=== PATIENT | female | born 1965 | race American Indian/Alaskan Native ===

== ENCOUNTER 2016-08-22 17:42 | Emergency (ER) | payer SELFPAY ==
[2016-08-22 19:06] LABS: Basophils % (Auto) 0.1 % (0.0-1.8); Eosinophils % (Auto) 0.2 % (0.0-4.3); Hematocrit 47.3 % (30.3-42.9); Hemoglobin 15.3 gm/dl (10.1-14.3); Mean Corpuscular HGB Conc 32 % (30-34); Mean Corpuscular Hemoglobin 27 pg (28-32); Mean Corpuscular Volume 85 fl (79-97); Platelet Count 187 K/mm3 (140-440); Red Blood Count 5.56 M/mm3 (3.65-5.03); Red Cell Distribution Width 13.6 % (13.2-15.2); White Blood Count 12.2 K/mm3 (4.5-11.0)
[2016-08-22 19:25] LABS: Anion Gap 17 mmol/L; BUN/Creatinine Ratio 11.11; Blood Urea Nitrogen 10 mg/dL (7-17); Calcium 9.1 mg/dL (8.4-10.2); Carbon Dioxide 27 mmol/L (22-30); Chloride 96.7 mmol/L (98-107); Glucose 110 mg/dL (65-100); Potassium 3.9 mmol/L (3.6-5.0); Sodium 137 mmol/L (137-145)
[2016-08-22] MEDS ORDERED: MOTRIN PO ONE (19:57)
[2016-08-22] MEDS ORDERED: NACL 0.9% 1000 ML 1,000 ML IV ONE (19:57)
[2016-08-22] MEDS ORDERED: DECADRON IV ONE (19:57)
[2016-08-22] MEDS ORDERED: PROVENTIL IH ONE ×2 (19:57→21:38)
[2016-08-22] MEDS ORDERED: DUONEB 0.5 MG-3 MG/3 ML SOLN IH ONE (19:57)
--- NOTE | 2016-08-22 20:13 | Emergency Department Report ---
- General Chief Complaint: Upper Respiratory Infection Stated Complaint: HARINDER/COUGH Time Seen by Provider: 08/22/16 19:43 Source: patient Mode of arrival: Ambulatory Limitations: No Limitations - History of Present Illness Initial Comments: Patient is a 50-year-old female with a history of asthma presenting to the ER with complaints of upper respiratory infection. She reports she's had a productive cough, fever, cough, and decreased apetite in the last week. Patient has tried [id number] ibuprofen and Tylenol and cold medicine with minor relief. Last dose was last night. Patient reports she is an asthmatic presenting any medications due to insurance and lack of primary care. Otherwise no NVD, chest pain, abdominal pain, travel, or sick contacts. Pt is a 1/3ppd smoker. MD Complaint: fever, cough, rhinorrhea -: Gradual, week(s) (1) Improves With: nothing Worsens With: nothing Associated Symptoms: fever, chills, cough, shortness of breath Treatments Prior to Arrival: Acetaminophen, Ibuprofen, "cold medicine" - Related Data Previous Rx's Medication Instructions Recorded Last Taken Type ALBUTEROL Inhaler [ProAir HFA 1 puff IH Q4HR PRN #1 inha 08/22/16 Unknown Rx Inhaler] ALBUTEROL NEB's [Proventil 0.083% 2.5 mg IH TID PRN #30 ml 08/22/16 Unknown Rx NEBS] Azithromycin [Zithromax Z-HERIBERTO] 250 mg PO QDAY #6 tablet 08/22/16 Unknown Rx Allergies Allergy/AdvReac Type Severity Reaction Status Date / Time bupropion HCl Allergy Hives Verified 07/22/15 11:26 [From Wellbutrin] diphenhydramine HCl Allergy Hives Verified 07/22/15 11:26 [From Benadryl] ED Review of Systems ROS: Stated complaint: HARINDER/COUGH Other details as noted in HPI Comment: All other systems reviewed and negative ED Past Medical Hx - Past Medical History Previous Medical History?: Yes Hx Asthma: Yes Hx COPD: Yes Additional medical history: SARCOIDOSIS - Surgical History Past Surgical History?: Yes Additional Surgical History: LUNG BIOPSY. HYSTERECTOMY. TUBAL LIGATION - Social History Smoking Status: Current Some Day Smoker Substance Use Type: Alcohol - Medications Home Medications: Home Medications Medication Instructions Recorded Confirmed Last Taken Type ALBUTEROL Inhaler [ProAir HFA 1 puff IH Q4HR PRN #1 inha 08/22/16 Unknown Rx Inhaler] ALBUTEROL NEB's [Proventil 0.083% 2.5 mg IH TID PRN #30 ml 08/22/16 Unknown Rx NEBS] Azithromycin [Zithromax Z-HERIBERTO] 250 mg PO QDAY #6 tablet 08/22/16 Unknown Rx ED Physical Exam - General Limitations: No Limitations - Head Head exam: Present: atraumatic, normocephalic - Eye Eye exam: Present: normal appearance - ENT ENT exam: Present: mucous membranes moist - Neck Neck exam: Present: normal inspection. Absent: tenderness, meningismus, lymphadenopathy - Respiratory Respiratory exam: Absent: respiratory distress, wheezes, rhonchi (Decreased air entry) - Cardiovascular Cardiovascular Exam: Present: normal rhythm, tachycardia, normal heart sounds. Absent: systolic murmur, diastolic murmur, rubs, gallop - GI/Abdominal GI/Abdominal exam: Present: soft, normal bowel sounds. Absent: distended, tenderness, guarding - Psychiatric Psychiatric exam: Present: normal affect, normal mood - Skin Skin exam: Present: warm, dry, intact ED Course Vital Signs 08/22/16 08/22/16 08/22/16 18:19 20:28 20:46 Temperature 100.7 F H Pulse Rate 127 H Pulse Rate [ 117 H Posterior Bilateral Throughout] Respiratory 20 20 Rate Respiratory 28 H Rate [Posterior Bilateral Throughout] Blood Pressure 135/90 Blood Pressure [Left] O2 Sat by Pulse 86 Oximetry 08/22/16 08/22/16 08/22/16 20:47 20:59 21:04 Temperature 99.7 F H Pulse Rate 120 H Pulse Rate [ 112 H Posterior Bilateral Throughout] Respiratory 20 22 Rate Respiratory 19 Rate [Posterior Bilateral Throughout] Blood Pressure Blood Pressure 117/83 [Left] O2 Sat by Pulse 95 Oximetry 08/22/16 22:26 Temperature Pulse Rate Pulse Rate [ 110 H Posterior Bilateral Throughout] Respiratory Rate Respiratory 28 H Rate [Posterior Bilateral Throughout] Blood Pressure Blood Pressure [Left] O2 Sat by Pulse Oximetry - Reevaluation(s) Reevaluation #1: 08/22/16 21:38 Patient reevaluated at 2138 patient reports some improvement however patient still wheezing a heart rate of 125. Oxygenation on 2 L at 90%. Patient reports she has no issues with breathing at baseline and does not use supplemental oxygen. Ordered albuterol 5 mg nebulizer. Reevaluation #2: 08/22/16 22:54 Patient reevaluated at 2254 patient finished her second albuterol nebulizer with significant improvement. Patient's repeat pulse ox is 92% on room air. Patient reports this is better than her baseline which is usually 86% with the history of sarcoidosis. She feels couple being discharged home and will follow- up with the clinic. ED Medical Decision Making - Lab Data Result diagrams: 08/22/16 18:54 08/22/16 18:54 - EKG Data -: EKG Interpreted by Me EKG shows normal: sinus rhythm, axis (normal), intervals (normal), ST-T waves ( No ST/T changes , no STEMI) Rate: tachycardia - Radiology Data Radiology results: image reviewed Chronic changes due to sarcoidosis Critical care attestation.: If time is entered above; I have spent that time in minutes in the direct care of this critically ill patient, excluding procedure time. ED Disposition Clinical Impression: Upper respiratory infection, Shortness of breath Disposition: DISCHARGED TO HOME OR SELFCARE Is pt being admited?: No Does the pt Need Aspirin: No Condition: Stable Instructions: Upper Respiratory Infection (ED), Dyspnea (ED) Additional Instructions: PLEASE FOLLOW UP WITH [facility] ADDRESS: [address] [place] [address] ROAD PHONE: [phone] Prescriptions: ALBUTEROL Inhaler [ProAir HFA Inhaler] 1 puff IH Q4HR PRN #1 inha PRN Reason: Wheezing ALBUTEROL NEB's [Proventil 0.083% NEBS] 2.5 mg IH TID PRN #30 ml PRN Reason: Wheezing Azithromycin [Zithromax Z-HERIBERTO] 250 mg PO QDAY #6 tablet Referrals: PRIMARY CARE,MD [Primary Care Provider] - 3-5 Days
[2016-08-22 23:18] VITALS: BP 120/70
--- NOTE | 2016-08-23 08:29 | XRay Report ---
CHEST XRAY, 2 VIEWS: History: Shortness of breath. Findings: There is mild diffuse interstitial coarsening. The lungs are hyperexpanded but clear. No infiltrate, pleural fluid or pneumothorax is detected. The cardiac silhouette and pulmonary vasculature are within normal limits for technique. The bony thorax is unremarkable. IMPRESSION: Changes consistent with COPD. No acute cardiopulmonary process.
== END 2016-08-22 23:12 | disposition home or self-care (01) ==
LOC: ED 17:42
DX: J06.9 Acute upper respiratory infection, unspecified (principal); J45.909 Unspecified asthma, uncomplicated; J44.9 Chronic obstructive pulmonary disease, unspecified; F17.200 Nicotine dependence, unspecified, uncomplicated
CPT/HCPCS: 36415; 71020; 80048; 84484; 85025; 93005; 93010; 94640; 96361; 96374; 99284; J1100; J7030

== ENCOUNTER 2017-07-26 11:36 | Emergency (ER) | payer SELFPAY ==
[2017-07-26 11:42] VITALS: BP 166/111
[2017-07-26] MEDS ORDERED: TORADOL IM ONE (12:11)
[2017-07-26] MEDS ORDERED: TORADOL ONE (12:12)
--- NOTE | 2017-07-26 12:33 | Emergency Department Report ---
ED Back Pain/Injury HPI - General Chief Complaint: Back Pain/Injury Stated Complaint: BACK PAIN Time Seen by Provider: 07/26/17 12:08 Source: patient Limitations: No Limitations - History of Present Illness Initial Comments: This is a 51-year-old female nontoxic, well nourished in appearance, no acute signs of distress presents to the ED with c/o of acute on chronic low back pain. Patient stated she has been diagnosed with herniated disc in 1999. Patient denies any new trauma. Patient stated pain radiates to bilateral lower extremity. Patient denies any numbness, tingling, fever, chills, nausea, vomiting, chest pain, shortness of breath, flank pain, abdominal pain. Patient denies any dysuria, polyuria, or hematuria. Patient denies any bladder or bowel instability. Patient denies any past medical history besides asthma and COPD. Patient states allergies to Wellbutrin and Benadryl. MD Complaint: back pain -: week(s) (1) Similar Symptoms Previously: Yes Place: home Radiation: left leg, right leg Severity: mild Severity scale (0 -10): 8 Quality: aching Consistency: intermittent Improves With: immobilization, supine, sitting upright Worsens With: movement, walking Associated Symptoms: denies other symptoms. denies: confusion, weakness, chest pain, numbness, difficulty walking, cough, difficulty urinating, diaphoresis, incontinence, fever/chills, constipation, headaches, abdominal pain, loss of appetite, malaise, nausea/vomiting, rash, seizure, shortness of breath, syncope - Related Data Previous Rx's Medication Instructions Recorded Last Taken Type ALBUTEROL Inhaler [ProAir HFA 1 puff IH Q4HR PRN #1 inha 08/22/16 Unknown Rx Inhaler] ALBUTEROL NEB's [Proventil 0.083% 2.5 mg IH TID PRN #30 ml 08/22/16 Unknown Rx NEBS] Azithromycin [Zithromax Z-HERIBERTO] 250 mg PO QDAY #6 tablet 08/22/16 Unknown Rx Cyclobenzaprine [Flexeril] 10 mg PO QHS PRN #7 tablet 07/26/17 Unknown Rx Ibuprofen [Motrin] 600 mg PO Q8H PRN #30 tablet 07/26/17 Unknown Rx Prednisone [predniSONE 10 mg 10 mg PO .TAPER #1 tab.ds.pk 07/26/17 Unknown Rx (6-Day Pack, 21 Tabs)] Allergies Allergy/AdvReac Type Severity Reaction Status Date / Time bupropion HCl Allergy Hives Verified 07/22/15 11:26 [From Wellbutrin] diphenhydramine HCl Allergy Hives Verified 07/22/15 11:26 [From Benadryl] ED Review of Systems ROS: Stated complaint: BACK PAIN Other details as noted in HPI Constitutional: denies: chills, fever Eyes: denies: eye pain, eye discharge, vision change ENT: denies: ear pain, throat pain Respiratory: denies: cough, shortness of breath, wheezing Cardiovascular: denies: chest pain, palpitations Endocrine: no symptoms reported Gastrointestinal: denies: abdominal pain, nausea, diarrhea Genitourinary: denies: urgency, dysuria, discharge Musculoskeletal: back pain. denies: joint swelling, arthralgia Skin: denies: rash, lesions Neurological: denies: headache, weakness, paresthesias Psychiatric: denies: anxiety, depression Hematological/Lymphatic: denies: easy bleeding, easy bruising ED Past Medical Hx - Past Medical History Hx Asthma: Yes Hx COPD: Yes Additional medical history: SARCOIDOSIS - Surgical History Additional Surgical History: LUNG BIOPSY,chronic back pain r/t herniated disc. HYSTERECTOMY. TUBAL LIGATION - Social History Smoking Status: Current Every Day Smoker Substance Use Type: Alcohol - Medications Home Medications: Home Medications Medication Instructions Recorded Confirmed Last Taken Type ALBUTEROL Inhaler [ProAir HFA 1 puff IH Q4HR PRN #1 inha 08/22/16 Unknown Rx Inhaler] ALBUTEROL NEB's [Proventil 0.083% 2.5 mg IH TID PRN #30 ml 08/22/16 Unknown Rx NEBS] Azithromycin [Zithromax Z-HERIBERTO] 250 mg PO QDAY #6 tablet 08/22/16 Unknown Rx Cyclobenzaprine [Flexeril] 10 mg PO QHS PRN #7 tablet 07/26/17 Unknown Rx Ibuprofen [Motrin] 600 mg PO Q8H PRN #30 tablet 07/26/17 Unknown Rx Prednisone [predniSONE 10 mg 10 mg PO .TAPER #1 tab.ds.pk 07/26/17 Unknown Rx (6-Day Pack, 21 Tabs)] ED Physical Exam - General Limitations: No Limitations General appearance: alert, in no apparent distress - Head Head exam: Present: atraumatic, normocephalic - Eye Eye exam: Present: normal appearance, PERRL, EOMI Pupils: Present: normal accommodation - ENT ENT exam: Present: normal exam, normal orophraynx, mucous membranes moist, TM's normal bilaterally, normal external ear exam - Neck Neck exam: Present: normal inspection, full ROM. Absent: tenderness, meningismus, lymphadenopathy, thyromegaly - Respiratory Respiratory exam: Present: normal lung sounds bilaterally. Absent: respiratory distress, wheezes, rales, rhonchi, stridor, chest wall tenderness, accessory muscle use, decreased breath sounds, prolonged expiratory - Cardiovascular Cardiovascular Exam: Present: regular rate, normal rhythm, normal heart sounds. Absent: irregular rhythm, systolic murmur, diastolic murmur, rubs, gallop - GI/Abdominal GI/Abdominal exam: Present: soft, normal bowel sounds. Absent: distended, tenderness, guarding, rebound, rigid, diminished bowel sounds - Rectal Rectal exam: Present: deferred - Extremities Exam Extremities exam: Present: normal inspection, full ROM, normal capillary refill. Absent: tenderness, pedal edema, joint swelling, calf tenderness - Back Exam Back exam: Present: normal inspection, full ROM, paraspinal tenderness (lumbar region). Absent: tenderness, CVA tenderness (R), CVA tenderness (L), muscle spasm, vertebral tenderness, rash noted - Expanded Back Exam Expanded Back exam: Absent: saddle anesthesia Back exam: Negative Straight Leg Raising: Left, Right - Neurological Exam Neurological exam: Present: alert, oriented X3, CN II-XII intact, normal gait, reflexes normal - Psychiatric Psychiatric exam: Present: normal affect, normal mood - Skin Skin exam: Present: warm, dry, intact, normal color. Absent: rash ED Course Vital Signs 07/26/17 11:40 Temperature 97.7 F Pulse Rate 100 H Respiratory 18 Rate Blood Pressure 166/111 O2 Sat by Pulse 95 Oximetry - Reevaluation(s) Reevaluation #1: 07/26/17 12:35 Patient is speaking in full sentences with no signs of distress noted. ED Medical Decision Making - Medical Decision Making This is a 54-year-old female that presents with acute on chronic low back pain. Patient is stable and was examined me. There is no saddle anesthesia. No spinal tenderness. Patient received Toradol 60 mg IM in the ED which patient states symptoms are improving and subsided. I'll treat patient with Flexeril, prednisone dosepak and Motrin. Patient was instructed to Follow-up with a primary care doctor in 3-5 days or if symptoms worsen and continue return to emergency room as soon as possible. At time of discharge, the patient does not seem toxic or ill in appearance. No acute signs of distress noted. Patient agrees to discharge treatment plan of care. No further questions noted by the patient. Critical care attestation.: If time is entered above; I have spent that time in minutes in the direct care of this critically ill patient, excluding procedure time. ED Disposition Clinical Impression: Chronic low back pain Qualifiers: Back pain laterality: bilateral Sciatica presence: with sciatica Sciatica laterality: bilateral sciatica Qualified Code(s): M54.42 - Lumbago with sciatica , left side; M54.41 - Lumbago with sciatica, right side; G89.29 - Other chronic pain Disposition: TO HOME OR SELFCARE Is pt being admited?: No Does the pt Need Aspirin: No Condition: Stable Instructions: Chronic Back Pain (ED), Cyclobenzaprine (By mouth), Ibuprofen ( By mouth), Prednisone (By mouth) Additional Instructions: Follow-up with your primary care doctor in 3-5 days or if symptoms worsen such as bladder or bowel stability, chest pain, short of breath, numbness or tingling sensation in extremities, headache, dizziness, visual changes, nausea vomiting, or abdominal pain, return back to emergency room as was possible. Take ibuprofen and Flexeril as prescribed. Do not operate heavy machinery while taking Flexeril due to sedation Prescriptions: Cyclobenzaprine [Flexeril] 10 mg PO QHS PRN #7 tablet PRN Reason: Muscle Spasm Ibuprofen [Motrin] 600 mg PO Q8H PRN #30 tablet PRN Reason: Pain Prednisone [predniSONE 10 mg (6-Day Pack, 21 Tabs)] 10 mg PO .TAPER #1 tab.ds.pk Referrals: PRIMARY CARE, [Primary Care Provider] - 3-5 Days MARKELL ORTIZ MD [Staff Physician] - 3-5 Days [facility] [Outside] - 3-5 Days [facility] [Outside] - 3-5 Days Forms: Work/School Release Form(ED)
== END 2017-07-26 12:45 | disposition home or self-care (01) ==
LOC: ED 11:36
DX: M54.5 Low back pain (principal); G89.29 Other chronic pain; F17.200 Nicotine dependence, unspecified, uncomplicated; J44.9 Chronic obstructive pulmonary disease, unspecified; Z90.710 Acquired absence of both cervix and uterus; Z98.51 Tubal ligation status; Z88.8 Allergy status to other drugs, medicaments and biological substances
CPT/HCPCS: 96372; 99282; J1885

== ENCOUNTER 2017-09-19 10:46 | Emergency (ER) | payer SELFPAY ==
[2017-09-19] MEDS ORDERED: DELTASONE PO ONE (11:19)
[2017-09-19] MEDS ORDERED: ATROVENT IH ONE (11:19)
[2017-09-19] MEDS ORDERED: PROVENTIL IH ONE ×2 (11:19→12:47)
[2017-09-19 12:05] LABS: BUN/Creatinine Ratio 12; Blood Urea Nitrogen 7 mg/dL (7-17); Calcium 8.9 mg/dL (8.4-10.2); Hemolysis Index 8
[2017-09-19 12:07] LABS: Basophils % (Auto) 0.4 % (0.0-1.8); Eosinophils # (Auto) 0.1 K/mm3 (0.0-0.4); Eosinophils % (Auto) 2.6 % (0.0-4.3); Hematocrit 48.9 % (30.3-42.9); Hemoglobin 16.3 gm/dl (10.1-14.3); Lymphocytes # (Auto) 1.5 K/mm3 (1.2-5.4); Lymphocytes % (Auto) 32.2 % (13.4-35.0); Mean Corpuscular HGB Conc 33 % (30-34); Mean Corpuscular Hemoglobin 29 pg (28-32); Mean Corpuscular Volume 88 fl (79-97); Monocytes # (Auto) 0.5 K/mm3 (0.0-0.8); Monocytes % (Auto) 11.9 % (0.0-7.3); Platelet Count 173 K/mm3 (140-440); Red Blood Count 5.56 M/mm3 (3.65-5.03); Red Cell Distribution Width 14.7 % (13.2-15.2)
[2017-09-19] MEDS ORDERED: ATROVENT IH STA (12:47)
[2017-09-19] MEDS ORDERED: MAGNESIUM SULFATE 2GM/50ML 2 GM/50 ML BAG IV ONE (12:47)
[2017-09-19] MEDS ORDERED: NACL 0.9% 500 ML 500 ML IV ONE (12:48)
--- NOTE | 2017-09-19 12:49 | Emergency Department Report ---
ED Shortness of Breath HPI - General Chief Complaint: Dyspnea/Respdistress Stated Complaint: HARINDER Time Seen by Provider: 09/19/17 12:38 Source: patient, RN notes reviewed Mode of arrival: Ambulatory Limitations: No Limitations - History of Present Illness Initial Comments: This is a 51-year-old female who is previously unknown to this provider. She does not have a primary care doctor. She reports a past medical history of asthma and of sarcoid. She is not on home oxygen, she is not on chronic steroids, and she does not have a pulmonology specialist. She presents to the ER with cough, wheezing, shortness of breath. It has been going on for months, but it got worse over the past few days. It is no posterior leg pain or leg swelling. There is no chest pain. There are no DVT or pulmonary embolus risk factors. The patient reports that she does consume tobacco. There is no headache, neck pain, abdominal pain, leg pain, or urinary symptoms. MD Complaint: shortness of breath, cough -: Gradual Consistency: constant Improves With: oxygen, rest, bronchodilators, upright position, medication Worsens With: lying flat, exertion Known History Of: COPD, other (sarcoid) Treatments Prior to Arrival: bronchodilator - Related Data Home Oxygen Therapy: No Home Medications Medication Instructions Recorded Confirmed Last Taken Ibuprofen [Motrin] 800 mg PO QPM PRN 09/19/17 09/19/17 Unknown Previous Rx's Medication Instructions Recorded Last Taken Type ALBUTEROL Inhaler [ProAir HFA 1 puff IH Q4HR PRN #1 inha 08/22/16 Unknown Rx Inhaler] Albuterol Sulfate [Proair 90 mcg IH Q4HR PRN #2 aer.pow.ba 09/19/17 Unknown Rx Respiclick] Benzonatate [Tessalon Perles] 100 mg PO Q8HR PRN #30 capsule 09/19/17 Unknown Rx Fluticasone [Flonase] 1 spray NS QDAY #1 bottle 09/19/17 Unknown Rx Ipratropium [place] [Atrovent Hfa] 12.9 gm IH Q4HR #2 hfa.aer.ad 09/19/17 Unknown Rx predniSONE [Deltasone] 40 mg PO QDAY #8 tab 09/19/17 Unknown Rx Allergies Allergy/AdvReac Type Severity Reaction Status Date / Time bupropion HCl Allergy Hives Verified 07/22/15 11:26 [From Wellbutrin] diphenhydramine HCl Allergy Hives Verified 07/22/15 11:26 [From Benadryl] ED Review of Systems ROS: Stated complaint: HARINDER Other details as noted in HPI Constitutional: denies: fever Eyes: denies: vision change ENT: denies: epistaxis Respiratory: cough, shortness of breath, wheezing Cardiovascular: dyspnea on exertion Gastrointestinal: denies: vomiting Genitourinary: denies: dysuria Musculoskeletal: denies: back pain Skin: denies: lesions Neurological: denies: weakness ED Past Medical Hx - Past Medical History Previous Medical History?: Yes Hx Asthma: Yes Hx COPD: Yes Additional medical history: SARCOIDOSIS - Surgical History Past Surgical History?: Yes Additional Surgical History: LUNG BIOPSY,chronic back pain r/t herniated disc. HYSTERECTOMY. TUBAL LIGATION - Social History Smoking Status: Current Every Day Smoker Substance Use Type: Alcohol - Medications Home Medications: Home Medications Medication Instructions Recorded Confirmed Last Taken Type ALBUTEROL Inhaler [ProAir HFA 1 puff IH Q4HR PRN #1 inha 08/22/16 09/19/17 Unknown Rx Inhaler] Albuterol Sulfate [Proair 90 mcg IH Q4HR PRN #2 aer.pow.ba 09/19/17 Unknown Rx Respiclick] Benzonatate [Tessalon Perles] 100 mg PO Q8HR PRN #30 capsule 09/19/17 Unknown Rx Fluticasone [Flonase] 1 spray NS QDAY #1 bottle 09/19/17 Unknown Rx Ibuprofen [Motrin] 800 mg PO QPM PRN 09/19/17 09/19/17 Unknown History Ipratropium [place] [Atrovent Hfa] 12.9 gm IH Q4HR #2 hfa.aer.ad 09/19/17 Unknown Rx predniSONE [Deltasone] 40 mg PO QDAY #8 tab 09/19/17 Unknown Rx ED Physical Exam - General Limitations: No Limitations General appearance: alert, in no apparent distress - Head Head exam: Present: atraumatic, normocephalic - Eye Eye exam: Present: normal appearance, EOMI. Absent: nystagmus - ENT ENT exam: Present: normal exam, normal orophraynx, mucous membranes moist, normal external ear exam - Neck Neck exam: Present: normal inspection, full ROM - Respiratory Respiratory exam: Present: respiratory distress, wheezes, rhonchi - Cardiovascular Cardiovascular Exam: Present: regular rate, normal rhythm, normal heart sounds. Absent: bradycardia, tachycardia, irregular rhythm, systolic murmur, diastolic murmur, rubs, gallop - GI/Abdominal GI/Abdominal exam: Present: soft, normal bowel sounds. Absent: distended, tenderness, guarding, rebound, rigid, pulsatile mass - Extremities Exam Extremities exam: Present: normal inspection, full ROM, normal capillary refill. Absent: tenderness, pedal edema, joint swelling, calf tenderness - Back Exam Back exam: Present: normal inspection, full ROM. Absent: tenderness, CVA tenderness (R), paraspinal tenderness, vertebral tenderness - Neurological Exam Neurological exam: Present: alert, oriented X3, CN II-XII intact, normal gait, other (Extraocular movements intact. Tongue midline. No facial droop. Facial sensation intact to light touch in the V1, V2, V3 distribution bilaterally. 5 and 5 strength in 4 extremities.. Sensation is intact to light touch in 4 extremities.). Absent: motor sensory deficit - Psychiatric Psychiatric exam: Present: normal affect, normal mood - Skin Skin exam: Present: warm, dry, intact, normal color. Absent: rash ED Course Vital Signs 09/19/17 10:59 Temperature 98.4 F Pulse Rate 94 H Respiratory 24 Rate Blood Pressure 175/120 O2 Sat by Pulse 94 Oximetry ED Medical Decision Making - Lab Data Result diagrams: 09/19/17 11:30 09/19/17 11:30 Vital Signs 09/19/17 10:59 Temperature 98.4 F Pulse Rate 94 H Respiratory 24 Rate Blood Pressure 175/120 O2 Sat by Pulse 94 Oximetry Lab Results 09/19/17 09/19/17 Range/Units 11:30 11:30 WBC 4.6 (4.5-11.0) K/mm3 RBC 5.56 H (3.65-5.03) M/mm3 Hgb 16.3 H (10.1-14.3) gm/dl Hct 48.9 H (30.3-42.9) % MCV 88 (79-97) fl MCH 29 (28-32) pg MCHC 33 (30-34) % RDW 14.7 (13.2-15.2) % Plt Count 173 (140-440) K/mm3 Lymph % (Auto) 32.2 (13.4-35.0) % [place] % (Auto) 11.9 H (0.0-7.3) % Eos % (Auto) 2.6 (0.0-4.3) % Baso % (Auto) 0.4 (0.0-1.8) % Lymph # 1.5 (1.2-5.4) K/mm3 [place] # 0.5 (0.0-0.8) K/mm3 Eos # 0.1 (0.0-0.4) K/mm3 Baso # 0.0 (0.0-0.1) K/mm3 Seg Neutrophils % 52.9 (40.0-70.0) % Seg Neutrophils # 2.4 (1.8-7.7) K/mm3 Sodium 139 (137-145) mmol/L Potassium 4.4 (3.6-5.0) mmol/L Chloride 101.2 (98-107) mmol/L Carbon Dioxide 26 (22-30) mmol/L Anion Gap 16 mmol/L BUN 7 (7-17) mg/dL Creatinine 0.6 L (0.7-1.2) mg/dL Estimated GFR > 60 ml/min BUN/Creatinine Ratio 12 % Glucose 106 H (65-100) mg/dL Calcium 8.9 (8.4-10.2) mg/dL - EKG Data -: EKG Interpreted by Ri EKG shows normal: sinus rhythm - EKG Data When compared to previous EKG there are: no significant change 09/19/17 14:52 Sinus, 88 bpm, normal axis, QTC prolonged, poor R-wave progression motion artifact, not consistent with a STEMI - Radiology Data Radiology results: report reviewed, image reviewed X-ray of the chest, interpreted by radiology and myself: No acute disease, emphysema, right lung infiltrate has resolved since 2017 - Medical Decision Making Differential diagnosis, including but not limited to: COPD, pneumonia, sarcoid, multifactorial reactive airway disease Assessment and plan: 51-year-old female with multiple pulmonary diseases, not currently on home oxygen, with no pulmonary embolus or DVT risk factors who is low risk by well's criteria. Patient treated aggressively with albuterol, Atrovent multiple times, steroids, magnesium. She is not on supplemental oxygen at home, and is still hypoxic on room air. Declines arterial blood gas. I recommended hospital admission for acute on chronic respiratory failure and further treatment. The patient declines. The patient is going to sign out AGAINST MEDICAL ADVICE. The patient is alert and oriented 3, she is free from distracting injury and exhibits decision-making capacity. The risks of leaving prior to medical optimization were discussed with patient, including , disability, paralysis , loss of quality of life. Patient able to articulate these risks in her own words, and his conversation is witnessed by nurse NANCY KLINE The patient was instructed that she can return to the ER right away if and when she changes her mind. Critical care attestation.: If time is entered above; I have spent that time in minutes in the direct care of this critically ill patient, excluding procedure time. ED Disposition Clinical Impression: COPD exacerbation Disposition: DC-07 LEFT AGAINST MED ADVICE Is pt being admited?: No Does the pt Need Aspirin: No Condition: Undetermined Instructions: Chronic Obstructive Pulmonary Disease (ED) Additional Instructions: As we discussed, you have left the hospital/emergency room AGAINST MEDICAL ADVICE. By leaving, you risked , disability, paralysis, permanent loss of quality of life. The ER is open 24 hours a day, 7 days a week. It never closes. Please return to the emergency room right away if and when you change your mind. If you decide not to return to the emergency room, please follow-up with the listed physician referrals as soon as possible. Referrals: GERMÁN BRUNER MD [Staff Physician] - 3-5 Days СВЕТЛАНА SILVERIO MD [Staff Physician] - 3-5 Days MAMIE HARRELL MD [Staff Physician] - 3-5 Days
--- NOTE | 2017-09-19 13:07 | XRay Report ---
ROUTINE CHEST, TWO VIEWS: HISTORY: Shortness of breath. Underlying emphysematous changes are identified. Infiltrate at the right lung base has resolved since 08/22/16. The lungs are generally clear. No pleural effusion or pneumothorax. Heart and mediastinal structures are within normal limits. IMPRESSION: Emphysema. Right lung infiltrate has resolved since 08/22/16.
[2017-09-19 15:22] VITALS: BP 148/107
== END 2017-09-19 15:23 | disposition left against medical advice (07) ==
LOC: ED 10:46
DX: J44.1 Chronic obstructive pulmonary disease with (acute) exacerbation (principal); M54.9 Dorsalgia, unspecified; G89.29 Other chronic pain; F17.200 Nicotine dependence, unspecified, uncomplicated; Z90.710 Acquired absence of both cervix and uterus; Z98.51 Tubal ligation status; Z88.8 Allergy status to other drugs, medicaments and biological substances
CPT/HCPCS: 36415; 71046; 80048; 85025; 93005; 93010; 96374; 99284; J3475; J7040; J7512

== ENCOUNTER 2019-01-19 12:06 | Emergency (ER) | payer SELFPAY ==
[2019-01-19] MEDS ORDERED: DELTASONE PO ONE (12:21)
[2019-01-19] MEDS ORDERED: PROVENTIL IH ONE (12:21)
--- NOTE | 2019-01-19 12:22 | Event Note ---
ED Screening Note Date of service: 01/19/19 Time: 12:20 ED Screening Note: 53 y/o female comes in for SOB times 1 week has ran out of her inhaler and nebulizer. No fevers or chills. This initial assessment/diagnostic orders/clinical plan/treatment(s) is/are subject to change based on patients health status, clinical progression and re- assessment by fellow clinical providers in the ED. Further treatment and workup at subsequent clinical providers discretion. Patient/guardian urged not to elope from the ED as their condition may be serious if not clinically assessed and managed. Initial orders include: Albuterol neb prednisone 40mg
[2019-01-19] MEDS ORDERED: ATROVENT IH ONE (12:30)
--- NOTE | 2019-01-19 12:52 | Emergency Department Report ---
HPI - General Chief Complaint: Dyspnea/Respdistress Time Seen by Provider: 01/19/19 12:19 - HPI HPI: 53-year-old -Iranian female presents to the emergency department with a complaint of a one-week history of some shortness of breath, wheezing and dry cough. She has a history of COPD and says that she ran out of her inhaler a few days ago and her nebulizer treatments a week or so ago. 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 She has a tobacco smoker but denies any illicit drug use. She is not oxygen dependent at home. No recent travel or sick contacts at home. She denies any chest pain, back pain, lower extremity swelling, fever. She has not taken anything for her symptoms prior to presentation today. ED Past Medical Hx - Past Medical History Previous Medical History?: Yes Hx Asthma: Yes Hx COPD: Yes Additional medical history: SARCOIDOSIS - Surgical History Past Surgical History?: Yes Additional Surgical History: LUNG BIOPSY,chronic back pain r/t herniated disc. HYSTERECTOMY. TUBAL LIGATION - Social History Smoking Status: Current Every Day Smoker Substance Use Type: Alcohol - Medications Home Medications: Home Medications Medication Instructions Recorded Confirmed Last Taken Type Albuterol Sulfate [Proair 90 mcg IH Q4HR PRN #2 aer.pow.ba 09/19/17 Unknown Rx Respiclick] Benzonatate [Tessalon Perles] 100 mg PO Q8HR PRN #30 capsule 09/19/17 Unknown Rx Fluticasone [Flonase] 1 spray NS QDAY #1 bottle 09/19/17 Unknown Rx Ibuprofen [Motrin] 800 mg PO QPM PRN 09/19/17 09/19/17 Unknown History Ipratropium [place] [Atrovent Hfa] 12.9 gm IH Q4HR #2 hfa.aer.ad 09/19/17 Unknown Rx ALBUTEROL Inhaler (OR & NICU) 1 puff IH Q4HR PRN #1 inha 01/19/19 Unknown Rx [ProAir HFA Inhaler] ALBUTEROL NEB's [Proventil 0.083% 2.5 mg IH QID PRN #1 box 01/19/19 Unknown Rx NEBS] predniSONE [Deltasone] 40 mg PO QDAY #8 tab 01/19/19 Unknown Rx ED Review of Systems ROS: Stated complaint: HARINDER Other details as noted in HPI Comment: All other systems reviewed and negative Constitutional: denies: chills, fever Eyes: denies: eye pain, vision change ENT: denies: ear pain, throat pain Respiratory: cough, shortness of breath, wheezing Cardiovascular: denies: chest pain, edema Gastrointestinal: denies: abdominal pain, vomiting Genitourinary: denies: dysuria, discharge Musculoskeletal: denies: back pain, arthralgia Skin: denies: rash, lesions Neurological: denies: headache, weakness Physical Exam - Physical Exam Vital Signs: Vital Signs 01/19/19 01/19/19 12:16 12:36 Temperature 98.8 F Pulse Rate 93 H Pulse Rate [ 94 H Bilateral Upper Lobe] Respiratory 20 Rate Respiratory 20 Rate [Bilateral Upper Lobe] Blood Pressure 168/113 [Right] O2 Sat by Pulse 93 Oximetry Physical Exam: GENERAL: The patient is well-developed well-nourished. HENT: Normocephalic. Atraumatic. Patient has moist mucous membranes. EYES: Extraocular motions are intact. NECK: Supple. Trachea is midline. CHEST/LUNGS: Mild to moderate wheezing throughout the chest. No tachypnea or accessory muscle use. Dry cough heard during examination. There is no respiratory distress noted. HEART/CARDIOVASCULAR: Regular. There is no tachycardia. There is no murmur. ABDOMEN: Abdomen is soft, nontender. Patient has normal bowel sounds. There is no abdominal distention. SKIN: Skin is warm and dry. NEURO: The patient is awake, alert, and oriented. The patient is cooperative. The patient has no focal neurologic deficits. Normal speech. MUSCULOSKELETAL: There is no tenderness or deformity. There is no evidence of acute injury. ED Course Vital Signs 01/19/19 01/19/19 12:16 12:36 Temperature 98.8 F Pulse Rate 93 H Pulse Rate [ 94 H Bilateral Upper Lobe] Respiratory 20 Rate Respiratory 20 Rate [Bilateral Upper Lobe] Blood Pressure 168/113 [Right] O2 Sat by Pulse 93 Oximetry ED Medical Decision Making - Lab Data Result diagrams: 01/19/19 12:34 01/19/19 12:34 - Radiology Data Radiology results: image reviewed interpreted by me: Chest x-ray does not show any acute process. There are no pleural effusions, obvious pneumonia and there is no pneumothorax. - Medical Decision Making Patient presents with a one-week history of some shortness of breath, wheezing and dry cough. She has a history of COPD and is still a tobacco smoker. She also has run out of her inhaler and nebulizer medications. Vital signs were stable throughout her ED course including being afebrile. Chest x-ray did not show any pleural effusions, pneumonia, pneumothorax, focal consolidation, or any other acute process. Patient was given a dose of steroids, as well as a nebulizer treatment with albuterol and Atrovent. Upon reevaluation she is feeling greatly improved. Her wheezing/bronchospasm has also improved. Labs have been unremarkable including CBC and metabolic panel. She has no complaints of any chest pain, back pain or lower extremity swelling. All this appears consistent with a COPD exacerbation that is most likely secondary to her medication noncompliance and continued tobacco abuse. However the patient does appear improved and safe for discharge home at this time. She's been given a refill of the albuterol nebulizer and inhaler medications, as well as a further 4 day course of steroids. She has been given multiple referrals for primary care clinics in the area. We discussed smoking cessation. She will return to ER with any worsening of her symptoms or any acute distress. - Differential Diagnosis COPD, asthma, pneumonia, bronchitis Critical Care Time: No Critical care attestation.: If time is entered above; I have spent that time in minutes in the direct care of this critically ill patient, excluding procedure time. ED Disposition Clinical Impression: COPD exacerbation, Tobacco use Hypertension Qualifiers: Hypertension type: essential hypertension Qualified Code(s): I10 - Essential (primary) hypertension Disposition: DC-01 TO HOME OR SELFCARE Is pt being admited?: No Condition: Stable Instructions: How to Stop Smoking (ED), Chronic Obstructive Pulmonary Disease (ED), Hypertension (ED) Additional Instructions: Please follow up with a primary care physician in the next few days. Return to the emergency Department with any worsening of your symptoms or any acute distress. Please try and quit smoking. Try and stay away from foods that are high in salt and caffeinated products. Keep a blood pressure log. Prescriptions: predniSONE [Deltasone] 40 mg PO QDAY #8 tab ALBUTEROL Inhaler (OR & NICU) [ProAir HFA Inhaler] 1 puff IH Q4HR PRN #1 inha PRN Reason: Wheezing ALBUTEROL NEB's [Proventil 0.083% NEBS] 2.5 mg IH QID PRN #1 box PRN Reason: Wheezing Referrals: [facility] [Outside] - 2-3 Days [facility] [Outside] - 2-3 Days [facility] [Outside] - 2-3 Days [facility] [Outside] - 2-3 Days Forms: Work/School Release Form(ED)
[2019-01-19 13:05] LABS: Basophils % (Auto) 0.3 % (0.0-1.8); Eosinophils # (Auto) 0.1 K/mm3 (0.0-0.4); Eosinophils % (Auto) 1.5 % (0.0-4.3); Hematocrit 48.5 % (30.3-42.9); Hemoglobin 16.1 gm/dl (10.1-14.3); Lymphocytes # (Auto) 0.9 K/mm3 (1.2-5.4); Lymphocytes % (Auto) 14.7 % (13.4-35.0); Mean Corpuscular HGB Conc 33 % (30-34); Mean Corpuscular Volume 89 fl (79-97); Monocytes # (Auto) 0.7 K/mm3 (0.0-0.8); Monocytes % (Auto) 10.6 % (0.0-7.3); Platelet Count 187 K/mm3 (140-440); Red Blood Count 5.43 M/mm3 (3.65-5.03); Red Cell Distribution Width 14.3 % (13.2-15.2)
[2019-01-19 13:16] LABS: INR 0.96 (0.87-1.13); Partial Thromboplastin Time 27.4 Sec. (24.2-36.6)
[2019-01-19 13:24] LABS: BUN/Creatinine Ratio 13; Blood Urea Nitrogen 9 mg/dL (7-17); Calcium 9.1 mg/dL (8.4-10.2); Hemolysis Index 9
--- NOTE | 2019-01-19 14:21 | XRay Report ---
CHEST 2 VIEWS INDICATION: SOB. COMPARISON: [facility] 2017 FINDINGS: Support devices: None. Heart: Within normal limits. Pulmonary vasculature: Lungs/pleura: No acute air space or interstitial disease. Bilateral emphysematous changes. No pneumot horax. Additional findings: None. IMPRESSION: 1. No acute findings. Signer Name: Davon Herrera MD Signed: 01/19/2019 2:17 PM Workstation Name: [id number]
[2019-01-19 14:36] VITALS: BP 157/99
== END 2019-01-19 14:36 | disposition home or self-care (01) ==
LOC: ED 12:06
DX: J44.1 Chronic obstructive pulmonary disease with (acute) exacerbation (principal); I10 Essential (primary) hypertension; Z72.0 Tobacco use; Z88.1 Allergy status to other antibiotic agents
CPT/HCPCS: 36415; 71046; 80048; 85025; 85610; 85730; 94644; 99284; J7512

== ENCOUNTER 2019-01-25 11:47 | Emergency (ER) | payer SELFPAY ==
--- NOTE | 2019-01-25 12:14 | Emergency Department Report ---
Blank Doc - Documentation Documentation: 53-year-old female that presents with SOB. HX of COPD. Denies any chest pain. This initial assessment/diagnostic orders/clinical plan/treatment(s) is/are subject to change based on patient's health status, clinical progression and re- assessment by fellow clinical providers in the ED. Further treatment and workup at subsequent clinical providers discretion. Patient/guardians urged not to elope from the ED as their condition may be serious if not clinically assessed and managed. Initial orders include: 1- Patient sent to MAIN for further evaluation and treatment 2- labs 3- EKG 4- CXR
[2019-01-25 13:16] LABS: Hematocrit 46.6 % (30.3-42.9); Hemoglobin 15.9 gm/dl (10.1-14.3); Mean Corpuscular HGB Conc 34 % (30-34); Mean Corpuscular Volume 89 fl (79-97); Platelet Count 199 K/mm3 (140-440); Red Blood Count 5.22 M/mm3 (3.65-5.03)
--- NOTE | 2019-01-25 13:24 | XRay Report ---
CHEST 2 VIEWS INDICATION: Chest Pain. COMPARISON: 01/19/2019 and 09/19/2017 FINDINGS: Support devices: None. Heart: Within normal limits. Pulmonary vasculature: Normal. Lungs/pleura: Upper lobe emphysematous changes and predominantly basal chronic interstitial opacities are unchanged compared to previous exams. No airspace disease or pleural effusion. No pneumothorax. Additional findings: None. IMPRESSION: 1. No acute findings. 2. COPD and chronic interstitial disease predominantly in the lung bases. Signer Name: Davon Herrera MD Signed: 01/25/2019 1:20 PM Workstation Name: [id number]
[2019-01-25 13:30] LABS: INR 0.98 (0.87-1.13)
[2019-01-25 13:31] LABS: Partial Thromboplastin Time 24.3 Sec. (24.2-36.6)
[2019-01-25 13:42] LABS: BUN/Creatinine Ratio 11; Blood Urea Nitrogen 9 mg/dL (7-17); Hemolysis Index 7
[2019-01-25 14:35] LABS: Basophils % (Manual) 0 % (0.0-1.8); Eosinophils % (Manual) 0 % (0.0-4.3); Platelet Estimate Consistent w Auto; RBC Morphology Normal; Total Cells Counted 100
[2019-01-25] MEDS ORDERED: ATROVENT IH ONE (17:09)
[2019-01-25] MEDS ORDERED: PROVENTIL IH ONE (17:09)
[2019-01-25] MEDS ORDERED: SOLU-Medrol IV ONE (17:10)
--- NOTE | 2019-01-25 17:13 | Emergency Department Report ---
ED Shortness of Breath HPI - General Chief Complaint: Dyspnea/Respdistress Stated Complaint: HARINDER Time Seen by Provider: 01/25/19 12:12 Source: patient Mode of arrival: Ambulatory Limitations: No Limitations - History of Present Illness Initial Comments: Patient is 53 years old female with history of sarcoidosis. Patient presented to the ER complaining of shortness of breath cough and wheezing for the last 4 days. Patient stated that she was seen here 3 days ago and she was given steroids and breathing treatment but her symptoms is not improving. Patient denied any chest pain, fever or chills. Patient initial oxygen saturation was 92%, increased with oxygen to 96%. MD Complaint: shortness of breath, cough -: days(s) (4) Severity: moderate Consistency: constant Treatments Prior to Arrival: bronchodilator - Related Data Home Medications Medication Instructions Recorded Confirmed Last Taken Ibuprofen [Motrin] 800 mg PO QPM PRN 09/19/17 09/19/17 Unknown Previous Rx's Medication Instructions Recorded Last Taken Type Albuterol Sulfate [Proair 90 mcg IH Q4HR PRN #2 aer.pow.ba 09/19/17 Unknown Rx Respiclick] Benzonatate [Tessalon Perles] 100 mg PO Q8HR PRN #30 capsule 09/19/17 Unknown Rx Fluticasone [Flonase] 1 spray NS QDAY #1 bottle 09/19/17 Unknown Rx Ipratropium [place] [Atrovent Hfa] 12.9 gm IH Q4HR #2 hfa.aer.ad 09/19/17 Unknown Rx ALBUTEROL Inhaler (OR & NICU) 1 puff IH Q4HR PRN #1 inha 01/19/19 Unknown Rx [ProAir HFA Inhaler] ALBUTEROL NEB's [Proventil 0.083% 2.5 mg IH QID PRN #1 box 01/19/19 Unknown Rx NEBS] predniSONE [Deltasone] 40 mg PO QDAY #8 tab 01/19/19 Unknown Rx Allergies Allergy/AdvReac Type Severity Reaction Status Date / Time bupropion HCl Allergy Hives Verified 01/19/19 12:10 [From Wellbutrin] diphenhydramine HCl Allergy Hives Verified 01/19/19 12:10 [From Benadryl] ED Review of Systems ROS: Stated complaint: HARINDER Other details as noted in HPI Comment: All other systems reviewed and negative Constitutional: denies: chills, fever Respiratory: cough, shortness of breath, SOB with exertion, SOB at rest, wheezing. denies: orthopnea Cardiovascular: dyspnea on exertion. denies: chest pain, palpitations Gastrointestinal: denies: abdominal pain, nausea, vomiting Neurological: denies: headache, weakness, numbness, paresthesias, confusion, abnormal gait ED Past Medical Hx - Past Medical History Hx Asthma: Yes Hx COPD: Yes Additional medical history: SARCOIDOSIS - Surgical History Additional Surgical History: LUNG BIOPSY,chronic back pain r/t herniated disc. HYSTERECTOMY. TUBAL LIGATION - Social History Smoking Status: Current Every Day Smoker Substance Use Type: None - Medications Home Medications: Home Medications Medication Instructions Recorded Confirmed Last Taken Type Albuterol Sulfate [Proair 90 mcg IH Q4HR PRN #2 aer.pow.ba 09/19/17 Unknown Rx Respiclick] Benzonatate [Tessalon Perles] 100 mg PO Q8HR PRN #30 capsule 09/19/17 Unknown Rx Fluticasone [Flonase] 1 spray NS QDAY #1 bottle 09/19/17 Unknown Rx Ibuprofen [Motrin] 800 mg PO QPM PRN 09/19/17 09/19/17 Unknown History Ipratropium [place] [Atrovent Hfa] 12.9 gm IH Q4HR #2 hfa.aer.ad 09/19/17 Unknown Rx ALBUTEROL Inhaler (OR & NICU) 1 puff IH Q4HR PRN #1 inha 01/19/19 Unknown Rx [ProAir HFA Inhaler] ALBUTEROL NEB's [Proventil 0.083% 2.5 mg IH QID PRN #1 box 01/19/19 Unknown Rx NEBS] predniSONE [Deltasone] 40 mg PO QDAY #8 tab 01/19/19 Unknown Rx ED Physical Exam - General Limitations: No Limitations General appearance: alert, in no apparent distress - Head Head exam: Present: atraumatic, normocephalic, normal inspection - Eye Eye exam: Present: normal appearance, PERRL - ENT ENT exam: Present: normal exam, normal orophraynx, mucous membranes moist - Neck Neck exam: Present: normal inspection, full ROM. Absent: tenderness, meningismus, lymphadenopathy, thyromegaly - Respiratory Respiratory exam: Present: respiratory distress, wheezes, rhonchi, prolonged expiratory. Absent: rales, stridor, accessory muscle use, decreased breath sounds - Cardiovascular Cardiovascular Exam: Present: tachycardia - GI/Abdominal GI/Abdominal exam: Present: soft, normal bowel sounds. Absent: distended, tenderness, guarding, rebound, rigid, organomegaly, mass, bruit, pulsatile mass, hernia - Extremities Exam Extremities exam: Present: normal inspection, full ROM, normal capillary refill - Back Exam Back exam: Absent: CVA tenderness (R), CVA tenderness (L) - Neurological Exam Neurological exam: Present: alert, oriented X3, CN II-XII intact, normal gait, reflexes normal - Skin Skin exam: Present: warm, intact, normal color ED Course Vital Signs 01/25/19 01/25/19 01/25/19 12:12 17:08 17:09 Temperature 98.9 F 98.3 F Pulse Rate 103 H 90 Pulse Rate [ Anterior Throughout] Respiratory 16 16 16 Rate Respiratory Rate [Anterior Throughout] Blood Pressure 169/120 149/100 [Left] O2 Sat by Pulse 92 97 97 Oximetry 01/25/19 01/25/19 17:46 17:47 Temperature Pulse Rate Pulse Rate [ 106 H Anterior Throughout] Respiratory Rate Respiratory 20 Rate [Anterior Throughout] Blood Pressure [Left] O2 Sat by Pulse 100 Oximetry ED Medical Decision Making - Lab Data Result diagrams: 01/25/19 12:46 01/25/19 12:46 - EKG Data -: EKG Interpreted by Or EKG shows normal: sinus rhythm Rate: normal - EKG Data Interpretation: no acute changes - Radiology Data Radiology results: report reviewed - Medical Decision Making Patient is 53 years old female with history of sarcoidosis. Patient presented to the ER complaining of shortness of breath cough and wheezing for the last 4 days. Patient stated that she was seen here 3 days ago and she was given steroids and breathing treatment but her symptoms is not improving. Patient denied any chest pain, fever or chills. Patient initial oxygen saturation was 92%, increased with oxygen to 96%. Patient received albuterol, Atrovent and Solu-Medrol. Patient stated that she was feeling much better and requesting to be discharged. Labs reviewed and is unremarkable. Chest x-ray was no acute change. Patient given a prescription for prednisone and Levaquin and advised to follow-up with her primary care physician in the next 2-3 days and to return to the ER if symptoms are not improved. Critical care attestation.: If time is entered above; I have spent that time in minutes in the direct care of this critically ill patient, excluding procedure time. ED Disposition Clinical Impression: COPD exacerbation, Shortness of breath, Acute bronchitis Disposition: TO HOME OR SELFCARE Is pt being admited?: No Condition: Stable Instructions: Chronic Obstructive Pulmonary Disease (ED), Acute Bronchitis (ED) Referrals: PRIMARY CARE, [Primary Care Provider] - 3-5 Days
[2019-01-25 19:04] VITALS: BP 150/108
== END 2019-01-25 19:04 | disposition home or self-care (01) ==
LOC: ED 11:47
DX: J44.1 Chronic obstructive pulmonary disease with (acute) exacerbation (principal); J20.9 Acute bronchitis, unspecified; D86.9 Sarcoidosis, unspecified; M54.9 Dorsalgia, unspecified; G89.29 Other chronic pain; F17.200 Nicotine dependence, unspecified, uncomplicated; Z90.710 Acquired absence of both cervix and uterus; Z98.51 Tubal ligation status; Z79.899 Other long term (current) drug therapy; Z88.8 Allergy status to other drugs, medicaments and biological substances
CPT/HCPCS: 36415; 71046; 80048; 83880; 84484; 85007; 85025; 85610; 85730; 93005; 93010; 94644; 94760; 96374; 99285; J2930

== ENCOUNTER 2019-10-08 03:52 | Emergency (ER) | payer SELFPAY ==
[2019-10-08] MEDS ORDERED: ALBUTEROL 2.5 MG/3 ML NEBU IH ONE ×2 (04:16→06:37)
[2019-10-08] MEDS ORDERED: IPRATROPIUM 0.02% NEBU 2.5 ML IH ONE (04:17)
[2019-10-08] MEDS ORDERED: methylPREDNISolone Sod Succinate 125 MG/2 ML INJ IV ONE (04:18)
[2019-10-08] MEDS ORDERED: MAGNESIUM SULFATE 2 GM/50 ML BAG IV ONE (04:20)
[2019-10-08 04:33] LABS: Basophils % (Auto) 0.6 % (0.0-1.8); Eosinophils # (Auto) 0.2 K/mm3 (0.0-0.4); Eosinophils % (Auto) 2.8 % (0.0-4.3); Hematocrit 48.1 % (30.3-42.9); Hemoglobin 16.1 gm/dl (10.1-14.3); Lymphocytes # (Auto) 1.4 K/mm3 (1.2-5.4); Lymphocytes % (Auto) 24.3 % (13.4-35.0); Mean Corpuscular HGB Conc 34 % (30-34); Mean Corpuscular Volume 90 fl (79-97); Monocytes # (Auto) 0.6 K/mm3 (0.0-0.8); Monocytes % (Auto) 9.8 % (0.0-7.3); Platelet Count 206 K/mm3 (140-440); Red Blood Count 5.33 M/mm3 (3.65-5.03); Red Cell Distribution Width 15.7 % (13.2-15.2)
[2019-10-08 04:52] LABS: BUN/Creatinine Ratio 19; Blood Urea Nitrogen 15 mg/dL (7-17); Hemolysis Index 50
--- NOTE | 2019-10-08 04:52 | XRay Report ---
CHEST 1 VIEW, 10/08/2019 424 AM CLINICAL INFORMATION/INDICATION: Shortness of breath COMPARISON: Chest radiograph, 01/25/2019 FINDINGS: SUPPORT DEVICES: None. HEART: The cardiac silhouette is normal in size. LUNGS/PLEURA: Chronic interstitial changes are again noted and appear similar to the previous study. No superimposed airspace disease or pleural effusion is visualized. ADDITIONAL FINDINGS: No additional acute findings. IMPRESSION: 1. Stable appearance of chronic interstitial changes. Signer Name: Chanel Rutledge MD Signed: 10/08/2019 4:48 AM Workstation Name: [id number]
--- NOTE | 2019-10-08 06:51 | Emergency Department Report ---
HPI - General Chief Complaint: Dyspnea/Respdistress Time Seen by Provider: 10/08/19 06:27 - HPI HPI: 53-year-old -[place] female presents to the emergency department with a complaint of shortness of breath and coughing. Overall this is been going on for "months" but it has worsened over the past few days after the patient ran out of her medications. She has a history of asthma, COPD, sarcoidosis but she is not oxygen dependent at home. Patient was found to have an oxygen saturation of 89% on room air through triage that improved with some supplemental oxygen. The patient says that she does check her oxygen at home and her baseline is 88 to 90%. She does not have a primary care physician or hadoop developer secondary to insurance issues. She denies any fever, chest pain, nausea, vomiting or diaphoresis. She does have a mixed dry and productive cough. No recent travel or sick contacts at home. No known exposure to anyone with Covid 19. ED Past Medical Hx - Past Medical History Previous Medical History?: Yes Hx Asthma: Yes Hx COPD: Yes Additional medical history: SARCOIDOSIS - Surgical History Past Surgical History?: Yes Additional Surgical History: LUNG BIOPSY,chronic back pain r/t herniated disc. HYSTERECTOMY. TUBAL LIGATION - Social History Smoking Status: Current Every Day Smoker Substance Use Type: Alcohol - Medications Home Medications: Home Medications Medication Instructions Recorded Confirmed Last Taken Type Albuterol Sulfate [Proair 90 mcg IH Q4HR PRN #2 aer.pow.ba 09/19/17 Unknown Rx Respiclick] Benzonatate [Tessalon Perles] 100 mg PO Q8HR PRN #30 capsule 09/19/17 Unknown R x Fluticasone [Flonase] 1 spray NS QDAY #1 bottle 09/19/17 Unknown Rx Ibuprofen [Motrin] 800 mg PO QPM PRN 09/19/17 09/19/17 Unknown History Ipratropium [place] [Atrovent Hfa] 12.9 gm IH Q4HR #2 hfa.aer.ad 09/19/17 Unknown Rx Albuterol INH(or & Nicu Only) 1 puff IH Q4HR PRN #1 inha 01/19/19 Unknown Rx [ProAir HFA Inhaler] predniSONE [Deltasone] 40 mg PO QDAY #8 tab 01/19/19 Unknown Rx levoFLOXacin [Levaquin TAB] 500 mg PO QDAY #7 tablet 01/25/19 Unknown Rx ALBUTEROL NEB's [Proventil 0.083% 2.5 mg IH QID PRN #1 box 10/08/19 Unknown Rx NEBS] Albuterol INH(or & Nicu Only) 2 puff IH QID PRN #1 inhalation 10/08/19 Unknown Rx [ProAir HFA Inhaler] Prednisone [predniSONE 10 mg 10 mg PO .TAPER #1 tab.ds.pk 10/08/19 Unknown Rx (6-Day Pack, 21 Tabs)] ED Review of Systems ROS: Stated complaint: DIFFICULTY IN BREATHING Other details as noted in HPI Comment: All other systems reviewed and negative Constitutional: denies: chills, fever Eyes: denies: eye pain, vision change ENT: denies: ear pain, throat pain Respiratory: cough, shortness of breath Cardiovascular: denies: chest pain, edema Gastrointestinal: denies: abdominal pain, vomiting Genitourinary: denies: dysuria, discharge Musculoskeletal: denies: back pain, arthralgia Skin: denies: rash, lesions Neurological: denies: headache, weakness Physical Exam - Physical Exam Vital Signs: Vital Signs 10/08/19 10/08/19 10/08/19 03:57 04:00 04:15 Temperature 97.6 F Pulse Rate 98 H Pulse Rate [ 88 Posterior Bilateral Throughout] Respiratory 18 22 Rate Respiratory 22 Rate [Posterior Bilateral Throughout] Blood Pressure 167/111 O2 Sat by Pulse 89 99 Oximetry 10/08/19 10/08/19 10/08/19 04:30 04:45 05:00 Temperature Pulse Rate 92 H 88 88 Pulse Rate [ Posterior Bilateral Throughout] Respiratory 25 H 21 24 Rate Respiratory Rate [Posterior Bilateral Throughout] Blood Pressure 153/103 135/93 136/98 O2 Sat by Pulse 93 92 91 Oximetry 10/08/19 10/08/19 05:15 05:30 Temperature Pulse Rate 92 H 92 H Pulse Rate [ Posterior Bilateral Throughout] Respiratory 24 22 Rate Respiratory Rate [Posterior Bilateral Throughout] Blood Pressure 144/96 141/97 O2 Sat by Pulse 91 89 Oximetry Physical Exam: GENERAL: The patient is well-developed well-nourished. HENT: Normocephalic. Atraumatic. Patient has moist mucous membranes. EYES: Extraocular motions are intact. NECK: Supple. Trachea is midline. CHEST/LUNGS: Clear to auscultation. There is some tachypnea but no accessory muscle use. No cough heard during examination. HEART/CARDIOVASCULAR: Regular. There is no tachycardia. ABDOMEN: Abdomen is soft, nontender. Patient has normal bowel sounds. SKIN: Skin is warm and dry. NEURO: The patient is awake, alert, and oriented. The patient is cooperative. The patient has no focal neurologic deficits. Normal speech. MUSCULOSKELETAL: There is no tenderness or deformity. There is no limitation range of motion. There is no evidence of acute injury. ED Course Vital Signs 10/08/19 10/08/19 10/08/19 03:57 04:00 04:15 Temperature 97.6 F Pulse Rate 98 H Pulse Rate [ 88 Posterior Bilateral Throughout] Respiratory 18 22 Rate Respiratory 22 Rate [Posterior Bilateral Throughout] Blood Pressure 167/111 O2 Sat by Pulse 89 99 Oximetry 10/08/19 10/08/19 10/08/19 04:30 04:45 05:00 Temperature Pulse Rate 92 H 88 88 Pulse Rate [ Posterior Bilateral Throughout] Respiratory 25 H 21 24 Rate Respiratory Rate [Posterior Bilateral Throughout] Blood Pressure 153/103 135/93 136/98 O2 Sat by Pulse 93 92 91 Oximetry 10/08/19 10/08/19 05:15 05:30 Temperature Pulse Rate 92 H 92 H Pulse Rate [ Posterior Bilateral Throughout] Respiratory 24 22 Rate Respiratory Rate [Posterior Bilateral Throughout] Blood Pressure 144/96 141/97 O2 Sat by Pulse 91 89 Oximetry ED Medical Decision Making - Lab Data Result diagrams: 10/08/19 04:25 10/08/19 04:25 - EKG Data -: EKG Interpreted by Me EKG shows normal: sinus rhythm, axis, intervals, QRS complexes, ST-T waves Rate: normal - EKG Data When compared to previous EKG there are: no significant change Interpretation: unchanged when compared t (01/25/19) - Radiology Data Radiology results: image reviewed interpreted by me: Chest x-ray shows some hyperinflation of the lungs but otherwise no obvious pneumonia, pleural effusions, pneumothorax, or any other acute process. - Medical Decision Making This patient presents to the emergency department with some acute on chronic shortness of breath and coughing that worsened since the patient's medications have run out. Due to her lack of insurance the patient does not have a primary care physician or hadoop developer that she follows with. A chest x-ray was done that does not show any pneumonia, pleural effusions, pneumothorax, or any other acute process. Patient's labs have been unremarkable thus far including CBC, metabolic panel and a d-dimer level. EKG did not show any signs of ST elevation [place], ischemia or dysrhythmia. The patient is not oxygen dependent at home and her oxygen here, on 2 L nasal cannula, varies between 86 to 90%. When the oxygen is removed the patient goes between 86 to 88%. However the patient was seen just getting up and going to the bathroom that was directly next to her room. Upon return to room 1 the patient's oxygen was between 79 to 86%. For this reason I explained to the patient that she needs admission to the hospital for further evaluation and treatment. However the patient refuses admission citing her lack of insurance and current financial situation. I explained to the patient that hypoxia can lead to worsening of her shortness of breath, stroke, heart attack, coma or even . The patient is awake, alert, and has a normal decision-making capacity. Despite understanding the risks, the patient has still decided to leave AGAINST MEDICAL ADVICE. The patient will still be given a refill of her albuterol inhaler and nebulizer treatments, as well as a course of steroids. She has been given referrals for primary care and pulmonology. She also understands that she can return to the emergency department at any time if she changes her mind about admission, further evaluation or treatment, or with any acute distress. Critical Care Time: No Critical care attestation.: If time is entered above; I have spent that time in minutes in the direct care of this critically ill patient, excluding procedure time. ED Disposition Clinical Impression: COPD exacerbation, Sarcoidosis Hypertension Qualifiers: Hypertension type: essential hypertension Qualified Code(s): I10 - Essential (primary) hypertension Disposition: LEFT AGAINST MED ADVICE Is pt being admited?: No Condition: Stable Instructions: Chronic Obstructive Pulmonary Disease (ED), Hypertension (ED) Additional Instructions: Please return to the emergency department immediately if you change your mind about admission and further evaluation and treatment, or with any acute distress. Despite leaving against medical advice, I am still giving you a refill of an albuterol inhaler and nebulizer treatments, as well as a course of steroids. I am also giving you referrals for outpatient follow-up for primary care and pulmonology. Prescriptions: Prednisone [predniSONE 10 mg (6-Day Pack, 21 Tabs)] 10 mg PO .TAPER #1 tab.ds.pk Albuterol INH(or & Nicu Only) [ProAir HFA Inhaler] 2 puff IH QID PRN #1 inhalation PRN Reason: Shortness Of Breath ALBUTEROL NEB's [Proventil 0.083% NEBS] 2.5 mg IH QID PRN #1 box PRN Reason: Wheezing Referrals: [facility] [Provider Group] - SUSIE KIMO JACQUES MD [Staff Physician] - SUSIE PRIMARY MD MOJGAN [Primary Care Provider] - CARMEN BERG MD [Staff Physician] - [facility] Forms: AMA Form Time of Disposition: 08:45
[2019-10-08 08:47] VITALS: BP 155/100
== END 2019-10-08 09:15 | disposition left against medical advice (07) ==
LOC: ED 03:52
DX: J44.1 Chronic obstructive pulmonary disease with (acute) exacerbation (principal); I10 Essential (primary) hypertension; D86.9 Sarcoidosis, unspecified; F17.200 Nicotine dependence, unspecified, uncomplicated; Z88.8 Allergy status to other drugs, medicaments and biological substances; Z79.899 Other long term (current) drug therapy; Z98.890 Other specified postprocedural states; Z90.710 Acquired absence of both cervix and uterus; Z98.51 Tubal ligation status
CPT/HCPCS: 36415; 71045; 80048; 85025; 85379; 93005; 94640; 96365; 96375; 99284; J2930; J3475; 94644

== ENCOUNTER 2019-12-31 03:15 | Emergency (ER) | payer SELFPAY ==
[2019-12-31] MEDS ORDERED: ALBUTEROL 2.5 MG/3 ML NEBU IH ONE ×2 (03:37→03:40)
[2019-12-31] MEDS ORDERED: IPRATROPIUM 0.02% NEBU 2.5 ML IH ONE ×2 (03:37→03:40)
[2019-12-31] MEDS ORDERED: predniSONE 20 MG TAB PO ONE (03:39)
--- NOTE | 2019-12-31 03:43 | Emergency Department Report ---
ED Shortness of Breath HPI - General Chief Complaint: Dyspnea/Respdistress Stated Complaint: HARINDER X 3 DAYS Time Seen by Provider: 12/31/19 03:33 Source: patient Mode of arrival: Ambulatory Limitations: No Limitations - History of Present Illness Initial Comments: Mrs. Valenzuela is a 54-year-old female with history of COPD, sarcoidosis who presents with shortness of breath cough wheezing for 3 days. She ran out of her home medication. She has severe shortness of breath. She denies fever. Cough is productive. Denies abdominal pain. Denies chest pain. MD Complaint: shortness of breath, cough -: Gradual, days(s) (3) Severity: moderate Consistency: constant Improves With: nothing Known History Of: COPD, other (Sarcoidosis) Associated Symptoms: cough, sputum production - Related Data Home Medications Medication Instructions Recorded Confirmed Last Taken Ibuprofen [Motrin] 800 mg PO QPM PRN 09/19/17 09/19/17 Unknown Previous Rx's Medication Instructions Recorded Last Taken Type Albuterol Sulfate [Proair 90 mcg IH Q4HR PRN #2 aer.pow.ba 09/19/17 Unknown Rx Respiclick] Benzonatate [Tessalon Perles] 100 mg PO Q8HR PRN #30 capsule 09/19/17 Unknown Rx Fluticasone [Flonase] 1 spray NS QDAY #1 bottle 09/19/17 Unknown Rx Ipratropium [place] [Atrovent Hfa] 12.9 gm IH Q4HR #2 hfa.aer.ad 09/19/17 Unknown Rx Albuterol Mdi (or & Nicu Only) 1 puff IH Q4HR PRN #1 inha 01/19/19 Unknown Rx [ProAir HFA Inhaler] predniSONE [Deltasone] 40 mg PO QDAY #8 tab 01/19/19 Unknown Rx levoFLOXacin [Levaquin TAB] 500 mg PO QDAY #7 tablet 01/25/19 Unknown Rx ALBUTEROL NEB's [Proventil 0.083% 2.5 mg IH QID PRN #1 box 10/08/19 Unknown Rx NEBS] Albuterol Mdi (or & Nicu Only) 2 puff IH QID PRN #1 inhalation 10/08/19 Unknown Rx [ProAir HFA Inhaler] Prednisone [predniSONE 10 mg 10 mg PO .TAPER #1 tab.ds.pk 10/08/19 Unknown Rx (6-Day Pack, 21 Tabs)] ALBUTEROL NEB's [Proventil 0.083% 2.5 mg IH TID PRN #1 box 12/31/19 Unknown Rx NEBS] Albuterol Mdi (or & Nicu Only) 2 puff IH QID PRN #8.5 gram 12/31/19 Unknown Rx [ProAir HFA Inhaler] Doxycycline Hyclate [Doxycycline 100 mg PO Q12HR 7 Days #14 tab 12/31/19 Unknown Rx Hyclate TAB] Prednisone [predniSONE 10 mg 10 mg PO .TAPER #1 tab.ds.pk 12/31/19 Unknown Rx (6-Day Pack, 21 Tabs)] Allergies Allergy/AdvReac Type Severity Reaction Status Date / Time bupropion HCl Allergy Hives Verified 01/19/19 12:10 [From Wellbutrin] diphenhydramine HCl Allergy Hives Verified 01/19/19 12:10 [From Benadryl] ED Review of Systems ROS: Stated complaint: HARINDER X 3 DAYS Other details as noted in HPI Comment: All other systems reviewed and negative Constitutional: denies: chills, fever, malaise Respiratory: cough, shortness of breath, wheezing Cardiovascular: denies: chest pain Gastrointestinal: denies: abdominal pain, nausea, vomiting ED Past Medical Hx - Past Medical History Previous Medical History?: Yes Hx Asthma: Yes Hx COPD: Yes Additional medical history: SARCOIDOSIS - Surgical History Past Surgical History?: Yes Additional Surgical History: LUNG BIOPSY,chronic back pain r/t herniated disc. HYSTERECTOMY. TUBAL LIGATION - Social History Smoking Status: Current Every Day Smoker Substance Use Type: Alcohol - Medications Home Medications: Home Medications Medication Instructions Recorded Confirmed Last Taken Type Albuterol Sulfate [Proair 90 mcg IH Q4HR PRN #2 aer.pow.ba 09/19/17 Unknown Rx Respiclick] Benzonatate [Tessalon Perles] 100 mg PO Q8HR PRN #30 capsule 09/19/17 Unknown Rx Fluticasone [Flonase] 1 spray NS QDAY #1 bottle 09/19/17 Unknown Rx Ibuprofen [Motrin] 800 mg PO QPM PRN 09/19/17 09/19/17 Unknown History Ipratropium [place] [Atrovent Hfa] 12.9 gm IH Q4HR #2 hfa.aer.ad 09/19/17 Unknown Rx Albuterol Mdi (or & Nicu Only) 1 puff IH Q4HR PRN #1 inha 01/19/19 Unknown Rx [ProAir HFA Inhaler] predniSONE [Deltasone] 40 mg PO QDAY #8 tab 01/19/19 Unknown Rx levoFLOXacin [Levaquin TAB] 500 mg PO QDAY #7 tablet 01/25/19 Unknown Rx ALBUTEROL NEB's [Proventil 0.083% 2.5 mg IH QID PRN #1 box 10/08/19 Unknown Rx NEBS] Albuterol Mdi (or & Nicu Only) 2 puff IH QID PRN #1 inhalation 10/08/19 Unknown Rx [ProAir HFA Inhaler] Prednisone [predniSONE 10 mg 10 mg PO .TAPER #1 tab.ds.pk 10/08/19 Unknown Rx (6-Day Pack, 21 Tabs)] ALBUTEROL NEB's [Proventil 0.083% 2.5 mg IH TID PRN #1 box 12/31/19 Unknown Rx NEBS] Albuterol Mdi (or & Nicu Only) 2 puff IH QID PRN #8.5 gram 12/31/19 Unknown Rx [ProAir HFA Inhaler] Doxycycline Hyclate [Doxycycline 100 mg PO Q12HR 7 Days #14 tab 12/31/19 Unknown Rx Hyclate TAB] Prednisone [predniSONE 10 mg 10 mg PO .TAPER #1 tab.ds.pk 12/31/19 Unknown Rx (6-Day Pack, 21 Tabs)] ED Physical Exam - General Limitations: No Limitations General appearance: alert, in distress, other (Tripod positioning, abdominal retractions) - Head Head exam: Present: atraumatic, normocephalic - Eye Eye exam: Present: normal appearance - ENT ENT exam: Present: mucous membranes moist - Neck Neck exam: Present: normal inspection, full ROM - Respiratory Respiratory exam: Present: respiratory distress, wheezes, accessory muscle use, decreased breath sounds, prolonged expiratory - Cardiovascular Cardiovascular Exam: Present: regular rate, normal rhythm, normal heart sounds. Absent: systolic murmur, diastolic murmur, rubs, gallop - GI/Abdominal GI/Abdominal exam: Present: soft, normal bowel sounds. Absent: distended, tenderness, guarding, rebound - Extremities Exam Extremities exam: Present: normal inspection - Neurological Exam Neurological exam: Present: alert, oriented X3 - Psychiatric Psychiatric exam: Present: normal affect, anxious - Skin Skin exam: Present: warm, dry, intact, normal color. Absent: rash ED Course Vital Signs 12/31/19 12/31/19 12/31/19 03:23 03:44 04:51 Temperature 98 F 98.1 F Pulse Rate 89 84 Pulse Rate [ 88 Bilateral Throughout] Respiratory 20 20 Rate Respiratory 20 Rate [Bilateral Throughout] Blood Pressure 146/100 Blood Pressure 134/89 [Left] O2 Sat by Pulse 95 98 Oximetry - Reevaluation(s) Reevaluation #1: 12/31/19 04:54 After reassessment during the end of her continuous nebulizer therapy, patient appears much better. She is comfortable. She is playing a card game on her smart phone. Clear breath sounds without wheezing. Good air movement. She is speaking full word sentences without effort. ED Medical Decision Making - Medical Decision Making Acute COPD exacerbation complicated by sarcoidosis and tobacco dependence. Patient treated with continuous nebulizer therapy containing albuterol and Atrovent. Patient also treated with prednisone. She explained that she needed refills of all her medications. I provided prescriptions for albuterol MDI albuterol nebulizer therapy prednisone taper and doxycycline. Critical Care Time: Yes Critical care time in (mins) excluding proc time.: 40 Critical care attestation.: If time is entered above; I have spent that time in minutes in the direct care of this critically ill patient, excluding procedure time. 40 minutes of critical care time excluding procedures were used in the care of the patient. I reviewed electronic record. I discussed treatment plan with the nursing team members at the bedside. I came immediately to the bedside upon patient's arrival to treatment room. I discussed presentation with triage nurse . I discussed treatment plan with respiratory therapist. Due to patient's severe work of breathing, was concern for imminent respiratory decline. Patient required multiple interventions and reassessments. ED Disposition Clinical Impression: COPD with acute exacerbation Disposition: DC-01 TO HOME OR SELFCARE Is pt being admited?: No Does the pt Need Aspirin: No Condition: Stable Instructions: Chronic Obstructive Pulmonary Disease (ED) Prescriptions: Doxycycline Hyclate [Doxycycline Hyclate TAB] 100 mg PO Q12HR 7 Days #14 tab Prednisone [predniSONE 10 mg (6-Day Pack, 21 Tabs)] 10 mg PO .TAPER #1 tab.ds.pk Albuterol Mdi (or & Nicu Only) [ProAir HFA Inhaler] 2 puff IH QID PRN #8.5 gram PRN Reason: Shortness Of Breath ALBUTEROL NEB's [Proventil 0.083% NEBS] 2.5 mg IH TID PRN #1 box PRN Reason: Wheezing Referrals: KIMO JACQUES MD [Staff Physician] - 3-5 Days
[2019-12-31 04:52] VITALS: BP 134/89
== END 2019-12-31 05:37 | disposition home or self-care (01) ==
LOC: ED 03:15
DX: J44.1 Chronic obstructive pulmonary disease with (acute) exacerbation (principal); F17.200 Nicotine dependence, unspecified, uncomplicated; Z79.899 Other long term (current) drug therapy; Z88.8 Allergy status to other drugs, medicaments and biological substances; Z90.710 Acquired absence of both cervix and uterus; Z98.51 Tubal ligation status; Z98.890 Other specified postprocedural states
CPT/HCPCS: 94644; 99283; J7512

== ENCOUNTER 2020-03-01 16:16 | Emergency (ER) | payer SELFPAY ==
[2020-03-01 16:49] VITALS: BP 149/103
--- NOTE | 2020-03-01 17:17 | XRay Report ---
CHEST 2 VIEWS INDICATION: SOB, hx COPD. COMPARISON: 10/08/2019 FINDINGS: Support devices: None. Heart: Within normal limits. Lungs: Diffuse interstitial pulmonary process is present with subpleural thickening Pleura: No significant pleural effusion. No pneumothorax. Additional findings: None. IMPRESSION: 1. Diffuse interstitial pulmonary edema Signer Name: Rene Vieyra MD Signed: 03/01/2020 5:13 PM Workstation Name: [id number]
== END 2020-03-01 18:04 | disposition left against medical advice (07) ==
LOC: ED 16:16
DX: R06.02 Shortness of breath (principal); Z53.21 Procedure and treatment not carried out due to patient leaving prior to being seen by health care provider
CPT/HCPCS: 71046

== ENCOUNTER 2020-04-01 12:37 | Emergency (ER) | payer SELFPAY ==
[2020-04-01] MEDS ORDERED: IPRATROPIUM/ALBUTEROL SULFATE 3 ML AMPUL.NEB IH ONE (12:40)
[2020-04-01] MEDS ORDERED: methylPREDNISolone Sod Succinate 125 MG/2 ML INJ IM ONE (12:41)
[2020-04-01] MEDS ORDERED: ALBUTEROL 2.5 MG/3 ML NEBU IH ONE (12:41)
[2020-04-01] MEDS ORDERED: IPRATROPIUM 0.02% NEBU 2.5 ML IH ONE (12:41)
--- NOTE | 2020-04-01 12:42 | Event Note ---
ED Screening Note Date of service: 04/01/20 Time: 12:41 ED Screening Note: Patient complains of shortness of breath x3 weeks History of asthma and sarcoidosis This initial assessment/diagnostic orders/clinical plan/treatment(s) is/are subject to change based on patients health status, clinical progression and re- assessment by fellow clinical providers in the ED. Further treatment and workup at subsequent clinical providers discretion. Patient/guardian urged not to elope from the ED as their condition may be serious if not clinically assessed and managed. Initial orders include: Labs Chest x-ray
--- NOTE | 2020-04-01 13:41 | XRay Report ---
CHEST 2 VIEWS INDICATION: shortness of breath. COMPARISON: 03/01/2020 FINDINGS: Support devices: None. Heart: Within normal limits. Lungs/pleura: The interstitium remains prominent throughout both lungs. This could represent chronic interstitial changes or interstitial edema. No consolidation, pleural effusion or pneumothorax is ap preciated. Additional findings: None. IMPRESSION: Prominent interstitium which is unchanged since 03/01/2020. Signer Name: Hakeem Frausto Jr, MD Signed: 04/01/2020 1:36 PM Workstation Name: [id number]
--- NOTE | 2020-04-01 20:38 | Emergency Department Report ---
ED General Adult HPI - General Chief complaint: Dyspnea/Respdistress Stated complaint: DIFFCULT BREATHING Time Seen by Provider: 04/01/20 12:40 Source: patient Mode of arrival: Ambulatory Limitations: No Limitations - History of Present Illness Initial comments: 54-year-old -[place] female patient presents with complaints of shortness of breath x3 weeks. Patient states this feels like her normal asthma flare. She has history of asthma, COPD, and sarcoidosis. She states she has been out of her albuterol inhaler for some time now. She denies any hemoptysis, cough, fever/chills/sweats, chest pain, leg pain/swelling, recent long travel/surgeries, history of cancer, or hormone use. -: Gradual - Related Data Home Medications Medication Instructions Recorded Confirmed Last Taken Ibuprofen [Motrin] 800 mg PO QPM PRN 09/19/17 09/19/17 Unknown Previous Rx's Medication Instructions Recorded Last Taken Type Albuterol Sulfate [Proair 90 mcg IH Q4HR PRN #2 aer.pow.ba 09/19/17 Unknown Rx Respiclick] Benzonatate [Tessalon Perles] 100 mg PO Q8HR PRN #30 capsule 09/19/17 Unknown Rx Fluticasone [Flonase] 1 spray NS QDAY #1 bottle 09/19/17 Unknown Rx Ipratropium [place] [Atrovent Hfa] 12.9 gm IH Q4HR #2 hfa.aer.ad 09/19/17 Unknown Rx Albuterol Mdi (or & Nicu Only) 1 puff IH Q4HR PRN #1 inha 01/19/19 Unknown Rx [ProAir HFA Inhaler] predniSONE [Deltasone] 40 mg PO QDAY #8 tab 01/19/19 Unknown Rx levoFLOXacin [Levaquin TAB] 500 mg PO QDAY #7 tablet 01/25/19 Unknown Rx ALBUTEROL NEB's [Proventil 0.083% 2.5 mg IH QID PRN #1 box 10/08/19 Unknown Rx NEBS] Albuterol Mdi (or & Nicu Only) 2 puff IH QID PRN #8.5 gram 12/31/19 Unknown Rx [ProAir HFA Inhaler] Doxycycline Hyclate [Doxycycline 100 mg PO Q12HR 7 Days #14 tab 12/31/19 Unknown Rx Hyclate TAB] Prednisone [predniSONE 10 mg 10 mg PO .TAPER #1 tab.ds.pk 12/31/19 Unknown Rx (6-Day Pack, 21 Tabs)] ALBUTEROL NEB's [Proventil 0.083% 2.5 mg IH TID PRN #1 box 04/01/20 Unknown Rx NEBS] Albuterol Mdi (or & Nicu Only) 2 puff IH QID PRN #1 inhalation 04/01/20 Unknown Rx [ProAir HFA Inhaler] Prednisone [predniSONE 10 mg 10 mg PO .TAPER #1 tab.ds.pk 04/01/20 Unknown Rx (6-Day Pack, 21 Tabs)] hydroCHLOROthiazide 12.5 mg PO QDAY 30 Days #30 capsule 04/01/20 Unknown Rx [Hydrochlorothiazide] Allergies Allergy/AdvReac Type Severity Reaction Status Date / Time bupropion HCl Allergy Hives Verified 01/19/19 12:10 [From Wellbutrin] diphenhydramine HCl Allergy Hives Verified 01/19/19 12:10 [From Benadryl] ED Review of Systems ROS: Stated complaint: DIFFCULT BREATHING Other details as noted in HPI Constitutional: denies: chills, fever, malaise ENT: denies: throat pain Respiratory: shortness of breath. denies: cough, orthopnea Cardiovascular: denies: chest pain Endocrine: denies: excessive sweating Gastrointestinal: denies: abdominal pain, nausea Skin: denies: change in color Hematological/Lymphatic: denies: swollen glands ED Past Medical Hx - Past Medical History Previous Medical History?: Yes Hx Asthma: Yes Hx COPD: Yes Additional medical history: SARCOIDOSIS - Surgical History Past Surgical History?: Yes Additional Surgical History: LUNG BIOPSY,chronic back pain r/t herniated disc. HYSTERECTOMY. TUBAL LIGATION - Social History Smoking Status: Unknown if ever smoked Substance Use Type: None - Medications Home Medications: Home Medications Medication Instructions Recorded Confirmed Last Taken Type Albuterol Sulfate [Proair 90 mcg IH Q4HR PRN #2 aer.pow.ba 09/19/17 Unknown Rx Respiclick] Benzonatate [Tessalon Perles] 100 mg PO Q8HR PRN #30 capsule 09/19/17 Unknown Rx Fluticasone [Flonase] 1 spray NS QDAY #1 bottle 09/19/17 Unknown Rx Ibuprofen [Motrin] 800 mg PO QPM PRN 09/19/17 09/19/17 Unknown History Ipratropium [place] [Atrovent Hfa] 12.9 gm IH Q4HR #2 hfa.aer.ad 09/19/17 Unknown Rx Albuterol Mdi (or & Nicu Only) 1 puff IH Q4HR PRN #1 inha 01/19/19 Unknown Rx [ProAir HFA Inhaler] predniSONE [Deltasone] 40 mg PO QDAY #8 tab 01/19/19 Unknown Rx levoFLOXacin [Levaquin TAB] 500 mg PO QDAY #7 tablet 01/25/19 Unknown Rx ALBUTEROL NEB's [Proventil 0.083% 2.5 mg IH QID PRN #1 box 10/08/19 Unknown Rx NEBS] Albuterol Mdi (or & Nicu Only) 2 puff IH QID PRN #8.5 gram 12/31/19 Unknown Rx [ProAir HFA Inhaler] Doxycycline Hyclate [Doxycycline 100 mg PO Q12HR 7 Days #14 tab 12/31/19 Unknown Rx Hyclate TAB] Prednisone [predniSONE 10 mg 10 mg PO .TAPER #1 tab.ds.pk 12/31/19 Unknown Rx (6-Day Pack, 21 Tabs)] ALBUTEROL NEB's [Proventil 0.083% 2.5 mg IH TID PRN #1 box 04/01/20 Unknown Rx NEBS] Albuterol Mdi (or & Nicu Only) 2 puff IH QID PRN #1 inhalation 04/01/20 Unknown Rx [ProAir HFA Inhaler] Prednisone [predniSONE 10 mg 10 mg PO .TAPER #1 tab.ds.pk 04/01/20 Unknown Rx (6-Day Pack, 21 Tabs)] hydroCHLOROthiazide 12.5 mg PO QDAY 30 Days #30 capsule 04/01/20 Unknown Rx [Hydrochlorothiazide] ED Physical Exam - General Limitations: No Limitations General appearance: alert, in no apparent distress - Head Head exam: Present: atraumatic, normocephalic - Eye Eye exam: Present: normal appearance. Absent: scleral icterus - ENT ENT exam: Present: mucous membranes moist - Respiratory Respiratory exam: Present: wheezes (Diffuse), decreased breath sounds. Absent: respiratory distress, rales, rhonchi, chest wall tenderness - Cardiovascular Cardiovascular Exam: Present: regular rate, normal rhythm - GI/Abdominal GI/Abdominal exam: Present: soft. Absent: distended, tenderness - Extremities Exam Extremities exam: Present: full ROM. Absent: calf tenderness (No swelling or tenderness noted to legs bilateral) - Back Exam Back exam: Present: full ROM - Neurological Exam Neurological exam: Present: alert, oriented X3 - Psychiatric Psychiatric exam: Present: normal affect, normal mood - Skin Skin exam: Present: warm, dry, intact, normal color. Absent: rash, cyanosis, diaphoretic, pallor, ecchymosis ED Course Vital Signs 04/01/20 04/01/20 04/01/20 12:37 20:33 20:54 Temperature 97.8 F 97.8 F Pulse Rate 94 H 108 H 108 H Respiratory 26 H 20 20 Rate Blood Pressure 170/120 Blood Pressure 158/113 158/113 [Right] O2 Sat by Pulse 94 96 96 Oximetry ED Medical Decision Making - Radiology Data Radiology results: report reviewed CHEST 2 VIEWS INDICATION: shortness of breath. COMPARISON: 03/01/2020 FINDINGS: Support devices: None. Heart: Within normal limits. Lungs/pleura: The interstitium remains prominent throughout both lungs. This could represent chronic interstitial changes or interstitial edema. No consolidation, pleural effusion or pneumothorax is appreciated. Additional findings: None. IMPRESSION: Prominent interstitium which is unchanged since 03/01/2020. - Medical Decision Making 54-year-old -[place] female patient presents with complaints of shortness of breath x3 weeks. Patient states this feels like her normal asthma flare. She has history of asthma, COPD, and sarcoidosis. She states she has been out of her albuterol inhaler for some time now. She denies any hemoptysis, cough, fever/chills/sweats, chest pain, leg pain/swelling, recent long travel/surgeries, history of cancer, or hormone use. Diffuse wheezing noted on exam with mildly decreased breath sounds. Patient given DuoNeb treatment and Solu-Medrol injection. She states that she is feeling much better and denies any further shortness of breath. No acute abnormalities noted on chest x-ray. PERC score = 0. Her vitals are stable. Elevated blood pressure noted-patient denies previous diagnosis of hypertension, however her blood pressure was noted to be elevated at prior visits here in the ED. Will start patient on hydrochlorothiazide and informed her to follow-up with primary care within 2 days. Medication refills given for asthma exacerbation. Educated patient on smoking cessation. Discussed signs and symptoms that should prompt return to the ED in detail with patient who verbalized understanding. Critical care attestation.: If time is entered above; I have spent that time in minutes in the direct care of this critically ill patient, excluding procedure time. ED Disposition Clinical Impression: Asthma exacerbation, Hypertension, uncontrolled Disposition: DC-01 TO HOME OR SELFCARE Is pt being admited?: No Condition: Stable Instructions: Asthma, Adult, Managing Your Hypertension, Hypertension, Adult, Hypertension (ED) Prescriptions: hydroCHLOROthiazide [Hydrochlorothiazide] 12.5 mg PO QDAY 30 Days #30 capsule Prednisone [predniSONE 10 mg (6-Day Pack, 21 Tabs)] 10 mg PO .TAPER #1 tab.ds.pk Albuterol Mdi (or & Nicu Only) [ProAir HFA Inhaler] 2 puff IH QID PRN #1 inhalation PRN Reason: Shortness Of Breath ALBUTEROL NEB's [Proventil 0.083% NEBS] 2.5 mg IH TID PRN #1 box PRN Reason: Wheezing Referrals: KIMO JACQUES MD [Staff Physician] - 3-5 Days (Blood Pressure, Asthma, Saroidosis )
[2020-04-01 20:55] VITALS: BP 158/113
== END 2020-04-01 20:54 | disposition home or self-care (01) ==
LOC: ED 12:37
DX: J45.901 Unspecified asthma with (acute) exacerbation (principal); I10 Essential (primary) hypertension; Z79.899 Other long term (current) drug therapy; Z88.8 Allergy status to other drugs, medicaments and biological substances; Z98.890 Other specified postprocedural states; Z90.710 Acquired absence of both cervix and uterus; Z98.51 Tubal ligation status
CPT/HCPCS: 71046; 96372; 99283; J2930

== ENCOUNTER 2020-05-02 07:03 | Emergency (ER) | payer SELFPAY ==
[2020-05-02 08:38] VITALS: BP 148/110
== END 2020-05-02 14:28 | disposition left against medical advice (07) ==
LOC: ED 07:03
DX: M54.5 Low back pain (principal); Z53.21 Procedure and treatment not carried out due to patient leaving prior to being seen by health care provider

== ENCOUNTER 2020-06-03 01:17 | Emergency (ER) | payer SELFPAY ==
[2020-06-03] MEDS ORDERED: predniSONE 20 MG TAB PO ONE (01:31)
[2020-06-03] MEDS ORDERED: KETOROLAC 60 MG/2 ML INJ IM ONE (01:31)
--- NOTE | 2020-06-03 01:34 | Emergency Department Report ---
ED Back Pain/Injury HPI - General Stated Complaint: LOWER BACK PAIN Time Seen by Provider: 06/03/20 01:30 Source: patient, RN notes reviewed Limitations: No Limitations - History of Present Illness Initial Comments: This is a 54-year-old female nontoxic, well nourished in appearance, no acute signs of distress presents to the ED with c/o of acute on chronic lower back pain. Patient stated that the past 2 days she was moving and developed this pain. Patient denies any radiation of pain. Patient stated has past medical history of herniated disc. Patient denies any trauma. Denies any bladder or b owel instability. Patient denies any urinary symptoms. Denies any fever, chills, nausea, vomiting, headache, stiff neck, chest pain or shortness of breath. Patient denies any numbness or tingling. Patient stated allergies to Benadryl and bupropion. Patient stated was told that she has hypertension but denies taking any medication for blood pressure and stated is being monitored with lifestyle modification. MD Complaint: back pain -: days(s) Similar Symptoms Previously: Yes Radiation: none Severity: mild Severity scale (0 -10): 3 Quality: aching Consistency: intermittent Improves With: movement, walking Worsens With: immobilization, sitting upright Context: while lifting, turning/twisting Associated Symptoms: denies other symptoms. denies: confusion, weakness, chest pain, numbness, difficulty walking, cough, difficulty urinating, diaphoresis, incontinence, fever/chills, constipation, headaches, abdominal pain, loss of appetite, malaise, nausea/vomiting, rash, seizure, shortness of breath, syncope - Related Data Home Medications Medication Instructions Recorded Confirmed Last Taken Ibuprofen [Motrin] 800 mg PO QPM PRN 09/19/17 09/19/17 Unknown Previous Rx's Medication Instructions Recorded Last Taken Type Albuterol Sulfate [Proair 90 mcg IH Q4HR PRN #2 aer.pow.ba 09/19/17 Unknown Rx Respiclick] Benzonatate [Tessalon Perles] 100 mg PO Q8HR PRN #30 capsule 09/19/17 Unknown Rx Fluticasone [Flonase] 1 spray NS QDAY #1 bottle 09/19/17 Unknown Rx Ipratropium [place] [Atrovent Hfa] 12.9 gm IH Q4HR #2 hfa.aer.ad 09/19/17 Unknown Rx Albuterol Mdi (or & Nicu Only) 1 puff IH Q4HR PRN #1 inha 01/19/19 Unknown Rx [ProAir HFA Inhaler] predniSONE [Deltasone] 40 mg PO QDAY #8 tab 01/19/19 Unknown Rx levoFLOXacin [Levaquin TAB] 500 mg PO QDAY #7 tablet 01/25/19 Unknown Rx ALBUTEROL NEB's [Proventil 0.083% 2.5 mg IH QID PRN #1 box 10/08/19 Unknown Rx NEBS] Albuterol Mdi (or & Nicu Only) 2 puff IH QID PRN #8.5 gram 12/31/19 Unknown Rx [ProAir HFA Inhaler] Doxycycline Hyclate [Doxycycline 100 mg PO Q12HR 7 Days #14 tab 12/31/19 Unknown Rx Hyclate TAB] Prednisone [predniSONE 10 mg 10 mg PO .TAPER #1 tab.ds.pk 12/31/19 Unknown Rx (6-Day Pack, 21 Tabs)] ALBUTEROL NEB's [Proventil 0.083% 2.5 mg IH TID PRN #1 box 04/01/20 Unknown Rx NEBS] Albuterol Mdi (or & Nicu Only) 2 puff IH QID PRN #1 inhalation 04/01/20 Unknown Rx [ProAir HFA Inhaler] Prednisone [predniSONE 10 mg 10 mg PO .TAPER #1 tab.ds.pk 04/01/20 Unknown Rx (6-Day Pack, 21 Tabs)] hydroCHLOROthiazide 12.5 mg PO QDAY 30 Days #30 capsule 04/01/20 Unknown Rx [Hydrochlorothiazide] Cyclobenzaprine [Flexeril] 10 mg PO QHS PRN #10 tablet 06/03/20 Unknown Rx Naproxen 500 mg PO Q12H PRN #12 tablet 06/03/20 Unknown Rx Allergies Allergy/AdvReac Type Severity Reaction Status Date / Time bupropion HCl Allergy Hives Verified 01/19/19 12:10 [From Wellbutrin] diphenhydramine HCl Allergy Hives Verified 01/19/19 12:10 [From Benadryl] ED Review of Systems ROS: Stated complaint: LOWER BACK PAIN Other details as noted in HPI Comment: All other systems reviewed and negative Constitutional: denies: chills, fever Eyes: denies: eye pain, eye discharge, vision change ENT: denies: ear pain, throat pain Respiratory: denies: cough, shortness of breath, wheezing Cardiovascular: denies: chest pain, palpitations Endocrine: no symptoms reported Gastrointestinal: denies: abdominal pain, nausea, diarrhea Genitourinary: denies: urgency, dysuria, discharge Musculoskeletal: back pain. denies: joint swelling, arthralgia Skin: denies: rash, lesions Neurological: denies: headache, weakness, paresthesias Psychiatric: denies: anxiety, depression Hematological/Lymphatic: denies: easy bleeding, easy bruising ED Past Medical Hx - Past Medical History Hx Asthma: Yes Hx COPD: Yes Additional medical history: SARCOIDOSIS - Surgical History Additional Surgical History: LUNG BIOPSY,chronic back pain r/t herniated disc. HYSTERECTOMY. TUBAL LIGATION - Social History Smoking Status: Unknown if ever smoked Substance Use Type: None - Medications Home Medications: Home Medications Medication Instructions Recorded Confirmed Last Taken Type Albuterol Sulfate [Proair 90 mcg IH Q4HR PRN #2 aer.pow.ba 09/19/17 Unknown Rx Respiclick] Benzonatate [Tessalon Perles] 100 mg PO Q8HR PRN #30 capsule 09/19/17 Unknown Rx Fluticasone [Flonase] 1 spray NS QDAY #1 bottle 09/19/17 Unknown Rx Ibuprofen [Motrin] 800 mg PO QPM PRN 09/19/17 09/19/17 Unknown History Ipratropium [place] [Atrovent Hfa] 12.9 gm IH Q4HR #2 hfa.aer.ad 09/19/17 Unknown Rx Albuterol Mdi (or & Nicu Only) 1 puff IH Q4HR PRN #1 inha 01/19/19 Unknown Rx [ProAir HFA Inhaler] predniSONE [Deltasone] 40 mg PO QDAY #8 tab 01/19/19 Unknown Rx levoFLOXacin [Levaquin TAB] 500 mg PO QDAY #7 tablet 01/25/19 Unknown Rx ALBUTEROL NEB's [Proventil 0.083% 2.5 mg IH QID PRN #1 box 10/08/19 Unknown Rx NEBS] Albuterol Mdi (or & Nicu Only) 2 puff IH QID PRN #8.5 gram 08/17/20 Unknown Rx [ProAir HFA Inhaler] Doxycycline Hyclate [Doxycycline 100 mg PO Q12HR 7 Days #14 tab 12/31/19 Unknown Rx Hyclate TAB] Prednisone [predniSONE 10 mg 10 mg PO .TAPER #1 tab.ds.pk 12/31/19 Unknown Rx (6-Day Pack, 21 Tabs)] ALBUTEROL NEB's [Proventil 0.083% 2.5 mg IH TID PRN #1 box 04/01/20 Unknown Rx NEBS] Albuterol Mdi (or & Nicu Only) 2 puff IH QID PRN #1 inhalation 04/01/20 Unknown Rx [ProAir HFA Inhaler] Prednisone [predniSONE 10 mg 10 mg PO .TAPER #1 tab.ds.pk 04/01/20 Unknown Rx (6-Day Pack, 21 Tabs)] hydroCHLOROthiazide 12.5 mg PO QDAY 30 Days #30 capsule 04/01/20 Unknown Rx [Hydrochlorothiazide] Cyclobenzaprine [Flexeril] 10 mg PO QHS PRN #10 tablet 06/03/20 Unknown Rx Naproxen 500 mg PO Q12H PRN #12 tablet 06/03/20 Unknown Rx ED Physical Exam - General General appearance: alert, in no apparent distress - Head Head exam: Present: atraumatic, normocephalic - Eye Eye exam: Present: normal appearance - Neck Neck exam: Present: normal inspection, full ROM. Absent: tenderness, meningismus, lymphadenopathy - Respiratory Respiratory exam: Absent: respiratory distress - Cardiovascular Cardiovascular Exam: Present: regular rate - GI/Abdominal GI/Abdominal exam: Present: soft, normal bowel sounds. Absent: distended, tenderness, guarding, rebound, rigid, diminished bowel sounds, bruit, pulsatile mass - Extremities Exam Extremities exam: Present: normal inspection, full ROM, normal capillary refill. Absent: tenderness - Back Exam Back exam: Present: normal inspection, full ROM, paraspinal tenderness (Lumbar paraspinal). Absent: tenderness, CVA tenderness (R), CVA tenderness (L), muscle spasm, vertebral tenderness, rash noted - Expanded Back Exam Expanded Back exam: Absent: saddle anesthesia Back exam: Negative Straight Leg Raising: Left, Right - Neurological Exam Neurological exam: Present: alert, oriented X3, normal gait - Psychiatric Psychiatric exam: Present: normal affect, normal mood - Skin Skin exam: Present: warm, dry, intact, normal color. Absent: rash ED Course Vital Signs 06/03/20 06/03/20 01:30 01:33 Temperature 97.7 F Pulse Rate 86 Respiratory 16 Rate Blood Pressure 152/116 Blood Pressure 146/94 [Right] O2 Sat by Pulse 99 Oximetry - Reevaluation(s) Reevaluation #1: 06/03/20 01:33 Patient is speaking in full sentences with no signs of distress noted. ED Medical Decision Making - Medical Decision Making This is a 54-year-old female that presents with low back strain. Patient is stable was examined by me. There is no spinal tenderness. There is no cauda equina syndrome during examination. No bladder or bowel instability. Patient received Toradol 60 mg IM and prednisone in the ED which stated that her symptoms has resolved and subsided. Patient is discharged with muscle relaxant and Motrin. Patient was instructed not to operate any machinery while taking muscle relaxant as they cause her drowsiness. Patient was referred to Follow-up with a primary care doctor in 3-5 days or if symptoms worsen and continue return to emergency room as soon as possible. At time of discharge, the patient does not seem toxic or ill in appearance. No acute signs of distress noted. Patient agrees to discharge treatment plan of care. No further questions noted by the patient. This chart is dictated with using [employer] Critical care attestation.: If time is entered above; I have spent that time in minutes in the direct care of this critically ill patient, excluding procedure time. ED Disposition Clinical Impression: Low back strain Qualifiers: Encounter type: initial encounter Qualified Code(s): S39.012A - Strain of muscle, fascia and tendon of lower back, initial encounter Disposition: - TO HOME OR SELFCARE Is pt being admited?: No Does the pt Need Aspirin: No Condition: Stable Instructions: Lumbosacral Strain, Cyclobenzaprine tablets Additional Instructions: Follow-up with your primary care doctor in 3-5 days or if symptoms worsen such as bladder or bowel stability, chest pain, short of breath, numbness or tingling sensation in extremities, headache, dizziness, visual changes, nausea vomiting, or abdominal pain, return back to emergency room as was possible. Take naproxen and Flexeril as prescribed. Do not operate heavy machinery while taking Flexeril due to sedation Prescriptions: Cyclobenzaprine [Flexeril] 10 mg PO QHS PRN #10 tablet PRN Reason: Muscle Spasm Naproxen 500 mg PO Q12H PRN #12 tablet PRN Reason: Pain , Severe (7-10) Referrals: PRIMARY CAREMD [Primary Care Provider] - 3-5 Days KIMO JACQUES MD [Staff Physician] - 3-5 Days Time of Disposition: 03:17
[2020-06-03 01:35] VITALS: BP 146/94
== END 2020-06-03 03:32 | disposition home or self-care (01) ==
LOC: ED 01:17
DX: S39.012A Strain of muscle, fascia and tendon of lower back, initial encounter (principal); J44.9 Chronic obstructive pulmonary disease, unspecified; Z88.8 Allergy status to other drugs, medicaments and biological substances; Z79.899 Other long term (current) drug therapy; Z90.710 Acquired absence of both cervix and uterus; Z98.890 Other specified postprocedural states; Z98.51 Tubal ligation status; X58.XXXA Exposure to other specified factors, initial encounter; Y93.89 Activity, other specified; Y92.89 Other specified places as the place of occurrence of the external cause; Y99.8 Other external cause status
CPT/HCPCS: 96372; 99282; J1885; J7512

== ENCOUNTER 2020-07-15 01:39 | Emergency (ER) | payer SELFPAY ==
[2020-07-15] MEDS ORDERED: ACETAMINOPHEN 500 MG TAB PO ONE (01:55)
[2020-07-15] MEDS ORDERED: dexAMETHasone 20 MG/5 ML VIAL IM ONE (01:55)
[2020-07-15] MEDS ORDERED: LIDOCAINE 5% 1 EACH PATCH TD STA (01:56)
--- NOTE | 2020-07-15 01:59 | Emergency Department Report ---
ED Back Pain/Injury HPI - General Chief Complaint: Back Pain/Injury Stated Complaint: LOWER BACK PAIN Time Seen by Provider: 07/15/20 01:49 Source: patient Limitations: No Limitations - History of Present Illness Initial Comments: 54-year-old female with a past medical history of COPD, asthma, tobacco use, and chronic low back pain secondary to degenerative disc disease presents to the ER today complaining of her same chronic low back pain. Patient states that she feels like her back pain has been getting worse over the past 2 months. 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 Patient states that she typically take [id number] ibuprofen for pain which she did take prior to coming in [facility] which has not helped her pain. She states that the pain is typically in her left lower back but sometimes radiates into her right lower back and down her left leg. She denies any associated numbness and tingling down her legs. She denies any saddle anesthesia. She denies any lower extremity weakness, bowel or bladder incontinence, urinary retention or constipation. She denies any associated abdominal pain, chest pain or worsening of her chronic shortness of breath. MD Complaint: back pain -: Gradual, month(s) (Chronic ) - Related Data Home Medications Medication Instructions Recorded Confirmed Last Taken Ibuprofen [Motrin] 800 mg PO QPM PRN 09/19/17 09/19/17 Unknown Previous Rx's Medication Instructions Recorded Last Taken Type Albuterol Sulfate [Proair 90 mcg IH Q4HR PRN #2 aer.pow.ba 09/19/17 Unknown Rx Respiclick] Benzonatate [Tessalon Perles] 100 mg PO Q8HR PRN #30 capsule 09/19/17 Unknown Rx Fluticasone [Flonase] 1 spray NS QDAY #1 bottle 09/19/17 Unknown Rx Ipratropium [place] [Atrovent Hfa] 12.9 gm IH Q4HR #2 hfa.aer.ad 09/19/17 Unknown Rx Albuterol Mdi (or & Nicu Only) 1 puff IH Q4HR PRN #1 inha 01/19/19 Unknown Rx [ProAir HFA Inhaler] ALBUTEROL NEB's [Proventil 0.083% 2.5 mg IH QID PRN #1 box 10/08/19 Unknown Rx NEBS] Albuterol Mdi (or & Nicu Only) 2 puff IH QID PRN #8.5 gram 12/31/19 Unknown Rx [ProAir HFA Inhaler] Doxycycline Hyclate [Doxycycline 100 mg PO Q12HR 7 Days #14 tab 12/31/19 Unknown Rx Hyclate TAB] ALBUTEROL NEB's [Proventil 0.083% 2.5 mg IH TID PRN #1 box 04/01/20 Unknown Rx NEBS] Albuterol Mdi (or & Nicu Only) 2 puff IH QID PRN #1 inhalation 04/01/20 Unknown Rx [ProAir HFA Inhaler] hydroCHLOROthiazide 12.5 mg PO QDAY 30 Days #30 capsule 04/01/20 Unknown Rx [Hydrochlorothiazide] Cyclobenzaprine [Flexeril] 10 mg PO QHS PRN #10 tablet 06/03/20 Unknown Rx Amlodipine Besylate [Norvasc] 5 mg PO DAILY #30 tablet 07/15/20 Unknown Rx Ketorolac [Toradol] 10 mg PO Q6H PRN #15 tablet 07/15/20 Unknown Rx Lidocaine [Lidoderm] 1 each TP Q12HR PRN #10 adh..patch 07/15/20 Unknown Rx methOCARBAMOL [Robaxin TAB] 750 mg PO Q8H PRN #30 tablet 07/15/20 Unknown Rx methylPREDNISolone [Medrol 4MG 4 mg PO DAILY #1 tab.ds.pk 07/15/20 Unknown Rx DOSEPAK (21 tabs)] Allergies Allergy/AdvReac Type Severity Reaction Status Date / Time bupropion HCl Allergy Hives Verified 01/19/19 12:10 [From Wellbutrin] diphenhydramine HCl Allergy Hives Verified 01/19/19 12:10 [From Benadryl] ED Review of Systems ROS: Stated complaint: LOWER BACK PAIN Other details as noted in HPI Comment: All other systems reviewed and negative Musculoskeletal: back pain ED Past Medical Hx - Past Medical History Previous Medical History?: Yes Hx Asthma: Yes Hx COPD: Yes Additional medical history: SARCOIDOSIS - Surgical History Past Surgical History?: Yes Additional Surgical History: LUNG BIOPSY,chronic back pain r/t herniated disc. HYSTERECTOMY. TUBAL LIGATION - Social History Smoking Status: Current Every Day Smoker Substance Use Type: Alcohol - Medications Home Medications: Home Medications Medication Instructions Recorded Confirmed Last Taken Type Albuterol Sulfate [Proair 90 mcg IH Q4HR PRN #2 aer.pow.ba 09/19/17 Unknown Rx Respiclick] Benzonatate [Tessalon Perles] 100 mg PO Q8HR PRN #30 capsule 09/19/17 Unknown Rx Fluticasone [Flonase] 1 spray NS QDAY #1 bottle 09/19/17 Unknown Rx Ibuprofen [Motrin] 800 mg PO QPM PRN 09/19/17 09/19/17 Unknown History Ipratropium [place] [Atrovent Hfa] 12.9 gm IH Q4HR #2 hfa.aer.ad 09/19/17 Unknown Rx Albuterol Mdi (or & Nicu Only) 1 puff IH Q4HR PRN #1 inha 01/19/19 Unknown Rx [ProAir HFA Inhaler] ALBUTEROL NEB's [Proventil 0.083% 2.5 mg IH QID PRN #1 box 10/08/19 Unknown Rx NEBS] Albuterol Mdi (or & Nicu Only) 2 puff IH QID PRN #8.5 gram 12/31/19 Unknown Rx [ProAir HFA Inhaler] Doxycycline Hyclate [Doxycycline 100 mg PO Q12HR 7 Days #14 tab 12/31/19 Unknown Rx Hyclate TAB] ALBUTEROL NEB's [Proventil 0.083% 2.5 mg IH TID PRN #1 box 04/01/20 Unknown Rx NEBS] Albuterol Mdi (or & Nicu Only) 2 puff IH QID PRN #1 inhalation 04/01/20 Unknown Rx [ProAir HFA Inhaler] hydroCHLOROthiazide 12.5 mg PO QDAY 30 Days #30 capsule 04/01/20 Unknown Rx [Hydrochlorothiazide] Cyclobenzaprine [Flexeril] 10 mg PO QHS PRN #10 tablet 06/03/20 Unknown Rx Amlodipine Besylate [Norvasc] 5 mg PO DAILY #30 tablet 07/15/20 Unknown Rx Ketorolac [Toradol] 10 mg PO Q6H PRN #15 tablet 07/15/20 Unknown Rx Lidocaine [Lidoderm] 1 each TP Q12HR PRN #10 adh..patch 07/15/20 Unknown Rx methOCARBAMOL [Robaxin TAB] 750 mg PO Q8H PRN #30 tablet 07/15/20 Unknown Rx methylPREDNISolone [Medrol 4MG 4 mg PO DAILY #1 tab.ds.pk 07/15/20 Unknown Rx DOSEPAK (21 tabs)] ED Physical Exam - General Limitations: No Limitations General appearance: alert, in no apparent distress, other (Patient appears uncomfortable from pain. ETOH also on breath ) - Head Head exam: Present: atraumatic, normocephalic, normal inspection - Eye Eye exam: Present: normal appearance, PERRL, EOMI Pupils: Present: normal accommodation - ENT ENT exam: Present: normal exam, mucous membranes moist - Respiratory Respiratory exam: Present: normal lung sounds bilaterally. Absent: respiratory distress - Cardiovascular Cardiovascular Exam: Present: regular rate, normal rhythm, normal heart sounds - GI/Abdominal GI/Abdominal exam: Present: soft. Absent: distended, tenderness - Back Exam Back exam: Present: normal inspection, full ROM (but painful ), paraspinal tenderness (diffuse on left lumbar ), vertebral tenderness (mid to lower lumbar) - Neurological Exam Neurological exam: Present: alert, oriented X3, CN II-XII intact, normal gait. Absent: motor sensory deficit ED Course Vital Signs 07/15/20 07/15/20 07/15/20 01:51 03:28 03:37 Temperature 97.9 F Pulse Rate 84 84 84 Respiratory 16 18 Rate Blood Pressure 142/106 144/104 Blood Pressure 144/104 [Left] O2 Sat by Pulse 94 94 Oximetry 07/15/20 04:37 Temperature Pulse Rate 86 Respiratory Rate Blood Pressure Blood Pressure 154/94 [Left] O2 Sat by Pulse Oximetry ED Medical Decision Making - Medical Decision Making 54-year-old female with a past medical history of COPD, asthma, tobacco use, and chronic low back pain secondary to degenerative disc disease presents to the ER today complaining of her same chronic low back pain. Patient states that she feels like her back pain has been getting worse over the past 2 months. 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 Patient states that she typically take [id number] ibuprofen for pain which she did take prior to coming in [facility] which has not helped her pain. She states that the pain is typically in her left lower back but sometimes radiates into her right lower back and down her left leg. She denies any associated numbness and tingling down her legs. She denies any saddle anesthesia. She denies any lower extremity weakness, bowel or bladder incontinence, urinary retention or constipation. She denies any associated abdominal pain, chest pain or worsening of her chronic shortness of breath. 0331: Patient given Tylenol, Decadron and a lidocaine patch with some improvement of her pain after meds. Repeat blood pressure shows that patient blood pressure still elevated at 144/104. Patient states that she has been told in whenever she would go to the ER her blood pressure is elevated but she states she will typically check it at home. Denies any diagnosis of hypertension never been on any blood pressure medication. Patient denies any headache, vision changes, focal weakness, speech changes, chest pain or abdominal pain or any worsening of her chronic shortness of breath. The back pain that she presents with [facility] is typical of her chronic back pain. Will give patient dose of clonidine and reevaluate after medication. 0439: Repeat manual blood pressure is 154/94. Patient instructed that she will be started on low-dose Norvasc. There is concerned that she likely has hypertension given repeated elevated blood pressures during stay. She will be given referral to local primary care doctor for continued follow-up on her blood pressure and also for chronic pain management. Patient history, physical examination and diagnostic testing does not suggest the presence of acute spinal epidural abscess, acute epidural bleed, cauda equina syndrome, abdominal/thoracic aortic aneurysm, aortic dissection, or other acute process requiring further testing, treatment or consultation in the emergency department. No work-up needed at this time. Patient is awake alert oriented x3. She is neurologically intact with the normal gait in the ER. Patient expressed understanding of instructions and agree with plan. Patient stable at time of discharge. Critical care attestation.: If time is entered above; I have spent that time in minutes in the direct care of this critically ill patient, excluding procedure time. ED Disposition Clinical Impression: Chronic low back pain, Uncontrolled hypertension Disposition: DC-01 TO HOME OR SELFCARE Is pt being admited?: No Does the pt Need Aspirin: No Condition: Stable Instructions: Chronic Back Pain, Hypertension, Adult, Hypertension (ED) Additional Instructions: Take the medications as prescribed. It is important that you establish with a primary care doctor for continued care of your back pain and for continued monitoring of your blood pressure. Primary care doctor can also give her referral to a pain specialist or a spinal specialist. Return to the ER if your symptoms changes or worsens in any way. Prescriptions: Lidocaine [Lidoderm] 1 each TP Q12HR PRN #10 adh..patch PRN Reason: Back Pain methylPREDNISolone [Medrol 4MG DOSEPAK (21 tabs)] 4 mg PO DAILY #1 tab.ds.pk Amlodipine Besylate [Norvasc] 5 mg PO DAILY #30 tablet methOCARBAMOL [Robaxin TAB] 750 mg PO Q8H PRN #30 tablet PRN Reason: Muscle Spasm Ketorolac [Toradol] 10 mg PO Q6H PRN #15 tablet PRN Reason: Pain Referrals: KIMO JACQUES MD [Staff Physician] - 3-5 Days Time of Disposition: 03:23
[2020-07-15] MEDS ORDERED: cloNIDine 0.1 MG TAB PO ONE (03:28)
[2020-07-15] MEDS ORDERED: amLODIPine 5 MG TAB PO ONE (03:28)
[2020-07-15 04:37] VITALS: BP 154/94
== END 2020-07-15 04:39 | disposition home or self-care (01) ==
LOC: ED 01:39
DX: M54.5 Low back pain (principal); G89.29 Other chronic pain; I10 Essential (primary) hypertension; J44.9 Chronic obstructive pulmonary disease, unspecified; F17.200 Nicotine dependence, unspecified, uncomplicated; Z98.890 Other specified postprocedural states; Z79.899 Other long term (current) drug therapy; Z88.8 Allergy status to other drugs, medicaments and biological substances
CPT/HCPCS: 96372; 99282; J1100

== ENCOUNTER 2020-08-22 13:34 | Emergency (ER) | payer SELFPAY ==
[2020-08-22 13:58] VITALS: BP 151/120
--- NOTE | 2020-08-22 16:17 | Emergency Department Report ---
Chief Complaint: Back Pain/Injury Stated Complaint: LOW BACK PAIN Time Seen by Provider: 08/22/20 16:07 - HPI History of Present Illness: 54-year-old female patient with history of chronic back pain presents to the emergency department with complaints of an acute exacerbation of her chronic back pain for the last week. She has a prior diagnosis of herniated disks but has been unable to follow-up with a specialist due to financial constraints. No new injury. Denies fever, saddle anesthesia, bladder/bowel incontinence, urinary retention, paresthesias/numbness. Denies other complaints at this time. - ROS Review of Systems: GENERAL: Negative for fever. CARDIOVASCULAR: Negative for chest pain. PULMONARY: Negative for shortness of breath. GASTROINTESTINAL: Negative for abdominal pain. MUSCULOSKELETAL: Positive for back pain. NEUROLOGICAL: Negative for headache. INTEGUMENTARY: Negative for rash. - Exam Vital Signs: Vital Signs 08/22/20 13:57 Temperature 98.5 F Pulse Rate 99 H Respiratory 18 Rate Blood Pressure 151/120 O2 Sat by Pulse 100 Oximetry Physical Exam: General: Awake, appropriately interactive, no acute distress. Neck: Supple. Full range of motion intact. Cardiovascular: Normal peripheral perfusion. Pulmonary: No respiratory distress. Patient is speaking normally without use of accessory muscles. Skin: No apparent rashes or lesions. Neurological: No facial asymmetry. Speech is clear. Follows commands. Patient is alert and oriented. Musculoskeletal: Moves all four extremities spontaneously with normal range of motion. Back: Diffuse midline and bilateral paraspinal tenderness without step-offs. No saddle anesthesia. Ambulatory without assistance. Patient reports mildly diminished sensation to the left lower extremity along the distribution of multiple dermatomes; she states this finding has been present for years and is unchanged today. No palpable muscle spasm. Psych: Cooperative. Appropriate mood and affect. MSE screening note: Focused history and physical exam performed. Due to findings the following was ordered: ED Medical Decision Making - Medical Decision Making The patients presentation is consistent with an acute exacerbation of chronic back pain. The patients back pain is not associated with numbness, tingling, or loss of strength. There is no acute urinary incontinence or retention and no bowel incontinence or retention. There is no saddle anesthesia. The patient is afebrile and neurovascularly intact. No clinical evidence for acute nerve compression (such as cauda equine syndrome) or infection (such as epidural abscess). It has been explained to the patient that advanced imaging such as CT or MRI is not indicated at this time but should be considered if symptoms recur or worsen. The patient has been informed of the risks associated with chronic opiate use and advised to seek consultation from orthopedics/physical therapy/interventional pain physician for definitive care. Patient is aware of specific signs/symptoms that should prompt immediate return to the ED. Instructions were explained in detail to the patient in addition to giving written discharge information and appropriate referrals. Patient expressed understanding and was given the opportunity to ask questions, all of which were satisfactorily answered prior to discharge home. ED Disposition for MSE Clinical Impression: Acute exacerbation of chronic low back pain Disposition: MED SCREENING EXAM-LEFT Is pt being admited?: No Does the pt Need Aspirin: No Condition: Stable Instructions: Chronic Back Pain, [id number] Additional Instructions: Take Tylenol every 4 hours as needed for pain. Take Naprosyn twice daily with food as needed for pain. Apply Lidoderm patches to affected area as needed for pain. Apply heat to affected area as needed for pain. Follow-up with Dr. Arellano, primary care provider, within 1 week, to arrange physical therapy. Call tomorrow to schedule an appointment. Follow-up with orthopedics, pain management, and physical therapy as soon as possible. Return to the emergency department immediately for new or worsening symptoms. Specifically, return to the emergency department immediately for fever, worsening pain, loss of bladder/bowel control, sensory changes, inability to walk, or any other concerns. Prescriptions: Lidocaine [Lidoderm] 1 each TP BID #20 adh..patch RX: Naproxen 500 mg PO BID #20 tablet Referrals: KIMO ARELLANO MD [Staff Physician] - 3-5 Days JESSICA MILLER MD [Staff Physician] - 3-5 Days [facility] [Provider Group] - 3-5 Days [facility] [Provider Group] - 3-5 Days Forms: Work/School Release Form(ED) Time of Disposition: 16:19
== END 2020-08-22 17:15 | disposition left against medical advice (07) ==
LOC: ED 13:34
DX: M54.5 Low back pain (principal); G89.29 Other chronic pain; Z53.21 Procedure and treatment not carried out due to patient leaving prior to being seen by health care provider

== ENCOUNTER 2020-11-28 04:54 | Inpatient (IN) | payer SELFPAY ==
--- NOTE | 2020-11-28 05:44 | XRay Report ---
XR chest routine 2V INDICATION / CLINICAL INFORMATION: HARINDER. COMPARISON: Radiograph from 04/01/2020 FINDINGS: SUPPORT DEVICES: None. HEART /PULMONARY VASCULATURE: No significant abnormality. LUNGS / PLEURA: Mixed interstitial airspace opacities in the lung bases superimposed upon chronic int erstitial lung changes/emphysema. No pneumothorax. ADDITIONAL FINDINGS: No significant additional findings. IMPRESSION: Mixed interstitial and airspace opacities within the lower lungs, compatible with pneumonia. Signer Name: aMnoj Singh MD Signed: 11/28/2020 5:39 AM Workstation Name: [id number]
[2020-11-28 06:05] LABS: Basophils % (Auto) 0.5 % (0.0-1.8); Eosinophils # (Auto) 0.2 K/mm3 (0.0-0.4); Eosinophils % (Auto) 2.7 % (0.0-4.3); Hemoglobin 16.2 gm/dl (10.1-14.3); Lymphocytes # (Auto) 1.3 K/mm3 (1.2-5.4); Lymphocytes % (Auto) 22.7 % (13.4-35.0); Mean Corpuscular HGB Conc 32 % (30-34); Mean Corpuscular Volume 93 fl (79-97); Monocytes # (Auto) 0.5 K/mm3 (0.0-0.8); Monocytes % (Auto) 9.4 % (0.0-7.3); Platelet Count 218 K/mm3 (140-440); Red Blood Count 5.39 M/mm3 (3.65-5.03); Red Cell Distribution Width 14.6 % (13.2-15.2)
[2020-11-28 06:26] LABS: Alanine Aminotransferase 18 units/L (7-56); Albumin 3.8 g/dL (3.9-5); BUN/Creatinine Ratio 14; Blood Urea Nitrogen 13 mg/dL (7-17); Calcium 8.4 mg/dL (8.4-10.2); Hemolysis Index 4
--- NOTE | 2020-11-28 10:22 | Electrocardiograph Report ---
[facility] Test Date: 2020-11-28 Test Time: 05:22:18 Pat Name: MARILY RODRIGUEZ Department: Room: Gender: F [employer]: SAM : 1965 Requested By: ED DOC Order Number: [id number] Reading MD: Peter Bal Measurements Intervals [place] Rate: 95 P: 69 SD: 151 QRS: 88 QRSD: 78 T: 55 QT: 366 QTc: 462 Interpretive Statements Sinus rhythm Right atrial enlargement Consider left ventricular hypertrophy Anterior Q waves, possibly due to LVH No previous ECG available for comparison Electronically Signed On 11-28-2020 10:22:00 EDT by Peter Bal
[2020-11-28] MEDS ORDERED: LIDOCAINE-MPF (1%) 10 MG/1 ML VIAL 5 ML INFILTRATI ONE (12:51)
[2020-11-28] MEDS ORDERED: AZITHROMYCIN/NS 500 MG/250 ML 500 MG/250 ML BAG IV ONE (12:53)
[2020-11-28] MEDS ORDERED: IPRATROPIUM/ALBUTEROL SULFATE 3 ML AMPUL.NEB IH ONE (13:04)
[2020-11-28] MEDS ORDERED: methylPREDNISolone Sod Succinate 125 MG/2 ML INJ IV ONE (13:04)
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
[2020-11-28] MEDS ORDERED: cefTRIAXone/NS 2 GM/100 ML 2 GM/100 ML BAG IV ONE (14:00)
[2020-11-28 14:05] LABS: Alanine Aminotransferase 18 units/L (7-56); Albumin 3.8 g/dL (3.9-5); BUN/Creatinine Ratio 14; Blood Urea Nitrogen 11 mg/dL (7-17); Calcium 8.8 mg/dL (8.4-10.2); Hemolysis Index 8
[2020-11-28 14:13] LABS: Basophils % (Auto) 0.4 % (0.0-1.8); Eosinophils # (Auto) 0.1 K/mm3 (0.0-0.4); Eosinophils % (Auto) 3.2 % (0.0-4.3); Hematocrit 50.6 % (30.3-42.9); Hemoglobin 16.7 gm/dl (10.1-14.3); Lymphocytes % (Auto) 23.8 % (13.4-35.0); Mean Corpuscular HGB Conc 33 % (30-34); Mean Corpuscular Volume 93 fl (79-97); Monocytes # (Auto) 0.5 K/mm3 (0.0-0.8); Monocytes % (Auto) 10.6 % (0.0-7.3); Platelet Count 212 K/mm3 (140-440); Red Blood Count 5.42 M/mm3 (3.65-5.03); Red Cell Distribution Width 14.5 % (13.2-15.2)
--- NOTE | 2020-11-28 14:20 | Vascular Lab Report ---
DUPLEX DOPPLER LOWER EXTREMITY VEINS, bilateral INDICATION / CLINICAL INFORMATION: swelling. TECHNIQUE: Duplex doppler imaging was performed through the veins of bilateral lower extremity using venous comp ression and other maneuvers. COMPARISON: None available. FINDINGS: Bilateral COMMON FEMORAL VEIN: Negative. Bilateral FEMORAL VEIN: Negative. Bilateral POPLITEAL VEIN: Negative. Bilateral CALF VEINS: Negative. ADDITIONAL FINDINGS: None. IMPRESSION: 1. No sonographic evidence for DVT. Signer Name: Efren Crow MD Signed: 11/28/2020 2:15 PM Workstation Name: [email or web address]
[2020-11-28 14:45] LABS: Bilirubin,Urine NEG (Negative); Blood,Urine NEG (Negative); Color,Urine Yellow (Yellow); Mucus,Urine FEW /HPF; Urobilinogen,Urine < 2.0 mg/dL (<2.0)
[2020-11-28] MEDS ORDERED: SODIUM CHLORIDE 0.9% 1000 ML 1,000 ML IV ONE (14:52)
[2020-11-28] MEDS ORDERED: SODIUM CHLORIDE 0.9% 500 ML 500 ML IV ONE (15:01)
--- NOTE | 2020-11-28 15:26 | Cat Scan Report ---
NONENHANCED CT SCAN OF THE HEAD: INDICATION / CLINICAL INFORMATION: 54 years Female; right numbness. TECHNIQUE: Routine CT head without contrast. All CT scans at this location are performed using CT dos e reduction for ALARA by means of automated exposure control. COMPARISON: None. FINDINGS: BRAIN / INTRACRANIAL CONTENTS: No acute hemorrhage, mass effect, midline shift, hydrocephalus, or acu te, large territorial infarct. No chronic infarct or focal atrophy. Normal brain volume and ventricul ar/sulcal size for age. No significant white matter abnormality. CRANIOCERVICAL JUNCTION: No significant abnormality. ORBITS: No significant abnormality of visualized orbits. SINUSES / MASTOIDS: No significant abnormality of the visualized paranasal sinuses or mastoid air bladimir ls. ADDITIONAL FINDINGS: None. IMPRESSION: No focal parenchymal lesion Signer Name: Sukumar Card MD Signed: 11/28/2020 3:21 PM Workstation Name: [id number]
--- NOTE | 2020-11-28 15:30 | Cat Scan Report ---
Exam: CT cervical spine History: right sided numbness, hx of herniated disc; Technique: Contiguous thin cut axial images obtained through the cervical spine. Sagittal and payne l reconstructions performed by the technologist. All CT scans at this location are performed using CT dose reduction for ALARA by means of automated exposure control. Findings: No priors. There is no evidence of fracture or traumatic subluxation. Vertebral bodies are normal in height and alignment. Intervertebral disc spaces: C2-C3: normal C3-C4: Disc osteophyte complex extending bilaterally; neuroforamina are normal C4-C5: Disc height loss; bony spur more towards the right side; moderate foraminal stenoses; uncovert ebral joint hypertrophy on the right C5-C6: Uncovertebral joint hypertrophy on the left; neuroforamina are normal C6-C7: Normal C7-T1: Normal Surrounding soft tissues are grossly normal. Impression: No signs of acute bony trauma to the cervical spine. On the aortic changes at C3-C4, C4-C5 and C5-C6 disc levels Signer Name: Sukumar Card MD Signed: 11/28/2020 3:25 PM Workstation Name: [id number]
[2020-11-28 17:48] VITALS: BP 141/88
== END 2020-11-28 18:40 | disposition left against medical advice (07) | DRG 193 ==
LOC: ED 04:54 → 4A 16:12
PROVIDERS: ADMIT Internal Medicine; ATTEND Internal Medicine
DX: J18.9 Pneumonia, unspecified organism (principal); J96.01 Acute respiratory failure with hypoxia; J44.1 Chronic obstructive pulmonary disease with (acute) exacerbation; G89.29 Other chronic pain; M54.9 Dorsalgia, unspecified; Z90.710 Acquired absence of both cervix and uterus; Z98.51 Tubal ligation status; Z79.899 Other long term (current) drug therapy
CPT/HCPCS: 36415; 70450; 71046; 72125; 80053; 81001; 82140; 83735; 83880; 84484; 85025; 87040; 87086; 93005; 93970; 94644; 96374; G0378; J0456; J0696; J2930; J7040

== ENCOUNTER 2020-12-22 05:39 | Inpatient (IN) | payer SELFPAY ==
[2020-12-22 07:16] LABS: Basophils % (Auto) 0.3 % (0.0-1.8); Eosinophils # (Auto) 0.1 K/mm3 (0.0-0.4); Eosinophils % (Auto) 1.5 % (0.0-4.3); Hematocrit 52.9 % (30.3-42.9); Hemoglobin 17.3 gm/dl (10.1-14.3); Lymphocytes % (Auto) 17.4 % (13.4-35.0); Mean Corpuscular HGB Conc 33 % (30-34); Mean Corpuscular Volume 94 fl (79-97); Monocytes # (Auto) 0.5 K/mm3 (0.0-0.8); Monocytes % (Auto) 8.8 % (0.0-7.3); Platelet Count 212 K/mm3 (140-440); Red Blood Count 5.61 M/mm3 (3.65-5.03); Red Cell Distribution Width 15.8 % (13.2-15.2)
--- NOTE | 2020-12-22 07:25 | XRay Report ---
CHEST 2 VIEWS INDICATION: dyspnea. COMPARISON: 11/28/2020 FINDINGS: SUPPORT DEVICES: None. HEART: Within normal limits. LUNGS/PLEURA: Stable mild diffuse interstitial prominence and underlying patchy airspace disease with a bibasilar predominance. No pneumothorax. ADDITIONAL FINDINGS: None. IMPRESSION: 1. Unchanged exam, at least in part chronic Signer Name: Derik Marie MD Signed: 12/22/2020 7:21 AM Workstation Name: [id number]
[2020-12-22 07:35] LABS: Alanine Aminotransferase 22 units/L (7-56); Albumin 3.7 g/dL (3.9-5); BUN/Creatinine Ratio 11; Blood Urea Nitrogen 10 mg/dL (7-17); Calcium 8.5 mg/dL (8.4-10.2); Hemolysis Index 15
[2020-12-22] MEDS ORDERED: cefTRIAXone/NS 1 GM/50 ML 1 GM/50 ML BAG IV ONE (09:23)
[2020-12-22] MEDS ORDERED: dexAMETHasone 4 MG/ML VIAL IV ONE (09:23)
[2020-12-22] MEDS ORDERED: AZITHROMYCIN/NS 500 MG/250 ML 500 MG/250 ML BAG IV ONE (09:23)
--- NOTE | 2020-12-22 09:34 | Emergency Department Report ---
ED Shortness of Breath HPI - General Chief Complaint: Dyspnea/Respdistress Stated Complaint: HARINDER Time Seen by Provider: 12/22/20 09:03 Source: patient Mode of arrival: Ambulatory Limitations: No Limitations - History of Present Illness Initial Comments: Patient is 54 years old female with history of COPD and sarcoidosis. Patient presented to the ER complaining of shortness of breath, cough productive for the last 3 days. Patient also describes decreased appetite but no vomiting. Patient denied any chest pain. No fever or chills. Patient stated that she did not receive her COVID-19 vaccine yet and she was planning to get it next week. MD Complaint: shortness of breath, cough -: days(s) Severity: moderate Known History Of: COPD Context: recent URI Associated Symptoms: cough, sputum production - Related Data Previous Rx's Medication Instructions Recorded Last Taken Type Albuterol Mdi (or & Nicu Only) 1 puff IH Q4HR PRN #1 inha 01/19/19 Unknown Rx [ProAir HFA Inhaler] Amlodipine Besylate [Norvasc] 5 mg PO DAILY #30 tablet 07/15/20 Unknown Rx Azithromycin [Zithromax Z-HERIBERTO] 250 mg PO DAILY #6 tab 12/23/20 Unknown Rx Benzonatate [Tessalon Perles] 100 mg PO Q8HR PRN #10 capsule 12/23/20 Unknown Rx Fluticasone [Flonase] 1 spray NS QDAY #1 bottle 12/23/20 Unknown Rx Ipratropium (Nf) [Atrovent HFA 2 puff IH Q4H PRN #1 inha 12/23/20 Unknown Rx 17MCG/PUFF] Montelukast [Singulair] 10 mg PO QHS #30 tablet 12/23/20 Unknown Rx hydroCHLOROthiazide 12.5 mg PO QDAY 30 Days #30 capsule 12/23/20 Unknown Rx [Hydrochlorothiazide] methylPREDNISolone [Medrol 4MG 4 mg PO DAILY #1 tab.ds.pk 12/23/20 Unknown Rx DOSEPAK (21 tabs)] Allergies Allergy/AdvReac Type Severity Reaction Status Date / Time bupropion HCl Allergy Hives Verified 01/19/19 12:10 [From Wellbutrin] diphenhydramine HCl Allergy Hives Verified 01/19/19 12:10 [From Benadryl] ED Review of Systems ROS: Stated complaint: HARINDER Other details as noted in HPI Comment: All other systems reviewed and negative Constitutional: denies: chills Respiratory: cough, orthopnea, shortness of breath, SOB with exertion, SOB at rest Cardiovascular: denies: chest pain, palpitations Gastrointestinal: denies: abdominal pain, nausea, vomiting, diarrhea, constipation Musculoskeletal: denies: back pain ED Past Medical Hx - Past Medical History Previous Medical History?: Yes Hx Asthma: Yes Hx COPD: Yes Additional medical history: SARCOIDOSIS - Surgical History Past Surgical History?: Yes Additional Surgical History: LUNG BIOPSY,chronic back pain r/t herniated disc. HYSTERECTOMY. TUBAL LIGATION - Social History Smoking Status: Never Smoker Substance Use Type: None - Medications Home Medications: Home Medications Medication Instructions Recorded Confirmed Last Taken Type Albuterol Mdi (or & Nicu Only) 1 puff IH Q4HR PRN #1 inha 01/19/19 Unknown Rx [ProAir HFA Inhaler] Amlodipine Besylate [Norvasc] 5 mg PO DAILY #30 tablet 07/15/20 Unknown Rx Azithromycin [Zithromax Z-HERIBERTO] 250 mg PO DAILY #6 tab 12/23/20 Unknown Rx Benzonatate [Tessalon Perles] 100 mg PO Q8HR PRN #10 capsule 12/23/20 Unknown Rx Fluticasone [Flonase] 1 spray NS QDAY #1 bottle 12/23/20 Unknown Rx Ipratropium (Nf) [Atrovent HFA 2 puff IH Q4H PRN #1 inha 12/23/20 Unknown Rx 17MCG/PUFF] Montelukast [Singulair] 10 mg PO QHS #30 tablet 12/23/20 Unknown Rx hydroCHLOROthiazide 12.5 mg PO QDAY 30 Days #30 capsule 12/23/20 Unknown Rx [Hydrochlorothiazide] methylPREDNISolone [Medrol 4MG 4 mg PO DAILY #1 tab.ds.pk 12/23/20 Unknown Rx DOSEPAK (21 tabs)] ED Physical Exam - General Limitations: No Limitations General appearance: alert, in distress - Head Head exam: Present: atraumatic, normocephalic, normal inspection - Eye Eye exam: Present: normal appearance - ENT ENT exam: Present: normal exam, normal orophraynx, mucous membranes moist - Neck Neck exam: Present: normal inspection, full ROM. Absent: tenderness, meningismu s, lymphadenopathy, thyromegaly - Respiratory Respiratory exam: Present: respiratory distress, rales, rhonchi, decreased breath sounds. Absent: wheezes, accessory muscle use, prolonged expiratory - Cardiovascular Cardiovascular Exam: Present: tachycardia - GI/Abdominal GI/Abdominal exam: Present: soft, normal bowel sounds. Absent: distended, tenderness, guarding, rebound, rigid, organomegaly, mass, bruit, pulsatile mass, hernia - Extremities Exam Extremities exam: Present: normal inspection, full ROM, normal capillary refill. Absent: tenderness - Back Exam Back exam: Present: normal inspection, full ROM. Absent: CVA tenderness (R), CVA tenderness (L) - Neurological Exam Neurological exam: Present: alert, oriented X3, CN II-XII intact, normal gait, reflexes normal. Absent: motor sensory deficit - Psychiatric Psychiatric exam: Present: normal mood - Skin Skin exam: Present: warm, intact, normal color ED Course Vital Signs 12/22/20 12/22/20 12/22/20 05:50 08:55 09:17 Temperature 98.7 F Pulse Rate 99 H 101 H 99 H Pulse Rate [ Bilateral] Respiratory 26 H 22 20 Rate Respiratory Rate [Bilateral ] Blood Pressure 147/100 148/99 138/97 [Left] O2 Sat by Pulse 87 92 92 Oximetry 12/22/20 12/22/20 12/22/20 11:14 16:55 20:00 Temperature 98.1 F Pulse Rate 99 H 84 90 Pulse Rate [ Bilateral] Respiratory 20 20 18 Rate Respiratory Rate [Bilateral ] Blood Pressure 158/87 158/99 133/104 [Left] O2 Sat by Pulse 94 85 100 Oximetry 12/22/20 12/22/20 12/22/20 20:45 20:49 21:25 Temperature Pulse Rate Pulse Rate [ 88 88 Bilateral] Respiratory Rate Respiratory 18 18 Rate [Bilateral ] Blood Pressure [Left] O2 Sat by Pulse 100 Oximetry 12/23/20 12/23/20 12/23/20 00:30 02:00 06:45 Temperature 98.0 F 98.0 F Pulse Rate 92 H 90 Pulse Rate [ 87 Bilateral] Respiratory 18 18 Rate Respiratory 20 Rate [Bilateral ] Blood Pressure 159/97 158/109 [Left] O2 Sat by Pulse 98 100 Oximetry 12/23/20 10:25 Temperature 98.9 F Pulse Rate 99 H Pulse Rate [ Bilateral] Respiratory 20 Rate Respiratory Rate [Bilateral ] Blood Pressure 147/100 [Left] O2 Sat by Pulse 94 Oximetry ED Medical Decision Making - Lab Data Result diagrams: 12/22/20 07:04 12/23/20 15:06 - Radiology Data Radiology results: report reviewed - Medical Decision Making Patient is 54 years old female with history of COPD and sarcoidosis. Patient presented to the ER complaining of shortness of breath, cough productive for the last 3 days. Patient also describes decreased appetite but no vomiting. Patient denied any chest pain. No fever or chills. Patient stated that she did not receive her COVID-19 vaccine yet and she was planning to get it next week. Patient found to have an oxygen saturation of 87% on room air improved to 95% on 2L. Chest x-ray showed bilateral pneumonia. Patient received Rocephin, Zithromax and Decadron. COVID-19 test has been ordered. I discussed the patient with Dr. Rivera, He agreed to admit the patient to the hospital for further management. He advised to admit the patient to Dr. Kennedy. Critical Care Time: Yes Critical care time in (mins) excluding proc time.: 30 Critical care attestation.: If time is entered above; I have spent that time in minutes in the direct care of this critically ill patient, excluding procedure time. ED Disposition Clinical Impression: Acute respiratory failure with hypoxia, Pneumonia, Suspected COVID-19 virus infection Disposition: OP ADMIT IP TO THIS HOSP Is pt being admited?: Yes Condition: Stable
[2020-12-22 10:26] LABS: INR 1.08 (0.87-1.13)
[2020-12-22 10:27] LABS: Partial Thromboplastin Time 28.9 Sec. (24.2-36.6)
[2020-12-22] MEDS ORDERED: LORazepam 2 MG/ML VIAL ONE (11:01)
[2020-12-22] MEDS ORDERED: LORazepam 2 MG/ML VIAL IV ONE (11:15)
--- NOTE | 2020-12-22 15:25 | History and Physical Report ---
History of Present Illness Date of examination: 12/22/20 Date of admission: 12/22/20 09:37 Chief complaint: Shortness of breath History of present illness: Patient is 54 years old female with history of COPD and sarcoidosis. Patient presented to the ER complaining of shortness of breath, cough productive for the last 3 days. Patient also describes decreased appetite but no vomiting. Patient denied any chest pain. No fever or chills. Patient stated that she did not receive her COVID-19 vaccine yet and she was planning to get it next week. Past History Past Medical History: COPD, hypertension Past Surgical History: hysterectomy Social history: lives with family, smoking Family history: cancer Medications and Allergies Allergies Allergy/AdvReac Type Severity Reaction Status Date / Time bupropion HCl Allergy Hives Verified 01/19/19 12:10 [From Wellbutrin] diphenhydramine HCl Allergy Hives Verified 01/19/19 12:10 [From Benadryl] Home Medications Medication Instructions Recorded Confirmed Last Taken Type Benzonatate [Tessalon Perles] 100 mg PO Q8HR PRN #30 capsule 09/19/17 Unknown Rx Ibuprofen [Motrin] 800 mg PO QPM PRN 09/19/17 09/19/17 Unknown History Ipratropium [place] [Atrovent Hfa] 12.9 gm IH Q4HR #2 hfa.aer.ad 09/19/17 Unknown Rx Albuterol Mdi (or & Nicu Only) 1 puff IH Q4HR PRN #1 inha 01/19/19 Unknown Rx [ProAir HFA Inhaler] Doxycycline Hyclate [Doxycycline 100 mg PO Q12HR 7 Days #14 tab 12/31/19 U nknown Rx Hyclate TAB] ALBUTEROL NEB's [Proventil 0.083% 2.5 mg IH TID PRN #1 box 04/01/20 Unknown Rx NEBS] Albuterol Mdi (or & Nicu Only) 2 puff IH QID PRN #1 inhalation 04/01/20 Unknown Rx [ProAir HFA Inhaler] hydroCHLOROthiazide 12.5 mg PO QDAY 30 Days #30 capsule 04/01/20 Unknown Rx [Hydrochlorothiazide] Cyclobenzaprine [Flexeril] 10 mg PO QHS PRN #10 tablet 06/03/20 Unknown Rx Amlodipine Besylate [Norvasc] 5 mg PO DAILY #30 tablet 07/15/20 Unknown Rx Ketorolac [Toradol] 10 mg PO Q6H PRN #15 tablet 07/15/20 Unknown Rx Lidocaine [Lidoderm] 1 each TP Q12HR PRN #10 adh..patch 07/15/20 Unknown Rx methOCARBAMOL [Robaxin TAB] 750 mg PO Q8H PRN #30 tablet 07/15/20 Unknown Rx methylPREDNISolone [Medrol 4MG 4 mg PO DAILY #1 tab.ds.pk 07/15/20 Unknown Rx DOSEPAK (21 tabs)] Lidocaine [Lidoderm] 1 each TP BID #20 adh..patch 08/22/20 Unknown Rx Naproxen 500 mg PO BID #20 tablet 08/22/20 Unknown Rx ALBUTEROL NEB's [Proventil 0.083% 2.5 mg IH QID PRN #1 box 11/28/20 Unknown Rx NEBS] Albuterol Mdi (or & Nicu Only) 2 puff IH QID PRN #8.5 gram 11/28/20 Unknown Rx [ProAir HFA Inhaler] Albuterol Sulfate [Proair 90 mcg IH Q4HR PRN #2 aer.pow.ba 11/28/20 Unknown Rx Respiclick] Amoxicillin/Potassium Clav 1 each PO BID #14 tablet 11/28/20 Unknown Rx [Augmentin 875-125 Tablet] Azithromycin [Zithromax Z-HERIBERTO] 250 mg PO DAILY #6 tab 11/28/20 Unknown Rx Fluticasone [Flonase] 1 spray NS QDAY #1 bottle 11/28/20 Unknown Rx Ipratropium (Nf) [Atrovent] 2 puff IH Q4H PRN #1 inha 11/28/20 Unknown Rx Ipratropium [Atrovent] 0.5 mg IH Q4HR #1 box 11/28/20 Unknown Rx predniSONE [Deltasone] 40 mg PO QDAY #8 tab 11/28/20 Unknown Rx Exam - Physical Exam Narrative exam: GENERAL: well-developed and well-nourished -[place] female lying on bed appeared to be in no discomfort. HEENT: Normocephalic. Atraumatic. No conjunctival congestion or icterus. Patient has moist mucous membranes. NECK: Supple. Trachea midline. CHEST/LUNGS: Few wheezes auscultated bilaterally, breathing nonlabored. No crackles or rhonchi. HEART/CARDIOVASCULAR: Regular in rate and rhythm. S1 and S2 positive. ABDOMEN: Abdomen is soft, nontender. Patient has normal bowel sounds. SKIN: There is no rash. Warm and dry. NEURO: No focal motor deficit. Follows command. MUSCULOSKELETAL: No joint effusion or tenderness. EXTRIMITY: No edema, no cyanosis or clubbing. PSYCH: Cooperative. - Constitutional Vitals: Temp Pulse Resp BP Pulse Ox 98.7 F 99 H 20 158/87 94 12/22/20 05:50 12/22/20 11:14 12/22/20 11:14 12/22/20 11:14 12/22/20 11:14 Results - Labs CBC & Chem 7: 12/22/20 07:04 12/23/20 04:12 Labs: Abnormal lab results 12/22/20 12/22/20 12/22/20 Range/Units 07:04 07:04 09:48 RBC 5.61 H (3.65-5.03) M/mm3 Hgb 17.3 H (10.1-14.3) gm/dl Hct 52.9 H (30.3-42.9) % RDW 15.8 H (13.2-15.2) % [place] % (Auto) 8.8 H (0.0-7.3) % Lymph # (Auto) 1.0 L (1.2-5.4) K/mm3 Seg Neutrophils % 72.0 H (40.0-70.0) % NT-Pro-B Natriuret Pep 2943 H (0-900) pg/mL Albumin 3.7 L (3.9-5) g/dL - Imaging and Cardiology Chest x-ray: report reviewed (Diffuse interstitial prominence with patchy bilateral disease) Assessment and Plan --COPD exacerbation --acute respiratory failure --Bilateral pneumonia, likely community-acquired -- ongoing tobacco abuse -- Covid PUI - test is negative - We'll admit the patient to telemetry - Will provide scheduled nebulizer breathing treatment and as needed - Place on empiric steroid and antibiotic - will get sputum culture, chest x-ray was unremarkable - Provide supplemental oxygen to keep oxygen saturation above 92% - Consider to consult pulmonary if no improvement in next 24 hours - We'll place on sliding scale of insulin as patient will be on empiric steroid - We will resume home medications, monitor BP - Provide DVT prophylaxis with Lovenox.
[2020-12-22] MEDS ORDERED: cefTRIAXone/NS 1 GM/50 ML 1 GM/50 ML BAG IV SCH (16:00)
[2020-12-22] MEDS ORDERED: ONDANSETRON 4 MG/2 ML INJ IV PRN (16:00)
[2020-12-22] MEDS ORDERED: ACETAMINOPHEN 325 MG TAB PO PRN (16:00)
[2020-12-22] MEDS ORDERED: oxyCODONE /ACETAMINOPHEN 5-325MG TAB PO PRN (16:00)
[2020-12-22] MEDS: IPRATROPIUM/ALBUTEROL SULFATE 3 ML AMPUL.NEB IH SCH (20:43)
[2020-12-22] MEDS: DOCUSATE SODIUM 100 MG CAP PO SCH (21:58)
[2020-12-22] MEDS: methylPREDNISolone Sod Succinate 40 MG/1 ML INJ IV SCH (21:59)
[2020-12-22] MEDS ORDERED: FAMOTIDINE 20 MG TAB PO SCH (22:00)
[2020-12-22] MEDS ORDERED: MONTELUKAST 10 MG TAB PO SCH (22:00)
[2020-12-23] MEDS: IPRATROPIUM/ALBUTEROL SULFATE 3 ML AMPUL.NEB IH SCH ×3 (02:10→14:34)
[2020-12-23 05:31] LABS: Calcium 8.4 mg/dL (8.4-10.2)
[2020-12-23] MEDS: methylPREDNISolone Sod Succinate 40 MG/1 ML INJ IV SCH ×2 (06:07→14:34)
[2020-12-23] MEDS ORDERED: FAMOTIDINE 10 MG TAB PO SCH (10:00)
[2020-12-23] MEDS ORDERED: AZITHROMYCIN/NS 500 MG/250 ML 500 MG/250 ML BAG IV SCH (10:00)
[2020-12-23] MEDS: DOCUSATE SODIUM 100 MG CAP PO SCH (10:24)
[2020-12-23] MEDS ORDERED: cefTRIAXone/NS 1 GM/50 ML 1 GM/50 ML BAG IV SCH (12:00)
[2020-12-23 15:43] LABS: BUN/Creatinine Ratio 19; Blood Urea Nitrogen 21 mg/dL (7-17); Hemolysis Index 19
--- NOTE | 2020-12-23 15:47 | Progress Note ---
Assessment and Plan --COPD exacerbation --acute respiratory failure --Bilateral pneumonia, likely community-acquired -- ongoing tobacco abuse -- Covid PUI - test is negative - We'll admit the patient to telemetry - Will provide scheduled nebulizer breathing treatment and as needed - Place on empiric steroid and antibiotic - will get sputum culture, chest x-ray was unremarkable - Provide supplemental oxygen to keep oxygen saturation above 92% - Consider to consult pulmonary if no improvement in next 24 hours - We'll place on sliding scale of insulin as patient will be on empiric steroid - We will resume home medications, monitor BP - Provide DVT prophylaxis with Lovenox. Subjective Date of service: 12/23/20 Objective - Constitutional Vitals: Vital Signs - 12hr 12/23/20 12/23/20 06:45 10:25 Temperature 98.0 F 98.9 F Pulse Rate 90 99 H Respiratory 18 20 Rate Blood Pressure 158/109 147/100 [Left] O2 Sat by Pulse 100 94 Oximetry - Labs CBC & Chem 7: 12/22/20 07:04 12/23/20 04:12 Labs: Abnormal lab results 12/23/20 Range/Units 04:12 Potassium 5.8 H D (3.6-5.0) mmol/L Chloride 93.2 L (98-107) mmol/L Carbon Dioxide 21 L (22-30) mmol/L BUN 74 H (7-17) mg/dL Creatinine 15.4 H D (0.6-1.2) mg/dL
--- NOTE | 2020-12-23 16:07 | Discharge Summary ---
Providers - Providers Date of Admission: 12/22/20 09:37 Date of discharge: 12/23/20 Attending physician: TRI RM Primary care physician: [facility] Hospitalization Condition: Stable Hospital course: This is a 54-year-old female with history of ongoing tobacco abuse COPD/asthma and sarcoidosis presented to the ER with complaint of shortness of breath produc tive cough for last 3 days. Patient is not vaccinated against COVID-19. CXR obtained and showed Stable mild diffuse interstitial prominence and underlying patchy airspace disease with a bibasilar predominance. Patient was admitted to medical floor with scheduled nebs, iv abx, iv steroids and supplemental O2 to keep O2 sat at 94%. Her COVID-19 test was negative. Patients symptom improved with medical management. Patient was then discharged home in stable condition with outpt f/u. --Of note, on discharge day patient had BMP which showed elevated creatinine and potassium but repeat BMP showed completely normal electrolytes. BMP with abnormal result here by thought to be due to technical error. Final Discharge Diagnosis (Prints w/discharge instructions): --COPD exac erbation. --acute respiratory failure. --Bilateral pneumonia, likely community-acquired. -- ongoing tobacco abuse. -- Covid PUI - test is negative Time spent for discharge: 34 minutes Core Measure Documentation - Palliative Care Palliative Care/ Comfort Measures: Not Applicable - Core Measures Any of the following diagnoses?: none Exam - Physical Exam Narrative exam: GENERAL: well-developed and well-nourished -[place] female lying on bed appeared to be in no discomfort. HEENT: Normocephalic. Atraumatic. No conjunctival congestion or icterus. Patient has moist mucous membranes. NECK: Supple. Trachea midline. CHEST/LUNGS: Few wheezes auscultated bilaterally, breathing nonlabored. No crackles or rhonchi. HEART/CARDIOVASCULAR: Regular in rate and rhythm. S1 and S2 positive. ABDOMEN: Abdomen is soft, nontender. Patient has normal bowel sounds. SKIN: There is no rash. Warm and dry. NEURO: No focal motor deficit. Follows command. MUSCULOSKELETAL: No joint effusion or tenderness. EXTRIMITY: No edema, no cyanosis or clubbing. PSYCH: Cooperative. - Constitutional Vitals: Temp Pulse Resp BP Pulse Ox 98.9 F 99 H 20 147/100 94 12/23/20 10:25 12/23/20 10:25 12/23/20 10:25 12/23/20 10:25 12/23/20 10:25 Plan Activity: advance as tolerated Weight Bearing Status: Weight Bear as Tolerated Diet: low fat, low salt Follow up with: PRIMARY CARE, [Primary Care Provider] - 3-5 Days VERENICE SOSA MD [Staff Physician] - 7 Days Prescriptions: Montelukast [Singulair] 10 mg PO QHS #30 tablet Ipratropium (Nf) [Atrovent HFA 17MCG/PUFF] 2 puff IH Q4H PRN #1 inha PRN Reason: Wheezing Fluticasone [Flonase] 1 spray NS QDAY #1 bottle hydroCHLOROthiazide [Hydrochlorothiazide] 12.5 mg PO QDAY 30 Days #30 capsule methylPREDNISolone [Medrol 4MG DOSEPAK (21 tabs)] 4 mg PO DAILY #1 tab.ds.pk Benzonatate [Tessalon Perles] 100 mg PO Q8HR PRN #10 capsule PRN Reason: Cough Azithromycin [Zithromax Z-HERIBERTO] 250 mg PO DAILY #6 tab
[2020-12-23 17:53] VITALS: BP 155/99
== END 2020-12-23 17:53 | disposition home or self-care (01) | DRG 193 ==
LOC: ED 05:39 → 3A 09:37
PROVIDERS: ADMIT Internal Medicine; ATTEND Internal Medicine
DX: J18.9 Pneumonia, unspecified organism (principal); J96.01 Acute respiratory failure with hypoxia; J44.0 Chronic obstructive pulmonary disease with (acute) lower respiratory infection; J44.1 Chronic obstructive pulmonary disease with (acute) exacerbation; Z20.822 Contact with and (suspected) exposure to COVID-19; D86.9 Sarcoidosis, unspecified; G89.29 Other chronic pain; M54.9 Dorsalgia, unspecified; I10 Essential (primary) hypertension; J45.909 Unspecified asthma, uncomplicated; Z79.899 Other long term (current) drug therapy; Z79.01 Long term (current) use of anticoagulants; Z88.8 Allergy status to other drugs, medicaments and biological substances; Z90.710 Acquired absence of both cervix and uterus; Z80.9 Family history of malignant neoplasm, unspecified; Z79.891 Long term (current) use of opiate analgesic; Z98.51 Tubal ligation status
CPT/HCPCS: 36415; 71046; 80048; 80053; 83880; 85025; 85610; 85730; 94640; 94644; G0378; J0456; J0696; J1100; J2060; J2920; U0003

== ENCOUNTER 2021-02-09 00:44 | Emergency (ER) | payer SELFPAY | END 2021-02-09 04:43 | LOC: ED 00:44 | DX: E11.9 Type 2 diabetes mellitus without complications (principal); Z53.21 Procedure and treatment not carried out due to patient leaving prior to being seen by health care provider ==

== ENCOUNTER 2021-02-10 05:03 | Emergency (ER) | payer SELFPAY ==
[2021-02-10] MEDS ORDERED: predniSONE 20 MG TAB PO ONE (05:18)
[2021-02-10] MEDS ORDERED: ALBUTEROL 2.5 MG/3 ML NEBU IH ONE (05:18)
[2021-02-10] MEDS ORDERED: IPRATROPIUM 0.02% NEBU 2.5 ML IH ONE (05:19)
--- NOTE | 2021-02-10 05:23 | Emergency Department Report ---
ED Shortness of Breath HPI - General Chief Complaint: Dyspnea/Respdistress Stated Complaint: SOB Time Seen by Provider: 02/10/21 05:14 Source: patient Mode of arrival: Ambulatory Limitations: No Limitations - History of Present Illness Initial Comments: Patient presents secondary to difficulty breathing. She is a long history of lung disease. She has been having trouble breathing over the last week or so. Her dyspnea has progressively worsened. She describes orthopnea and exertional dyspnea. She has had no swelling in the feet or ankles. She has been using her nebulizer and her inhaler without symptomatic improvement. She is not been on prednisone lately. She does have a cough chronically. There has been no change in sputum production. She has no fevers or chills. She states that she did have a known coronavirus exposure. Her son tested positive about 3 weeks ago. Patient states that she was tested 1 week ago and was negative. Patient has been admitted before due to her breathing. She has never been intubated before. - Related Data Previous Rx's Medication Instructions Recorded Last Taken Type Albuterol Mdi (or & Nicu Only) 1 puff IH Q4HR PRN #1 inha 01/19/19 Unknown Rx [ProAir HFA Inhaler] Amlodipine Besylate [Norvasc] 5 mg PO DAILY #30 tablet 07/15/20 Unknown Rx Azithromycin [Zithromax Z-HERIBERTO] 250 mg PO DAILY #6 tab 12/23/20 Unknown Rx Benzonatate [Tessalon Perles] 100 mg PO Q8HR PRN #10 capsule 12/23/20 Unknown Rx Fluticasone [Flonase] 1 spray NS QDAY #1 bottle 12/23/20 Unknown Rx Ipratropium (Nf) [Atrovent HFA 2 puff IH Q4H PRN #1 inha 12/23/20 Unknown Rx 17MCG/PUFF] Montelukast [Singulair] 10 mg PO QHS #30 tablet 12/23/20 Unknown Rx hydroCHLOROthiazide 12.5 mg PO QDAY 30 Days #30 capsule 12/23/20 Unknown Rx [Hydrochlorothiazide] methylPREDNISolone [Medrol 4MG 4 mg PO DAILY #1 tab.ds.pk 12/23/20 Unknown Rx DOSEPAK (21 tabs)] Allergies Allergy/AdvReac Type Severity Reaction Status Date / Time bupropion HCl Allergy Hives Verified 02/10/21 05:14 [From Wellbutrin] diphenhydramine HCl Allergy Hives Verified 02/10/21 05:14 [From Benadryl] ED Review of Systems ROS: Stated complaint: SOB Other details as noted in HPI Comment: All other systems reviewed and negative Constitutional: denies: fever Eyes: denies: eye pain ENT: denies: throat pain Respiratory: see HPI, cough (no change is sputum), shortness of breath Cardiovascular: denies: chest pain Endocrine: unexplained weight loss Gastrointestinal: denies: abdominal pain Genitourinary: denies: dysuria Musculoskeletal: denies: back pain Skin: denies: rash Neurological: denies: headache Hematological/Lymphatic: denies: easy bruising ED Past Medical Hx - Past Medical History Hx Asthma: Yes Hx COPD: Yes Additional medical history: SARCOIDOSIS - Surgical History Additional Surgical History: LUNG BIOPSY,chronic back pain r/t herniated disc. HYSTERECTOMY. TUBAL LIGATION - Family History Family history: no significant - Social History Smoking Status: Never Smoker Substance Use Type: None - Medications Home Medications: Home Medications Medication Instructions Recorded Confirmed Last Taken Type Albuterol Mdi (or & Nicu Only) 1 puff IH Q4HR PRN #1 inha 01/19/19 Unknown Rx [ProAir HFA Inhaler] Amlodipine Besylate [Norvasc] 5 mg PO DAILY #30 tablet 07/15/20 Unknown Rx Azithromycin [Zithromax Z-HERIBERTO] 250 mg PO DAILY #6 tab 12/23/20 Unknown Rx Benzonatate [Tessalon Perles] 100 mg PO Q8HR PRN #10 capsule 12/23/20 Unknown Rx Fluticasone [Flonase] 1 spray NS QDAY #1 bottle 12/23/20 Unknown Rx Ipratropium (Nf) [Atrovent HFA 2 puff IH Q4H PRN #1 inha 12/23/20 Unknown Rx 17MCG/PUFF] Montelukast [Singulair] 10 mg PO QHS #30 tablet 12/23/20 Unknown Rx hydroCHLOROthiazide 12.5 mg PO QDAY 30 Days #30 capsule 12/23/20 Unknown Rx [Hydrochlorothiazide] methylPREDNISolone [Medrol 4MG 4 mg PO DAILY #1 tab.ds.pk 08/10/21 Unknown Rx DOSEPAK (21 tabs)] ED Physical Exam - General Limitations: No Limitations General appearance: alert, in distress (moderate) - Head Head exam: Present: atraumatic, normocephalic, normal inspection - Eye Eye exam: Present: normal appearance, EOMI. Absent: scleral icterus - ENT ENT exam: Present: normal exam, normal orophraynx - Neck Neck exam: Present: normal inspection. Absent: meningismus - Respiratory Respiratory exam: Present: respiratory distress (moderate), wheezes (bilateral), accessory muscle use, decreased breath sounds, prolonged expiratory, other (3 word dyspnea) - Cardiovascular Cardiovascular Exam: Present: normal rhythm, tachycardia - GI/Abdominal GI/Abdominal exam: Present: soft. Absent: tenderness - Extremities Exam Extremities exam: Present: normal capillary refill. Absent: pedal edema - Back Exam Back exam: Present: full ROM - Neurological Exam Neurological exam: Present: alert, oriented X3, normal gait. Absent: motor sensory deficit - Psychiatric Psychiatric exam: Present: normal affect, normal mood - Skin Skin exam: Present: warm, dry ED Course Vital Signs 02/10/21 02/10/21 02/10/21 05:15 05:35 05:45 Temperature 98.2 F Pulse Rate 105 H 97 H Pulse Rate [ 105 H Bilateral Throughout] Respiratory 20 28 H Rate Respiratory 24 Rate [Bilateral Throughout] Blood Pressure 130/94 143/94 [Left] O2 Sat by Pulse 80 L 93 Oximetry - Reevaluation(s) Reevaluation #1: 02/10/21 05:20 nebs and cxr ordered. Reevaluation #2: 02/10/21 05:46 After nebs, x-ray have been reviewed. There was no radiographic evidence of pneumonia or pneumothorax. She did not have obvious evidence of congestive heart failure. There is no clinical symptoms that were concerning for congestive heart failure. Patient did not have any pleuritic pain. I do not believe this represents PE. She was hypoxic upon arrival. Reevaluation #3: 02/10/21 05:52 Based on the degree of hypoxia. Labs have been ordered. Neb is in progress. X-ray is still pending. ED Medical Decision Making - EKG Data 02/10/21 05:47 Rhythm strip: Sinus tachycardia without ectopy. Monitor observe 10 seconds. Critical Care Time: No Critical care attestation.: If time is entered above; I have spent that time in minutes in the direct care of this critically ill patient, excluding procedure time. ED Disposition Clinical Impression: Hypoxia Asthma exacerbation Qualifiers: Asthma severity: moderate Asthma persistence: persistent Qualified Code(s): J45.41 - Moderate persistent asthma with (acute) exacerbation Disposition: 30 STILL A PATIENT Is pt being admited?: No Does the pt Need Aspirin: No Condition: Stable
--- NOTE | 2021-02-10 06:04 | XRay Report ---
CHEST 1 VIEW INDICATION / CLINICAL INFORMATION: cough STUDY TIME: 527 COMPARISON: 12/22/2020 FINDINGS: SUPPORT DEVICES: None HEART / MEDIASTINUM: No significant abnormality. LUNGS / PLEURA: Prominent chronic changes are again noted. Previous density in the left base has impr jayda. However, there is worsening density, possibly pneumonitis, in the right base. No pneumothorax. ADDITIONAL FINDINGS: No significant additional findings. Signer Name: Ulysses Rivera MD Signed: 02/10/2021 6:00 AM Workstation Name: [id number]
[2021-02-10 06:27] LABS: Basophils % (Auto) 0.3 % (0.0-1.8); Eosinophils # (Auto) 0.1 K/mm3 (0.0-0.4); Eosinophils % (Auto) 1.5 % (0.0-4.3); Hematocrit 49.6 % (30.3-42.9); Hemoglobin 16.4 gm/dl (10.1-14.3); Lymphocytes # (Auto) 0.8 K/mm3 (1.2-5.4); Lymphocytes % (Auto) 10.8 % (13.4-35.0); Mean Corpuscular HGB Conc 33 % (30-34); Mean Corpuscular Volume 94 fl (79-97); Monocytes # (Auto) 0.6 K/mm3 (0.0-0.8); Platelet Count 196 K/mm3 (140-440); Red Blood Count 5.29 M/mm3 (3.65-5.03); Red Cell Distribution Width 16.1 % (13.2-15.2)
[2021-02-10 06:40] LABS: Blood Urea Nitrogen 11 mg/dL (7-17); Calcium 8.7 mg/dL (8.4-10.2); Hemolysis Index 12
[2021-02-10 06:43] LABS: BUN/Creatinine Ratio 16
[2021-02-10 08:01] VITALS: BP 137/93
--- NOTE | 2021-02-10 08:02 | Emergency Department Report ---
HPI - General Chief Complaint: Dyspnea/Respdistress Time Seen by Provider: 02/10/21 05:14 - HPI HPI: This is a 55-year-old -[place] female presents to the emergency department with a complaint of a 2-week history of progressively worsening shortness of breath, wheezing, mixed dry and productive cough, that has worsened over the past few days. Patient has a history of asthma and COPD. The patient says that she is oxygen dependent for her COPD, however the patient does not have supplemental oxygen due to a lack of insurance and financial issues. The patient's son recently tested positive for COVID-19 about 3 weeks ago. However, the patient says that she tested negative for Covid within the last week. She denies any fever, chest pain, lower extremity swelling. The patient uses albuterol inhaler and nebulizers at home, as well as some other medications, and treatment of her asthma and COPD. No recent travel. This patient was initially seen by my colleague just prior to my shift starting. The patient came in with oxygen desaturation of 80% on room air. She was given a dose of steroids, and a continuous breathing treatment. ED Past Medical Hx - Past Medical History Hx Asthma: Yes Hx COPD: Yes Additional medical history: SARCOIDOSIS - Surgical History Additional Surgical History: LUNG BIOPSY,chronic back pain r/t herniated disc. HYSTERECTOMY. TUBAL LIGATION - Social History Smoking Status: Never Smoker Substance Use Type: None - Medications Home Medications: Home Medications Medication Instructions Recorded Confirmed Last Taken Type Amlodipine Besylate [Norvasc] 5 mg PO DAILY #30 tablet 07/15/20 Unknown Rx Azithromycin [Zithromax Z-HERIBERTO] 250 mg PO DAILY #6 tab 12/23/20 Unknown Rx Benzonatate [Tessalon Perles] 100 mg PO Q8HR PRN #10 capsule 12/23/20 Unknown Rx Fluticasone [Flonase] 1 spray NS QDAY #1 bottle 12/23/20 Unknown Rx Ipratropium (Nf) [Atrovent HFA 2 puff IH Q4H PRN #1 inha 12/23/20 Unknown Rx 17MCG/PUFF] hydroCHLOROthiazide 12.5 mg PO QDAY 30 Days #30 capsule 12/23/20 Unknown Rx [Hydrochlorothiazide] methylPREDNISolone [Medrol 4MG 4 mg PO DAILY #1 tab.ds.pk 12/23/20 Unknown Rx DOSEPAK (21 tabs)] ALBUTEROL NEB's [Proventil 0.083% 2.5 mg IH TID PRN #1 box 02/10/21 Unknown Rx NEBS] Albuterol Mdi (or & Nicu Only) 1 puff IH Q4HR PRN #1 inha 02/10/21 Unknown Rx [ProAir HFA Inhaler] Montelukast [Singulair] 10 mg PO QHS #30 tablet 02/10/21 Unknown Rx predniSONE [Deltasone] 20 mg PO BID #6 tab 02/10/21 Unknown Rx ED Review of Systems ROS: Stated complaint: SOB Other details as noted in HPI Comment: All other systems reviewed and negative Constitutional: denies: fever Eyes: denies: eye pain ENT: denies: throat pain Respiratory: see HPI, cough (no change is sputum), shortness of breath, SOB with exertion, wheezing Cardiovascular: denies: chest pain, edema Endocrine: unexplained weight loss Gastrointestinal: denies: abdominal pain, vomiting Genitourinary: denies: dysuria, discharge Musculoskeletal: denies: back pain, arthralgia Skin: denies: rash, pruritus Neurological: denies: headache, weakness Hematological/Lymphatic: denies: easy bruising Physical Exam - Physical Exam Vital Signs: Vital Signs 02/10/21 02/10/21 02/10/21 05:15 05:35 05:37 Temperature 98.2 F Pulse Rate 105 H 97 H Pulse Rate [ Bilateral Throughout] Respiratory 20 28 H Rate Respiratory Rate [Bilateral Throughout] Blood Pressure 143/94 Blood Pressure 130/94 143/94 [Left] O2 Sat by Pulse 80 L 93 Oximetry 02/10/21 02/10/21 02/10/21 05:40 05:45 05:46 Temperature Pulse Rate 96 H Pulse Rate [ 105 H Bilateral Throughout] Respiratory 29 H Rate Respiratory 24 Rate [Bilateral Throughout] Blood Pressure 143/94 Blood Pressure [Left] O2 Sat by Pulse 93 93 Oximetry 02/10/21 02/10/21 02/10/21 06:00 06:16 06:30 Temperature Pulse Rate 89 87 92 H Pulse Rate [ Bilateral Throughout] Respiratory 24 23 22 Rate Respiratory Rate [Bilateral Throughout] Blood Pressure 143/94 137/93 Blood Pressure [Left] O2 Sat by Pulse 94 96 97 Oximetry 02/10/21 02/10/21 02/10/21 06:50 07:00 07:16 Temperature Pulse Rate 109 H 94 H 91 H Pulse Rate [ Bilateral Throughout] Respiratory 23 24 25 H Rate Respiratory Rate [Bilateral Throughout] Blood Pressure 137/93 142/88 142/88 Blood Pressure [Left] O2 Sat by Pulse 94 94 Oximetry Physical Exam: GENERAL: The patient is well-developed well-nourished. HENT: Normocephalic. Atraumatic. Patient has moist mucous membranes. EYES: Extraocular motions are intact. NECK: Supple. Trachea is midline. CHEST/LUNGS: Mild to moderate wheezing throughout the chest. Mild tachypnea. No accessory muscle use. HEART/CARDIOVASCULAR: Regular. There is no tachycardia. There is no murmur. ABDOMEN: Abdomen is soft, nontender. Patient has normal bowel sounds. There is no abdominal distention. SKIN: Skin is warm and dry. NEURO: The patient is awake, alert, and oriented. The patient is cooperative. The patient has no focal neurologic deficits. Normal speech. MUSCULOSKELETAL: There is no tenderness or deformity. There is no limitation r brittany of motion. ED Course Vital Signs 02/10/21 02/10/21 02/10/21 05:15 05:35 05:37 Temperature 98.2 F Pulse Rate 105 H 97 H Pulse Rate [ Bilateral Throughout] Respiratory 20 28 H Rate Respiratory Rate [Bilateral Throughout] Blood Pressure 143/94 Blood Pressure 130/94 143/94 [Left] O2 Sat by Pulse 80 L 93 Oximetry 02/10/21 02/10/21 02/10/21 05:40 05:45 05:46 Temperature Pulse Rate 96 H Pulse Rate [ 105 H Bilateral Throughout] Respiratory 29 H Rate Respiratory 24 Rate [Bilateral Throughout] Blood Pressure 143/94 Blood Pressure [Left] O2 Sat by Pulse 93 93 Oximetry 02/10/21 02/10/21 02/10/21 06:00 06:16 06:30 Temperature Pulse Rate 89 87 92 H Pulse Rate [ Bilateral Throughout] Respiratory 24 23 22 Rate Respiratory Rate [Bilateral Throughout] Blood Pressure 143/94 137/93 Blood Pressure [Left] O2 Sat by Pulse 94 96 97 Oximetry 02/10/21 02/10/21 02/10/21 06:50 07:00 07:16 Temperature Pulse Rate 109 H 94 H 91 H Pulse Rate [ Bilateral Throughout] Respiratory 23 24 25 H Rate Respiratory Rate [Bilateral Throughout] Blood Pressure 137/93 142/88 142/88 Blood Pressure [Left] O2 Sat by Pulse 94 94 Oximetry ED Medical Decision Making - Lab Data Result diagrams: 02/10/21 05:56 02/10/21 05:56 Lab Results 02/10/21 02/10/21 Range/Units 05:56 05:56 WBC 7.0 (4.5-11.0) K/mm3 RBC 5.29 H (3.65-5.03) M/mm3 Hgb 16.4 H (10.1-14.3) gm/dl Hct 49.6 H (30.3-42.9) % MCV 94 (79-97) fl MCH 31 (28-32) pg MCHC 33 (30-34) % RDW 16.1 H (13.2-15.2) % Plt Count 196 (140-440) K/mm3 Lymph % (Auto) 10.8 L (13.4-35.0) % Yell % (Auto) 9.0 H (0.0-7.3) % Eos % (Auto) 1.5 (0.0-4.3) % Baso % (Auto) 0.3 (0.0-1.8) % Lymph # (Auto) 0.8 L (1.2-5.4) K/mm3 Yell # (Auto) 0.6 (0.0-0.8) K/mm3 Eos # (Auto) 0.1 (0.0-0.4) K/mm3 Baso # (Auto) 0.0 (0.0-0.1) K/mm3 Seg Neutrophils % 78.4 H (40.0-70.0) % Seg Neutrophils # 5.4 (1.8-7.7) K/mm3 Sodium 138 (137-145) mmol/L Potassium 4.3 (3.6-5.0) mmol/L Chloride 103.9 (98-107) mmol/L Carbon Dioxide 24 (22-30) mmol/L Anion Gap 14 mmol/L BUN 11 (7-17) mg/dL Creatinine 0.7 (0.6-1.2) mg/dL Estimated GFR > 60 ml/min BUN/Creatinine Ratio 16 % Glucose 120 H (65-100) mg/dL Calcium 8.7 (8.4-10.2) mg/dL - Radiology Data Radiology results: image reviewed interpreted by me: Chest x-ray does not show any acute process. There are no pleural effusions, obvious pneumonia and there is no pneumothorax. No widened mediastinum. - Medical Decision Making This patient presented to the emergency department with a complaint of shortness of breath, wheezing, coughing. Initially she had a room air pulse ox of 80%. She was given a continuous breathing treatment, 60 mg of prednisone and some IV fluid and placed on supplemental oxygen. During this time the patient's oxygen saturation went up into the low to mid 90s. Chest x-ray did not show any significant pneumonia, pleural effusions, pneumothorax, widened mediastinum. Labs have been mostly unremarkable including CBC and metabolic panel. I reevaluated the patient after the breathing treatments completed and there was some clinical improvement, based on my colleague's initial physical examination. She now has mild to moderate wheezing and mild tachypnea, but no accessory muscle use or conversational dyspnea. However, we tested the patient ambulating without supplemental oxygen and on continuous pulse oximetry and the patient had oxygen desaturation down to 78% and increased work of breathing. I had a long conversation with the patient regarding the need for admission and further evaluation. The patient has a history of COPD for which she is supposed to be oxygen dependent at home but does not have it secondary to her lack of in surance and financial issues. On top of that, while the chest x-ray does not appear consistent with Covid pneumonia, the patient does have a history of exposure and with her URI symptoms and hypoxia I would suggest getting further inflammatory markers and testing the patient for COVID-19. The patient says that "this is what my body does" indicating that she often has low oxygen saturation, goes home from the hospital, rests, and "I work my way back to (normal)." I explained to the patient that an oxygen saturation in the 70s and 80s is too low, even for someone with known COPD. I explained that sustained hypoxia can lead to worsening shortness of breath, heart attack, stroke, debility or even . The patient is awake, alert, oriented, and has a normal decision-making capacity. Despite understanding the risks, the patient has decided to leave AGAINST MEDICAL ADVICE and has signed the AMA form. She understands that she can return to the emergency department if she changes her m ind about admission, further evaluation, or with any acute distress. Despite leaving AMA, I have given the patient prescriptions for steroids, albuterol inhaler and nebulizer treatment. Critical care attestation.: If time is entered above; I have spent that time in minutes in the direct care of this critically ill patient, excluding procedure time. ED Disposition Clinical Impression: Hypoxia, COPD exacerbation Asthma exacerbation Qualifiers: Asthma severity: moderate Asthma persistence: persistent Qualified Code(s): J45.41 - Moderate persistent asthma with (acute) exacerbation Disposition: LEFT AGAINST MEDICAL ADVICE Is pt being admited?: No Instructions: Chronic Obstructive Pulmonary Disease (ED) Additional Instructions: Please return to the emergency department immediately if you change your mind about admission and/or further evaluation, any new or concerning symptoms not addressed during this emergency department visit, or with any acute distress. Take all medications as prescribed. Prescriptions: Montelukast [Singulair] 10 mg PO QHS #30 tablet predniSONE [Deltasone] 20 mg PO BID #6 tab Albuterol Mdi (or & Nicu Only) [ProAir HFA Inhaler] 1 puff IH Q4HR PRN #1 inha PRN Reason: Wheezing ALBUTEROL NEB's [Proventil 0.083% NEBS] 2.5 mg IH TID PRN #1 box PRN Reason: Wheezing Referrals: [facility] [Provider Group] - SUSIE GERMÁN BRUNER MD [Staff Physician] - SUSIE Forms: AMA Form Time of Disposition: 08:05
== END 2021-02-10 08:00 | disposition left against medical advice (07) ==
LOC: ED 05:03
DX: R09.02 Hypoxemia (principal); J45.901 Unspecified asthma with (acute) exacerbation; J44.9 Chronic obstructive pulmonary disease, unspecified
CPT/HCPCS: 36415; 71045; 80048; 85025; 94644; 99284; J7512

== ENCOUNTER 2021-02-26 12:04 | Inpatient (IN) | payer SELFPAY ==
--- NOTE | 2021-02-26 12:31 | Emergency Department Report ---
HPI - General Chief Complaint: Dyspnea/Respdistress Time Seen by Provider: 02/26/21 12:16 - HPI HPI: 55-year-old -[place] female presents to the emergency department with a complaint of a 1 week history of progressively worsening shortness of breath and some chest tightness. Patient has a chronic cough. She denies any fever, lower extremity swelling, nausea, vomiting, back pain. She has a history of COPD, asthma and is a tobacco smoker. The patient has been using her own home albuterol inhaler and nebulizer medications without any relief. Patient says that she is supposed to be on oxygen but does not have home oxygen available to her due to financial issues. Patient was here about 2.5 weeks ago for similar symptoms and left AMA at that time the. Patient presents with a room air oxygen saturation of 85%. She is not vaccinated against COVID-19 but is had multiple recent negative tests. The patient has exertional dyspnea and orthopnea. ED Past Medical Hx - Past Medical History Previous Medical History?: Yes Hx Asthma: Yes Hx COPD: Yes Additional medical history: SARCOIDOSIS - Surgical History Past Surgical History?: Yes Additional Surgical History: LUNG BIOPSY,chronic back pain r/t herniated disc. HYSTERECTOMY. TUBAL LIGATION - Social History Smoking Status: Never Smoker Substance Use Type: None - Medications Home Medications: Home Medications Medication Instructions Recorded Confirmed Last Taken Type Amlodipine Besylate [Norvasc] 5 mg PO DAILY #30 tablet 07/15/20 Unknown Rx Azithromycin [Zithromax Z-HERIBERTO] 250 mg PO DAILY #6 tab 12/23/20 Unknown Rx Benzonatate [Tessalon Perles] 100 mg PO Q8HR PRN #10 capsule 12/23/20 Unknown Rx Fluticasone [Flonase] 1 spray NS QDAY #1 bottle 12/23/20 Unknown Rx Ipratropium (Nf) [Atrovent HFA 2 puff IH Q4H PRN #1 inha 12/23/20 Unknown Rx 17MCG/PUFF] hydroCHLOROthiazide 12.5 mg PO QDAY 30 Days #30 capsule 12/23/20 Unknown Rx [Hydrochlorothiazide] methylPREDNISolone [Medrol 4MG 4 mg PO DAILY #1 tab.ds.pk 12/23/20 Unknown Rx DOSEPAK (21 tabs)] ALBUTEROL NEB's [Proventil 0.083% 2.5 mg IH TID PRN #1 box 02/10/21 Unknown Rx NEBS] Albuterol Mdi (or & Nicu Only) 1 puff IH Q4HR PRN #1 inha 02/10/21 Unknown Rx [ProAir HFA Inhaler] Montelukast [Singulair] 10 mg PO QHS #30 tablet 02/10/21 Unknown Rx predniSONE [Deltasone] 20 mg PO BID #6 tab 02/10/21 Unknown Rx ED Review of Systems ROS: Stated complaint: HARINDER Other details as noted in HPI Comment: All other systems reviewed and negative Constitutional: denies: chills, fever Eyes: denies: eye pain, vision change ENT: denies: ear pain, throat pain Respiratory: cough, orthopnea, shortness of breath, SOB with exertion Cardiovascular: chest pain (tightness). denies: edema Gastrointestinal: denies: abdominal pain, vomiting Genitourinary: denies: dysuria, discharge Musculoskeletal: denies: back pain, arthralgia Skin: denies: rash, lesions Neurological: denies: headache, weakness Physical Exam - Physical Exam Vital Signs: Vital Signs 02/26/21 12:06 Temperature 98 F Pulse Rate 104 H Respiratory 16 Rate Blood Pressure 147/107 [Left] O2 Sat by Pulse 85 Oximetry Physical Exam: GENERAL: The patient is well-developed well-nourished. HENT: Normocephalic. Atraumatic. Patient has moist mucous membranes. EYES: Extraocular motions are intact. NECK: Supple. Trachea is midline. CHEST/LUNGS: Mild expiratory wheezing. Tachypnea but no accessory muscle use. HEART/CARDIOVASCULAR: Regular. There is no tachycardia. There is no murmur. ABDOMEN: Abdomen is soft, nontender. Patient has normal bowel sounds. SKIN: Skin is warm and dry. NEURO: The patient is awake, alert, and oriented. The patient is cooperative. The patient has no focal neurologic deficits. Normal speech. MUSCULOSKELETAL: There is no tenderness or deformity. There is no limitation range of motion. ED Course Vital Signs 02/26/21 12:06 Temperature 98 F Pulse Rate 104 H Respiratory 16 Rate Blood Pressure 147/107 [Left] O2 Sat by Pulse 85 Oximetry ED Medical Decision Making - Lab Data Result diagrams: 02/26/21 12:47 02/26/21 12:47 Lab Results 02/26/21 02/26/21 02/26/21 Range/Units 12:47 12:47 12:47 WBC 4.8 (4.5-11.0) K/mm3 RBC 5.26 H (3.65-5.03) M/mm3 Hgb 16.7 H (10.1-14.3) gm/dl Hct 50.1 H (30.3-42.9) % MCV 95 (79-97) fl MCH 32 (28-32) pg MCHC 33 (30-34) % RDW 17.1 H (13.2-15.2) % Plt Count 220 (140-440) K/mm3 PT 14.5 (12.2-14.9) Sec. INR 1.02 (0.87-1.13) D-Dimer 422.94 H (0-234) ng/mlDDU Sodium 139 (137-145) mmol/L Potassium 4.2 (3.6-5.0) mmol/L Chloride 104.2 (98-107) mmol/L Carbon Dioxide 20 L (22-30) mmol/L Anion Gap 19 mmol/L BUN 8 (7-17) mg/dL Creatinine 0.8 (0.6-1.2) mg/dL Estimated GFR > 60 ml/min BUN/Creatinine Ratio 10 % Glucose 86 (65-100) mg/dL Calcium 9.0 (8.4-10.2) mg/dL Total Bilirubin 0.70 (0.1-1.2) mg/dL AST 18 (5-40) units/L ALT 18 (7-56) units/L Alkaline Phosphatase 92 (35-129) units/L Troponin T < 0.010 (0.00-0.029) ng/mL NT-Pro-B Natriuret Pep 1749 H (0-900) pg/mL Total Protein 6.9 (6.3-8.2) g/dL Albumin 3.5 L (3.9-5) g/dL Albumin/Globulin Ratio 1.0 % 02/26/21 Range/Units 12:47 WBC (4.5-11.0) K/mm3 RBC (3.65-5.03) M/mm3 Hgb (10.1-14.3) gm/dl Hct (30.3-42.9) % MCV (79-97) fl MCH (28-32) pg MCHC (30-34) % RDW (13.2-15.2) % Plt Count (140-440) K/mm3 PT (12.2-14.9) Sec. INR (0.87-1.13) D-Dimer (0-234) ng/mlDDU Sodium (137-145) mmol/L Potassium (3.6-5.0) mmol/L Chloride (98-107) mmol/L Carbon Dioxide (22-30) mmol/L Anion Gap mmol/L BUN (7-17) mg/dL Creatinine (0.6-1.2) mg/dL Estimated GFR ml/min BUN/Creatinine Ratio % Glucose (65-100) mg/dL Calcium (8.4-10.2) mg/dL Total Bilirubin (0.1-1.2) mg/dL AST (5-40) units/L ALT (7-56) units/L Alkaline Phosphatase (35-129) units/L Troponin T (0.00-0.029) ng/mL NT-Pro-B Natriuret Pep 1843 H (0-900) pg/mL Total Protein (6.3-8.2) g/dL Albumin (3.9-5) g/dL Albumin/Globulin Ratio % - EKG Data -: EKG Interpreted by Me EKG shows normal: sinus rhythm, axis, intervals, QRS complexes (LVH, q waves to anterior leads), ST-T waves Rate: normal - EKG Data When compared to previous EKG there are: no significant change Interpretation: unchanged when compared t (11/28/20) - Radiology Data Radiology results: report reviewed, image reviewed interpreted by me: Chest x-ray shows hyperinflation of the lungs. No pneumonia. No pleural effusions. No pneumothorax. CTA CHEST WITH IV CONTRAST INDICATION: SOB, elevated dimer OMNI 350 100 ML. TECH NIQUE: Axial CT images were obtained through the chest after injection of IV contrast. 3 plane MIP reconstructions were produced. All CT scans at this location are performed using CT dose reduction for ALARA by means of automated exposure control. COMPARISON: None available. FINDINGS: Pulmonary Arteries: No filling defects are seen. There is enlargement of the pulmonary trunk. Diameter is 4.3 cm on sagittal image 46. Thoracic Aorta: No acute abnormality. Heart: Enlarged. There is mild reflux of contrast in the right atrium into the hepatic veins. Lungs: No acute air space or interstitial disease. Advanced emphysematous changes are noted. Pleura: No pleural effusion. No pneumothorax. Lymph Nodes: No significant adenopathy. Additional Findings: None. Upper Abdomen: No acute findings. Skeletal Structures: No significant osseous abnormality. IMPRESSION: 1. No CT evidence for pulmonary embolism. 2. Enlargement of the main pulmonary artery can be seen in the setting of pulmonary arterial hypertension, possibly secondary to advanced COPD. There is mild evidence of right heart failure due to contrast passing from the right atrium into the hepatic veins. 3. Advanced emphysematous changes. - Medical Decision Making This patient presents with a 1 week history of progressively worsening shortness of breath. She has a history of COPD and was previously oxygen dependent at home but has been noncompliant with any supplemental oxygen due to financial issues, and the patient continues to smoke. She had a room air oxygen saturation of 85% upon presentation. The patient went up to 91% on 4 L. Chest x-ray appears consistent with interstitial lung disease. Labs have been mostly unremarkable except for a slightly elevated D-dimer level, and elevated proBNP. CT angiography of the chest does not show any pulmonary embolism but shows signs of pulmonary arterial hypertension consistent with advanced COPD and the CT also potentially shows some right sided heart failure. This would be consistent with the elevated proBNP. She does not appear volume overloaded. The patient will be admitted to the hospital for further evaluation and treatment was accepted for admission by the hospitalist, Dr. Craig. Critical Care Time: Yes Critical care time in (mins) excluding proc time.: 35 Critical care attestation.: If time is entered above; I have spent that time in minutes in the direct care of this critically ill patient, excluding procedure time. Critical care time was spent on this patient in doing her initial evaluation, multiple reevaluations, ordering and interpretation of labs and imaging, supplemental oxygen for her hypoxia, IV Solu-Medrol, breathing treatments, multiple discussions with the patient. Critical Care Time: 35 minutes ED Disposition Clinical Impression: Acute respiratory failure with hypoxia, COPD exacerbation Disposition: ADMITTED INPATIENT Is pt being admited?: Yes Condition: Serious Instructions: Chronic Obstructive Pulmonary Disease (ED) Time of Disposition: 15:25
[2021-02-26] MEDS ORDERED: methylPREDNISolone Sod Succinate 125 MG/2 ML INJ IV ONE (12:32)
[2021-02-26] MEDS ORDERED: ALBUTEROL 2.5 MG/3 ML NEBU IH ONE (12:33)
[2021-02-26] MEDS ORDERED: IPRATROPIUM 0.02% NEBU 2.5 ML IH ONE (12:33)
--- NOTE | 2021-02-26 13:21 | XRay Report ---
CHEST 1 VIEW INDICATION: SOB. COMPARISON: 02/10/2021 FINDINGS: Support devices: None. Heart: Normal. Lungs/Pleura: Chronic interstitial lung disease is again noted. No superimposed acute consolidation i s seen. No pneumothorax. IMPRESSION: 1. No significant change. Signer Name: Keagan Simmons MD Signed: 02/26/2021 1:17 PM Workstation Name: [id number]
[2021-02-26 13:25] LABS: Alanine Aminotransferase 18 units/L (7-56); Albumin 3.5 g/dL (3.9-5); BUN/Creatinine Ratio 10; Blood Urea Nitrogen 8 mg/dL (7-17); Hemolysis Index 22
[2021-02-26 13:27] LABS: Hematocrit 50.1 % (30.3-42.9); Hemoglobin 16.7 gm/dl (10.1-14.3); Mean Corpuscular HGB Conc 33 % (30-34); Mean Corpuscular Volume 95 fl (79-97); Platelet Count 220 K/mm3 (140-440); Red Blood Count 5.26 M/mm3 (3.65-5.03); Red Cell Distribution Width 17.1 % (13.2-15.2)
[2021-02-26 13:43] LABS: INR 1.02 (0.87-1.13)
--- NOTE | 2021-02-26 13:58 | History and Physical Report ---
History of Present Illness Chief complaint: I cannot catch my breath History of present illness: 55 YO Female with COPD, Sarcoidosis, HTN, Interstitial Lung Disease complicated by Chronic Respiratory Failure noncompliant with Home oxygen presents to ED for evaluation. Patient reports "I cannot catch my breath". Patient states that she has experienced shortness of breath over the past 1 week with worsening symptoms over the past 3 days. Patient knowledges noncompliance with home oxygen due to inability to afford oxygen. Patient knowledges productive cough with increased production of clear sputum, increased nebulizer use without relief. Patient transported to [facility] for further care and evaluation of the afor ementioned symptoms. The patient was seen and evaluated in the emergency department. All lab and imaging studies reviewed. Patient found to have a pulse oximetry of 85% while on submental oxygen which is consistent with acute hypoxemic respiratory failure. Patient found to have symptoms consistent with COPD decompensation, pulmonary hypertension secondary to interstitial lung disease. Patient admitted to medical floor due to increased risk of worsening symptoms. Patient denies fever, chills, chest pain, palpitation, skin rash, recent ill contacts, or known exposure to COVID-19. Prior admission on 12/22/2020 reviewed. All medication listed at time of admission has been reconciled. Adva nced care planning conducted in ED. Patient is not vaccinated against COVID-19. Medications and Allergies Allergies Allergy/AdvReac Type Severity Reaction Status Date / Time bupropion HCl Allergy Hives Verified 02/10/21 05:14 [From Wellbutrin] diphenhydramine HCl Allergy Hives Verified 02/10/21 05:14 [From Benadryl] Home Medications Medication Instructions Recorded Confirmed Last Taken Type Amlodipine Besylate [Norvasc] 5 mg PO DAILY #30 tablet 07/15/20 Unknown Rx Azithromycin [Zithromax Z-HERIBERTO] 250 mg PO DAILY #6 tab 12/23/20 Unknown Rx Benzonatate [Tessalon Perles] 100 mg PO Q8HR PRN #10 capsule 12/23/20 Unknown Rx Fluticasone [Flonase] 1 spray NS QDAY #1 bottle 12/23/20 Unknown Rx Ipratropium (Nf) [Atrovent HFA 2 puff IH Q4H PRN #1 inha 12/23/20 Unknown Rx 17MCG/PUFF] hydroCHLOROthiazide 12.5 mg PO QDAY 30 Days #30 capsule 12/23/20 Unknown Rx [Hydrochlorothiazide] methylPREDNISolone [Medrol 4MG 4 mg PO DAILY #1 tab.ds.pk 12/23/20 Unknown Rx DOSEPAK (21 tabs)] ALBUTEROL NEB's [Proventil 0.083% 2.5 mg IH TID PRN #1 box 02/10/21 Unknown Rx NEBS] Albuterol Mdi (or & Nicu Only) 1 puff IH Q4HR PRN #1 inha 02/10/21 Unknown Rx [ProAir HFA Inhaler] Montelukast [Singulair] 10 mg PO QHS #30 tablet 02/10/21 Unknown Rx predniSONE [Deltasone] 20 mg PO BID #6 tab 02/10/21 Unknown Rx Exam - Constitutional Vitals: Temp Pulse Resp BP Pulse Ox 98 F 104 H 16 147/107 65 L 02/26/21 12:06 02/26/21 12:06 02/26/21 12:06 02/26/21 12:06 02/26/21 13:47 HEART Score - HEART Score Troponin: Troponin T < 0.010 ng/mL (0.00-0.029) 02/26/21 12:47 Results - Labs CBC & Chem 7: 02/26/21 12:47 02/26/21 12:47 Labs: Abnormal lab results 02/26/21 02/26/21 02/26/21 Range/Units 12:47 12:47 12:47 RBC 5.26 H (3.65-5.03) M/mm3 Hgb 16.7 H (10.1-14.3) gm/dl Hct 50.1 H (30.3-42.9) % RDW 17.1 H (13.2-15.2) % D-Dimer 422.94 H (0-234) ng/mlDDU Carbon Dioxide 20 L (22-30) mmol/L NT-Pro-B Natriuret Pep 1749 H (0-900) pg/mL Albumin 3.5 L (3.9-5) g/dL 02/26/21 Range/Units 12:47 RBC (3.65-5.03) M/mm3 Hgb (10.1-14.3) gm/dl Hct (30.3-42.9) % RDW (13.2-15.2) % D-Dimer (0-234) ng/mlDDU Carbon Dioxide (22-30) mmol/L NT-Pro-B Natriuret Pep 1843 H (0-900) pg/mL Albumin (3.9-5) g/dL Assessment and Plan - Patient Problems (1) Acute respiratory failure with hypoxia Current Visit: Yes Status: Acute Plan to address problem: Chest x-ray, CTA chest, supplemental oxygen, pulse oximetry, nebulizer therapy, noninvasive positive pressure ventilation as clinically indicated. (2) COVID-19 vaccination not done Current Visit: Yes Status: Acute Plan to address problem: Patient counseled. (3) COPD exacerbation Current Visit: Yes Status: Acute Plan to address problem: Supplemental oxygen, pulse oximetry, IV steroid therapy, supportive care (4) Sarcoidosis Current Visit: Yes Status: Acute Plan to address problem: Supportive care, outpatient rheumatology follow-up (5) Interstitial lung disease Current Visit: Yes Status: Acute Plan to address problem: Supplemental oxygen, pulse oximetry, nebulizer therapy, IV steroid therapy, supportive care. (6) DVT prophylaxis Current Visit: Yes Status: Acute Plan to address problem: SCD to bilateral lower extremities while in bed, patient is ambulatory (7) Advance care planning Current Visit: Yes Status: Acute Plan to address problem: Disease education conducted, care plan discussed, diagnoses discussed, patient is full code, patient knowledges understanding and agreement with care plan, +30 minutes.
--- NOTE | 2021-02-26 14:51 | Cat Scan Report ---
CTA CHEST WITH IV CONTRAST INDICATION: SOB, elevated dimer OMNI 350 100 ML. TECHNIQUE: Axial CT images were obtained through the chest after injection of IV contrast. 3 plane MIP reconstru ctions were produced. All CT scans at this location are performed using CT dose reduction for ALARA b y means of automated exposure control. COMPARISON: None available. FINDINGS: Pulmonary Arteries: No filling defects are seen. There is enlargement of the pulmonary trunk. Diamete r is 4.3 cm on sagittal image 46. Thoracic Aorta: No acute abnormality. Heart: Enlarged. There is mild reflux of contrast in the right atrium into the hepatic veins. Lungs: No acute air space or interstitial disease. Advanced emphysematous changes are noted. Pleura: No pleural effusion. No pneumothorax. Lymph Nodes: No significant adenopathy. Additional Findings: None. Upper Abdomen: No acute findings. Skeletal Structures: No significant osseous abnormality. IMPRESSION: 1. No CT evidence for pulmonary embolism. 2. Enlargement of the main pulmonary artery can be seen in the setting of pulmonary arterial hyperten mariaelena, possibly secondary to advanced COPD. There is mild evidence of right heart failure due to contr ast passing from the right atrium into the hepatic veins. 3. Advanced emphysematous changes. Signer Name: Keagan Simmons MD Signed: 02/26/2021 2:47 PM Workstation Name: [id number]
[2021-02-26] MEDS ORDERED: ACETAMINOPHEN 325 MG TAB PO PRN (15:06)
[2021-02-26] MEDS ORDERED: oxyCODONE /ACETAMINOPHEN 5-325MG TAB PO PRN (15:06)
[2021-02-26] MEDS ORDERED: ALBUTEROL 2.5 MG/3 ML NEBU IH PRN (15:06)
[2021-02-26] MEDS ORDERED: HYDROmorphone 1 MG/1 ML INJ IV PRN (15:06)
[2021-02-26] MEDS ORDERED: ONDANSETRON 4 MG/2 ML INJ IV PRN (15:06)
[2021-02-26] MEDS ORDERED: BENZONATATE 100 MG CAP PO PRN (15:08)
[2021-02-26] MEDS ORDERED: LORazepam 0.5 MG TAB PO PRN (16:49)
[2021-02-26 18:04] LABS: Basophils % (Auto) 0.7 % (0.0-1.8); Eosinophils # (Auto) 0.1 K/mm3 (0.0-0.4); Eosinophils % (Auto) 2.4 % (0.0-4.3); Lymphocytes # (Auto) 0.9 K/mm3 (1.2-5.4); Lymphocytes % (Auto) 17.8 % (13.4-35.0); Monocytes # (Auto) 0.7 K/mm3 (0.0-0.8); Monocytes % (Auto) 14.1 % (0.0-7.3)
[2021-02-26] MEDS ORDERED: MONTELUKAST 10 MG TAB PO SCH (22:00)
[2021-02-26] MEDS: methylPREDNISolone Sod Succinate 40 MG/1 ML INJ IV SCH (22:07)
[2021-02-27] MEDS: methylPREDNISolone Sod Succinate 40 MG/1 ML INJ IV SCH (06:17)
--- NOTE | 2021-02-27 08:17 | Event Note ---
Date: 02/27/21 Asked by [facility] to see this patient for respiratory failure. 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 Per report she is suppose to be on oxygen but is not able to afford it. She has severe upper lobe predominant emphysema and continues to abuse tobacco products. She could benefit from triple therapy in regards to inhalers (steroid, laba and lama) however I am not sure that she would be able to afford it. Suggest asking CM what drug programs/coupons they can offer for at least dual therapy inhaler. Qualifies for home O2 based on admission sats, however with her still smoking, she is a fire risk and I would not suggest obtaining oxygen for this patient until she is ready to quit. Suggest switching to Prednisone 60 daily and tapering as follows: 60 daily for 5 days, 40 daily for 5 days, 20 daily for 5 days then 10mg daily indefinitely. If she can afford it, she should be on Azithromycin 250mg on MWF. Would recommend at least a Breo but given her emphysema she would benefit from Trelegy or Brzteri but as stated earlier, would need CM to look into indigent help for these drugs as they are very expensive without insurance. Smoking cessation is an absolute must for this patient.
[2021-02-27 08:32] LABS: BUN/Creatinine Ratio 21; Blood Urea Nitrogen 15 mg/dL (7-17); Calcium 9.2 mg/dL (8.4-10.2); Hemolysis Index 13
--- NOTE | 2021-02-27 08:56 | Discharge Summary ---
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 Patient reports "I cannot catch my breath". Patient states that she has experienced shortness of breath over the past 1 week with worsening symptoms over the past 3 days. Patient knowledges noncompliance with home oxyg en due to inability to afford oxygen. Patient knowledges productive cough with increased production of clear sputum, increased nebulizer use without relief. Patient transported to [facility] for further care and evaluation of the aforementioned symptoms. The patient was seen and evaluated in the emergency department. All lab and imaging studies reviewed. Patient found to have a pulse oximetry of 85% while on submental oxygen which is consistent with acute hypoxemic respiratory failure. Patient found to have symptoms consistent with COPD decompensation, pulmonary hypertension secondary to interstitial lung disease. Patient admitted to medical floor due to increased risk of worsening symptoms. Patient denies fever, chills, chest pain, palpitation, skin rash, recent ill contacts, or known exposure to COVID-19. Prior admission on 12/22/2020 reviewed. All medication listed at time of admission has been reconciled. Advanced care planning conducted in ED. Patient is not vaccinated against COVID-19. Patient this am was Irate, states she wants to be discharged, initially was not receptive to discussion about quitting smoking but after 15 minutes states that she will quit. I did discuss extensively for over 20 minutes the importance of safety considering home oxygen and our concern that if she does not quit that she poses a fire risk on home oxygen she verbalized understanding. Case management also discussed this with the patient also she was not receptive to nicotine patch which was ordered. Case management was also advised of recommendation by pulmonary which I fully support if there is a sense that this patient is not interested in quitting tobacco use. asked by [facility] to see this patient for respiratory failure. Patient frequently comes to the ED for assistance as she has not followed up with a primary physician or a change consultant. Per report she is suppose to be on oxygen but is not able to afford it. She has severe upper lobe predominant emphysema and continues to abuse tobacco products. She could benefit from triple therapy in regards to inhalers (steroid, laba and lama) however I am not sure that she would be able to afford it. Suggest asking CM what drug programs/coupons they can offer for at least dual therapy inhaler. Qualifies for home O2 based on admission sats, however with her still smoking, she is a fire risk and I would not suggest obtaining oxygen for this patient until she is ready to quit. Suggest switching to Prednisone 60 daily and tapering as follows: 60 daily for 5 days, 40 daily for 5 days, 20 daily for 5 days then 10mg daily indefinitely. If she can afford it, she should be on Azithromycin 250mg on [facility]. Would recommend at least a Breo but given her emphysema she would benefit from Trelegy or Brzteri but as stated earlier, would need CM to look into indigent help for these drugs as they are very expensive without insurance. Smoking cessation is an absolute must for this patient. I did provide recommendation to follow-up with primary care physician local [facility] she verbalized understanding. Ideally will be discharging the patient in a few days but she demanded to be discharged now. is being discharged on her own request (1) Acute respiratory failure with hypoxia (2) COVID-19 vaccination not done Current Visit: Yes Status: Acute Plan to address problem: Patient counseled. (3) COPD exacerbation Current Visit: Yes Status: Acute Plan to address problem: Supplemental oxygen, pulse oximetry, IV steroid therapy, supportive care (4) Sarcoidosis Current Visit: Yes Status: Acute Plan to address problem: Supportive care, outpatient rheumatology follow-up (5) Interstitial lung disease Current Visit: Yes Status: Acute Plan to address problem: Supplemental oxygen, pulse oximetry, nebulizer therapy, IV steroid therapy, supportive care. Disposition: 01 HOME / SELF CARE / HOMELESS Final Discharge Diagnosis (Prints w/discharge instructions): Acute respiratory failure with hypoxia Time spent for discharge: 35 mins Core Measure Documentation - Palliative Care Palliative Care/ Comfort Measures: Not Applicable - Core Measures Any of the following diagnoses?: none Exam - Physical Exam Narrative exam: VITAL SIGNS: Reviewed. GENERAL: The patient appears normally developed, Vital signs as documented. HEAD: No signs of head trauma. EYES: Pupils are equal. Extraocular motions intact. EARS: Hearing grossly intact. MOUTH: Oropharynx is normal. NECK: No adenopathy, no JVD. CHEST: Chest with diminished breath sounds bilaterally. No wheezes, rales, or rhonchi. CARDIAC: Regular rate and rhythm. S1 and S2, without murmurs, gallops, or rubs. VASCULAR: No Edema. Peripheral pulses normal and equal in all extremities. ABDOMEN: Soft, non tender and non distended. No rebound or guarding, and no masses palpated. Bowel Sounds normal. MUSCULOSKELETAL: Good range of motion of all major joints. Extremities without clubbing, cyanosis or edema. NEUROLOGIC EXAM: Alert and oriented x 3 No focal sensory or strength deficits. Speech normal. Follows commands. PSYCHIATRIC: Mood normal. SKIN: detail exam as documented in skin assessment - Constitutional Vitals: Temp Pulse Resp BP Pulse Ox 98.8 F 91 H 18 137/97 96 02/26/21 21:39 02/26/21 21:39 02/26/21 21:39 02/26/21 21:39 02/26/21 23:43 Plan Activity: advance as tolerated, fall precautions Diet: low fat Special Instructions: record daily weights, record daily BP diary, smoking cessation Plan of Treatment: Must quit smoking before being on o2 therapy Follow up with: PRIMARY MD MOJGAN [Primary Care Provider] - 7 Days СВЕТЛАНА SILVERIO MD [Staff Physician] - 7 Days Prescriptions: Fluticasone/Vilanterol [Breo Ellipta 100-25 Mcg INH] 1 each IH BID #1 blst.w.dev Nicotine [Habitrol] 21 mg TD DAILY #30 patch predniSONE 10 mg PO QDAY #100 tab Albuterol Mdi (or & Nicu Only) [ProAir HFA Inhaler] 1 puff IH Q4HR PRN #1 inha PRN Reason: Wheezing ALBUTEROL NEB's [Proventil 0.083% NEBS] 2.5 mg IH TID PRN #1 box PRN Reason: Wheezing Azithromycin [Zithromax Z-HERIBERTO] 250 mg PO . DIRECT #30 tab
[2021-02-27] MEDS ORDERED: amLODIPine 5 MG TAB PO SCH (10:00)
[2021-02-27] MEDS ORDERED: hydroCHLOROthiazide 12.5 MG CAP PO SCH (10:00)
[2021-02-27 10:27] VITALS: BP 142/99
--- NOTE | 2021-03-04 14:40 | Electrocardiograph Report ---
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
== END 2021-02-27 12:43 | disposition home or self-care (01) | DRG 189 ==
LOC: ED 12:04 → 3A 15:06
PROVIDERS: ADMIT Internal Medicine; ATTEND Internal Medicine
DX: J96.01 Acute respiratory failure with hypoxia (principal); J44.1 Chronic obstructive pulmonary disease with (acute) exacerbation; J84.9 Interstitial pulmonary disease, unspecified; D86.9 Sarcoidosis, unspecified; Z88.8 Allergy status to other drugs, medicaments and biological substances; Z90.710 Acquired absence of both cervix and uterus; Z98.51 Tubal ligation status; I10 Essential (primary) hypertension
CPT/HCPCS: 36415; 71045; 71275; 80048; 80053; 83880; 84484; 85025; 85379; 85610; 93005; 94644; 94760; G0378; J2920; J2930; Q9967

== ENCOUNTER 2021-07-01 15:33 | Emergency (ER) | payer SELFPAY ==
[2021-07-01 15:52] VITALS: BP 160/126
[2021-07-01] MEDS ORDERED: SODIUM CHLORIDE 0.9% 1000 ML 1,000 ML IV ONE (16:16)
[2021-07-01] MEDS ORDERED: NITROGLYCERIN 0.4 MG TAB SUBL SL ONE (16:16)
[2021-07-01] MEDS ORDERED: ASPIRIN 81 MG TAB CHEW PO ONE (16:16)
--- NOTE | 2021-07-01 16:21 | Emergency Department Report ---
ED Chest Pain HPI - General Chief Complaint: Chest Pain Stated Complaint: CHEST PAIN/DIFFICULTY BREATHING Time Seen by Provider: 07/01/21 16:04 Source: patient Mode of arrival: Ambulatory Limitations: No Limitations - History of Present Illness Initial Comments: Patient presents with chest pain. She awoke this morning having chest pain. It is described as substernal tightness. She states it "felt like somebody was sitting on her chest." As the day progressed, the pain worsened. She is having back pain now as the chest pain radiates into her mid back. This is worse with supine position, deep inspiration and cough, smoking, movement, and her chest pain is worse with palpation. Her back is nontender to touch. She never had pain like this before. She has no history of recent travel or trauma. There is no pain or swelling in the legs. She states that she has had a cough which is nonproductive. She knows that smoking is bad. She currently smokes 1/2 pack a day. That is down from 1-1/2 packs a day. There is a remote family history of heart disease but not in a first-degree relative. Severity scale (0 -10): 10 - Related Data Previous Rx's Medication Instructions Recorded Last Taken Type Fluticasone/Vilanterol [Breo 1 each IH BID #1 blst.w.dev 02/27/21 Unknown Rx Ellipta 100-25 Mcg INH] Nicotine [Habitrol] 21 mg TD DAILY #30 patch 02/27/21 Unknown Rx ALBUTEROL NEB's [Proventil 0.083% 2.5 mg IH TID PRN #1 box 07/01/21 Unknown Rx NEBS] Albuterol Mdi (or & Nicu Only) 1 puff IH Q4HR PRN #1 inha 07/01/21 Unknown Rx [ProAir HFA Inhaler] Benzonatate [Tessalon Perles] 100 mg PO Q8HR PRN #10 capsule 07/01/21 Unknown Rx Fluticasone [Flonase] 1 spray NS QDAY #1 bottle 07/01/21 Unknown Rx Ipratropium (Nf) [Atrovent HFA 2 puff IH Q4H PRN #1 inha 07/01/21 Unknown Rx 17MCG/PUFF] Metoprolol [Lopressor TAB] 50 mg PO BID #60 tablet 07/01/21 Unknown Rx Montelukast [Singulair] 10 mg PO QHS #30 tablet 07/01/21 Unknown Rx Allergies Allergy/AdvReac Type Severity Reaction Status Date / Time bupropion HCl Allergy Hives Verified 02/10/21 05:14 [From Wellbutrin] diphenhydramine HCl Allergy Hives Verified 02/10/21 05:14 [From Benadryl] Heart Score - HEART Score History: Slightly suspicious EKG: Normal Age: 45-65 Risk factors: 1-2 risk factors Troponin: < normal limit HEART Score: 2 - EKG Read Time Time EKG Completed: 16:07 EKG Read Time: 16:11 ED Review of Systems ROS: Stated complaint: CHEST PAIN/DIFFICULTY BREATHING Other details as noted in HPI Comment: All other systems reviewed and negative Constitutional: denies: fever Eyes: denies: vision change ENT: denies: throat pain Respiratory: see HPI Cardiovascular: as per HPI Endocrine: denies: unexplained weight loss Gastrointestinal: denies: abdominal pain Genitourinary: denies: dysuria Musculoskeletal: as per HPI Skin: denies: rash Neurological: denies: headache Hematological/Lymphatic: denies: easy bruising ED Past Medical Hx - Past Medical History Hx Hypertension: Yes Hx Congestive Heart Failure: No Hx Diabetes: No Hx Asthma: Yes Hx COPD: Yes Hx HIV: No Additional medical history: SARCOIDOSIS - Surgical History Additional Surgical History: LUNG BIOPSY,chronic back pain r/t herniated disc. HYSTERECTOMY. TUBAL LIGATION - Family History Family history: hypertension - Social History Smoking Status: Current Every Day Smoker (We discussed tobacco cessation x3 minutes) - Medications Home Medications: Home Medications Medication Instructions Recorded Confirmed Last Taken Type Fluticasone/Vilanterol [Breo 1 each IH BID #1 blst.w.dev 02/27/21 Unknown Rx Ellipta 100-25 Mcg INH] Nicotine [Habitrol] 21 mg TD DAILY #30 patch 02/27/21 Unknown Rx ALBUTEROL NEB's [Proventil 0.083% 2.5 mg IH TID PRN #1 box 07/01/21 Unknown Rx NEBS] Albuterol Mdi (or & Nicu Only) 1 puff IH Q4HR PRN #1 inha 07/01/21 Unknown Rx [ProAir HFA Inhaler] Benzonatate [Tessalon Perles] 100 mg PO Q8HR PRN #10 capsule 07/01/21 Unknown Rx Fluticasone [Flonase] 1 spray NS QDAY #1 bottle 07/01/21 Unknown Rx Ipratropium (Nf) [Atrovent HFA 2 puff IH Q4H PRN #1 inha 07/01/21 Unknown Rx 17MCG/PUFF] Metoprolol [Lopressor TAB] 50 mg PO BID #60 tablet 07/01/21 Unknown Rx Montelukast [Singulair] 10 mg PO QHS #30 tablet 07/01/21 Unknown Rx ED Physical Exam - General Limitations: No Limitations, Other (Pulse ox noted and normal) General appearance: alert, in no apparent distress - Head Head exam: Present: atraumatic, normocephalic - Eye Eye exam: Present: normal appearance, PERRL, EOMI. Absent: scleral icterus - ENT ENT exam: Present: normal orophraynx, normal external ear exam - Neck Neck exam: Present: normal inspection. Absent: meningismus - Respiratory Respiratory exam: Present: normal lung sounds bilaterally. Absent: respiratory distress - Cardiovascular Cardiovascular Exam: Present: regular rate, normal rhythm - GI/Abdominal GI/Abdominal exam: Present: soft. Absent: distended, tenderness - Extremities Exam Extremities exam: Present: normal capillary refill. Absent: pedal edema, calf tenderness - Back Exam Back exam: Absent: CVA tenderness (R), CVA tenderness (L) - Neurological Exam Neurological exam: Present: alert, oriented X3, CN II-XII intact, normal gait. Absent: motor sensory deficit - Psychiatric Psychiatric exam: Present: normal affect, normal mood - Skin Skin exam: Present: warm, dry ED Course Vital Signs 07/01/21 07/01/21 15:48 18:28 Temperature 98.2 F 98.1 F Pulse Rate 103 H 92 H Respiratory 18 18 Rate Blood Pressure 160/126 [Right] O2 Sat by Pulse 99 90 Oximetry - Reevaluation(s) Reevaluation #1: 07/01/21 16:20 EKG have been noted. IV and labs were ordered. X-rays ordered. Old records reviewed. Reevaluation #2: 07/01/21 18:12 Labs have been noted and discussed with the patient. She was pain-free. Repeat troponin was pending. Reevaluation #3: 07/01/21 18:53 Repeat troponin was noted and normal. Patient was discharged. LILY score - Lily Score Age > 65: (0) No Aspirin use within the Past 7 Days: (0) No 3 or more CAD Risk Factors: (0) No 2 or more Angina events in past 24 hrs: (0) No Known CAD with more than 50% Stenosis: (0) No Elevated Cardiac Markers: (0) No ST Deviation Greater than 0.5mm: (0) No LILY Score: 0 ED Medical Decision Making - Lab Data Result diagrams: 07/01/21 16:25 07/01/21 16:25 Rhythm strip: Normal sinus rhythm without ectopy. Monitor observe 10 seconds. - EKG Data -: EKG Interpreted by Me - EKG Data 07/01/21 16:20 1607-EKG shows sinus rhythm at 95. Patient has normal QRS at 86. QT corrected is normal at 169. There is no ST elevation to suggest STEMI. There is poor R wave progression. There is no ST depression suggestive of ischemia. There was no interval change when compared to an EKG from February 2021. 07/01/21 16:22 - Radiology Data Radiology results: report reviewed - Medical Decision Making Patient presented with chest pain and difficulty breathing. She has 2 - troponins. Heart score is sufficiently low that allows for outpatient evaluation. There is no evidence of STEMI or NSTEMI. She does not have radiographic evidence of pneumonia or pneumothorax. There were some hazy findings in the lower lung crump, but the patient has no fever or productive cough that would suggest pneumonia. She certainly does not have orthopnea suggestive of CHF. There are no crackles on exam. Patient does not have a wide mediastinum or pulse deficit suggestive of aortic dissection. There is no risk factor for pulmonary embolism. I do not believe she requires CT angiogram. Patient did state that she is out of her medications including inhalers and blood pressure medication and asked for refills. These were provided and she was given the primary care physician to follow-up with. Critical Care Time: No Critical care attestation.: If time is entered above; I have spent that time in minutes in the direct care of this critically ill patient, excluding procedure time. ED Disposition Clinical Impression: Substernal chest pain, Tobacco abuse, Cough Disposition: HOME / SELF CARE / HOMELESS Is pt being admited?: No Condition: Stable Instructions: Nonspecific Chest Pain, Adult, Pain Without a Known Cause, Cough, Adult, [id number], Health Risks of Smoking Additional Instructions: AVOID SALT. DRINK WATER. SEE YOUR REGULAR DOCTOR OR THE REFERRAL DOCTOR FOR RECHECK. Prescriptions: Montelukast [Singulair] 10 mg PO QHS #30 tablet Ipratropium (Nf) [Atrovent HFA 17MCG/PUFF] 2 puff IH Q4H PRN #1 inha PRN Reason: Wheezing Fluticasone [Flonase] 1 spray NS QDAY #1 bottle Metoprolol [Lopressor TAB] 50 mg PO BID #60 tablet Albuterol Mdi (or & Nicu Only) [ProAir HFA Inhaler] 1 puff IH Q4HR PRN #1 inha PRN Reason: Wheezing ALBUTEROL NEB's [Proventil 0.083% NEBS] 2.5 mg IH TID PRN #1 box PRN Reason: Wheezing Benzonatate [Tessalon Perles] 100 mg PO Q8HR PRN #10 capsule PRN Reason: Cough Referrals: PRIMARY CAREMD [Primary Care Provider] - 3-5 Days MARKELL BURRELL MD [Staff Physician] - 3-5 Days
--- NOTE | 2021-07-01 16:52 | XRay Report ---
CHEST 2 VIEWS INDICATION / CLINICAL INFORMATION: cp. COMPARISON: 02/26/2021 FINDINGS: SUPPORT DEVICES: None. HEART / MEDIASTINUM: No significant abnormality. LUNGS / PLEURA: Emphysematous change in bilateral lung apices. There is slight increased opacificatio n bilateral lower lobes. No pneumothorax. ADDITIONAL FINDINGS: No significant additional findings. IMPRESSION: 1. Emphysematous change in the bilateral lung apices with increased opacification in bilateral lower lobes. Ex process is not excluded. Signer Name: Diaz Hassan DO Signed: 07/01/2021 4:48 PM Workstation Name: [id number]
[2021-07-01 16:55] LABS: Basophils % (Auto) 0.6 % (0.0-1.8); Eosinophils # (Auto) 0.1 K/mm3 (0.0-0.4); Eosinophils % (Auto) 2.4 % (0.0-4.3); Hematocrit 54.4 % (30.3-42.9); Hemoglobin 17.6 gm/dl (10.1-14.3); Lymphocytes % (Auto) 23.4 % (13.4-35.0); Mean Corpuscular HGB Conc 32 % (30-34); Mean Corpuscular Volume 93 fl (79-97); Monocytes # (Auto) 0.5 K/mm3 (0.0-0.8); Platelet Count 178 K/mm3 (140-440); Red Blood Count 5.87 M/mm3 (3.65-5.03)
[2021-07-01 17:14] LABS: BUN/Creatinine Ratio 10; Blood Urea Nitrogen 10 mg/dL (7-17); Hemolysis Index 37
--- NOTE | 2021-07-02 13:20 | Electrocardiograph Report ---
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
== END 2021-07-01 19:31 | disposition home or self-care (01) ==
LOC: ED 15:33
DX: R07.2 Precordial pain (principal); F17.200 Nicotine dependence, unspecified, uncomplicated; I10 Essential (primary) hypertension; J45.909 Unspecified asthma, uncomplicated; Z88.8 Allergy status to other drugs, medicaments and biological substances; Z79.899 Other long term (current) drug therapy
CPT/HCPCS: 36415; 71046; 80048; 84484; 85025; 93005; 93010; 96360; 99284; J7030; Q0162

== ENCOUNTER 2021-08-05 10:36 | Emergency (ER) | payer SELFPAY ==
[2021-08-05] MEDS ORDERED: ALBUTEROL 2.5 MG/3 ML NEBU IH ONE (10:49)
[2021-08-05] MEDS ORDERED: IPRATROPIUM 0.02% NEBU 2.5 ML IH ONE (10:49)
[2021-08-05] MEDS ORDERED: MAGNESIUM SULFATE 2 GM/50 ML BAG IV ONE (10:49)
[2021-08-05] MEDS ORDERED: methylPREDNISolone Sod Succinate 125 MG/2 ML INJ IV ONE (10:50)
--- NOTE | 2021-08-05 10:55 | Emergency Department Report ---
ED Shortness of Breath HPI - General Chief Complaint: Dyspnea/Respdistress Stated Complaint: SOB Time Seen by Provider: 08/05/21 10:46 Source: patient Mode of arrival: Ambulatory Limitations: No Limitations - History of Present Illness Initial Comments: Chief complaint: Trouble breathing HPI: This is a 55-year-old female with a history of COPD, tobacco dependence, interstitial lung disease, sarcoidosis who presents with shortness of breath since last night. MD Complaint: shortness of breath -: Gradual, days(s) (one day) Severity: severe Consistency: constant Improves With: nothing Worsens With: nothing Known History Of: COPD Context: other (hx copd, sarcoidosis) Treatments Prior to Arrival: none - Related Data Previous Rx's Medication Instructions Recorded Last Taken Type Fluticasone/Vilanterol [Breo 1 each IH BID #1 blst.w.dev 02/27/21 Unknown Rx Ellipta 100-25 Mcg INH] Nicotine [Habitrol] 21 mg TD DAILY #30 patch 02/27/21 Unknown Rx ALBUTEROL NEB's [Proventil 0.083% 2.5 mg IH TID PRN #1 box 07/01/21 Unknown Rx NEBS] Albuterol Mdi (or & Nicu Only) 1 puff IH Q4HR PRN #1 inha 07/01/21 Unknown Rx [ProAir HFA Inhaler] Benzonatate [Tessalon Perles] 100 mg PO Q8HR PRN #10 capsule 07/01/21 Unknown Rx Fluticasone [Flonase] 1 spray NS QDAY #1 bottle 07/01/21 Unknown Rx Ipratropium (Nf) [Atrovent HFA 2 puff IH Q4H PRN #1 inha 07/01/21 Unknown Rx 17MCG/PUFF] Metoprolol [Lopressor TAB] 50 mg PO BID #60 tablet 07/01/21 Unknown Rx Montelukast [Singulair] 10 mg PO QHS #30 tablet 07/01/21 Unknown Rx DOXYCYCLINE Hyclate [Vibramycin 100 mg PO Q12HR 7 Days #14 capsule 08/05/21 Unknown Rx CAP] Prednisone [predniSONE 10 mg 10 mg PO .TAPER #1 08/05/21 Unknown Rx (6-Day Pack, 21 Tabs)] Allergies Allergy/AdvReac Type Severity Reaction Status Date / Time bupropion HCl Allergy Hives Verified 02/10/21 05:14 [From Wellbutrin] diphenhydramine HCl Allergy Hives Verified 02/10/21 05:14 [From Benadryl] ED Review of Systems ROS: Stated complaint: SOB Other details as noted in HPI Comment: All other systems reviewed and negative Constitutional: denies: chills, fever, malaise Respiratory: shortness of breath. denies: cough, wheezing Cardiovascular: denies: chest pain Gastrointestinal: denies: abdominal pain, nausea, vomiting Musculoskeletal: denies: back pain ED Past Medical Hx - Past Medical History Previous Medical History?: Yes Hx Hypertension: Yes Hx Congestive Heart Failure: No Hx Diabetes: No Hx Asthma: Yes Hx COPD: Yes Hx HIV: No Additional medical history: SARCOIDOSIS - Surgical History Past Surgical History?: Yes Additional Surgical History: LUNG BIOPSY,chronic back pain r/t herniated disc. HYSTERECTOMY. TUBAL LIGATION - Social History Smoking Status: Current Every Day Smoker (We discussed tobacco cessation x3 minutes) Substance Use Type: None - Medications Home Medications: Home Medications Medication Instructions Recorded Confirmed Last Taken Type Fluticasone/Vilanterol [Breo 1 each IH BID #1 blst.w.dev 02/27/21 Unknown Rx Ellipta 100-25 Mcg INH] Nicotine [Habitrol] 21 mg TD DAILY #30 patch 02/27/21 Unknown Rx ALBUTEROL NEB's [Proventil 0.083% 2.5 mg IH TID PRN #1 box 07/01/21 Unknown Rx NEBS] Albuterol Mdi (or & Nicu Only) 1 puff IH Q4HR PRN #1 inha 07/01/21 Unknown Rx [ProAir HFA Inhaler] Benzonatate [Tessalon Perles] 100 mg PO Q8HR PRN #10 capsule 07/01/21 Unknown Rx Fluticasone [Flonase] 1 spray NS QDAY #1 bottle 07/01/21 Unknown Rx Ipratropium (Nf) [Atrovent HFA 2 puff IH Q4H PRN #1 inha 07/01/21 Unknown Rx 17MCG/PUFF] Metoprolol [Lopressor TAB] 50 mg PO BID #60 tablet 07/01/21 Unknown Rx Montelukast [Singulair] 10 mg PO QHS #30 tablet 07/01/21 Unknown Rx DOXYCYCLINE Hyclate [Vibramycin 100 mg PO Q12HR 7 Days #14 capsule 08/05/21 Unknown Rx CAP] Prednisone [predniSONE 10 mg 10 mg PO .TAPER #1 08/05/21 Unknown Rx (6-Day Pack, 21 Tabs)] ED Physical Exam - General Limitations: No Limitations General appearance: alert, anxious, in distress, other (tripod position, difficulty completing sentences) - Head Head exam: Present: atraumatic, normocephalic - Eye Eye exam: Present: normal appearance - ENT ENT exam: Present: mucous membranes moist - Neck Neck exam: Present: normal inspection, full ROM - Respiratory Respiratory exam: Present: respiratory distress, accessory muscle use, decreased breath sounds, prolonged expiratory. Absent: rales, rhonchi - Cardiovascular Cardiovascular Exam: Present: regular rate, normal rhythm, normal heart sounds. Absent: systolic murmur, diastolic murmur, rubs, gallop - GI/Abdominal GI/Abdominal exam: Present: soft, normal bowel sounds. Absent: distended, tenderness, guarding, rebound - Extremities Exam Extremities exam: Present: normal inspection - Neurological Exam Neurological exam: Present: alert, oriented X3 - Psychiatric Psychiatric exam: Present: normal affect, anxious - Skin Skin exam: Present: warm, dry, intact, normal color. Absent: rash ED Course Vital Signs 08/05/21 08/05/21 08/05/21 10:41 10:54 11:00 Temperature 98.1 F Pulse Rate 88 79 Pulse Rate [ Anterior Bilateral Throughout] Respiratory 20 18 34 H Rate Respiratory Rate [Anterior Bilateral Throughout] Blood Pressure 147/99 Blood Pressure 150/103 [Left] O2 Sat by Pulse 88 99 100 Oximetry 08/05/21 08/05/21 08/05/21 11:05 11:16 11:30 Temperature Pulse Rate 76 79 Pulse Rate [ 89 Anterior Bilateral Throughout] Respiratory 27 H 19 Rate Respiratory 20 Rate [Anterior Bilateral Throughout] Blood Pressure 147/99 156/107 Blood Pressure [Left] O2 Sat by Pulse 96 97 Oximetry 08/05/21 08/05/21 08/05/21 11:45 12:00 12:16 Temperature Pulse Rate 82 82 82 Pulse Rate [ Anterior Bilateral Throughout] Respiratory 21 14 20 Rate Respiratory Rate [Anterior Bilateral Throughout] Blood Pressure 156/107 165/117 165/117 Blood Pressure [Left] O2 Sat by Pulse 98 98 97 Oximetry 08/05/21 12:19 Temperature Pulse Rate 82 Pulse Rate [ Anterior Bilateral Throughout] Respiratory 14 Rate Respiratory Rate [Anterior Bilateral Throughout] Blood Pressure Blood Pressure 165/117 [Left] O2 Sat by Pulse 96 Oximetry ED Medical Decision Making - Medical Decision Making COPD exacerbation: Patient improved with 10 mg albuterol, 1 mg Atrovent, IV Solu-Medrol, IV magnesium. Patient uses 4 L nasal cannula at home. On 4 L nasal cannula in the emergency department oxygen saturation 90%. Patient ambulates without difficulty. She is discharged home. Prescribed doxycycline and prednisone taper. Critical Care Time: Yes Critical care time in (mins) excluding proc time.: 40 Critical care attestation.: If time is entered above; I have spent that time in minutes in the direct care of this critically ill patient, excluding procedure time. 40 minutes of critical care time excluding procedures were used in the care of the patient. I came immediately to the bedside upon patient's arrival. I obtained history from EMS at the bedside. I discussed treatment plan with the nursing team members. I reviewed electronic record. Patient required multiple interventions and reassessments. I was concerned about impending respiratory failure. ED Disposition Clinical Impression: COPD exacerbation Disposition: 01 HOME / SELF CARE / HOMELESS Is pt being admited?: No Does the pt Need Aspirin: No Condition: Stable Instructions: Chronic Obstructive Pulmonary Disease (ED), Chronic Obstructive Pulmonary Disease, [id number] Prescriptions: Prednisone [predniSONE 10 mg (6-Day Pack, 21 Tabs)] 10 mg PO .TAPER #1 DOXYCYCLINE Hyclate [Vibramycin CAP] 100 mg PO Q12HR 7 Days #14 capsule Referrals: PRIMARY MD MOJGAN [Primary Care Provider] - 3-5 Days KIMO JACQUES MD [Staff Physician] - 3-5 Days
[2021-08-05 14:49] VITALS: BP 166/112
== END 2021-08-05 14:40 | disposition home or self-care (01) ==
LOC: ED 10:36
DX: J44.1 Chronic obstructive pulmonary disease with (acute) exacerbation (principal); I10 Essential (primary) hypertension; Z88.8 Allergy status to other drugs, medicaments and biological substances
CPT/HCPCS: 94640; 96361; 96365; 96375; 99283; J2930; J3475; 94644

== ENCOUNTER 2021-09-01 03:21 | Emergency (ER) | payer SELFPAY ==
[2021-09-01] MEDS ORDERED: IPRATROPIUM 0.02% NEBU 2.5 ML IH ONE (04:14)
[2021-09-01] MEDS ORDERED: predniSONE 20 MG TAB PO ONE (04:14)
[2021-09-01] MEDS ORDERED: ALBUTEROL 2.5 MG/3 ML NEBU IH ONE (04:15)
--- NOTE | 2021-09-01 04:20 | Event Note ---
Date: 09/01/21 Medical screening examination note: 55-year-old female presenting with chest tightness, shortness of breath, possible wheezing. Has a history of possible COPD and interstitial lung disease. Start albuterol, Atrovent, steroids, obtain appropriate laboratory studies, EKG, and x-ray the chest. Patient is awake, alert, oriented, ambulatory with a steady gait, and protecting her airway. Detailed history and physical to be performed by oncoming ER provider Vital Signs 09/01/21 03:50 Temperature 98.5 F Pulse Rate 64 Respiratory 22 Rate Blood Pressure 167/122 [Right] O2 Sat by Pulse 98 Oximetry
--- NOTE | 2021-09-01 04:47 | XRay Report ---
CHEST 1 VIEW INDICATION / CLINICAL INFORMATION: HARINDER. COMPARISON: Chest x-ray 07/01/2021 FINDINGS: SUPPORT DEVICES: None. HEART / MEDIASTINUM: Borderline cardiomegaly appears stable. LUNGS / PLEURA: Extensive emphysematous change and apical bullous disease more prevalent within the r ight upper lung again demonstrated, no superimposed acute pathology suggested. BONES: No significant osseous abnormality. ADDITIONAL FINDINGS: No significant additional findings. IMPRESSION: 1. Stable emphysematous appearing chest. No superimposed acute pathology. Signer Name: Chano Warner II, MD Signed: 09/01/2021 4:43 AM Workstation Name: [id number]
[2021-09-01 05:21] LABS: Basophils % (Auto) 0.6 % (0.0-1.8); Eosinophils # (Auto) 0.1 K/mm3 (0.0-0.4); Eosinophils % (Auto) 1.8 % (0.0-4.3); Hematocrit 48.6 % (30.3-42.9); Hemoglobin 15.5 gm/dl (10.1-14.3); Lymphocytes # (Auto) 0.9 K/mm3 (1.2-5.4); Lymphocytes % (Auto) 15.8 % (13.4-35.0); Mean Corpuscular HGB Conc 32 % (30-34); Mean Corpuscular Volume 92 fl (79-97); Monocytes # (Auto) 0.7 K/mm3 (0.0-0.8); Monocytes % (Auto) 12.7 % (0.0-7.3); Platelet Count 211 K/mm3 (140-440); Red Blood Count 5.28 M/mm3 (3.65-5.03); Red Cell Distribution Width 14.9 % (13.2-15.2)
[2021-09-01 05:31] LABS: INR 1.05 (0.87-1.13)
[2021-09-01 05:45] LABS: Alanine Aminotransferase 29 units/L (7-56); BUN/Creatinine Ratio 15; Blood Urea Nitrogen 12 mg/dL (7-17); Calcium 9.1 mg/dL (8.4-10.2); Hemolysis Index 7
--- NOTE | 2021-09-01 06:26 | Emergency Department Report ---
HPI - General Chief Complaint: Dyspnea/Respdistress Time Seen by Provider: 09/01/21 06:10 - HPI HPI: Room 20 The patient is a 55-year-old female present with a chief complaint of shortness of breath. Patient states she came to the emergency department because she was having shortness of breath and dyspnea on exertion for the past 2 to 3 days. Patient admits to chronic cough for years which has not changed. Patient denies history of fever or rhinorrhea. Patient states she has been vaccinated against COVID receiving her second dose in March 2021. Patient received steroids and albuterol/Atrovent prior to my evaluation and now states she feels fine. Patient is currently asymptomatic. Patient denies chest pain. ED Past Medical Hx - Past Medical History Previous Medical History?: Yes Hx Hypertension: Yes Hx Asthma: Yes Hx COPD: Yes (4 L home O2) Additional medical history: SARCOIDOSIS - Surgical History Past Surgical History?: Yes Additional Surgical History: LUNG BIOPSY,chronic back pain r/t herniated disc. HYSTERECTOMY. TUBAL LIGATION - Family History Family history: no significant - Social History Smoking Status: Current Every Day Smoker (1/3 pack/day) Substance Use Type: None (Denies illicit drug use), Alcohol (1 can of beer daily) - Medications Home Medications: Home Medications Medication Instructions Recorded Confirmed Last Taken Type Fluticasone/Vilanterol [Breo 1 each IH BID #1 blst.w.dev 02/27/21 Unknown Rx Ellipta 100-25 Mcg INH] Nicotine [Habitrol] 21 mg TD DAILY #30 patch 02/27/21 Unknown Rx Benzonatate [Tessalon Perles] 100 mg PO Q8HR PRN #10 capsule 07/01/21 Unknown Rx Fluticasone [Flonase] 1 spray NS QDAY #1 bottle 07/01/21 Unknown Rx Ipratropium (Nf) [Atrovent HFA 2 puff IH Q4H PRN #1 inha 07/01/21 Unknown Rx 17MCG/PUFF] Metoprolol [Lopressor TAB] 50 mg PO BID #60 tablet 07/01/21 Unknown Rx Montelukast [Singulair] 10 mg PO QHS #30 tablet 07/01/21 Unknown Rx DOXYCYCLINE Hyclate [Vibramycin 100 mg PO Q12HR 7 Days #14 capsule 08/05/21 Unknown Rx CAP] ALBUTEROL NEB's [Proventil 0.083% 2.5 mg IH TID PRN #1 box 09/01/21 Unknown Rx NEBS] Albuterol Mdi (or & Nicu Only) 1 puff IH Q4HR PRN #1 inha 09/01/21 Unknown Rx [ProAir HFA Inhaler] Prednisone [predniSONE 10 mg 10 mg PO .TAPER #1 09/01/21 Unknown Rx (6-Day Pack, 21 Tabs)] amLODIPine 5 mg PO DAILY #90 tab 09/01/21 Unknown Rx ED Review of Systems ROS: Stated complaint: HARINDER Other details as noted in HPI Constitutional: denies: fever Eyes: denies: eye pain ENT: denies: throat pain Respiratory: cough, shortness of breath, wheezing Cardiovascular: denies: chest pain Endocrine: no symptoms reported Gastrointestinal: denies: abdominal pain Genitourinary: denies: dysuria Musculoskeletal: denies: myalgia Neurological: denies: headache Physical Exam - Physical Exam Vital Signs: Vital Signs 09/01/21 09/01/21 09/01/21 03:50 04:30 04:31 Temperature 98.5 F Pulse Rate 64 85 Pulse Rate [ Bilateral] Respiratory 22 20 20 Rate Respiratory Rate [Bilateral ] Blood Pressure 170/115 Blood Pressure 167/122 [Right] O2 Sat by Pulse 98 98 98 Oximetry 09/01/21 09/01/21 09/01/21 04:32 04:40 04:45 Temperature Pulse Rate 87 87 Pulse Rate [ 91 H Bilateral] Respiratory 20 19 Rate Respiratory 20 Rate [Bilateral ] Blood Pressure 175/125 Blood Pressure 170/115 [Right] O2 Sat by Pulse 98 98 Oximetry 09/01/21 05:01 Temperature Pulse Rate 88 Pulse Rate [ Bilateral] Respiratory 29 H Rate Respiratory Rate [Bilateral ] Blood Pressure 177/104 Blood Pressure [Right] O2 Sat by Pulse 97 Oximetry Physical Exam: GENERAL: The patient is well-developed well-nourished female sitting on stretcher not appearing to be in acute distress. [] HEENT: Normocephalic. Atraumatic. Extraocular motions are intact. Patient has moist mucous membranes. NECK: Supple. Trachea midline CHEST/LUNGS: Clear to auscultation. There is no respiratory distress noted. HEART/CARDIOVASCULAR: Regular. There is no tachycardia. There is no gallop rub or murmur. ABDOMEN: Abdomen is soft, nontender. Patient has normal bowel sounds. There is no abdominal distention. SKIN: There is no rash. There is no edema. There is no diaphoresis. NEURO: The patient is awake, alert, and oriented. The patient is cooperative. The patient has no focal neurologic deficits. The patient has normal speech. GCS 15 MUSCULOSKELETAL: T There is no evidence of acute injury. ED Course Vital Signs 09/01/21 09/01/21 09/01/21 03:50 04:30 04:31 Temperature 98.5 F Pulse Rate 64 85 Pulse Rate [ Bilateral] Respiratory 22 20 20 Rate Respiratory Rate [Bilateral ] Blood Pressure 170/115 Blood Pressure 167/122 [Right] O2 Sat by Pulse 98 98 98 Oximetry 09/01/21 09/01/21 09/01/21 04:32 04:40 04:45 Temperature Pulse Rate 87 87 Pulse Rate [ 91 H Bilateral] Respiratory 20 19 Rate Respiratory 20 Rate [Bilateral ] Blood Pressure 175/125 Blood Pressure 170/115 [Right] O2 Sat by Pulse 98 98 Oximetry 09/01/21 05:01 Temperature Pulse Rate 88 Pulse Rate [ Bilateral] Respiratory 29 H Rate Respiratory Rate [Bilateral ] Blood Pressure 177/104 Blood Pressure [Right] O2 Sat by Pulse 97 Oximetry ED Medical Decision Making - Lab Data Result diagrams: 09/01/21 04:52 09/01/21 04:52 Laboratory Tests 09/01/21 09/01/21 09/01/21 04:52 04:52 04:52 WBC 5.9 RBC 5.28 H Hgb 15.5 H Hct 48.6 H MCV 92 MCH 30 MCHC 32 RDW 14.9 Plt Count 211 Lymph % (Auto) 15.8 [place] % (Auto) 12.7 H Eos % (Auto) 1.8 Baso % (Auto) 0.6 Lymph # (Auto) 0.9 L [place] # (Auto) 0.7 Eos # (Auto) 0.1 Baso # (Auto) 0.0 Seg Neutrophils % 69.1 Seg Neutrophils # 4.1 PT 14.9 INR 1.05 Sodium 141 Potassium 4.3 Chloride 103.1 Carbon Dioxide 24 Anion Gap 18 BUN 12 Creatinine 0.8 Estimated GFR > 60 BUN/Creatinine Ratio 15 Glucose 113 H Calcium 9.1 Total Bilirubin 1.20 AST 30 ALT 29 Alkaline Phosphatase 88 Troponin T < 0.010 Total Protein 6.4 Albumin 4.0 Albumin/Globulin Ratio 1.7 - EKG Data -: EKG Interpreted by Me EKG shows normal: sinus rhythm Rate: normal - EKG Data When compared to previous EKG there are: no significant change Interpretation: unchanged when compared t (07/01/2021) - Radiology Data Radiology results: report reviewed (Chest x-ray), image reviewed (Chest x-ray) interpreted by me: Chest [id number]. No pneumothorax. No definite focal infiltrates [facility] [address] [place] [address] XRay Report Signed Patient: MARILY RODRIGUEZ MR#: [id number] : 1965 Acct:[id number] Age/Sex: 55 / F ADM Date: 09/01/21 Loc: ED Attending Dr: Ordering Physician: ED MD [id number] Date of Service: 09/01/21 Procedure(s): XR chest 1V ap Accession Number(s): [id number] cc: ED DOCMD Fluoro Time In Minutes: CHEST 1 VIEW INDICATION / CLINICAL INFORMATION: HARINDER. COMPARISON: Chest x-ray 07/01/2021 FINDINGS: SUPPORT DEVICES: None. HEART / MEDIASTINUM: Borderline cardiomegaly appears stable. LUNGS / PLEURA: Extensive emphysematous change and apical bullous disease more prevalent within the right upper lung again demonstrated, no superimposed acute pathology suggested. BONES: No significant osseous abnormality. ADDITIONAL FINDINGS: No significant additional findings. IMPRESSION: 1. Stable emphysematous appearing chest. No superimposed acute pathology. Signer Name: Nora Warner II, MD Signed: 09/01/2021 4:43 AM Workstation Name: [id number] Transcribed By: SHER Dictated By: NORA WARNER II, MD Electronically Authenticated By: NORA WARNER II, MD Signed Date/Time: 09/01/21442 DD/ 1 TD/TT: - Differential Diagnosis COPD exacerbation Critical care attestation.: If time is entered above; I have spent that time in minutes in the direct care of this critically ill patient, excluding procedure time. ED Disposition Clinical Impression: COPD exacerbation Disposition: 01 HOME / SELF CARE / HOMELESS Is pt being admited?: No Does the pt Need Aspirin: No Condition: Stable Instructions: Chronic Obstructive Pulmonary Disease (ED), Chronic Obstructive Pulmonary Disease Additional Instructions: Return to the emergency department should you develop worsening symptoms, inability to tolerate food or liquids, high fever or any other concerns Prescriptions: amLODIPine 5 mg PO DAILY #90 tab Prednisone [predniSONE 10 mg (6-Day Pack, 21 Tabs)] 10 mg PO .TAPER #1 Albuterol Mdi (or & Nicu Only) [ProAir HFA Inhaler] 1 puff IH Q4HR PRN #1 inha PRN Reason: Wheezing ALBUTEROL NEB's [Proventil 0.083% NEBS] 2.5 mg IH TID PRN #1 box PRN Reason: Wheezing Referrals: [facility] [Provider Group] - 3-5 Days Time of Disposition: 06:27
[2021-09-01] MEDS ORDERED: amLODIPine 5 MG TAB PO ONE ×2 (06:44)
[2021-09-01 07:01] VITALS: BP 138/98
--- NOTE | 2021-09-01 11:35 | Electrocardiograph Report ---
[facility] Test Date: 2021-09-01 Test Time: 04:01:19 Pat Name: MARILY RODRIGUEZ Department: Room: Gender: F Magnetic Testing Technician: ROBERTO Mccauley : 1965 Requested By: EDE WAGGONER Order Number: [id number] Reading MD: Peña Jain Measurements Intervals [place] Rate: 86 P: 53 CA: 201 QRS: 64 QRSD: 79 T: 56 QT: 404 QTc: 484 Interpretive Statements Sinus rhythm Biatrial enlargement Left ventricular hypertrophy nonspecific st-t Compared to ECG 07/01/2021 16:07:52 Early repolarization now present Possible ischemia now present Electronically Signed On 09-01-2021 11:35:03 EDT by Peña Jain
== END 2021-09-01 07:00 | disposition home or self-care (01) ==
LOC: ED 03:21
DX: J44.1 Chronic obstructive pulmonary disease with (acute) exacerbation (principal); I10 Essential (primary) hypertension; F17.210 Nicotine dependence, cigarettes, uncomplicated; Z98.51 Tubal ligation status; Z98.890 Other specified postprocedural states; Z88.8 Allergy status to other drugs, medicaments and biological substances
CPT/HCPCS: 36415; 71045; 80053; 84484; 85025; 85610; 93005; 94640; 94644; 99284

== ENCOUNTER 2021-09-25 13:10 | Inpatient (IN) | payer SELFPAY ==
[2021-09-25] MEDS ORDERED: ALBUTEROL 2.5 MG/3 ML NEBU IH ONE ×2 (13:16→13:20)
[2021-09-25] MEDS ORDERED: KETAMINE 500 MG/5 ML VIAL MDV IV ONE (13:43)
[2021-09-25] MEDS ORDERED: LIDOCAINE (1%) 10 MG/1 ML VIAL 20 ML MDV INFILTRATI ONE (13:44)
--- NOTE | 2021-09-25 13:44 | XRay Report ---
CHEST 1 VIEW 09/25/2021 1:23 PM INDICATION / CLINICAL INFORMATION: sob. COMPARISON: 09/01/2021 FINDINGS: SUPPORT DEVICES: None. HEART / MEDIASTINUM: No significant abnormality. LUNGS / PLEURA: There is a moderate right pneumothorax with atelectasis of the right lower lung. ADDITIONAL FINDINGS: No significant additional findings. IMPRESSION: 1. Moderate right pneumothorax. Findings called to Dr. Pelaez at 12:39 PM central time. Signer Name: Héctor Leal MD Signed: 09/25/2021 1:39 PM Workstation Name: [id number]
[2021-09-25 13:58] LABS: Basophils % (Auto) 0.3 % (0.0-1.8); Eosinophils # (Auto) 0.1 K/mm3 (0.0-0.4); Hematocrit 50.8 % (30.3-42.9); Hemoglobin 16.5 gm/dl (10.1-14.3); Lymphocytes # (Auto) 1.8 K/mm3 (1.2-5.4); Lymphocytes % (Auto) 16.5 % (13.4-35.0); Mean Corpuscular HGB Conc 33 % (30-34); Mean Corpuscular Volume 93 fl (79-97); Monocytes # (Auto) 0.4 K/mm3 (0.0-0.8); Monocytes % (Auto) 3.2 % (0.0-7.3); Platelet Count 211 K/mm3 (140-440); Red Blood Count 5.47 M/mm3 (3.65-5.03)
[2021-09-25] MEDS ORDERED: HYDROmorphone 1 MG/1 ML INJ IV ONE ×2 (14:23→15:10)
[2021-09-25] MEDS ORDERED: ONDANSETRON 4 MG/2 ML INJ IV ONE (14:24)
[2021-09-25] MEDS ORDERED: KETOROLAC 30 MG/1 ML INJ IV ONE (14:31)
[2021-09-25 14:43] LABS: Alanine Aminotransferase 29 units/L (7-56); Albumin 3.8 g/dL (3.9-5); BUN/Creatinine Ratio 10; Blood Urea Nitrogen 8 mg/dL (7-17); Calcium 8.9 mg/dL (8.4-10.2); Hemolysis Index 10
--- NOTE | 2021-09-25 14:48 | XRay Report ---
CHEST 1 VIEW 09/25/2021 2:27 PM INDICATION / CLINICAL INFORMATION: s/p chest tube. COMPARISON: 09/25/2021 FINDINGS: Right chest tube is in place with reexpansion of the right lung. There is increased Interst itial prominence is seen in bilateral lungs. Heart size appears stable. Signer Name: Efren Crow MD Signed: 09/25/2021 2:44 PM Workstation Name: [id number]
[2021-09-25] MEDS ORDERED: IPRATROPIUM 0.02% NEBU 2.5 ML IH ONE (15:01)
--- NOTE | 2021-09-25 15:05 | Emergency Department Report ---
ED Shortness of Breath HPI - General Chief Complaint: Dyspnea/Respdistress Stated Complaint: RESP DISTRESS Time Seen by Provider: 09/25/21 13:18 Source: patient, EMS, old records reviewed Mode of arrival: Stretcher Limitations: Other - History of Present Illness Initial Comments: 55-year-old female with history of COPD currently on 4 L of home oxygen presents to the hospital with acute respiratory distress. Patient presents hypoxic in 80s on nonrebreather with audible wheezing and diminished breath sounds in the right. Symptoms are constant and worse with movement. Patient admitted last night in bed due to respiratory distress. she denies previous history of intubations. She does endorse cough without fever. She is vaccinated for COVID without booster. She has had multiple ER visits to hospitalist here in the past for COPD and respiratory failure. - Related Data Previous Rx's Medication Instructions Recorded Last Taken Type Fluticasone/Vilanterol [Breo 1 each IH BID #1 blst.w.dev 02/27/21 Unknown Rx Ellipta 100-25 Mcg INH] Nicotine [Habitrol] 21 mg TD DAILY #30 patch 02/27/21 Unknown Rx Benzonatate [Tessalon Perles] 100 mg PO Q8HR PRN #10 capsule 07/01/21 Unknown Rx Fluticasone [Flonase] 1 spray NS QDAY #1 bottle 07/01/21 Unknown Rx Ipratropium (Nf) [Atrovent HFA 2 puff IH Q4H PRN #1 inha 07/01/21 Unknown Rx 17MCG/PUFF] Metoprolol [Lopressor TAB] 50 mg PO BID #60 tablet 07/01/21 Unknown Rx Montelukast [Singulair] 10 mg PO QHS #30 tablet 07/01/21 Unknown Rx DOXYCYCLINE Hyclate [Vibramycin 100 mg PO Q12HR 7 Days #14 capsule 08/05/21 Unknown Rx CAP] ALBUTEROL NEB's [Proventil 0.083% 2.5 mg IH TID PRN #1 box 09/01/21 Unknown Rx NEBS] Albuterol Mdi (or & Nicu Only) 1 puff IH Q4HR PRN #1 inha 09/01/21 Unknown Rx [ProAir HFA Inhaler] Prednisone [predniSONE 10 mg 10 mg PO .TAPER #1 09/01/21 Unknown Rx (6-Day Pack, 21 Tabs)] amLODIPine 5 mg PO DAILY #90 tab 09/01/21 Unknown Rx Allergies Allergy/AdvReac Type Severity Reaction Status Date / Time bupropion HCl Allergy Hives Verified 02/10/21 05:14 [From Wellbutrin] diphenhydramine HCl Allergy Hives Verified 02/10/21 05:14 [From Benadryl] ED Review of Systems ROS: Stated complaint: RESP DISTRESS Other details as noted in HPI Comment: All other systems reviewed and negative ED Past Medical Hx - Past Medical History Hx Hypertension: Yes Hx Congestive Heart Failure: No Hx Diabetes: No Hx Asthma: Yes Hx COPD: Yes (4 L home O2) Hx HIV: No Additional medical history: SARCOIDOSIS - Surgical History Additional Surgical History: LUNG BIOPSY,chronic back pain r/t herniated disc. HYSTERECTOMY. TUBAL LIGATION - Social History Smoking Status: Current Every Day Smoker - Medications Home Medications: Home Medications Medication Instructions Recorded Confirmed Last Taken Type Fluticasone/Vilanterol [Breo 1 each IH BID #1 blst.w.dev 02/27/21 Unknown Rx Ellipta 100-25 Mcg INH] Nicotine [Habitrol] 21 mg TD DAILY #30 patch 02/27/21 Unknown Rx Benzonatate [Tessalon Perles] 100 mg PO Q8HR PRN #10 capsule 07/01/21 Unknown Rx Fluticasone [Flonase] 1 spray NS QDAY #1 bottle 07/01/21 Unknown Rx Ipratropium (Nf) [Atrovent HFA 2 puff IH Q4H PRN #1 inha 07/01/21 Unknown Rx 17MCG/PUFF] Metoprolol [Lopressor TAB] 50 mg PO BID #60 tablet 07/01/21 Unknown Rx Montelukast [Singulair] 10 mg PO QHS #30 tablet 07/01/21 Unknown Rx DOXYCYCLINE Hyclate [Vibramycin 100 mg PO Q12HR 7 Days #14 capsule 08/05/21 Unknown Rx CAP] ALBUTEROL NEB's [Proventil 0.083% 2.5 mg IH TID PRN #1 box 09/01/21 Unknown Rx NEBS] Albuterol Mdi (or & Nicu Only) 1 puff IH Q4HR PRN #1 inha 09/01/21 Unknown Rx [ProAir HFA Inhaler] Prednisone [predniSONE 10 mg 10 mg PO .TAPER #1 09/01/21 Unknown Rx (6-Day Pack, 21 Tabs)] amLODIPine 5 mg PO DAILY #90 tab 09/01/21 Unknown Rx ED Physical Exam - General Limitations: No Limitations - Other Other exam information: General: Moderate to severe respiratory distress Head: Atraumatic Eyes: normal appearance ENT: Moist mucous membranes Neck: Normal appearance, no midline tenderness Chest: Tachypnea, excessive muscle use, crackles on the left, diminished breath sounds on her CV: Tachycardic regular rate Abdomen: Soft, normal bowel sounds, nontender, nondistended, no rebound or guarding Back: Normal inspection Extremity: Normal inspection, full range of motion, no calf tenderness or leg edema Neuro: Alert O x 3, no facial asymmetry, speech clear, no gross motor sensory deficit Psych: Appropriate behavior Skin: No rash ED Course Vital Signs 09/25/21 09/25/21 09/25/21 13:12 13:16 13:20 Temperature Pulse Rate 148 H Pulse Rate [ Bilateral] Pulse Rate [ Throughout] Respiratory 45 H Rate Respiratory Rate [Bilateral ] Respiratory Rate [ Throughout] Blood Pressure Blood Pressure [Right] O2 Sat by Pulse 84 96 100 Oximetry 09/25/21 09/25/21 09/25/21 13:27 13:30 13:46 Temperature 98.9 F Pulse Rate 130 H 144 H 128 H Pulse Rate [ Bilateral] Pulse Rate [ Throughout] Respiratory 20 47 H 28 H Rate Respiratory Rate [Bilateral ] Respiratory Rate [ Throughout] Blood Pressure 145/100 145/100 Blood Pressure 146/100 [Right] O2 Sat by Pulse 96 95 95 Oximetry 09/25/21 09/25/21 09/25/21 13:50 13:55 14:00 Temperature Pulse Rate 131 H Pulse Rate [ 135 H 143 H Bilateral] Pulse Rate [ 143 H 134 H Throughout] Respiratory 36 H Rate Respiratory 40 H 43 H Rate [Bilateral ] Respiratory 43 H 45 H Rate [ Throughout] Blood Pressure 153/106 Blood Pressure [Right] O2 Sat by Pulse 98 Oximetry 09/25/21 09/25/21 09/25/21 14:16 14:30 14:45 Temperature Pulse Rate 137 H 120 H 108 H Pulse Rate [ Bilateral] Pulse Rate [ Throughout] Respiratory 51 H 51 H 21 Rate Respiratory Rate [Bilateral ] Respiratory Rate [ Throughout] Blood Pressure 107/74 120/81 106/73 Blood Pressure [Right] O2 Sat by Pulse 97 99 Oximetry 09/25/21 09/25/21 09/25/21 15:00 15:15 15:30 Temperature Pulse Rate 111 H 105 H 105 H Pulse Rate [ Bilateral] Pulse Rate [ Throughout] Respiratory 27 H 30 H 18 Rate Respiratory Rate [Bilateral ] Respiratory Rate [ Throughout] Blood Pressure 121/89 99/72 101/71 Blood Pressure [Right] O2 Sat by Pulse 96 95 95 Oximetry 09/25/21 09/25/21 09/25/21 15:45 16:00 16:15 Temperature Pulse Rate 98 H 99 H 97 H Pulse Rate [ Bilateral] Pulse Rate [ Throughout] Respiratory 13 12 14 Rate Respiratory Rate [Bilateral ] Respiratory Rate [ Throughout] Blood Pressure 107/75 112/75 115/75 Blood Pressure [Right] O2 Sat by Pulse 93 92 94 Oximetry 09/25/21 09/25/21 09/25/21 16:30 16:45 17:00 Temperature Pulse Rate 97 H 95 H 96 H Pulse Rate [ Bilateral] Pulse Rate [ Throughout] Respiratory 11 L 15 12 Rate Respiratory Rate [Bilateral ] Respiratory Rate [ Throughout] Blood Pressure 111/76 109/77 116/82 Blood Pressure [Right] O2 Sat by Pulse 96 96 Oximetry 09/25/21 09/25/21 09/25/21 17:04 17:15 17:30 Temperature Pulse Rate 96 H 97 H Pulse Rate [ Bilateral] Pulse Rate [ Throughout] Respiratory 13 13 Rate Respiratory Rate [Bilateral ] Respiratory Rate [ Throughout] Blood Pressure 120/78 114/81 Blood Pressure [Right] O2 Sat by Pulse 100 94 95 Oximetry 09/25/21 09/25/21 09/25/21 17:45 18:00 18:15 Temperature Pulse Rate 95 H 95 H 94 H Pulse Rate [ Bilateral] Pulse Rate [ Throughout] Respiratory 16 13 13 Rate Respiratory Rate [Bilateral ] Respiratory Rate [ Throughout] Blood Pressure 124/81 126/81 119/79 Blood Pressure [Right] O2 Sat by Pulse 98 98 94 Oximetry 09/25/21 09/25/21 09/25/21 18:19 18:30 18:45 Temperature Pulse Rate 89 95 H 93 H Pulse Rate [ Bilateral] Pulse Rate [ Throughout] Respiratory 17 12 14 Rate Respiratory Rate [Bilateral ] Respiratory Rate [ Throughout] Blood Pressure 107/76 117/81 Blood Pressure [Right] O2 Sat by Pulse 95 97 Oximetry 09/25/21 09/25/21 19:00 19:41 Temperature Pulse Rate 96 H 92 H Pulse Rate [ Bilateral] Pulse Rate [ Throughout] Respiratory 16 16 Rate Respiratory Rate [Bilateral ] Respiratory Rate [ Throughout] Blood Pressure 125/92 136/90 Blood Pressure [Right] O2 Sat by Pulse 98 98 Oximetry - Reevaluation(s) Reevaluation #1: 09/25/21 15:03 Patient presents with a significant respiratory distress. At the bedside immediately. Patient placed on BiPAP with continuous nebs with improvement in oxygenation but continued shortness of breath. X-ray revealed right-sided pneumothorax which confirmed decreased breath sounds auscultated during examination. Patient signed consent for right-sided chest tube which was placed without incident. Repeat chest x-ray shows reexpansion. Case discussed with resistor tester on-call Dr. Maurer. At this time respiratory therapy is weaning down her BiPAP support. ABG ordered. - Consultations Consultation #1: 09/25/21 15:[address] Maurer resistor tester. Will consult - Chest Tube Chest Tube Location: forth interspace Size of [place] Tube (cm): 9 (9fr tube) Chest Tube Procedure: betadine prep, sterile drapes applied, sterile dressing applied Anesthesia: 1% Lidocaine Volume Anesthetic (ccs): 10 [place] of Air [place]: Yes Number of Attempts: 1 Time of Successful Intubation: 14:15 Tube Drainage: see nurses notes Tube Sutured to Skin: Yes Post Procedure CXR?: Yes - Moderate Sedation Indications: other ASA Class: II Mallampati Airway Score: 3 Time of Last PO Intake: 08:00 Preparation: groundwater monitoring technician applied, pulse oximeter, supplemental O2 applied, suction/airway equipment at bedside, IV secured Ketamine: IV Ketamine Dose: 91 Complications: none Interventions: oxygen applied, other (pt on bipap during procedure) Patient Tolerated Procedure: well Additional Comments: procedure start time 14:05 stop time 14:28 ED Medical Decision Making - Lab Data Result diagrams: 09/25/21 13:35 09/25/21 13:35 Lab Results 09/25/21 09/25/21 Range/Units 13:35 13:35 WBC 10.9 (4.5-11.0) K/mm3 RBC 5.47 H (3.65-5.03) M/mm3 Hgb 16.5 H (10.1-14.3) gm/dl Hct 50.8 H (30.3-42.9) % MCV 93 (79-97) fl MCH 30 (28-32) pg MCHC 33 (30-34) % RDW 15.0 (13.2-15.2) % Plt Count 211 (140-440) K/mm3 Lymph % (Auto) 16.5 (13.4-35.0) % [place] % (Auto) 3.2 (0.0-7.3) % Eos % (Auto) 1.0 (0.0-4.3) % Baso % (Auto) 0.3 (0.0-1.8) % Lymph # (Auto) 1.8 (1.2-5.4) K/mm3 [place] # (Auto) 0.4 (0.0-0.8) K/mm3 Eos # (Auto) 0.1 (0.0-0.4) K/mm3 Baso # (Auto) 0.0 (0.0-0.1) K/mm3 Seg Neutrophils % 79.0 H (40.0-70.0) % Seg Neutrophils # 8.7 H (1.8-7.7) K/mm3 Sodium 140 (137-145) mmol/L Potassium 3.8 (3.6-5.0) mmol/L Chloride 101.3 (98-107) mmol/L Carbon Dioxide 21 L (22-30) mmol/L Anion Gap 22 mmol/L BUN 8 (7-17) mg/dL Creatinine 0.8 (0.6-1.2) mg/dL Estimated GFR > 60 ml/min BUN/Creatinine Ratio 10 % Glucose 223 H (65-100) mg/dL Calcium 8.9 (8.4-10.2) mg/dL Total Bilirubin 0.70 (0.1-1.2) mg/dL AST 42 H (5-40) units/L ALT 29 (7-56) units/L Alkaline Phosphatase 122 (35-129) units/L Troponin T < 0.010 (0.00-0.029) ng/mL NT-Pro-B Natriuret Pep 691.7 (0-900) pg/mL Total Protein 7.6 (6.3-8.2) g/dL Albumin 3.8 L (3.9-5) g/dL Albumin/Globulin Ratio 1.0 % - EKG Data -: EKG Interpreted by Me EKG shows normal: sinus rhythm, ST-T waves (no stemi) Rate: tachycardia (140) - Radiology Data Radiology results: report reviewed CHEST 1 VIEW 09/25/2021 1:23 PM INDICATION / CLINICAL INFORMATION: sob. COMPARISON: 09/01/2021 FINDINGS: SUPPORT DEVICES: None. HEART / MEDIASTINUM: No significant abnormality. LUNGS / PLEURA: There is a moderate right pneumothorax with atelectasis of the right lower lung. ADDITIONAL FINDINGS: No significant additional findings. IMPRESSION: 1. Moderate right pneumothorax. Findings called to Dr. Pelaez at 12:39 PM central time. CHEST 1 VIEW 09/25/2021 2:27 PM INDICATION / CLINICAL INFORMATION: s/p chest tube. COMPARISON: 09/25/2021 FINDINGS: Right chest tube is in place with reexpansion of the right lung. There is increased Interstitial prominence is seen in bilateral lungs. Heart size appears stable. - Medical Decision Making 55-year-old female presents to the hospital acute respiratory distress and hypoxia despite nonrebreather. Patient initially started on BiPAP support with continuous nebs. Chest x-ray revealed pneumothorax consistent with decreased breath sounds on the right side. Patient signed consent and right-sided chest tube was placed under moderate sedation. Patient has significant pain after chest tube placement and was medicated with Dilaudid. Case discussed with resistor tester on-call Dr. Maurer. Respiratory therapist weaning down BiPAP support however, patient request to continue BiPAP while sleeping because she felt like she can breathe better. ABG consistent with a mild respiratory acidosis, case discussed with hospitalist hospitalist admit the patient Critical Care Time: Yes Critical care time in (mins) excluding proc time.: 40 Critical care attestation.: If time is entered above; I have spent that time in minutes in the direct care of this critically ill patient, excluding procedure time. Critical Care Time: 40 Minutes of critical care time excluding procedures were used in the care of the patient. I came immediately to the bedside upon patient's arrival. I obtained history from EMS at the bedside. I discussed treatment plan with the nursing team members. I reviewed electronic record. I spoke with family to obtain medical history. Patient required multiple interventions and reassessments. Spoke with hospitalist and consultants for collaborative care. ED Disposition Clinical Impression: Acute respiratory failure with hypoxia, COPD exacerbation, Pneumothorax, right Disposition: 09 ADMITTED INPATIENT Is pt being admited?: Yes Condition: Stable
--- NOTE | 2021-09-25 15:13 | History and Physical Report ---
History of Present Illness Chief complaint: I cannot breathe History of present illness: 55 YO Female with COPD, Sarcoidosis, HTN, Interstitial Lung Disease complicated by Chronic Respiratory Failure on 4L home oxygen via [place], Nicotine Dependence, DM, Obesity Hypoventilation Syndrome presents to ED for evaluation. Patient reports "I cannot breathe". Patient states that she has experienced shortness of breath over the past 3 days with worsening symptoms over the past 3 days. Patient acknowledges dry cough. EMS notified and upon arrival the patient was found to be in distress and subsequently the patient was transported to [facility] for further care and evaluation of the aforementioned symptoms. The patient was se en and evaluated in the emergency department. All lab and imaging studies reviewed. Patient found to have a pulse oximetry of 80% while on supplemental oxygen which is consistent with acute hypoxemic respiratory failure. Chest x- ray revealed right pneumothorax. Patient underwent chest tube placement in the emergency department. Pulmonology team consulted. Patient admitted to medical floor due to increased risk of worsening symptoms. Patient denies fever, chills, chest pain, palpitation, skin rash, recent ill contacts, or known exposure to COVID-19. Prior admission on 02/26/2021 reviewed. All medication listed at time of admission has been reconciled. Advanced care planning conducted in ED. Past History Past Medical History: COPD, hypertension, other (See HPI) Past Surgical History: hysterectomy, Other (Lung biopsy, tubal ligation) Social history: , smoking. denies: alcohol abuse, prescription drug abuse Family history: diabetes, hypertension Medications and Allergies Allergies Allergy/AdvReac Type Severity Reaction Status Date / Time bupropion HCl Allergy Hives Verified 02/10/21 05:14 [From Wellbutrin] diphenhydramine HCl Allergy Hives Verified 02/10/21 05:14 [From Benadryl] Home Medications Medication Instructions Recorded Confirmed Last Taken Type Fluticasone/Vilanterol [Breo 1 each IH BID #1 blst.w.dev 02/27/21 Unknown Rx Ellipta 100-25 Mcg INH] Nicotine [Habitrol] 21 mg TD DAILY #30 patch 02/27/21 Unknown Rx Benzonatate [Tessalon Perles] 100 mg PO Q8HR PRN #10 capsule 07/01/21 Unknown Rx Fluticasone [Flonase] 1 spray NS QDAY #1 bottle 07/01/21 Unknown Rx Ipratropium (Nf) [Atrovent HFA 2 puff IH Q4H PRN #1 inha 07/01/21 Unknown Rx 17MCG/PUFF] Metoprolol [Lopressor TAB] 50 mg PO BID #60 tablet 07/01/21 Unknown Rx Montelukast [Singulair] 10 mg PO QHS #30 tablet 07/01/21 Unknown Rx DOXYCYCLINE Hyclate [Vibramycin 100 mg PO Q12HR 7 Days #14 capsule 08/05/21 Unknown Rx CAP] ALBUTEROL NEB's [Proventil 0.083% 2.5 mg IH TID PRN #1 box 09/01/21 Unknown Rx NEBS] Albuterol Mdi (or & Nicu Only) 1 puff IH Q4HR PRN #1 inha 09/01/21 Unknown Rx [ProAir HFA Inhaler] Prednisone [predniSONE 10 mg 10 mg PO .TAPER #1 09/01/21 Unknown Rx (6-Day Pack, 21 Tabs)] amLODIPine 5 mg PO DAILY #90 tab 09/01/21 Unknown Rx Review of Systems Constitutional: no weight loss, no weight gain, no fever, no chills Ears, nose, mouth and throat: no ear pain, no ear discharge, no tinnitis, no decreased hearing, no nose pain, no nasal discharge Breasts: no change in shape, no swelling, no mass Cardiovascular: no chest pain, no syncope Respiratory: cough, shortness of breath Gastrointestinal: no abdominal pain, no vomiting, no hematemesis Genitourinary Female: no pelvic pain, no flank pain, no dysuria, no urinary frequency, no urgency Rectal: no pain, no incontinence, no bleeding Musculoskeletal: no neck stiffness, no neck pain, no shooting arm pain, no arm numbness/tingling Integumentary: no rash, no pruritis, no wounds, no jaundice, no boils Neurological: no head injury, no paralysis, no numbness, no tingling, no syncope, no ataxia Psychiatric: no anxiety, no change in sleep habits, no insomnia, no hypersomnia, no change in libido, no suicidal ideation Endocrine: no cold intolerance, no polyphagia, no polydipsia, no polyuria Hematologic/Lymphatic: no easy bruising, no easy bleeding Allergic/Immunologic: no urticaria Exam - Constitutional Vitals: Temp Pulse Resp BP Pulse Ox 98.9 F 137 H 51 H 107/74 97 09/25/21 13:27 09/25/21 14:16 09/25/21 14:16 09/25/21 14:16 09/25/21 14:16 General appearance: Present: mild distress, obese - EENT Eyes: Present: PERRL ENT: hearing intact, clear oral mucosa - Neck Neck: Present: supple, normal ROM - Respiratory Respiratory effort: labored, pursed lips, accessory muscle use, stridor Respiratory: right: diminished, left: rhonchi - Cardiovascular Heart Sounds: Present: S1 & S2. Absent: rub, click - Extremities Extremities: pulses symmetrical, No edema Peripheral Pulses: within normal limits - Abdominal General gastrointestinal: Present: soft, non-tender, non-distended, normal bowel sounds Female genitourinary: Present: normal - Integumentary Integumentary: Present: clear, warm, dry - Musculoskeletal Musculoskeletal: gait normal, strength equal bilaterally - Psychiatric Psychiatric: appropriate mood/affect, intact judgment & insight - Neurologic Neurologic: CNII-XII intact, moves all extremities HEART Score - HEART Score Troponin: Troponin T < 0.010 ng/mL (0.00-0.029) 09/25/21 13:35 Results - Labs CBC & Chem 7: 09/25/21 13:35 09/25/21 13:35 Labs: Abnormal lab results 09/25/21 09/25/21 Range/Units 13:35 13:35 RBC 5.47 H (3.65-5.03) M/mm3 Hgb 16.5 H (10.1-14.3) gm/dl Hct 50.8 H (30.3-42.9) % Seg Neutrophils % 79.0 H (40.0-70.0) % Seg Neutrophils # 8.7 H (1.8-7.7) K/mm3 Carbon Dioxide 21 L (22-30) mmol/L Glucose 223 H (65-100) mg/dL AST 42 H (5-40) units/L Albumin 3.8 L (3.9-5) g/dL Assessment and Plan - Patient Problems (1) Acute respiratory failure with hypoxia Current Visit: Yes Status: Acute Plan to address problem: Chest x-ray, supplemental oxygen, pulse oximetry, nebulizer therapy, pulmonary toilet, incentive spirometry. Pulmonary team consulted. (2) Pneumothorax, right Current Visit: Yes Status: Acute Plan to address problem: Chest x-ray, chest tube placement in the emergency department. Pulmonology team consulted. (3) Nicotine dependence Current Visit: Yes Status: Acute Qualifiers: Nicotine product type: cigarettes Substance use status: in withdrawal Qualified Code(s): F17.213 - Nicotine dependence, cigarettes, with withdrawal Plan to address problem: Smoking cessation counseling, supportive care, behavior change counseling, +15 minutes. (4) Metabolic syndrome Current Visit: Yes Status: Acute Plan to address problem: Balanced diet, increase physical activity discharge, outpatient pulmonary follow-up for sleep study. (5) Interstitial lung disease Current Visit: No Status: Acute Plan to address problem: Medical management, supportive care, pulmonary team consulted. Supplemental oxygen, pulse oximetry, pulmonary toilet (6) DVT prophylaxis Current Visit: No Status: Acute Plan to address problem: SCD to bilateral lower extremities while in bed (7) Advance care planning Current Visit: No Status: Acute Plan to address problem: Disease education data, care plan discussed, diagnoses discussed, prognosis discussed, patient is full code. Patient acknowledges understanding and agreement with care plan, +30 minutes. (8) Preventative health care Current Visit: Yes Status: Acute Plan to address problem: Patient counseled regarding balanced diet, meal planning, weight reduction, smoking cessation. Outpatient primary care physician follow-up for all age and risk factor appropriate screening test. +15 minutes.
[2021-09-25 15:36] LABS: ABG Base Excess -1.4 mmol/L (-2.0-3.0); ABG HCO3 25.8 mmol/L (20.0-26.0); ABG Methemoglobin 0.6 % (0.0-1.5); ABG PCO2 52.5 mm Hg; ABG PH 7.309 pH Units (7.350-7.450); ABG PO2 72.5 mm Hg (80.0-90.0)
[2021-09-25] MEDS ORDERED: DEXTROSE 50% IN WATER (25GM) 50 ML SYRINGE IV PRN (16:00)
[2021-09-25] MEDS ORDERED: ONDANSETRON 4 MG/2 ML INJ IV PRN (16:00)
[2021-09-25] MEDS ORDERED: ALBUTEROL 2.5 MG/3 ML NEBU IH PRN (16:00)
[2021-09-25] MEDS ORDERED: ACETAMINOPHEN 325 MG TAB PO PRN (16:00)
[2021-09-25] MEDS: HYDROmorphone 1 MG/1 ML INJ IV PRN (19:55)
[2021-09-25] MEDS: oxyCODONE /ACETAMINOPHEN 5-325MG TAB PO PRN (23:30)
[2021-09-25] MEDS: INSULIN LISPRO 100 UNIT/ML SUB-Q SCH (23:53)
[2021-09-26] MEDS: oxyCODONE /ACETAMINOPHEN 5-325MG TAB PO PRN ×2 (07:23→14:51)
[2021-09-26 07:31] LABS: BUN/Creatinine Ratio 19; Blood Urea Nitrogen 17 mg/dL (7-17); Calcium 9.6 mg/dL (8.4-10.2); Hemolysis Index 3
--- NOTE | 2021-09-26 09:27 | XRay Report ---
CHEST 1 VIEW 09/26/2021 8:10 AM INDICATION / CLINICAL INFORMATION: Pneumothorax. COMPARISON: One view of the chest from 09/25/2021. FINDINGS: SUPPORT DEVICES: The right chest tube has retracted with the tip remaining along the lateral aspect o f the right upper lung. HEART / MEDIASTINUM: Stable. LUNGS / PLEURA: Bilateral interstitial prominence is again noted with increased consolidation along t he right lung base. No significant pleural effusion. No pneumothorax. ADDITIONAL FINDINGS: No significant additional findings. IMPRESSION: 1. Nonspecific increased consolidation along the right lung base could represent atelectasis or evolv ing pneumonia. 2. Slight retraction of the right chest tube as above. 3. No other significant interval changes. Signer Name: Scott Conway MD Signed: 09/26/2021 9:23 AM Workstation Name: [id number]
--- NOTE | 2021-09-26 09:30 | Event Note ---
Date: 09/26/21 called by ED yesterday about this patient but no consult placed. had to find patient via ED laboratory secretary who was very very helpful. A repeat film was done this am on suction, shows the lung remains expanded but chest tube is pretty much out. Patient seen, high anxiety but in no respiratory distress. Bipap was not weaned off yesterday as I had asked. Now on HFNC per RT good sats and will continue to wean. Patient now off suction and I will order a repeat film for 10:30. If lung still up, will pull remainder of chest tube out.
[2021-09-26] MEDS: INSULIN LISPRO 100 UNIT/ML SUB-Q SCH ×3 (11:18→17:11)
--- NOTE | 2021-09-26 11:30 | XRay Report ---
CHEST 1 VIEW INDICATION / CLINICAL INFORMATION: PTX now off suction. COMPARISON: 823 AM same day. FINDINGS: SUPPORT DEVICES: Small right chest tube again noted. HEART / MEDIASTINUM: No significant abnormality. LUNGS / PLEURA: .COPD, with right lower lobe streaky parenchymal disease, unchanged likely secondary to pneumonia. No pneumothorax. ADDITIONAL FINDINGS: No significant additional findings. IMPRESSION: 1. Probable right lower lobe infiltrate, unchanged 2. No visualized pneumothorax Signer Name: Payam Silverman MD Signed: 09/26/2021 11:26 AM Workstation Name: [id number]
--- NOTE | 2021-09-26 12:52 | Progress Note ---
Assessment and Plan (1) Acute respiratory failure with hypoxia Current Visit: Yes Status: Acute Plan to address problem: Chest x-ray, supplemental oxygen, pulse oximetry, nebulizer therapy, pulmonary toilet, incentive spirometry. Pulmonary team consulted. (2) Pneumothorax, right Current Visit: Yes Status: Acute Plan to address problem: Chest x-ray, chest tube placement in the emergency department. Pulmonology team consulted. (3) Nicotine dependence Current Visit: Yes Status: Acute Qualifiers: Nicotine product type: cigarettes Substance use status: in withdrawal Qualified Code(s): F17.213 - Nicotine dependence, cigarettes, with withdrawal Plan to address problem: Smoking cessation counseling, supportive care, behavior change counseling, +15 minutes. (4) Metabolic syndrome Current Visit: Yes Status: Acute Plan to address problem: Balanced diet, increase physical activity discharge, outpatient pulmonary follow-up for sleep study. (5) Interstitial lung disease Current Visit: No Status: Acute Plan to address problem: Medical management, supportive care, pulmonary team consulted. Supplemental oxygen, pulse oximetry, pulmonary toilet (6) DVT prophylaxis Current Visit: No Status: Acute Plan to address problem: SCD to bilateral lower extremities while in bed (7) Advance care planning Current Visit: No Status: Acute Plan to address problem: Disease education data, care plan discussed, diagnoses discussed, prognosis discussed, patient is full code. Patient acknowledges understanding and agreement with care plan, +30 minutes. (8) Preventative health care Current Visit: Yes Status: Acute Plan to address problem: Patient counseled regarding balanced diet, meal planning, weight reduction, smoking cessation. Outpatient primary care physician follow-up for all age and risk factor appropriate screening test. +15 minutes. -- Patient was seen by reconstructive dentist and chest tube has been taken out this morning. Patient currently on 5 L 40% high flow O2. Continue to wean off as tolerated. Repeat chest x-ray tomorrow morning. If clinically stable and cleared by reconstructive dentist patient will be discharged tomorrow Subjective Date of service: 09/26/21 Interval history: Patient seen and examined. Medical records and medication list reviewed. No acute event overnight noted by the RN. Patient denies any chest pain or difficulty breathing. Patient is tolerating diet. Patient on 5 L high flow O2 Discussed plan of care at bedside with patient. Objective - Exam Narrative Exam: GENERAL: well-developed and well-nourished -[place] female lying on bed appeared to be in no discomfort. HEENT: Normocephalic. Atraumatic. No conjunctival congestion or icterus. Patient has moist mucous membranes. NECK: Supple. Trachea midline. CHEST/LUNGS: Diminished breath sounds auscultated bilaterally, breathing nonlabored. No wheezes crackles or rhonchi. HEART/CARDIOVASCULAR: Regular in rate and rhythm. S1 and S2 positive. ABDOMEN: Abdomen is soft, nontender. Patient has normal bowel sounds. SKIN: There is no rash. Warm and dry. NEURO: No focal motor deficit. Follows command. MUSCULOSKELETAL: No joint effusion or tenderness. EXTRIMITY: No edema, no cyanosis or clubbing. PSYCH: Cooperative. - Constitutional Vitals: Vital Signs - 12hr 09/26/21 09/26/21 09/26/21 04:03 05:57 07:55 Temperature 97.7 F Pulse Rate 91 H 87 Respiratory 36 H 14 Rate Blood Pressure 140/107 O2 Sat by Pulse 93 99 97 Oximetry 09/26/21 09/26/21 08:29 09:55 Temperature Pulse Rate Respiratory Rate Blood Pressure O2 Sat by Pulse 100 97 Oximetry - Labs CBC & Chem 7: 09/25/21 13:35 09/26/21 06:15 Labs: Abnormal lab results 09/25/21 09/25/21 09/25/21 Range/Units 13:35 13:35 15:08 RBC 5.47 H (3.65-5.03) M/mm3 Hgb 16.5 H (10.1-14.3) gm/dl Hct 50.8 H (30.3-42.9) % Seg Neutrophils % 79.0 H (40.0-70.0) % Seg Neutrophils # 8.7 H (1.8-7.7) K/mm3 ABG pH 7.309 L (7.350-7.450) pH Units ABG pO2 72.5 L (80.0-90.0) mm Hg ABG Hemoglobin 16.2 H (12.0-16.0) gm/dl Oxyhemoglobin 90.5 L (95.0-99.0) % Carbon Dioxide 21 L (22-30) mmol/L Glucose 223 H (65-100) mg/dL POC Glucose (70-105) mg/dL AST 42 H (5-40) units/L Albumin 3.8 L (3.9-5) g/dL 09/25/21 Range/Units 23:00 RBC (3.65-5.03) M/mm3 Hgb (10.1-14.3) gm/dl Hct (30.3-42.9) % Seg Neutrophils % (40.0-70.0) % Seg Neutrophils # (1.8-7.7) K/mm3 ABG pH (7.350-7.450) pH Units ABG pO2 (80.0-90.0) mm Hg ABG Hemoglobin (12.0-16.0) gm/dl Oxyhemoglobin (95.0-99.0) % Carbon Dioxide (22-30) mmol/L Glucose (65-100) mg/dL POC Glucose 161 H (70-105) mg/dL AST (5-40) units/L Albumin (3.9-5) g/dL HEART Score - HEART Score Troponin: Troponin T < 0.010 ng/mL (0.00-0.029) 09/25/21 13:35
[2021-09-27] MEDS: HYDROmorphone 1 MG/1 ML INJ IV PRN (00:22)
--- NOTE | 2021-09-27 12:16 | XRay Report ---
CHEST 1 VIEW INDICATION / CLINICAL INFORMATION: pneumothorax. COMPARISON: 09/26/2021 FINDINGS: SUPPORT DEVICES: None. The previously noted pigtail right chest tube has been removed. HEART / MEDIASTINUM: No significant abnormality. LUNGS / PLEURA: Moderate increased interstitial markings/COPD, unchanged. No pneumothorax. ADDITIONAL FINDINGS: No significant additional findings. IMPRESSION: 1. No visualized pneumothorax after right chest tube removed. 2. Bilateral COPD/interstitial disease, unchanged Signer Name: Payam Silverman MD Signed: 09/27/2021 12:12 PM Workstation Name: [id number]
[2021-09-27 13:08] VITALS: BP 150/103
--- NOTE | 2021-09-27 15:15 | Discharge Summary ---
Providers - Providers Date of Admission: 09/25/21 15:31 Date of discharge: 09/27/21 Attending physician: TRI RM 09/27/21 14:12 Consult to Physician [CONS] Routine Comment: Consulting Provider: СВЕТЛАНА SILVERIO Physician Instructions: Reason For Exam: pneumothorax Primary care physician: CHIEF SECURITY AND SAFETY OFFICER Hospitalization Condition: Stable Disposition: 01 HOME / SELF CARE / HOMELESS Final Discharge Diagnosis (Prints w/discharge instructions): -- Right pneumothorax. -- Acute on chronic hypoxic respiratory failure. -- COPD exacerbation. -- Tobacco abuse. -- Obesity Time spent for discharge: 34 minutes Core Measure Documentation - Palliative Care Palliative Care/ Comfort Measures: Not Applicable - Core Measures Any of the following diagnoses?: none Exam - Physical Exam Narrative exam: GENERAL: well-developed and well-nourished -Citizen Of [place] female lying on bed appeared to be in no discomfort. HEENT: Normocephalic. Atraumatic. No conjunctival congestion or icterus. Patient has moist mucous membranes. NECK: Supple. Trachea midline. CHEST/LUNGS: Diminished breath sounds auscultated bilaterally, breathing nonlabored. No wheezes crackles or rhonchi. HEART/CARDIOVASCULAR: Regular in rate and rhythm. S1 and S2 positive. ABDOMEN: Abdomen is soft, nontender. Patient has normal bowel sounds. SKIN: There is no rash. Warm and dry. NEURO: No focal motor deficit. Follows command. MUSCULOSKELETAL: No joint effusion or tenderness. EXTRIMITY: No edema, no cyanosis or clubbing. PSYCH: Cooperative. - Constitutional Vitals: Temp Pulse Resp BP Pulse Ox 98.1 F 85 18 150/103 98 09/27/21 11:56 09/27/21 11:56 09/27/21 11:56 09/27/21 11:56 09/27/21 11:56 Plan Activity: advance as tolerated Weight Bearing Status: Weight Bear as Tolerated Diet: low fat, low salt Special Instructions: smoking cessation, home oxygen via (4L O2) Follow up with: REBEKAH ULRICH MD [Primary Care Provider] - 3-5 Days СВЕТЛАНА SILVERIO MD [Staff Physician] - 7 Days
[2021-09-27] MEDS ORDERED: ENOXAPARIN 40 MG/0.4 ML INJ SUB-Q SCH (22:00)
--- NOTE | 2021-09-29 18:30 | Electrocardiograph Report ---
[facility] Test Date: 2021-09-25 Test Time: 13:18:02 Pat Name: MARILY RODRIGUEZ Department: Room: A366 Gender: F Environmental Programs Manager: FLORIDALMA : 1965 Requested By: BEHZAD CISNEROS Order Number: [id number] Reading MD: Nayana Ragsdale Measurements Intervals Burns Rate: 140 P: 100 WA: 131 QRS: 91 QRSD: 86 T: -51 QT: 278 QTc: 426 Interpretive Statements Sinus tachycardia Poor R wave progression Poor quality ECG Compared to ECG 09/01/2021 04:01:19 Sinus rate has increased Electronically Signed On 09-29-2021 18:29:36 EDT by Nayana Ragsdale
== END 2021-09-27 16:27 | disposition home or self-care (01) | DRG 199 ==
LOC: ED 13:10 → 3A 15:31
PROVIDERS: ADMIT Internal Medicine; ATTEND Internal Medicine
PROC: 0W9930Z Drainage of Right Pleural Cavity with Drainage Device, Percutaneous Approach (ICD-10-PCS; principal; 2021-09-25)
DX: J93.9 Pneumothorax, unspecified (principal); J96.21 Acute and chronic respiratory failure with hypoxia; J84.9 Interstitial pulmonary disease, unspecified; E66.2 Morbid (severe) obesity with alveolar hypoventilation; J44.1 Chronic obstructive pulmonary disease with (acute) exacerbation; F17.213 Nicotine dependence, cigarettes, with withdrawal; D86.9 Sarcoidosis, unspecified; J45.909 Unspecified asthma, uncomplicated; E88.81 Metabolic syndrome and other insulin resistance; F17.200 Nicotine dependence, unspecified, uncomplicated; Z82.49 Family history of ischemic heart disease and other diseases of the circulatory system; Z83.3 Family history of diabetes mellitus
CPT/HCPCS: 36415; 71045; 80048; 80053; 82803; 82962; 83880; 84484; 85025; 93005; 94644; 94660; 94760; G0378; J3490; J1170; J1885; J2405

== ENCOUNTER 2021-10-14 17:51 | Emergency (ER) | payer SELFPAY ==
[2021-10-14 18:59] LABS: Basophils % (Auto) 0.6 % (0.0-1.8); Eosinophils # (Auto) 0.3 K/mm3 (0.0-0.4); Eosinophils % (Auto) 4.7 % (0.0-4.3); Hematocrit 46.3 % (30.3-42.9); Hemoglobin 14.7 gm/dl (10.1-14.3); Lymphocytes % (Auto) 17.5 % (13.4-35.0); Mean Corpuscular HGB Conc 32 % (30-34); Mean Corpuscular Volume 92 fl (79-97); Monocytes # (Auto) 0.9 K/mm3 (0.0-0.8); Monocytes % (Auto) 15.9 % (0.0-7.3); Platelet Count 210 K/mm3 (140-440); Red Blood Count 5.04 M/mm3 (3.65-5.03); Red Cell Distribution Width 14.9 % (13.2-15.2)
--- NOTE | 2021-10-14 19:03 | XRay Report ---
CHEST - 1 VIEW INDICATION: Chest pain, shortness of COMPARISON: 09/28/2019 to FINDINGS: SUPPORT DEVICES: None. HEART: Stable cardiomediastinal silhouette. LUNGS/PLEURA: Mild diffuse interstitial prominence with mild streaky bibasilar airspace disease, sim ilar to the previous exam. No effusion. ADDITIONAL FINDINGS: None. IMPRESSION: Lung findings as above. Signer Name: Derik Marie MD Signed: 10/14/2021 6:58 PM Workstation Name: [id number]
[2021-10-14 19:15] LABS: Alanine Aminotransferase 20 units/L (7-56); Albumin 3.9 g/dL (3.9-5); BUN/Creatinine Ratio 15; Blood Urea Nitrogen 12 mg/dL (7-17); Hemolysis Index 13
[2021-10-14 19:39] LABS: INR 0.97 (0.87-1.13)
--- NOTE | 2021-10-14 20:06 | Cat Scan Report ---
CTA chest with contrast INDICATION : Rule out PE. TECHNIQUE: Axial imaging performed through the chest, with contrast bolus timing set to maximize opa cification of the pulmonary arteries. 3-plane MIP reformatted images were obtained. All CT scans at this location are performed using CT dose reduction for ALARA by means of automated exposure control. 100 mL of intravenous contrast administered. COMPARISON: CTA chest from 02/26/2021 FINDINGS: Bolus/PTE: Contrast bolus timing is adequate. No filling defect is present to suggest PTE. Mediastinum: Normal heart size. No significant coronary artery calcification. There is right hilar and subcarinal adenopathy. The subcarinal lymph node measures 2.4 cm in short axis on image 52 of ser ies 2, previously 1.7 cm by my measurements on image 54 of series 2. Right hilar adenopathy appears s imilar to the previous exam with largest lymph node measuring approximately 9 mm on image 51 of serie s 2. Lungs: There is severe emphysema with areas of scarring again seen in both lungs with a similar appe arance. No pulmonary nodule or mass identified. No consolidation or effusion. Mild bibasilar atelecta sis. Upper abdomen: Stable tiny hepatic hypodensities, likely cysts. Bones: Degenerative changes in the spine with nothing acute. IMPRESSION: 1. Negative for PTE. 2. Subcarinal adenopathy, slightly enlarged. In the setting of severe emphysema, consider follow-up P ET scan further evaluation to exclude any evolving neoplastic process. Shotty right hilar adenopathy appears similar. Signer Name: Derik Marie MD Signed: 10/14/2021 8:02 PM Workstation Name: [id number]
--- NOTE | 2021-10-14 20:22 | Emergency Department Report ---
ED Shortness of Breath HPI - General Chief Complaint: Dyspnea/Respdistress Stated Complaint: SOB Time Seen by Provider: 10/14/21 18:32 Source: patient Mode of arrival: Ambulatory Limitations: No Limitations - History of Present Illness Initial Comments: Patient is a 55-year-old female with history of interstitial lung disease presenting to ED with complaint of shortness of breath. She was recently admitted on 09/25/2021 for acute respiratory failure and right pneumothorax. She received a chest tube in the emergency department and was eventually discharged on 09/27/2021. She reports associated sharp substernal chest discomfort that radiates to her right back. Symptoms began yesterday. She denies fever or chills. No hemoptysis. - Related Data Previous Rx's Medication Instructions Recorded Last Taken Type Fluticasone/Vilanterol [Breo 1 each IH BID #1 blst.w.dev 02/27/21 Unknown Rx Ellipta 100-25 Mcg INH] Nicotine [Habitrol] 21 mg TD DAILY #30 patch 02/27/21 Unknown Rx Benzonatate [Tessalon Perles] 100 mg PO Q8HR PRN #10 capsule 07/01/21 09/22/21 20:00 Rx Fluticasone [Flonase] 1 spray NS QDAY #1 bottle 07/01/21 Unknown Rx Ipratropium (Nf) [Atrovent HFA 2 puff IH Q4H PRN #1 inha 07/01/21 09/24/21 19:00 Rx 17MCG/PUFF] Metoprolol [Lopressor TAB] 50 mg PO BID #60 tablet 07/01/21 09/24/21 21:00 Rx Montelukast [Singulair] 10 mg PO QHS #30 tablet 07/01/21 09/22/21 21:00 Rx ALBUTEROL NEB's [Proventil 0.083% 2.5 mg IH TID PRN #1 box 09/01/21 09/24/21 21:00 Rx NEBS] Albuterol Mdi (or & Nicu Only) 1 puff IH Q4HR PRN #1 inha 09/01/21 Unknown Rx [ProAir HFA Inhaler] amLODIPine 5 mg PO DAILY #90 tab 09/01/21 09/22/21 09:00 Rx Allergies Allergy/AdvReac Type Severity Reaction Status Date / Time bupropion HCl Allergy Hives Verified 10/14/21 18:00 [From Wellbutrin] diphenhydramine HCl Allergy Hives Verified 10/14/21 18:00 [From Benadryl] ED Review of Systems ROS: Stated complaint: SOB Other details as noted in HPI Comment: All other systems reviewed and negative Constitutional: no symptoms reported Respiratory: shortness of breath Cardiovascular: as per HPI ED Past Medical Hx - Past Medical History Hx Hypertension: Yes Hx Congestive Heart Failure: No Hx Diabetes: No Hx Liver Disease: (sarcodosis) Hx Asthma: Yes Hx COPD: Yes (4 L home O2) Hx HIV: No Additional medical history: SARCOIDOSIS - Surgical History Additional Surgical History: LUNG BIOPSY,chronic back pain r/t herniated disc. HYSTERECTOMY. TUBAL LIGATION - Social History Smoking Status: Current Every Day Smoker Substance Use Type: None, Alcohol, Marijuana - Medications Home Medications: Home Medications Medication Instructions Recorded Confirmed Last Taken Type Fluticasone/Vilanterol [Breo 1 each IH BID #1 blst.w.dev 02/27/21 09/27/21 Unknown Rx Ellipta 100-25 Mcg INH] Nicotine [Habitrol] 21 mg TD DAILY #30 patch 02/27/21 09/27/21 Unknown Rx Benzonatate [Tessalon Perles] 100 mg PO Q8HR PRN #10 capsule 07/01/21 09/27/21 09/22/21 20:00 Rx Fluticasone [Flonase] 1 spray NS QDAY #1 bottle 07/01/21 09/27/21 Unknown Rx Ipratropium (Nf) [Atrovent HFA 2 puff IH Q4H PRN #1 inha 07/01/21 09/26/21 09/24/21 19:00 Rx 17MCG/PUFF] Metoprolol [Lopressor TAB] 50 mg PO BID #60 tablet 07/01/21 09/26/21 09/24/21 21:00 Rx Montelukast [Singulair] 10 mg PO QHS #30 tablet 07/01/21 09/26/21 09/22/21 21:00 Rx ALBUTEROL NEB's [Proventil 0.083% 2.5 mg IH TID PRN #1 box 09/01/21 09/27/21 09/24/21 21:00 Rx NEBS] Albuterol Mdi (or & Nicu Only) 1 puff IH Q4HR PRN #1 inha 09/01/21 09/27/21 Unknown Rx [ProAir HFA Inhaler] amLODIPine 5 mg PO DAILY #90 tab 09/01/21 09/26/21 09/22/21 09:00 Rx ED Physical Exam - General Limitations: No Limitations General appearance: alert, in no apparent distress - Head Head exam: Present: atraumatic, normocephalic - Respiratory Respiratory exam: Present: normal lung sounds bilaterally, respiratory distress - Cardiovascular Cardiovascular Exam: Present: regular rate, normal rhythm, normal heart sounds - GI/Abdominal GI/Abdominal exam: Present: soft. Absent: distended, tenderness - Rectal Rectal exam: Present: deferred - Extremities Exam Extremities exam: Present: normal inspection. Absent: pedal edema - Neurological Exam Neurological exam: Present: alert, oriented X3 - Psychiatric Psychiatric exam: Present: normal affect, normal mood - Skin Skin exam: Present: warm, dry, intact, normal color ED Course Vital Signs 10/14/21 10/14/21 10/14/21 17:55 18:39 18:42 Temperature 98.1 F 99.0 F Pulse Rate 122 H 107 H Respiratory 24 28 H 22 Rate Blood Pressure Blood Pressure 163/109 141/104 [Right] O2 Sat by Pulse 92 90 96 Oximetry 10/14/21 18:48 Temperature 99.0 F Pulse Rate 99 H Respiratory Rate Blood Pressure 147/101 Blood Pressure [Right] O2 Sat by Pulse Oximetry ED Medical Decision Making - Lab Data Result diagrams: 10/14/21 18:40 10/14/21 18:40 - Medical Decision Making Patient presenting to ED with complaint of sharp pleuritic chest pain beginning yesterday. CBC, CMP and troponin are grossly unremarkable. CTA chest ordered and is negative for PE or pneumothorax. Patient given Toradol for pain. Stable for discharge home with PCP follow-up as needed. Critical care attestation.: If time is entered above; I have spent that time in minutes in the direct care of this critically ill patient, excluding procedure time. ED Disposition Clinical Impression: Pleuritic chest pain Disposition: HOME / SELF CARE / HOMELESS Is pt being admited?: No Does the pt Need Aspirin: No Condition: Stable Instructions: Nonspecific Chest Pain, Adult Referrals: PRIMARY CARE, [Primary Care Provider] - 3-5 Days Time of Disposition: 21:41
[2021-10-14] MEDS ORDERED: KETOROLAC 30 MG/1 ML INJ IV ONE (21:40)
[2021-10-14 21:59] VITALS: BP 150/100
--- NOTE | 2021-10-15 10:14 | Electrocardiograph Report ---
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 : 1965 Requested By: ANTHONY SOLOMON Order Number: [id number] Reading MD: Peña Jain Measurements Intervals [place] Rate: 104 P: 60 SC: 172 QRS: 68 QRSD: 80 T: 125 QT: 383 QTc: 505 Interpretive Statements Incomplete analysis due to missing data in precordial lead(s) Sinus tachycardia Biatrial enlargement Anteroseptal infarct, age indeterminate Abnormal T, probable ischemia, lateral leads Compared to ECG 09/25/2021 13:18:02 Atrial abnormality now present Myocardial infarct finding now present T-wave abnormality now present Possible ischemia now present Prolonged QT interval now present Poor R-wave progression no longer present Electronically Signed On 10-15-2021 10:13:34 EDT by Peña Jain
== END 2021-10-14 22:04 | disposition home or self-care (01) ==
LOC: ED 17:51
DX: R07.81 Pleurodynia (principal); R06.02 Shortness of breath; I10 Essential (primary) hypertension; J44.9 Chronic obstructive pulmonary disease, unspecified; F17.200 Nicotine dependence, unspecified, uncomplicated; F12.90 Cannabis use, unspecified, uncomplicated; Z72.89 Other problems related to lifestyle; Z79.899 Other long term (current) drug therapy; Z90.710 Acquired absence of both cervix and uterus; Z98.51 Tubal ligation status; Z88.8 Allergy status to other drugs, medicaments and biological substances
CPT/HCPCS: 36415; 71045; 71275; 80053; 84484; 85025; 85610; 85730; 93005; 96374; 99284; J1885; Q9967

== ENCOUNTER 2021-11-03 11:17 | Inpatient (IN) | payer SELFPAY ==
[2021-11-03] MEDS ORDERED: IPRATROPIUM 0.02% NEBU 2.5 ML IH ONE (11:36)
[2021-11-03] MEDS ORDERED: ALBUTEROL 2.5 MG/3 ML NEBU IH ONE (11:36)
--- NOTE | 2021-11-03 11:41 | Emergency Department Report ---
HPI - General Chief Complaint: Dyspnea/Respdistress Time Seen by Provider: 11/03/21 11:32 - HPI HPI: Room 19 Patient is a 55-year-old female present with chief complaint of shortness of breath. Patient states she went to sleep last night in her usual state of health however this morning she developed shortness of breath. Patient has a history of COPD and is normally on 4 L nasal cannula O2 at home. Patient admits to a cough occasionally productive of clear sputum for the past week. Patient denies history of fever. Patient denies any other symptoms outside of shortness of breath. Patient has been vaccinated against COVID receiving 2 doses Patient's chest x-ray in the ED shows a right-sided pneumothorax. Patient states she was just discharged from [facility] for right-sided pneumothorax and just had a chest tube removed 4 days ago ED Past Medical Hx - Past Medical History Hx Hypertension: Yes Hx Liver Disease: (sarcodosis) Hx Asthma: Yes Hx COPD: Yes (4 L home O2) Additional medical history: SARCOIDOSIS - Surgical History Additional Surgical History: LUNG BIOPSY,chronic back pain r/t herniated disc. HYSTERECTOMY. TUBAL LIGATION - Family History Family history: no significant - Social History Smoking Status: Current Every Day Smoker Substance Use Type: None (Denies illicit drug), Alcohol (Some beer daily) - Medications Home Medications: Home Medications Medication Instructions Recorded Confirmed Last Taken Type Fluticasone/Vilanterol [Breo 1 each IH BID #1 blst.w.dev 02/27/21 09/27/21 Unknown Rx Ellipta 100-25 Mcg INH] Nicotine [Habitrol] 21 mg TD DAILY #30 patch 02/27/21 09/27/21 Unknown Rx Benzonatate [Tessalon Perles] 100 mg PO Q8HR PRN #10 capsule 07/01/21 09/27/21 09/22/21 20:00 Rx Fluticasone [Flonase] 1 spray NS QDAY #1 bottle 07/01/21 09/27/21 Unknown Rx Ipratropium (Nf) [Atrovent HFA 2 puff IH Q4H PRN #1 inha 07/01/21 09/26/21 09/24/21 19:00 Rx 17MCG/PUFF] Metoprolol [Lopressor TAB] 50 mg PO BID #60 tablet 02/09/26/21 09/24/21 21:00 Rx Montelukast [Singulair] 10 mg PO QHS #30 tablet 07/01/21 09/26/21 09/22/21 21:00 Rx ALBUTEROL NEB's [Proventil 0.083% 2.5 mg IH TID PRN #1 box 09/01/21 09/27/21 09/24/21 21:00 Rx NEBS] Albuterol Mdi (or & Nicu Only) 1 puff IH Q4HR PRN #1 inha 09/01/21 09/27/21 Unknown Rx [ProAir HFA Inhaler] amLODIPine 5 mg PO DAILY #90 tab 09/01/21 09/26/21 09/22/21 09:00 Rx Ketorolac [Toradol] 10 mg PO Q6H PRN #14 10/14/21 Unknown Rx ED Review of Systems ROS: Stated complaint: HARINDER Other details as noted in HPI Constitutional: denies: fever Eyes: denies: eye pain ENT: denies: throat pain Respiratory: cough, shortness of breath Cardiovascular: denies: chest pain Endocrine: no symptoms reported Gastrointestinal: denies: abdominal pain Genitourinary: denies: dysuria Musculoskeletal: denies: back pain Neurological: denies: headache Physical Exam - Physical Exam Physical Exam: GENERAL: The patient is well-developed well-nourished female lying on stretcher with CPAP in place exhibiting slightly increased work of breathing. [] HEENT: Normocephalic. Atraumatic. Extraocular motions are intact. Patient has moist mucous membranes. NECK: Supple. Trachea midline CHEST/LUNGS: Diminished throughout. There is increased work of breathing HEART/CARDIOVASCULAR: Regular. There is tachycardia. There is no gallop rub or murmur. ABDOMEN: Abdomen is soft, nontender. Patient has normal bowel sounds. There is no abdominal distention. SKIN: There is no rash. There is no diaphoresis. NEURO: The patient is awake, alert, and oriented. The patient is cooperative. The patient has no focal neurologic deficits. The patient has normal speech. GCS 15 MUSCULOSKELETAL: There is no evidence of acute injury. - Chest Tube Chest Tube Location: forth interspace Size of [place] Tube (cm): 7 (Heimlich) Chest Tube Procedure: betadine prep, sterile drapes applied, sterile dressing applied Anesthesia: 1% Lidocaine w/ Epi (2% lidocaine with epi) Volume Anesthetic (ccs): 5 [place] of Air [place]: Yes Number of Attempts: 1 Tube Drainage: see nurses notes Tube Sutured to Skin: Yes Post Procedure CXR?: Yes ED Medical Decision Making - Lab Data Result diagrams: 11/03/21 12:07 11/03/21 12:07 Laboratory Tests 11/03/21 11/03/21 12:07 12:07 WBC 13.3 H RBC 5.47 H Hgb 16.2 H Hct 50.8 H MCV 93 MCH 30 MCHC 32 RDW 14.9 Plt Count 245 Lymph % (Auto) 8.3 L [place] % (Auto) 3.7 Eos % (Auto) 1.2 Baso % (Auto) 0.4 Lymph # (Auto) 1.1 L [place] # (Auto) 0.5 Eos # (Auto) 0.2 Baso # (Auto) 0.0 Seg Neutrophils % 86.4 H Seg Neutrophils # 11.5 H Sodium 142 Potassium 4.2 Chloride 101.5 Carbon Dioxide 25 Anion Gap 20 BUN 12 Creatinine 0.8 Estimated GFR > 60 BUN/Creatinine Ratio 15 Glucose 163 H Calcium 9.6 Troponin T < 0.010 - Radiology Data Radiology results: image reviewed (Chest x-ray #1, chest x-ray #2) interpreted by me: Chest x-ray #[id number] pneumothorax, no focal infiltrates Chest x-ray #2 resolution of pneumothorax, Heimlich in place [facility] [address] [place] [address] XRay Report Signed Patient: AMRILY RODRIGUEZ MR#: [id number] : 1965 Acct:[id number] Age/Sex: 55 / F ADM Date: 11/03/21 Loc: ED Attending Dr: Ordering Physician: EDE WAGGONER MD Date of Service: 11/03/21 Procedure(s): XR chest 1V ap Accession Number(s): [id number] cc: EDE WAGGONER MD Fluoro Time In Minutes: CHEST 1 VIEW 11/03/2021 11:40 AM INDICATION / CLINICAL INFORMATION: Shortness of breath. COMPARISON: 10/14/21. FINDINGS: SUPPORT DEVICES: None. HEART / MEDIASTINUM: The heart size and pulmonary vasculature are normal. LUNGS / PLEURA: Emphysema and chronic interstitial lung disease are again identified. There is a new moderately large right pneumothorax. Pleural separation at the right lung apex measures 5.9 cm. ADDITIONAL FINDINGS: No significant additional findings. IMPRESSION: Moderately large right pneumothorax. CRITICAL RESULT Time of Discovery (HAND PICKER/CDT): 11:02 AM Time of Communication (HAND PICKER/CDT): 11:03 AM Licensed Practitioner Receiving Report: Dr. Waggoner Read-Back Performed: Not applicable. Signer Name: London Moreland MD Signed: 11/03/2021 12:04 PM Workstation Name: [id number] Transcribed By: RT Dictated By: London Moreland MD Electronically Authenticated By: London Moreland MD Signed Date/Time: 11/03/21 1204 DD/ 1200 TD/TT: Print Cancel - Differential Diagnosis COPD exacerbation, pneumonia Critical care attestation.: If time is entered above; I have spent that time in minutes in the direct care of this critically ill patient, excluding procedure time. ED Disposition Clinical Impression: Spontaneous pneumothorax, Shortness of breath Disposition: ADMITTED INPATIENT Is pt being admited?: Yes Does the pt Need Aspirin: No Condition: Fair Time of Disposition: 13:34 (Care transferred to hospitalist (Dr. Craig))
--- NOTE | 2021-11-03 12:09 | XRay Report ---
CHEST 1 VIEW 11/03/2021 11:40 AM INDICATION / CLINICAL INFORMATION: Shortness of breath. COMPARISON: 10/14/21. FINDINGS: SUPPORT DEVICES: None. HEART / MEDIASTINUM: The heart size and pulmonary vasculature are normal. LUNGS / PLEURA: Emphysema and chronic interstitial lung disease are again identified. There is a new moderately large right pneumothorax. Pleural separation at the right lung apex measures 5.9 cm. ADDITIONAL FINDINGS: No significant additional findings. IMPRESSION: Moderately large right pneumothorax. CRITICAL RESULT Time of Discovery (FREIGHT FLAGMAN/CDT): 11:02 AM Time of Communication (FREIGHT FLAGMAN/CDT): 11:03 AM Licensed Practitioner Receiving Report: Dr. Urias Read-Back Performed: Not applicable. Signer Name: London Moreland MD Signed: 11/03/2021 12:04 PM Workstation Name: [id number]
[2021-11-03] MEDS ORDERED: ETOMIDATE 20 MG/10 ML INJ IV ONE ×2 (12:27→13:20)
[2021-11-03] MEDS ORDERED: LIDOCAINE 2%/EPINEPHRINE 1:100,000 VIAL (20 ML) INFILTRATI ONE (12:43)
[2021-11-03 13:11] LABS: Basophils % (Auto) 0.4 % (0.0-1.8); Eosinophils # (Auto) 0.2 K/mm3 (0.0-0.4); Eosinophils % (Auto) 1.2 % (0.0-4.3); Hematocrit 50.8 % (30.3-42.9); Hemoglobin 16.2 gm/dl (10.1-14.3); Lymphocytes # (Auto) 1.1 K/mm3 (1.2-5.4); Lymphocytes % (Auto) 8.3 % (13.4-35.0); Mean Corpuscular HGB Conc 32 % (30-34); Mean Corpuscular Volume 93 fl (79-97); Monocytes # (Auto) 0.5 K/mm3 (0.0-0.8); Monocytes % (Auto) 3.7 % (0.0-7.3); Platelet Count 245 K/mm3 (140-440); Red Blood Count 5.47 M/mm3 (3.65-5.03); Red Cell Distribution Width 14.9 % (13.2-15.2)
[2021-11-03 13:18] LABS: BUN/Creatinine Ratio 15; Blood Urea Nitrogen 12 mg/dL (7-17); Calcium 9.6 mg/dL (8.4-10.2); Hemolysis Index 12
[2021-11-03] MEDS ORDERED: HYDROmorphone 1 MG/1 ML INJ IV ONE (13:29)
[2021-11-03] MEDS ORDERED: HYDROmorphone 2 MG/1 ML INJ IV ONE (13:30)
--- NOTE | 2021-11-03 13:34 | XRay Report ---
CHEST 1 VIEW 11/03/2021 12:27 PM INDICATION / CLINICAL INFORMATION: Status post chest tube placement. COMPARISON: November 03, 2020 FINDINGS: Right chest tube is in place with interval improvement of right pneumothorax. No large pneumothorax i s seen. Increased interstitial prominence and opacities in bilateral lungs IMPRESSION: 1. Right chest tube is satisfactory in position without large residual pneumothorax. Increased inters titial prominence throughout lungs Signer Name: Efren Crow MD Signed: 11/03/2021 1:30 PM Workstation Name: [id number]
--- NOTE | 2021-11-03 14:25 | History and Physical Report ---
History of Present Illness Chief complaint: It is hard for me to breathe History of present illness: 55 YO Female with COPD, Sarcoidosis, HTN, Interstitial Lung Disease complicated by Chronic Respiratory Failure on 4L home oxygen via [place], Nicotine Dependence, DM presents to ED for evaluation. Patient reports "I cannot breathe". Patient states that she was in her usual state of health until she developed a sudden on set of shortness of breath this morning shortly after awakening from sleep. Patient acknowledges dry cough. EMS notified and upon arrival the patient was found to be in distress and subsequently the patient was transported to [facility] for further care and evaluation of the aforementioned symptoms. The patient was seen and evaluated in the emergency department. All lab and imaging studies reviewed. Patient found to have a pulse oximetry of 85% while on supplemental oxygen which is consistent with acute hypoxemic respiratory failure. Chest x- ray revealed right pneumothorax. Patient underwent chest tube placement in the emergency department. Pulmonology team consulted. Patient admitted to medical floor due to increased risk of worsening symptoms. Patient denies fever, chills, chest pain, palpitation, skin rash, recent ill contacts, or known exposure to COVID-19. Prior admission on 09/25/2021 reviewed. All medication listed at time of admission has been reconciled. Advanced care planning conducted in ED. Past History Past Medical History: COPD, hypertension, other (See HPI) Past Surgical History: hysterectomy, Other (Tubal ligation) Social history: , smoking. denies: alcohol abuse, prescription drug abuse Family history: diabetes, hypertension Medications and Allergies Allergies Allergy/AdvReac Type Severity Reaction Status Date / Time bupropion HCl Allergy Hives Verified 11/03/21 11:19 [From Wellbutrin] diphenhydramine HCl Allergy Hives Verified 11/03/21 11:19 [From Benadryl] Home Medications Medication Instructions Recorded Confirmed Last Taken Type Fluticasone/Vilanterol [Breo 1 each IH BID #1 blst.w.dev 02/27/21 09/27/21 Unknown Rx Ellipta 100-25 Mcg INH] Nicotine [Habitrol] 21 mg TD DAILY #30 patch 02/27/21 09/27/21 Unknown Rx Benzonatate [Tessalon Perles] 100 mg PO Q8HR PRN #10 capsule 07/01/21 09/27/21 09/22/21 20:00 Rx Fluticasone [Flonase] 1 spray NS QDAY #1 bottle 07/01/21 09/27/21 Unknown Rx Ipratropium (Nf) [Atrovent HFA 2 puff IH Q4H PRN #1 inha 07/01/21 09/26/21 09/24/21 19:00 Rx 17MCG/PUFF] Metoprolol [Lopressor TAB] 50 mg PO BID #60 tablet 07/01/21 09/26/21 09/24/21 21:00 Rx Montelukast [Singulair] 10 mg PO QHS #30 tablet 07/01/21 09/26/21 09/22/21 21:00 Rx ALBUTEROL NEB's [Proventil 0.083% 2.5 mg IH TID PRN #1 box 09/01/21 09/27/21 09/24/21 21:00 Rx NEBS] Albuterol Mdi (or & Nicu Only) 1 puff IH Q4HR PRN #1 inha 09/01/21 09/27/21 Unknown Rx [ProAir HFA Inhaler] amLODIPine 5 mg PO DAILY #90 tab 09/01/21 09/26/21 09/22/21 09:00 Rx Ketorolac [Toradol] 10 mg PO Q6H PRN #14 10/14/21 Unknown Rx Review of Systems Constitutional: no weight loss, no weight gain, no fever, no chills Ears, nose, mouth and throat: no ear pain, no tinnitis, no decreased hearing Cardiovascular: shortness of breath, no chest pain, no orthopnea, no rapid/irregular heart beat, no edema Respiratory: cough, shortness of breath, pain on inspiration, no wheezing Gastrointestinal: no nausea, no vomiting, no change in bowel habits Genitourinary Female: no pelvic pain, no flank pain, no dysuria, no urinary frequency, no urgency Rectal: no pain, no incontinence, no bleeding Musculoskeletal: no neck stiffness, no low back pain, no shooting leg pain, no leg numbness/tingling, no redness of joints Integumentary: no rash, no pruritis, no redness, no wounds, no jaundice, no boils Neurological: no head injury, no paralysis, no weakness, no numbness, no tingling, no seizures Psychiatric: no anxiety, no change in sleep habits, no sleep disturbances, no hypersomnia, no suicidal ideation Endocrine: no cold intolerance, no excessive thirst, no polyuria, no nocturia, no excessive sweating Hematologic/Lymphatic: no easy bruising, no easy bleeding, no lymphedema Allergic/Immunologic: no allergic rhinitis, no anaphylaxis Exam - Constitutional Vitals: Temp Pulse Resp BP Pulse Ox 103 H 16 154/109 98 11/03/21 13:14 11/03/21 13:14 11/03/21 13:14 11/03/21 13:14 General appearance: Present: mild distress - EENT Eyes: Present: PERRL ENT: hearing intact, clear oral mucosa - Neck Neck: Present: supple, normal ROM - Respiratory Respiratory effort: normal Respiratory: right: diminished - Cardiovascular Heart Sounds: Present: S1 & S2. Absent: rub, click - Extremities Extremities: pulses symmetrical, No edema Peripheral Pulses: within normal limits - Abdominal General gastrointestinal: Present: soft, non-tender, non-distended, normal bowel sounds Female genitourinary: Present: normal - Integumentary Integumentary: Present: clear, warm, dry - Musculoskeletal Musculoskeletal: gait normal, strength equal bilaterally - Psychiatric Psychiatric: appropriate mood/affect, intact judgment & insight - Neurologic Neurologic: CNII-XII intact, moves all extremities HEART Score - HEART Score Troponin: Troponin T < 0.010 ng/mL (0.00-0.029) 11/03/21 12:07 Results - Labs CBC & Chem 7: 11/03/21 12:07 11/03/21 12:07 Labs: Abnormal lab results 11/03/21 11/03/21 Range/Units 12:07 12:07 WBC 13.3 H (4.5-11.0) K/mm3 RBC 5.47 H (3.65-5.03) M/mm3 Hgb 16.2 H (10.1-14.3) gm/dl Hct 50.8 H (30.3-42.9) % Lymph % (Auto) 8.3 L (13.4-35.0) % Lymph # (Auto) 1.1 L (1.2-5.4) K/mm3 Seg Neutrophils % 86.4 H (40.0-70.0) % Seg Neutrophils # 11.5 H (1.8-7.7) K/mm3 Glucose 163 H (65-100) mg/dL Assessment and Plan - Patient Problems (1) Acute respiratory failure with hypoxia Status: Acute Plan to address problem: Chest x-ray, supplemental oxygen, pulse oximetry, nebulizer therapy, chest tube placement in the emergency department. Pulmonary team consulted. Chest tube to low wall suction. (2) Interstitial lung disease Status: Acute Plan to address problem: Continue current management, continue prehospital medication, outpatient pulmonary follow-up. (3) Nicotine dependence Status: Acute Qualifiers: Nicotine product type: cigarettes Substance use status: in withdrawal Qualified Code(s): F17.213 - Nicotine dependence, cigarettes, with withdrawal Plan to address problem: Smoking cessation counseling, behavior change counseling, +15 minutes. Supportive care. (4) Pneumothorax, right Status: Acute Plan to address problem: Chest tube placement in the emergency department. Chest tube to low wall suction, chest x-ray in a.m. Pulmonary team consulted. (5) Sarcoidosis Status: Acute Plan to address problem: Supportive care, continue medical management. Outpatient rheumatology follow- up. (6) DVT prophylaxis Status: Acute Plan to address problem: SCD to bilateral lower extremities while in bed (7) Advance care planning Status: Acute Plan to address problem: Disease education done, care plan discussed, diagnoses discussed, prognosis discussed, patient is full code. Patient knowledges understanding agreement with care plan, +30 minutes. (8) Preventative health care Status: Acute Plan to address problem: Patient counseled regarding risk factor reduction, smoking cessation, supportive care. Patient counseled to follow-up with primary care physician for all age and risk factor appropriate screening test. +30 minutes.
[2021-11-03 14:33] LABS: INR 0.88 (0.87-1.13)
[2021-11-03] MEDS ORDERED: ACETAMINOPHEN 325 MG TAB PO PRN (15:30)
[2021-11-03] MEDS ORDERED: ONDANSETRON 4 MG/2 ML INJ IV PRN (15:30)
--- NOTE | 2021-11-03 17:11 | Consultation ---
History of Present Illness Consult date: 11/03/21 Requesting physician: EDE WAGGONER Reason for consult: pneumothorax, other (Home O2 dependent COPD vs Sarcoidosis) History of present illness: PCCM CONSULT NOTE (Full dictation # [id number]) Please see dictated notes for full details Past History Past Medical History: COPD, hypertension, other (See HPI) Past Surgical History: hysterectomy, Other (Tubal ligation) Social history: , smoking. denies: alcohol abuse, prescription drug abuse Family history: diabetes, hypertension Medications and Allergies Allergies Allergy/AdvReac Type Severity Reaction Status Date / Time bupropion HCl Allergy Hives Verified 11/03/21 11:19 [From Wellbutrin] diphenhydramine HCl Allergy Hives Verified 11/03/21 11:19 [From Benadryl] Home Medications Medication Instructions Recorded Confirmed Last Taken Type Fluticasone/Vilanterol [Breo 1 each IH BID #1 blst.w.dev 02/27/21 09/27/21 Unk nown Rx Ellipta 100-25 Mcg INH] Nicotine [Habitrol] 21 mg TD DAILY #30 patch 02/27/21 09/27/21 Unknown Rx Benzonatate [Tessalon Perles] 100 mg PO Q8HR PRN #10 capsule 07/01/21 09/27/21 09/22/21 20:00 Rx Fluticasone [Flonase] 1 spray NS QDAY #1 bottle 07/01/21 09/27/21 Unknown Rx Ipratropium (Nf) [Atrovent HFA 2 puff IH Q4H PRN #1 inha 07/01/21 09/26/21 09/24/21 19:00 Rx 17MCG/PUFF] Metoprolol [Lopressor TAB] 50 mg PO BID #60 tablet 07/01/21 09/26/21 09/24/21 21:00 Rx Montelukast [Singulair] 10 mg PO QHS #30 tablet 07/01/21 09/26/21 09/22/21 21:00 Rx ALBUTEROL NEB's [Proventil 0.083% 2.5 mg IH TID PRN #1 box 09/01/21 09/27/21 09/24/21 21:00 Rx NEBS] Albuterol Mdi (or & Nicu Only) 1 puff IH Q4HR PRN #1 inha 09/01/21 09/27/21 Unknown Rx [ProAir HFA Inhaler] amLODIPine 5 mg PO DAILY #90 tab 09/01/21 09/26/21 09/22/21 09:00 Rx Ketorolac [Toradol] 10 mg PO Q6H PRN #14 10/14/21 Unknown Rx Active Meds: Active Medications Acetaminophen (Acetaminophen 325 Mg Tab) 650 mg PO Q4H PRN PRN Reason: Pain MILD(1-3)/Fever >100.5/RAMOS Hydromorphone HCl (Hydromorphone 0.5 Mg/0.5 Ml Inj) 0.5 mg IV Q6H PRN PRN Reason: Pain , Severe (7-10) Ondansetron HCl (Ondansetron 4 Mg/2 Ml Inj) 4 mg IV Q8H PRN PRN Reason: Nausea And Vomiting Oxycodone/Acetaminophen (Oxycodone /Acetaminophen 5-325mg Tab) 1 tab PO Q6H PRN PRN Reason: Pain, Moderate (4-6) Sodium Chloride (Sodium Chloride 0.9% 10 Ml Flush Syringe) 10 ml IV BID RONDA Sodium Chloride (Sodium Chloride 0.9% 10 Ml Flush Syringe) 10 ml IV PRN PRN PRN Reason: LINE FLUSH Physical Examination Vital signs: Vital Signs Pulse Ox 94 11/03/21 11:34 Results - Laboratory Findings CBC and BMP: 11/04/21 04:55 11/04/21 04:55 PT/INR, D-dimer PT 12.9 Sec. (12.2-14.9) 11/03/21 12:07 INR 0.88 (0.87-1.13) 11/03/21 12:07 Abnormal lab findings: Abnormal Labs 11/03/21 11/03/21 12:07 12:07 WBC 13.3 H RBC 5.47 H Hgb 16.2 H Hct 50.8 H Lymph % (Auto) 8.3 L Lymph # (Auto) 1.1 L Seg Neutrophils % 86.4 H Seg Neutrophils # 11.5 H Glucose 163 H
[2021-11-03] MEDS: HYDROmorphone 0.5 MG/0.5 ML INJ IV PRN (17:22)
[2021-11-03] MEDS: oxyCODONE /ACETAMINOPHEN 5-325MG TAB PO PRN (17:22)
[2021-11-03] MEDS ORDERED: BUDESONIDE 0.5 MG/2 ML NEBU IH ONE (18:00)
[2021-11-03] MEDS: methylPREDNISolone Sod Succinate 40 MG/1 ML INJ IV SCH ×2 (20:05→22:00)
[2021-11-03] MEDS: ARFORMOTEROL 15 MCG/2 ML NEBU IH SCH (21:25)
[2021-11-04] MEDS: HYDROmorphone 0.5 MG/0.5 ML INJ IV PRN ×2 (05:24→21:16)
[2021-11-04] MEDS: methylPREDNISolone Sod Succinate 40 MG/1 ML INJ IV SCH ×3 (05:25→21:16)
[2021-11-04 05:32] LABS: Basophils % (Auto) 0.2 % (0.0-1.8); Hematocrit 48.4 % (30.3-42.9); Hemoglobin 15.3 gm/dl (10.1-14.3); Lymphocytes # (Auto) 0.6 K/mm3 (1.2-5.4); Lymphocytes % (Auto) 9.7 % (13.4-35.0); Mean Corpuscular HGB Conc 32 % (30-34); Mean Corpuscular Volume 92 fl (79-97); Monocytes # (Auto) 0.2 K/mm3 (0.0-0.8); Monocytes % (Auto) 4.1 % (0.0-7.3); Platelet Count 228 K/mm3 (140-440); Red Blood Count 5.25 M/mm3 (3.65-5.03)
[2021-11-04 05:50] LABS: BUN/Creatinine Ratio 21; Blood Urea Nitrogen 17 mg/dL (7-17); Calcium 9.7 mg/dL (8.4-10.2); Hemolysis Index 8
--- NOTE | 2021-11-04 08:31 | Progress Note ---
Assessment and Plan 55 YO Female with COPD, Sarcoidosis, HTN, Interstitial Lung Disease complicated by Chronic Respiratory Failure on 4L home oxygen via [place], Nicotine Dependence, DM presents to ED for evaluation. Patient states that she was in her usual state of health until she developed a sudden onset of shortness of breath this morning shortly after awakening from sleep. Patient acknowledges dry cough. EMS notified and upon arrival the patient was found to be in distress and subsequently the patient was transported to [facility] for further care and evaluation of the aforementioned symptoms. The patient was seen and evaluated in the emergency department. Patient found to have a pulse oximetry of 85% while on supplemental oxygen which is consistent with acute hypoxemic respiratory failure. Chest x-ray revealed right pneumothorax. Patient underwent chest tube placement in the emergency department. Patient admitted to medical floor due to increased risk of worsening symptoms. Patient denies fever, chills, chest pain, palpitation, skin rash, recent ill contacts, or known exposure to COVID- 19. Prior admission on 09/25/2021 reviewed. Patient has history of smoking 1 pack x 40 years. Drinks beer every day. 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 Worked as [employer]. . 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 Patient has history of pneumothorax x 3. Patient awake. Complaining right sided chest pain. Mainly at chest tube site. Patient is on 2 litres O2. O2 saturation 94%. Patient afebrile. No leukocytosis. Blood pressure 160/105, pulse 91, respiratory rate 20. Chest xray done 11/04/21 reported New tiny right apical pneumothorax. Slight change in position of the right pleural catheter. Improving bilateral parenchymal opacities. Patient is on I/V solumedrol, Brovanna aerosol treatments, Nicotine patch. Recommend GI and DVT prophylaxis. I spent critical care time of 35 minutes, obtaining history, review the chart, examine the patient, review chest xray , labs, talking to the nursing staff and respiratory therapy and work up plan of treatment in this critically ill patient. - Patient Problems (1) Acute respiratory failure with hypoxia Current Visit: No Status: Acute Plan to address problem: O2 2 litres via nasal canula Continue I/V solumedrol. Continue Brovanna Recommend albuterol/atrovent aerosol treatments q 6 hours prn for shortness of breath. Recommend DVT and GI prophylaxis. ABGs on O2. (2) Pneumothorax, right Current Visit: No Status: Acute Plan to address problem: Patient has right chest tube placement. Recommend thoracic surgery referal for recurrent pneumothorax. (3) COPD exacerbation Current Visit: No Status: Acute Plan to address problem: O2 2 litres via nasal canula Continue I/V solumedrol. Continue Brovanna Recommend albuterol/atrovent aerosol treatments q 6 hours prn for shortness of breath. Recommend DVT and GI prophylaxis (4) Nicotine dependence Current Visit: No Status: Acute Qualifiers: Nicotine product type: cigarettes Substance use status: in withdrawal Qualified Code(s): F17.213 - Nicotine dependence, cigarettes, with withdrawal Plan to address problem: Nicotin Patch. Counseled to stop smoking. (5) Sarcoidosis Current Visit: No Status: Acute Plan to address problem: History of Sarcoidosis long time ago. Patient says treated at that time. Recommend URSZULA level. (6) HTN (hypertension) Current Visit: Yes Status: Acute Plan to address problem: Management as per primary care. Subjective Date of service: 11/04/21 Interval history: 55 YO Female with COPD, Sarcoidosis, HTN, Interstitial Lung Disease complicated by Chronic Respiratory Failure on 4L home oxygen via [place], Nicotine Dependence, DM presents to ED for evaluation. Patient states that she was in her usual state of health until she developed a sudden onset of shortness of breath this morning shortly after awakening from sleep. Patient acknowledges dry cough. EMS notified and upon arrival the patient was found to be in distress and subsequently the patient was transported to [facility] for further care and evaluation of the aforementioned symptoms. The patient was seen and evaluated in the emergency department. Patient found to have a pulse oximetry of 85% while on supplemental oxygen which is consistent with acute hypoxemic respiratory failure. Chest x-ray revealed right pneumothorax. Patient underwent chest tube placement in the emergency department. Patient admitted to medical floor due to increased risk of worsening symptoms. Patient denies fever, chills, chest pain, palpitation, skin rash, recent ill contacts, or known exposure to COVID- 19. Prior admission on 09/25/2021 reviewed. Patient has history of smoking 1 pack x 40 years. Drinks beer every day. 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 Worked as [employer]. . 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 Patient has history of pneumothorax x 3. Patient awake. Complaining right sided chest pain. Mainly at chest tube site. Patient is on 2 litres O2. O2 saturation 94%. Patient afebrile. No leukocytosis. Blood pressure 160/105, pulse 91, respiratory rate 20. Chest xray done 11/04/21 reported New tiny right apical pneumothorax. Slight change in position of the right pleural catheter. Improving bilateral parenchymal opacities. Patient is on I/V solumedrol, Brovanna aerosol treatments, Nicotine patch. Recommend GI and DVT prophylaxis. Objective Vital Signs - 12hr 11/03/21 11/03/21 11/03/21 21:29 21:30 22:40 Temperature 97.8 F Pulse Rate 84 Pulse Rate [ 94 H Bilateral Throughout] Respiratory 18 Rate Respiratory 18 Rate [Bilateral Throughout] Blood Pressure 141/95 O2 Sat by Pulse 93 94 Oximetry 11/04/21 03:27 Temperature 98.9 F Pulse Rate 91 H Pulse Rate [ Bilateral Throughout] Respiratory 20 Rate Respiratory Rate [Bilateral Throughout] Blood Pressure 160/105 O2 Sat by Pulse 90 Oximetry Constitutional: no acute distress, alert, other (Complaining right sided chest pain at chest tube site.) Eyes: non-icteric ENT: oropharynx moist Neck: supple, no lymphadenopathy Effort: mildly labored Ascultation: Bilateral: other (Bilateral breath sounds heard.) Cardiovascular: regular rate and rhythm Gastrointestinal: normoactive bowel sounds, soft, non-tender Integumentary: normal Extremities: no cyanosis, no edema Neurologic: normal mental status, non-focal exam, pupils equal and round, CN II- XII normal Psychiatric: anxious CBC and BMP: 11/04/21 04:55 11/04/21 04:55 ABG, PT/INR, D-dimer: PT/INR, D-dimer PT 12.9 Sec. (12.2-14.9) 11/03/21 12:07 INR 0.88 (0.87-1.13) 11/03/21 12:07 Abnormal lab findings: Abnormal Labs 11/03/21 11/03/21 11/04/21 12:07 12:07 04:55 WBC 13.3 H RBC 5.47 H 5.25 H Hgb 16.2 H 15.3 H Hct 50.8 H 48.4 H Lymph % (Auto) 8.3 L 9.7 L Lymph # (Auto) 1.1 L 0.6 L Seg Neutrophils % 86.4 H 86.0 H Seg Neutrophils # 11.5 H Sodium Chloride Glucose 163 H 11/04/21 04:55 WBC RBC Hgb Hct Lymph % (Auto) Lymph # (Auto) Seg Neutrophils % Seg Neutrophils # Sodium 133 L D Chloride 97.4 L Glucose 128 H Chest x-ray: report reviewed, image reviewed Additional Studies: CHEST 1 VIEW 11/04/2021 7:31 AM INDICATION / CLINICAL INFORMATION: Pneumothorax. COMPARISON: Yesterday. FINDINGS: SUPPORT DEVICES: The position of the right pleural catheter has changed slightly and is positioned slightly more inferiorly and medially. HEART / MEDIASTINUM: The heart size is stable. LUNGS / PLEURA: Increased interstitial lung markings in the mid to lower lung zones have improved. Mild bibasilar opacities are also less prominent. A tiny right apical pneumothorax is new. ADDITIONAL FINDINGS: No significant additional findings. IMPRESSION: 1. New tiny right apical pneumothorax. Slight change in position of the right pleural catheter. 2. Improving bilateral parenchymal opacities. CHEST 1 VIEW 11/03/2021 12:27 PM INDICATION / CLINICAL INFORMATION: Status post chest tube placement. COMPARISON: November 03, 2020 FINDINGS: Right chest tube is in place with interval improvement of right pneumothorax. No large pneumothorax is seen. Increased interstitial prominence and opacities in bilateral lungs IMPRESSION: 1. Right chest tube is satisfactory in position without large residual pneumothorax. Increased interstitial prominence throughout lungs CHEST 1 VIEW 11/03/2021 11:40 AM INDICATION / CLINICAL INFORMATION: Shortness of breath. COMPARISON: 10/14/21. FINDINGS: SUPPORT DEVICES: None. HEART / MEDIASTINUM: The heart size and pulmonary vasculature are normal. LUNGS / PLEURA: Emphysema and chronic interstitial lung disease are again identified. There is a new moderately large right pneumothorax. Pleural separation at the right lung apex measures 5.9 cm. ADDITIONAL FINDINGS: No significant additional findings. IMPRESSION: Moderately large right pneumothorax.
[2021-11-04] MEDS: ARFORMOTEROL 15 MCG/2 ML NEBU IH SCH ×2 (09:07→20:37)
--- NOTE | 2021-11-04 09:32 | XRay Report ---
CHEST 1 VIEW 11/04/2021 7:31 AM INDICATION / CLINICAL INFORMATION: Pneumothorax. COMPARISON: Yesterday. FINDINGS: SUPPORT DEVICES: The position of the right pleural catheter has changed slightly and is positioned sl ightly more inferiorly and medially. HEART / MEDIASTINUM: The heart size is stable. LUNGS / PLEURA: Increased interstitial lung markings in the mid to lower lung zones have improved. Mi ld bibasilar opacities are also less prominent. A tiny right apical pneumothorax is new. ADDITIONAL FINDINGS: No significant additional findings. IMPRESSION: 1. New tiny right apical pneumothorax. Slight change in position of the right pleural catheter. 2. Improving bilateral parenchymal opacities. Signer Name: London Moreland MD Signed: 11/04/2021 9:28 AM Workstation Name: [email or web address]
[2021-11-04] MEDS: oxyCODONE /ACETAMINOPHEN 5-325MG TAB PO PRN (10:38)
[2021-11-04] MEDS: NICOTINE 14 MG/24 HR PATCH TD SCH (12:42)
--- NOTE | 2021-11-04 12:57 | Consultation ---
DATE OF CONSULTATION: 11/03/2021 PULMONARY CONSULTATION NOTE CONSULTING PHYSICIAN: Dr. Urias. REASON FOR CONSULTATION: 1. Acute spontaneous pneumothorax. 2. History of chronic obstructive pulmonary disease. CHIEF COMPLAINT AND HISTORY OF PRESENT ILLNESS: The patient is a now 55-year-old female with a past medical history significant amongst other things for a diagnosis of home oxygen dependent COPD, sarcoidosis as well as interstitial lung disease. Her baseline O2 flow at home is 4 liters. She presented to the Emergency Room complaining of not being able to breathe. It was a sudden onset on the morning of presentation. She complained of a dry cough. The patient was found tripoding when Emergency Medical Services got there. In the ER, her O2 sats were 85% on supplemental oxygen and a chest x-ray revealed a right pneumothorax. A chest tube was placed with good reexpansion of the lungs. She, however, remained on about 40-50% supplemental oxygen via Ventimask and we are asked to assist with management. When I stopped by to see her, she was resting in bed on the 40% Ventimask. O2 sats were running anything from about 89-91% sats. She denied any acute chest pain except when she coughed or took in a deep breath. She denied nausea, vomiting, fevers or chills. She denied any cough or hemoptysis prior to this development. She denied any chest wall trauma. She states she has had 2 prior spontaneous pneumothoraces, believing on the same side in the past. She does have about a [id number] tobacco smoking history, but is working to quit. This really is as much of the history of presentation as I have. PAST MEDICAL HISTORY: COPD, hypertension, sarcoidosis, diffuse parenchymal lung disease, chronic hypoxemic respiratory failure, tobacco use disorder. PAST SURGICAL HISTORY: She has had a hysterectomy. MEDICATIONS: She was on at the time I stopped by to see her according to the medication administration record included the following: Tylenol 650 mg p.o. q. 4 hours p.r.n. mild pain or fever, Dilaudid 0.5 mg IV q. 6 hours p.r.n. severe pain, Zofran 4 mg IV q. 8 hours p.r.n. nausea and vomiting, Percocet 5/325 mg 1 tablet p.o. q. 6 hours p.r.n. moderate pain. ALLERGIES: BUPROPION AND DIPHENHYDRAMINE, nature of this allergy is unknown. DIET: Thin lady. She denies acute weight loss or gain in the preceding few weeks to months. FAMILY AND SOCIAL HISTORY: Lives in the community. She is . She admits to smoking. Denies alcohol or illicit drug use or abuse. There is a family history of diabetes and hypertension. REVIEW OF SYSTEMS: No loss of consciousness. No new onset seizures. No new onset focal weakness. Denies gross hematochezia or melena. Denies gross hematuria or dysuria. No hematemesis, no hemoptysis. She denies heat or cold intolerance. Denies polydipsia. Denies polyuria. Complete 13-system review of system was obtained. Pertinent positives and/or negatives otherwise as in body of history above. PHYSICAL EXAMINATION: VITAL SIGNS: At presentation in the Emergency Room, she was afebrile, initial temperature 97.8 degrees Fahrenheit, pulse was 128, respiratory rate was 29, blood pressure was ____, O2 sats were 94% on the above-mentioned inspired oxygen therapy. GENERAL: She is a middle-aged thin lady. Normocephalic, atraumatic. Talking to me with full sentences, but definitely mild to moderately increased respiratory effort at rest. HEAD, EYES, EARS, NOSE AND THROAT: Anicteric. No conjunctival erythema. Oropharynx was moist. NECK: No gross jugular venous distention, no thyromegaly. Grossly, there were no palpable lymph nodes in the supraclavicular or submandibular lymph node chains. LUNGS: Auscultation of both lung crump was significant for bibasilar inspiratory rales, prolonged expiratory phase, and no active wheezing, but diminished overall bilateral breath sounds. HEART: Sounds 1 and 2 were heard at the time of my evaluation, regular in rate and rhythm without overt rubs or murmurs. ABDOMEN: Soft, flat, bowel sounds are positive, nontender, no palpable hepatosplenomegaly. EXTREMITIES: Without overt digital clubbing or cyanosis, no pedal edema. Pedal pulses are 2+ bilaterally. NEUROLOGIC: Pupils are equal, round, 4 mm, reactive to light. Extraocular muscle movements are intact. She moves all 4 extremities spontaneously. SKIN: Normal turgor in the areas I examined without overt cellulitis or rash. Please see the wound care nurses' notes for full description of her skin. PSYCHIATRIC: Mood was normal. Affect was a little bit anxious. She had intact judgment and insight. LABORATORY DATA: From my review are as follows: Admission white cell count 13,300, hemoglobin 16.2, hematocrit 50.8, platelet count was 245. No manual differential. INR within normal limits. Serum sodium was 142, potassium 4.2, chloride 102, bicarbonate 25, BUN 12, creatinine 0.8, glucose was 163. Troponin within normal limits. No microbiology studies for my review. Initial chest x-ray showed chronic basilar predominant increased interstitial markings with a moderate to large right pneumothorax. Evidence of hyperinflation with flattening of both hemidiaphragms. No gross bony fractures. Compared to a chest x-ray from October, the real new change is the pneumothorax. Post-chest tube images showed near complete reexpansion of the lung. ASSESSMENT: 1. Acute on chronic hypoxemic respiratory failure. 2. Spontaneous pneumothorax, right. 3. Acute chest pain. 4. History of diffuse parenchymal lung disease. 5. Tobacco abuse. 6. History of sarcoidosis. 7. Leukocytosis. 8. Hemoconcentration. PLAN: We will continue chest tube connected to continuous wall suction. X-ray will be repeated in the morning. If there is any evidence of worsening or recurrence of the pneumothorax, surgery consultation will be placed. Oxygen will be weaned to keep sats greater than or equal to about 90%. Aspiration precautions will be maintained. I will start long-acting bronchodilators as well as inhaled corticosteroids. Continue the short-acting bronchodilators and add systemic steroids for an acute exacerbation of chronic obstructive pulmonary disease plus or minus sarcoidosis. An old CT scan showed significant scarring. It is unclear what the activity status of her sarcoidosis is at this time. Otherwise, she will be placed on GI prophylaxis as well as DVT prophylaxis. Chronic disease management will otherwise be left to the attending physician. Flu and pneumonia vaccination will be addressed per protocol. Tobacco cessation has been strongly counseled. Thank you very much for the consult. We will follow along and make further recommendations as picture progresses/becomes clearer. TID: [id number] RECEIPT: [id number] TREVOR/ZURI/JACOB/TERRANCE
--- NOTE | 2021-11-04 17:08 | Progress Note ---
Assessment and Plan -- Acute respiratory failure with hypoxia, due to underlying interstitial lung disease and right pneumothorax Status: Acute Plan to address problem: Chest x-ray, supplemental oxygen, pulse oximetry, nebulizer therapy, chest tube placement in the emergency department. Pulmonary team consulted. Chest tube to low wall suction. -- Interstitial lung disease Status: Acute Plan to address problem: Continue current management, continue prehospital medication, outpatient pulmonary follow-up. -- Nicotine dependence Status: Acute Qualifiers: Nicotine product type: cigarettes Substance use status: in withdrawal Qualified Code(s): F17.213 - Nicotine dependence, cigarettes, with withdrawal Plan to address problem: Smoking cessation counseling, behavior change counseling, +15 minutes. Supportive care. Ordered nicotine patch -- Pneumothorax, right Status: Acute Plan to address problem: Chest tube placement in the emergency department. Chest tube to low wall suction, serial chest x-ray. Pulmonary team consulted. -- Sarcoidosis Status: Acute Plan to address problem: Supportive care, continue medical management. Outpatient rheumatology follow- up. -- DVT prophylaxis Status: Acute Plan to address problem: SCD to bilateral lower extremities while in bed -- Advance care planning Status: Acute Plan to address problem: Disease education done, care plan discussed, diagnoses discussed, prognosis discussed, patient is full code. Patient knowledges understanding agreement with care plan, +30 minutes. -- Preventative health care Status: Acute Plan to address problem: Patient counseled regarding risk factor reduction, smoking cessation, supportive care. Patient counseled to follow-up with primary care physician for all age and risk factor appropriate screening test. +30 minutes. 11/04/21: Patient remains on chest tube suction, pulmonary following. We will reduce steroids to 40 Mg IV twice a day. BP noted to be elevated, will start on Norvasc's and hydralazine along with IV hydralazine as needed. Continue to follow clinically and follow pulmonary recommendation. Subjective Date of service: 11/04/21 Interval history: Patient seen and examined. Medical records and medication list reviewed. No acute event overnight noted by the RN. Patient remains on chest tube at the right side, BP elevated Complains of short of breath She is continue to smoke at home Discussed plan of care at bedside with patient. Objective - Exam Narrative Exam: GENERAL: Elderly female lying on bed appeared to be in no discomfort. HEENT: Normocephalic. Atraumatic. No conjunctival congestion or icterus. Patient has moist mucous membranes. NECK: Supple. Trachea midline. CHEST/LUNGS: Diminished breath sound auscultated bilaterally, patient on nasal cannula O2, right-sided chest tube in place HEART/CARDIOVASCULAR: Regular in rate and rhythm. S1 and S2 positive. ABDOMEN: Abdomen is soft, nontender. Patient has normal bowel sounds. SKIN: There is no rash. Warm and dry. NEURO: No focal motor deficit. Follows command. MUSCULOSKELETAL: No joint effusion or tenderness. EXTRIMITY: No edema, no cyanosis or clubbing. PSYCH: Cooperative. - Constitutional Vitals: Vital Signs - 12hr 11/04/21 11/04/21 11/04/21 07:00 08:00 08:03 Temperature 98.5 F Pulse Rate 88 84 Respiratory 17 Rate Blood Pressure 150/111 [Left] O2 Sat by Pulse 92 93 92 Oximetry 11/04/21 09:12 Temperature Pulse Rate Respiratory Rate Blood Pressure [Left] O2 Sat by Pulse 94 Oximetry - Labs CBC & Chem 7: 11/04/21 04:55 11/04/21 04:55 Labs: Abnormal lab results 11/04/21 11/04/21 Range/Units 04:55 04:55 RBC 5.25 H (3.65-5.03) M/mm3 Hgb 15.3 H (10.1-14.3) gm/dl Hct 48.4 H (30.3-42.9) % Lymph % (Auto) 9.7 L (13.4-35.0) % Lymph # (Auto) 0.6 L (1.2-5.4) K/mm3 Seg Neutrophils % 86.0 H (40.0-70.0) % Sodium 133 L D (137-145) mmol/L Chloride 97.4 L (98-107) mmol/L Glucose 128 H (65-100) mg/dL HEART Score - HEART Score Troponin: Troponin T < 0.010 ng/mL (0.00-0.029) 11/03/21 12:07
[2021-11-04] MEDS: amLODIPine 10 MG TAB PO SCH (19:36)
[2021-11-04] MEDS: hydrALAZINE 25 MG TAB PO SCH ×2 (19:36→22:00)
[2021-11-05] MEDS: hydrALAZINE 25 MG TAB PO SCH ×3 (05:11→21:21)
[2021-11-05] MEDS: HYDROmorphone 0.5 MG/0.5 ML INJ IV PRN ×3 (07:50→21:22)
[2021-11-05] MEDS: ARFORMOTEROL 15 MCG/2 ML NEBU IH SCH ×2 (08:56→19:55)
[2021-11-05] MEDS: NICOTINE 14 MG/24 HR PATCH TD SCH (09:56)
[2021-11-05] MEDS: methylPREDNISolone Sod Succinate 40 MG/1 ML INJ IV SCH ×2 (09:57→21:22)
[2021-11-05] MEDS: amLODIPine 10 MG TAB PO SCH (10:00)
--- NOTE | 2021-11-05 10:54 | Consultation ---
History of Present Illness - History of present illness History of present illness: 55 yo female patient admitted with recurring pneumothorax. Patient states that he has had 2 prior chest tubes to. All of which was in a relatively short period of time. The first chest tube was here while the patient was admitted on Tuesday tube was removed Tuesday and patient discharged Tuesday. She was then seen at the [facility] and admitted for another pneumothorax. The chest tube was placed and then removed and the patient was discharged. Last night the patient was admitted found to have a moderate sized pneumothorax and a 9 Greek catheter was placed. Subsequent chest x-ray showed resolution of the pneumothorax. Surgical consultation is for management of the chest tube. Past History Past Medical History: COPD, hypertension, other (See HPI) Past Surgical History: hysterectomy, Other (Tubal ligation) Social history: , smoking. denies: alcohol abuse, prescription drug abuse Family history: diabetes, hypertension Medications and Allergies Allergies Allergy/AdvReac Type Severity Reaction Status Date / Time bupropion HCl Allergy Hives Verified 11/03/21 11:19 [From Wellbutrin] diphenhydramine HCl Allergy Hives Verified 11/03/21 11:19 [From Benadryl] Home Medications Medication Instructions Recorded Confirmed Last Taken Type Fluticasone/Vilanterol [Breo 1 each IH BID #1 blst.w.dev 02/27/21 09/27/21 Unknown Rx Ellipta 100-25 Mcg INH] Nicotine [Habitrol] 21 mg TD DAILY #30 patch 02/27/21 09/27/21 Unknown Rx Benzonatate [Tessalon Perles] 100 mg PO Q8HR PRN #10 capsule 07/01/21 09/27/21 09/22/21 20:00 Rx Fluticasone [Flonase] 1 spray NS QDAY #1 bottle 07/01/21 09/27/21 Unknown Rx Ipratropium (Nf) [Atrovent HFA 2 puff IH Q4H PRN #1 inha 07/01/21 09/26/21 09/24/21 19:00 Rx 17MCG/PUFF] Metoprolol [Lopressor TAB] 50 mg PO BID #60 tablet 07/01/21 09/26/21 09/24/21 21:00 Rx Montelukast [Singulair] 10 mg PO QHS #30 tablet 07/01/21 09/26/21 09/22/21 21:00 Rx ALBUTEROL NEB's [Proventil 0.083% 2.5 mg IH TID PRN #1 box 09/01/21 09/27/21 09/24/21 21:00 Rx NEBS] Albuterol Mdi (or & Nicu Only) 1 puff IH Q4HR PRN #1 inha 09/01/21 09/27/21 Unknown Rx [ProAir HFA Inhaler] amLODIPine 5 mg PO DAILY #90 tab 09/01/21 09/26/21 09/22/21 09:00 Rx Ketorolac [Toradol] 10 mg PO Q6H PRN #14 10/14/21 Unknown Rx Active Meds: Active Medications Acetaminophen (Acetaminophen 325 Mg Tab) 650 mg PO Q4H PRN PRN Reason: Pain MILD(1-3)/Fever >100.5/RAMOS Albuterol/Ipratropium (Ipratropium/Albuterol Sulfate 3 Ml Ampul.Neb) 1 ampul IH Q6HRT [facility] Amlodipine Besylate (Amlodipine 10 Mg Tab) 10 mg PO QDAY [facility] Last Admin: 11/05/21 10:00 Dose: 10 mg Arformoterol Tartrate (Arformoterol 15 Mcg/2 Ml Nebu) 15 mcg IH Q12HRT [facility] Last Admin: 11/05/21 08:56 Dose: 15 mcg Hydralazine HCl (Hydralazine 25 Mg Tab) 50 mg PO Q8HR [facility] Last Admin: 11/05/21 05:11 Dose: 50 mg Hydromorphone HCl (Hydromorphone 0.5 Mg/0.5 Ml Inj) 0.5 mg IV Q6H PRN PRN Reason: Pain , Severe (7-10) Last Admin: 11/05/21 07:50 Dose: 0.5 mg Methylprednisolone Sodium Succinate (Methylprednisolone Sod Succinate 40 Mg/1 Ml Inj) 40 mg IV Q12HR [facility] Last Admin: 11/05/21 09:57 Dose: 40 mg Nicotine (Nicotine 14 Mg/24 Hr Patch) 14 mg TD QDAY [facility] Last Admin: 11/05/21 09:56 Dose: 14 mg Ondansetron HCl (Ondansetron 4 Mg/2 Ml Inj) 4 mg IV Q8H PRN PRN Reason: Nausea And Vomiting Oxycodone/Acetaminophen (Oxycodone /Acetaminophen 5-325mg Tab) 1 tab PO Q6H PRN PRN Reason: Pain, Moderate (4-6) Last Admin: 11/04/21 10:38 Dose: 1 tab Sodium Chloride (Sodium Chloride 0.9% 10 Ml Flush Syringe) 10 ml IV BID RONDA Last Admin: 11/05/21 09:57 Dose: 10 ml Sodium Chloride (Sodium Chloride 0.9% 10 Ml Flush Syringe) 10 ml IV PRN PRN PRN Reason: LINE FLUSH Exam Vital Signs Pulse Ox 94 11/03/21 11:34 - General physical appearance Positive: well developed, no distress - Eyes Positive: PERRL - Neck Positive: no masses, no bruits, trachea midline - Respiratory Positive: normal expansion - Cardiovascular Rhythm: regular - Extremities Extremities: no ischemia, No edema - Abdomen Abdomen: Present: soft. Absent: tender - Integumentary no rash - Neurologic Neurologic: alert and oriented to time, place and person, motor strength and sensation are grossly intact, CN II-XII intact Results - Labs 11/04/21 04:55 11/04/21 04:55 Assessment and Plan Continue wall suction at this time. Repeat chest x-ray periodically. Consider transferring from hospital to hospital to [place] for management of recurring pneumothorax. Treatment would require access to thoracic surgery and VATS. We will continue to follow patient with you at this time.
[2021-11-05 12:24] LABS: ABG Base Excess 2.9 mmol/L (-2.0-3.0); ABG HCO3 26.3 mmol/L (20.0-26.0); ABG Methemoglobin 0.5 % (0.0-1.5); ABG PH 7.47 pH Units (7.350-7.450); ABG PO2 72.6 mm Hg (80.0-90.0)
[2021-11-05] MEDS: IPRATROPIUM/ALBUTEROL SULFATE 3 ML AMPUL.NEB IH SCH ×3 (12:24→19:55)
--- NOTE | 2021-11-05 13:42 | Progress Note ---
Assessment and Plan -- Acute respiratory failure with hypoxia, due to underlying interstitial lung disease and right pneumothorax Status: Acute Plan to address problem: Chest x-ray, supplemental oxygen, pulse oximetry, nebulizer therapy, chest tube placement in the emergency department. Pulmonary team consulted. Chest tube to low wall suction. -- Interstitial lung disease Status: Acute Plan to address problem: Continue current management, continue prehospital medication, outpatient pulmonary follow-up. -- Nicotine dependence Status: Acute Qualifiers: Nicotine product type: cigarettes Substance use status: in withdrawal Qualified Code(s): F17.213 - Nicotine dependence, cigarettes, with withdrawal Plan to address problem: Smoking cessation counseling, behavior change counseling, +15 minutes. Supportive care. Ordered nicotine patch -- Pneumothorax, right Status: Acute Plan to address problem: Chest tube placement in the emergency department. Chest tube to low wall suction, serial chest x-ray. Pulmonary team consulted. -- Sarcoidosis Status: Acute Plan to address problem: Supportive care, continue medical management. Outpatient rheumatology follow- up. -- DVT prophylaxis Status: Acute Plan to address problem: SCD to bilateral lower extremities while in bed -- Advance care planning Status: Acute Plan to address problem: Disease education done, care plan discussed, diagnoses discussed, prognosis discussed, patient is full code. Patient knowledges understanding agreement with care plan, +30 minutes. -- Preventative health care Status: Acute Plan to address problem: Patient counseled regarding risk factor reduction, smoking cessation, supportive care. Patient counseled to follow-up with primary care physician for all age and risk factor appropriate screening test. +30 minutes. 11/04/21: Patient remains on chest tube suction, pulmonary following. We will reduce steroids to 40 Mg IV twice a day. BP noted to be elevated, will start on Norvasc's and hydralazine along with IV hydralazine as needed. Continue to follow clinically and follow pulmonary recommendation. 11/05/21; wait for general surgery to discontinue the chest tube. We will monitor patient after we remove the chest tube overnight. If clinically remains stable patient can be discharged home tomorrow. Subjective Date of service: 11/05/21 Interval history: Patient seen and examined. Medical records and medication list reviewed. No acute event overnight noted by the RN. Patient remains on chest tube at the right side, BP stable Complains of short of breath She is continue to smoke at home Discussed plan of care at bedside with patient. Objective - Exam Narrative Exam: GENERAL: Elderly female lying on bed appeared to be in no discomfort. HEENT: Normocephalic. Atraumatic. No conjunctival congestion or icterus. Patient has moist mucous membranes. NECK: Supple. Trachea midline. CHEST/LUNGS: Diminished breath sound auscultated bilaterally, patient on nasal cannula O2, right-sided chest tube in place HEART/CARDIOVASCULAR: Regular in rate and rhythm. S1 and S2 positive. ABDOMEN: Abdomen is soft, nontender. Patient has normal bowel sounds. SKIN: There is no rash. Warm and dry. NEURO: No focal motor deficit. Follows command. MUSCULOSKELETAL: No joint effusion or tenderness. EXTRIMITY: No edema, no cyanosis or clubbing. PSYCH: Cooperative. - Constitutional Vitals: Vital Signs - 12hr 11/05/21 11/05/21 11/05/21 03:46 05:11 08:55 Temperature 97.8 F Pulse Rate 76 76 Pulse Rate [ Bilateral Throughout] Respiratory 18 Rate Respiratory Rate [Bilateral Throughout] Blood Pressure 142/93 142/93 O2 Sat by Pulse 100 98 Oximetry 11/05/21 11/05/21 08:56 10:00 Temperature Pulse Rate 78 Pulse Rate [ 90 Bilateral Throughout] Respiratory 15 Rate Respiratory 18 Rate [Bilateral Throughout] Blood Pressure 127/90 O2 Sat by Pulse 96 Oximetry - Labs CBC & Chem 7: 11/04/21 04:55 11/04/21 04:55 Labs: Abnormal lab results 11/05/21 Range/Units 12:10 ABG pH 7.470 H (7.350-7.450) pH Units ABG pO2 72.6 L (80.0-90.0) mm Hg ABG HCO3 26.3 H (20.0-26.0) mmol/L ABG Hemoglobin 16.5 H (12.0-16.0) gm/dl Oxyhemoglobin 94.0 L (95.0-99.0) % HEART Score - HEART Score Troponin: Troponin T < 0.010 ng/mL (0.00-0.029) 11/03/21 12:07
--- NOTE | 2021-11-05 18:06 | Progress Note ---
Assessment and Plan 55 YO Female with COPD, Sarcoidosis, HTN, Interstitial Lung Disease complicated by Chronic Respiratory Failure on 4L home oxygen via [place], Nicotine Dependence, DM presents to ED for evaluation. Patient states that she was in her usual state of health until she developed a sudden onset of shortness of breath this morning shortly after awakening from sleep. Patient acknowledges dry cough. EMS notified and upon arrival the patient was found to be in distress and subsequently the patient was transported to [facility] for further care and evaluation of the aforementioned symptoms. The patient was seen and evaluated in the emergency department. Patient found to have a pulse oximetry of 85% while on supplemental oxygen which is consistent with acute hypoxemic respiratory failure. Chest x-ray revealed right pneumothorax. Patient underwent chest tube placement in the emergency department. Patient admitted to medical floor due to increased risk of worsening symptoms. Patient denies fever, chills, chest pain, palpitation, skin rash, recent ill contacts, or known exposure to COVID- 19. Prior admission on 09/25/2021 reviewed. Patient has history of smoking 1 pack x 40 years. Drinks beer every day. 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 Patient has history of pneumothorax x 3. Patient awake. Complaining right sided chest pain. Mainly at chest tube site. Patient is on 2 litres O2. O2 saturation 97%.Not using O2 as recommended. Patient afebrile. No leukocytosis. Blood pressure 144/102, pulse 90, respiratory rate 20. Chest xray done 11/04/21 reported New tiny right apical pneumothorax. Slight change in position of the right pleural catheter. Improving bilateral parenchymal opacities. Patient is on I/V solumedrol, Brovanna aerosol treatments, Nicotine patch. Recommend GI and DVT prophylaxis. - Patient Problems (1) Acute respiratory failure with hypoxia Current Visit: No Status: Acute Plan to address problem: O2 2 litres via nasal canula Continue I/V solumedrol. Continue Brovanna Recommend albuterol/atrovent aerosol treatments q 6 hours prn for shortness of breath. Recommend DVT and GI prophylaxis. . (2) Pneumothorax, right Current Visit: No Status: Acute Plan to address problem: Patient has right chest tube placement. Recommend thoracic surgery referal for recurrent pneumothorax. Recommend to repeat chest xray. (3) COPD exacerbation Current Visit: No Status: Acute Plan to address problem: O2 2 litres via nasal canula Continue I/V solumedrol. Continue Brovanna Recommend albuterol/atrovent aerosol treatments q 6 hours prn for shortness of breath. Recommend DVT and GI prophylaxis (4) Nicotine dependence Current Visit: No Status: Acute Qualifiers: Nicotine product type: cigarettes Substance use status: in withdrawal Qualified Code(s): F17.213 - Nicotine dependence, cigarettes, with withdrawal Plan to address problem: Nicotin Patch. Counseled to stop smoking. (5) Sarcoidosis Current Visit: No Status: Acute Plan to address problem: History of Sarcoidosis long time ago. Patient says treated at that time. Recommend URSZULA level. (6) HTN (hypertension) Current Visit: Yes Status: Acute Plan to address problem: Management as per primary care. Subjective Date of service: 11/05/21 Interval history: 55 YO Female with COPD, Sarcoidosis, HTN, Interstitial Lung Disease complicated by Chronic Respiratory Failure on 4L home oxygen via [place], Nicotine Dependence, DM presents to ED for evaluation. Patient states that she was in her usual state of health until she developed a sudden onset of shortness of breath this morning shortly after awakening from sleep. Patient acknowledges dry cough. EMS notified and upon arrival the patient was found to be in distress and subsequently the patient was transported to [facility] for further care and evaluation of the aforementioned symptoms. The patient was seen and evaluated in the [facility] department. Patient found to have a pulse oximetry of 85% while on supplemental oxygen which is consistent with acute hypoxemic respiratory failure. Chest x-ray revealed right pneumothorax. Patient underwent chest tube placement in the emergency department. Patient admitted to medical floor due to increased risk of worsening symptoms. Patient denies fever, chills, chest pain, palpitation, skin rash, recent ill contacts, or known exposure to COVID- 19. Prior admission on 09/25/2021 reviewed. Patient has history of smoking 1 pack x 40 years. Drinks beer every day. 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 Patient has history of pneumothorax x 3. Patient awake. Complaining right sided chest pain. Mainly at chest tube site. Patient is on 2 litres O2. O2 saturation 97%.Not using O2 as recommended. Patient afebrile. No leukocytosis. Blood pressure 144/102, pulse 90, respiratory rate 20. Chest xray done 11/04/21 reported New tiny right apical pneumothorax. Slight change in position of the right pleural catheter. Improving bilateral parenchymal opacities. Patient is on I/V solumedrol, Brovanna aerosol treatments, Nicotine patch. Recommend GI and DVT prophylaxis. Objective Vital Signs - 12hr 11/05/21 11/05/21 11/05/21 08:55 08:56 10:00 Pulse Rate 78 Pulse Rate [ 90 Bilateral Throughout] Respiratory 15 Rate Respiratory 18 Rate [Bilateral Throughout] Blood Pressure 127/90 O2 Sat by Pulse 98 96 Oximetry 11/05/21 11/05/21 13:45 15:01 Pulse Rate 86 Pulse Rate [ 92 H Bilateral Throughout] Respiratory Rate Respiratory 18 Rate [Bilateral Throughout] Blood Pressure 127/89 O2 Sat by Pulse Oximetry Constitutional: no acute distress, alert, other (Complaining right sided chest pain at chest tube site.) Eyes: non-icteric ENT: oropharynx moist Neck: supple, no lymphadenopathy Effort: normal Ascultation: Bilateral: other (Bilateral breath sounds heard.) Cardiovascular: regular rate and rhythm Gastrointestinal: normoactive bowel sounds, soft, non-tender Integumentary: normal Extremities: no cyanosis, no edema Neurologic: normal mental status, non-focal exam, pupils equal and round, CN II- XII normal Psychiatric: anxious CBC and BMP: 11/04/21 04:55 11/04/21 04:55 ABG, PT/INR, D-dimer: ABG ABG pH 7.470 pH Units (7.350-7.450) H 11/05/21 12:10 ABG pCO2 37.0 mm Hg 11/05/21 12:10 ABG pO2 72.6 mm Hg (80.0-90.0) L 11/05/21 12:10 ABG O2 Saturation 96.0 % (95.0-99.0) 11/05/21 12:10 PT/INR, D-dimer PT 12.9 Sec. (12.2-14.9) 11/03/21 12:07 INR 0.88 (0.87-1.13) 11/03/21 12:07 Abnormal lab findings: Abnormal Labs 11/03/21 11/03/21 11/04/21 12:07 12:07 04:55 WBC 13.3 H RBC 5.47 H 5.25 H Hgb 16.2 H 15.3 H Hct 50.8 H 48.4 H Lymph % (Auto) 8.3 L 9.7 L Lymph # (Auto) 1.1 L 0.6 L Seg Neutrophils % 86.4 H 86.0 H Seg Neutrophils # 11.5 H ABG pH ABG pO2 ABG HCO3 ABG Hemoglobin Oxyhemoglobin Sodium Chloride Glucose 163 H 11/04/21 11/05/21 04:55 12:10 WBC RBC Hgb Hct Lymph % (Auto) Lymph # (Auto) Seg Neutrophils % Seg Neutrophils # ABG pH 7.470 H ABG pO2 72.6 L ABG HCO3 26.3 H ABG Hemoglobin 16.5 H Oxyhemoglobin 94.0 L Sodium 133 L D Chloride 97.4 L Glucose 128 H
[2021-11-05] MEDS: oxyCODONE /ACETAMINOPHEN 5-325MG TAB PO PRN (18:54)
--- NOTE | 2021-11-05 18:54 | Electrocardiograph Report ---
[facility] Test Date: 2021-11-03 Test Time: 11:29:39 Pat Name: MARILY RODRIGUEZ Department: Room: A482 1 Gender: F [employer]: TV : 1965 Requested By: EDE WAGGONER Order Number: [id number] Reading MD: Nayana Ragsdale Measurements Intervals [place] Rate: 140 P: 82 AR: 142 QRS: 96 QRSD: 75 T: 60 QT: 269 QTc: 411 Interpretive Statements Sinus tachycardia LAE, consider biatrial enlargement Anteroseptal infarct, age indeterminate Compared to ECG 10/14/2021 18:25:56 Lateral T wave inversions are no longer evident Electronically Signed On 11-05-2021 18:53:42 EDT by Nayana Ragsdale
[2021-11-06] MEDS: IPRATROPIUM/ALBUTEROL SULFATE 3 ML AMPUL.NEB IH SCH ×4 (02:44→20:34)
[2021-11-06] MEDS: hydrALAZINE 25 MG TAB PO SCH ×3 (06:42→21:13)
[2021-11-06] MEDS: HYDROmorphone 0.5 MG/0.5 ML INJ IV PRN ×2 (07:51→15:28)
[2021-11-06] MEDS: ARFORMOTEROL 15 MCG/2 ML NEBU IH SCH ×2 (08:59→20:34)
--- NOTE | 2021-11-06 09:20 | XRay Report ---
. XR chest 1V ap INDICATION / CLINICAL INFORMATION: Follow up on pneumothorax.. COMPARISON: 11/04/2021 FINDINGS: SUPPORT DEVICES: The right sided pleural catheter has been retracted. The distal tip of the catheter projects lateral to the chest wall. HEART /PULMONARY VASCULATURE: Unchanged. LUNGS / PLEURA: Diffuse increased interstitial opacities are unchanged. No new or increasing airspace disease. Previously described tiny right apical pneumothorax is no longer seen. No discrete pneumoth orax. IMPRESSION: Right-sided pleural catheter has been retracted with distal tip projecting lateral to the chest wall. However, tiny right apical pneumothorax is improved/resolved. No discrete pneumothorax on current st udy. Signer Name: Manoj Singh MD Signed: 11/06/2021 9:15 AM Workstation Name: [id number]
[2021-11-06] MEDS: amLODIPine 10 MG TAB PO SCH (10:21)
[2021-11-06] MEDS: methylPREDNISolone Sod Succinate 40 MG/1 ML INJ IV SCH ×2 (10:22→21:13)
[2021-11-06] MEDS: NICOTINE 14 MG/24 HR PATCH TD SCH (10:25)
--- NOTE | 2021-11-06 10:38 | Progress Note ---
Assessment and Plan Continue wall suction at this time. Repeat chest x-ray periodically. Consider transferring from hospital to hospital to [place] for management of recurring pneumothorax. Treatment would require access to thoracic surgery and VATS. We will continue to follow patient with you at this time. Patient with recurring pneumothorax. She notes that this is her third chest tube. Today's chest x-ray is without pneumothorax and the tip of the tube is in the subcutaneous tissue outside of the chest cavity. We will remove chest tube later today. Recommend 24-hour period of observation repeating the chest x-ray tomorrow. Subjective Date of service: 11/06/21 Patient Reports: Positive: no new complaints, feels better Narrative: Patient with recurring pneumothorax. She notes that this is her third chest tube. Today's chest x-ray is without pneumothorax and the tip of the tube is in the subcutaneous tissue outside of the chest cavity. Objective Vital Signs - 12hr 11/05/21 11/06/21 11/06/21 23:06 00:00 03:20 Temperature 97.8 F 97.7 F Pulse Rate 89 81 75 Respiratory 18 15 Rate Blood Pressure 148/96 129/87 O2 Sat by Pulse 89 95 Oximetry 11/06/21 11/06/21 11/06/21 06:42 06:50 07:09 Temperature 98.8 F Pulse Rate 75 70 71 Respiratory 17 Rate Blood Pressure 129/89 125/90 O2 Sat by Pulse 98 Oximetry 11/06/21 10:21 Temperature Pulse Rate 71 Respiratory Rate Blood Pressure 125/90 O2 Sat by Pulse Oximetry - Labs 11/04/21 04:55 11/04/21 04:55
--- NOTE | 2021-11-06 13:29 | Progress Note ---
Assessment and Plan 55 YO Female with COPD, Sarcoidosis, HTN, Interstitial Lung Disease complicated by Chronic Respiratory Failure on 4L home oxygen via [place], Nicotine Dependence, DM presents to ED for evaluation. Patient states that she was in her usual state of health until she developed a sudden onset of shortness of breath this morning shortly after awakening from sleep. Patient acknowledges dry cough. EMS notified and upon arrival the patient was found to be in distress and subsequently the patient was transported to [facility] for further care and evaluation of the aforementioned symptoms. The patient was seen and evaluated in the emergency department. Patient found to have a pulse oximetry of 85% while on supplemental oxygen which is consistent with acute hypoxemic respiratory failure. Chest x-ray revealed right pneumothorax. Patient underwent chest tube placement in the emergency department. Patient admitted to medical floor due to increased risk of worsening symptoms. Patient denies fever, chills, chest pain, palpitation, skin rash, recent ill contacts, or known exposure to COVID- 19. Prior admission on 09/25/2021 reviewed. Patient has history of smoking 1 pack x 40 years. Drinks beer every day. 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 Patient has history of pneumothorax x 3. Patient awake. Complaining right sided chest pain. Mainly at chest tube site. Patient is on 4 litres O2. O2 saturation 98%. No SOB; Not using O2 as recommended. Patient afebrile. Blood pressure 128/94, pulse 84, respiratory rate 18. Chest xray done 11/04/21 reported New tiny right apical pneumothorax. Slight change in position of the right pleural catheter. Improving bilateral parenchymal opacities. CXR 11/06/21 reports tiny right apical PTX resolved; Patient is on I/V solumedrol, Brovanna aerosol treatments, Nicotine patch, DUOneb PRN for SOB; Recommend GI and DVT prophylaxis. - Patient Problems (1) Acute respiratory failure with hypoxia Current Visit: No Status: Acute Plan to address problem: O2 4 litres via nasal canula SPO2 98% Continue I/V solumedrol. Continue Brovanna Recommend albuterol/atrovent aerosol treatments q 6 hours prn for shortness of breath. Recommend DVT and GI prophylaxis. . (2) Pneumothorax, right Current Visit: No Status: Acute Plan to address problem: Patient has right chest tube placement. Recommend thoracic surgery referal for recurrent pneumothorax. (3) COPD exacerbation Current Visit: No Status: Acute Plan to address problem: O2 4 litres via nasal canula 98% SPO2 Continue I/V solumedrol. Continue Brovanna Recommend albuterol/atrovent aerosol treatments q 6 hours prn for shortness of breath. Recommend DVT and GI prophylaxis (4) Nicotine dependence Current Visit: No Status: Acute Qualifiers: Nicotine product type: cigarettes Substance use status: in withdrawal Qualified Code(s): F17.213 - Nicotine dependence, cigarettes, with withdrawal Plan to address problem: Nicotin Patch. Counseled to stop smoking. (5) Sarcoidosis Current Visit: No Status: Acute Plan to address problem: History of Sarcoidosis long time ago. Patient says treated at that time. Recommend URSZULA level. (6) HTN (hypertension) Current Visit: Yes Status: Acute Plan to address problem: Management as per primary care. Subjective Date of service: 11/06/21 Interval history: 55 YO Female with COPD, Sarcoidosis, HTN, Interstitial Lung Disease complicated by Chronic Respiratory Failure on 4L home oxygen via [place], Nicotine Dependence, DM presents to ED for evaluation. Patient states that she was in her usual state of health until she developed a sudden onset of shortness of breath this morning shortly after awakening from sleep. Patient acknowledges dry cough. EMS notified and upon arrival the patient was found to be in distress and subseq uently the patient was transported to [facility] for further care and evaluation of the aforementioned symptoms. The patient was seen and evaluated in the emergency department. Patient found to have a pulse oximetry of 85% while on supplemental oxygen which is consistent with acute hypoxemic respiratory failure. Chest x-ray revealed right pneumothorax. Patient underwent chest tube placement in the emergency department. Patient admitted to medical floor due to increased risk of worsening symptoms. Patient denies fever, chills, chest pain, palpitation, skin rash, recent ill contacts, or known exposure to COVID- 19. Prior admission on 09/25/2021 reviewed. Patient has history of smoking 1 pack x 40 years. Drinks beer every day. 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 Patient has history of pneumothorax x 3. Patient awake. Complaining right sided chest pain. Mainly at chest tube site. Patient is on 4 litres O2. O2 saturation 98%. No SOB; Not using O2 as r ecommended. Patient afebrile. Blood pressure 128/94, pulse 84, respiratory rate 18. Chest xray done 11/04/21 reported New tiny right apical pneumothorax. Slight change in position of the right pleural catheter. Improving bilateral parenchymal opacities. CXR 11/06/21 reports tiny right apical PTX resolved; Patient is on I/V solumedrol, Brovanna aerosol treatments, Nicotine patch, DUOneb PRN for SOB; Recommend GI and DVT prophylaxis. Objective Vital Signs - 12hr 11/06/21 11/06/21 11/06/21 03:20 06:42 06:50 Temperature 97.7 F Pulse Rate 75 75 70 Pulse Rate [ Bilateral Throughout] Respiratory 15 Rate Respiratory Rate [Bilateral Throughout] Blood Pressure 129/87 129/89 O2 Sat by Pulse 95 Oximetry 11/06/21 11/06/21 11/06/21 07:09 08:59 10:00 Temperature 98.8 F Pulse Rate 71 Pulse Rate [ 80 Bilateral Throughout] Respiratory 17 Rate Respiratory 18 Rate [Bilateral Throughout] Blood Pressure 125/90 O2 Sat by Pulse 98 98 Oximetry 11/06/21 11/06/21 10:21 11:41 Temperature Pulse Rate 71 Pulse Rate [ Bilateral Throughout] Respiratory Rate Respiratory Rate [Bilateral Throughout] Blood Pressure 125/90 O2 Sat by Pulse 98 Oximetry Constitutional: no acute distress, alert, other (Complaining right sided chest pain at chest tube site.; no SOB;) Eyes: non-icteric ENT: oropharynx moist Neck: supple, no lymphadenopathy Effort: normal Ascultation: Bilateral: other (Bilateral breath sounds heard.) Cardiovascular: regular rate and rhythm Gastrointestinal: normoactive bowel sounds, soft, non-tender Integumentary: normal Extremities: no cyanosis, no edema Neurologic: normal mental status, non-focal exam, pupils equal and round, CN II- XII normal Psychiatric: anxious CBC and BMP: 11/04/21 04:55 11/04/21 04:55 ABG, PT/INR, D-dimer: ABG ABG pH 7.470 pH Units (7.350-7.450) H 11/05/21 12:10 ABG pCO2 37.0 mm Hg 11/05/21 12:10 ABG pO2 72.6 mm Hg (80.0-90.0) L 11/05/21 12:10 ABG O2 Saturation 96.0 % (95.0-99.0) 11/05/21 12:10 PT/INR, D-dimer PT 12.9 Sec. (12.2-14.9) 11/03/21 12:07 INR 0.88 (0.87-1.13) 11/03/21 12:07 Abnormal lab findings: Abnormal Labs 11/03/21 11/03/21 11/04/21 12:07 12:07 04:55 WBC 13.3 H RBC 5.47 H 5.25 H Hgb 16.2 H 15.3 H Hct 50.8 H 48.4 H Lymph % (Auto) 8.3 L 9.7 L Lymph # (Auto) 1.1 L 0.6 L Seg Neutrophils % 86.4 H 86.0 H Seg Neutrophils # 11.5 H ABG pH ABG pO2 ABG HCO3 ABG Hemoglobin Oxyhemoglobin Sodium Chloride Glucose 163 H 11/04/21 11/05/21 04:55 12:10 WBC RBC Hgb Hct Lymph % (Auto) Lymph # (Auto) Seg Neutrophils % Seg Neutrophils # ABG pH 7.470 H ABG pO2 72.6 L ABG HCO3 26.3 H ABG Hemoglobin 16.5 H Oxyhemoglobin 94.0 L Sodium 133 L D Chloride 97.4 L Glucose 128 H Chest x-ray: report reviewed, image reviewed Additional Studies: R chest 1V ap 11/06/21 INDICATION / CLINICAL INFORMATION: Follow up on pneumothorax.. COMPARISON: 11/04/2021 FINDINGS: SUPPORT DEVICES: The right sided pleural catheter has been retracted. The dist al tip of the catheter projects lateral to the chest wall. HEART /PULMONARY VASCULATURE: Unchanged. LUNGS / PLEURA: Diffuse increased interstitial opacities are unchanged. No new or increasing airspace disease. Previously described tiny right apical pneumothorax is no longer seen. No discrete pneumothorax. IMPRESSION: Right-sided pleural catheter has been retracted with distal tip projecting lateral to the chest wall. However, tiny right apical pneumothorax is improved/resolved. No discrete pneumothorax on current study.
[2021-11-06] MEDS: oxyCODONE /ACETAMINOPHEN 5-325MG TAB PO PRN (21:15)
[2021-11-07] MEDS: IPRATROPIUM/ALBUTEROL SULFATE 3 ML AMPUL.NEB IH SCH ×2 (02:08→09:57)
--- NOTE | 2021-11-07 02:31 | Progress Note ---
Assessment and Plan Assessment and Plan -- Acute respiratory failure with hypoxia, due to underlying interstitial lung disease and right pneumothorax Status: Acute Plan to address problem: Chest x-ray, supplemental oxygen, pulse oximetry, nebulizer therapy, chest tube placement in the emergency department. Pulmonary team consulted. Chest tube to low wall suction. -- Pneumothorax, right Status: Acute Plan to address problem: Chest tube placement in the emergency department. Chest tube to low wall suction, serial chest x-ray. Pulmonary team consulted. Surgery follow-up appreciated If chest tube is taken out patient may be discharged tomorrow with follow-up at [facility] cardiothoracic surgery department -- Interstitial lung disease Status: Acute Plan to address problem: Continue current management, continue prehospital medication, outpatient pulmonary follow-up. -- Nicotine dependence Status: Acute Qualifiers: Nicotine product type: cigarettes Substance use status: in withdrawal Qualified Code(s): F17.213 - Nicotine dependence, cigarettes, with withdrawal Plan to address problem: Smoking cessation counseling, behavior change counseling, +15 minutes. S upportive care. Ordered nicotine patch -- Sarcoidosis Status: Acute Plan to address problem: Supportive care, continue medical management. Outpatient rheumatology follow- up. -- DVT prophylaxis Status: Acute Plan to address problem: SCD to bilateral lower extremities while in bed -- Advance care planning Status: Acute Plan to address problem: Disease education done, care plan discussed, diagnoses discussed, prognosis discussed, patient is full code. Patient knowledges understanding agreement with care plan, +30 minutes. -- Preventative health care Status: Acute Plan to address problem: Patient counseled regarding risk factor reduction, smoking cessation, supportive care. Patient counseled to follow-up with primary care physician for all age and risk factor appropriate screening test. +30 minutes. Subjective Date of service: 11/06/21 Principal diagnosis: Right pneumothorax Interval history: Patient admitted for right pneumothorax, interstitial lung disease and sarcoidosis 11/04/21: Patient remains on chest tube suction, pulmonary following. We will reduce steroids to 40 Mg IV twice a day. BP noted to be elevated, will start on Norvasc's and hydralazine along with IV hydralazine as needed. Continue to follow clinically and follow pulmonary recommendation. 11/05/21; wait for general surgery to discontinue the chest tube. We will monitor patient after we remove the chest tube overnight. If clinically remains stable patient can be discharged home tomorrow. 11/06/2021 If chest tube was discontinued today--- we will discharge him tomorrow Patient can follow with [facility] because of the recurrent pneumothoraxes--- with CT surgeon Subjective Date of service: 11/06/21 Interval history: Patient seen and examined. Medical records and medication list reviewed. No acute event overnight noted by the RN. Patient remains on chest tube at the right side, BP stable Complains of short of breath She is continue to smoke at home Discussed plan of care at bedside with patient. Objective - Constitutional Vitals: Vital Signs - 12hr 11/06/21 11/06/21 11/06/21 15:27 19:07 20:10 Temperature 98.4 F Pulse Rate 78 76 75 Pulse Rate [ Bilateral Throughout] Respiratory 18 Rate Respiratory Rate [Bilateral Throughout] Blood Pressure 128/94 130/83 O2 Sat by Pulse 93 Oximetry 11/06/21 11/06/21 11/06/21 20:37 21:15 22:15 Temperature Pulse Rate Pulse Rate [ 82 Bilateral Throughout] Respiratory 17 17 Rate Respiratory 18 Rate [Bilateral Throughout] Blood Pressure O2 Sat by Pulse 99 Oximetry 11/06/21 11/06/21 22:56 23:53 Temperature 97.6 F Pulse Rate 77 Pulse Rate [ Bilateral Throughout] Respiratory 19 Rate Respiratory Rate [Bilateral Throughout] Blood Pressure 125/88 O2 Sat by Pulse 95 94 Oximetry General appearance: Present: no acute distress, well-nourished - EENT Eyes: PERRL, EOM intact ENT: hearing intact, clear oral mucosa Ears: bilateral: normal - Neck Neck: supple, normal ROM - Respiratory Respiratory effort: normal Respiratory: bilateral: CTA, diminished (Right chest tube with underwater seal) - Breasts Breasts: normal - Cardiovascular Heart rate: 78 Rhythm: regular Heart Sounds: Present: S1 & S2. Absent: gallop, rub Extremities: pulses intact, No edema, normal color, Full ROM - Gastrointestinal General gastrointestinal: Present: soft, non-tender, non-distended, normal bowel sounds - Genitourinary Female genitourinary: normal - Integumentary Integumentary: clear, warm, dry - Musculoskeletal Musculoskeletal: 1, strength equal bilaterally - Neurologic Neurologic: moves all extremities - Psychiatric Psychiatric: memory intact, appropriate mood/affect, intact judgment & insight - Labs CBC & Chem 7: 11/04/21 04:55 11/04/21 04:55 HEART Score - HEART Score Troponin: Troponin T < 0.010 ng/mL (0.00-0.029) 11/03/21 12:07
[2021-11-07] MEDS: hydrALAZINE 25 MG TAB PO SCH (05:55)
[2021-11-07] MEDS: oxyCODONE /ACETAMINOPHEN 5-325MG TAB PO PRN (05:55)
[2021-11-07 08:25] VITALS: BP 130/92
--- NOTE | 2021-11-07 08:28 | XRay Report ---
CHEST 1 VIEW INDICATION / CLINICAL INFORMATION: chest tube STUDY TIME: 736 COMPARISON: 11/06/2021 FINDINGS: SUPPORT DEVICES: The right thoracostomy tube now appears to lie entirely external to the chest in the soft tissues. HEART / MEDIASTINUM: No significant abnormality. LUNGS / PLEURA: Chronic changes are again seen. There appear to be superimposed increase in markings in the lung bases bilaterally which possibly just atelectatic though early superimposed pneumonitis i s possible. Recommend follow-up and clinical correlation. No pneumothorax. ADDITIONAL FINDINGS: No significant additional findings. Signer Name: Ulysses Rivera MD Signed: 11/07/2021 8:24 AM Workstation Name: [id number]
--- NOTE | 2021-11-07 09:38 | Discharge Summary ---
Providers - Providers Date of Admission: 11/03/21 14:55 Date of discharge: 11/07/21 Attending physician: COLETTE TRACY MD 11/03/21 15:00 Consult to Physician [CONS] Routine Comment: Consulting Provider: LILIAN WORTHINGTON Physician Instructions: Reason For Exam: pneumothorax 11/04/21 09:09 Consult to Physician [CONS] Routine Comment: Consulting Provider: SENG JARRETT Physician Instructions: Reason For Exam: Spontaneous Right Pneumothorax Primary care physician: KIMO AJCQUES Hospitalization Reason for admission: Acute right pneumothorax, acute hypoxic respiratory failure Condition: Fair Pertinent studies: Reviewed. Procedures: Chest tube placement Hospital course: 55 YO Female with COPD, Sarcoidosis, HTN, Interstitial Lung Disease complicated by Chronic Respiratory Failure on 4L home oxygen via [place], Nicotine Dependence, DM presents to ED for evaluation. Patient reports "I cannot breathe". Patient states that she was in her usual state of health until she developed a sudden onset of shortness of breath this morning shortly after awakening from sleep. Patient acknowledges dry cough. EMS notified and upon arrival the patient was found to be in distress and subsequently the patient was transported to [facility] for further care and evaluation of the aforementioned symptoms. The patient was seen and evaluated in the emergency department. All lab and imaging studies reviewed. Patient found to have a pulse oximetry of 85% while on supplemental oxygen which is consistent with acute hypoxemic respiratory failure. Chest x- ray revealed right pneumothorax. Patient underwent chest tube placement in the emergency department. Pulmonology team consulted. Patient admitted to medical floor due to increased risk of worsening symptoms. Pulmonology and general surgery were consulted. Pulmonology placed a chest tube on admission. General surgery was later consulted for management of the chest tube that was discontinued/removed on 11/06/2021. Patient was monitored overnight with a repeat chest x-ray to evaluate pneumothorax. General surgery reassessed the patient, and deemed her appropriate for discharge. Patient will follow-up with [facility] cardiothoracic surgery department upon discharge. Patient is medically clear for discharge. Disposition: 01 HOME / SELF CARE / HOMELESS Final Discharge Diagnosis (Prints w/discharge instructions): Acute right pneumothorax, acute on chronic hypoxic respiratory failure, interstitial lung disease, tobacco dependence, sarcoidosis Time spent for discharge: 45 min Core Measure Documentation - Palliative Care Palliative Care/ Comfort Measures: Not Applicable - Core Measures Any of the following diagnoses?: none Exam - Constitutional Vitals: Temp Pulse Resp BP Pulse Ox 97.6 F 71 17 130/92 99 11/07/21 05:02 11/07/21 07:54 11/07/21 06:55 11/07/21 07:54 11/07/21 09:07 General appearance: Present: no acute distress, well-nourished - EENT Eyes: Present: PERRL, EOM intact ENT: hearing intact, clear oral mucosa, dentition normal - Neck Neck: Present: supple, normal ROM - Respiratory Respiratory effort: normal Respiratory: bilateral: diminished (on 4L nasal cannula (baseline)) - Cardiovascular Rhythm: regular Heart Sounds: Present: S1 & S2 - Extremities Extremities: no ischemia, pulses intact, pulses symmetrical, No edema, normal temperature, normal color, Full ROM Peripheral Pulses: within normal limits - Abdominal General gastrointestinal: Present: soft, non-tender, non-distended, normal bowel sounds Female genitourinary: Present: deferred - Rectal Rectal Exam: deferred - Integumentary Integumentary: Present: clear, warm, dry - Musculoskeletal Musculoskeletal: strength equal bilaterally - Psychiatric Psychiatric: appropriate mood/affect, intact judgment & insight, memory intact, cooperative - Neurologic Neurologic: CNII-XII intact, moves all extremities - Allied Health Allied health notes reviewed: nursing Plan Activity: advance as tolerated Diet: low salt Additional Instructions: 55 YO Female with COPD, Sarcoidosis, HTN, Interstitial Lung Disease complicated by Chronic Respiratory Failure on 4L home oxygen via [place], Nicotine Dependence, DM presents to ED for evaluation. Patient reports "I cannot breathe". Patient states that she was in her usual state of health until she developed a sudden onset of shortness of breath this morning shortly after awakening from sleep. Patient acknowledges dry cough. EMS notified and upon arrival the patient was found to be in distress and subsequently the patient was transported to [facility] for further care and evaluation of the aforementioned symptoms. The patient was seen and evaluated in the emergency department. All lab and imaging studies reviewed. Patient found to have a pulse oximetry of 85% while on supplemental oxygen which is consistent with acute hypoxemic respiratory failure. Chest x-ray revealed right pneumothorax. Patient underwent chest tube placement in the emergency department. Pulmonology team consulted. Patient admitted to medical floor due to increased risk of worsening symptoms. Pulmonology and general surgery were consulted. Pulmonology placed a chest tube on admission. General surgery was later consulted for management of the chest tube that was discontinued/removed on 11/06/2021. Patient was monitored overnight with a repeat chest x-ray to evaluate pneumothorax. General surgery reassessed the patient, and deemed her appropriate for discharge. Patient will follow-up with [facility] cardiothoracic surgery department upon discharge. Patient is medically clear for discharge. Care Plan Goals: Patient is medically clear for discharge. Assessment: 55 YO Female with COPD, Sarcoidosis, HTN, Interstitial Lung Disease complicated by Chronic Respiratory Failure on 4L home oxygen via [place], Nicotine Dependence, DM presents to ED for evaluation. Patient reports "I cannot breathe". Patient states that she was in her usual state of health until she developed a sudden onset of shortness of breath this morning shortly after awakening from sleep. Patient acknowledges dry cough. EMS notified and upon arrival the patient was found to be in distress and subsequently the patient was transported to [facility] for further care and evaluation of the aforementioned symptoms. The patient was seen and evaluated in the emergency department. All lab and imaging studies reviewed. Patient found to have a pulse oximetry of 85% while on supplemental oxygen which is consistent with acute hypoxemic respiratory failure. Chest x- ray revealed right pneumothorax. Patient underwent chest tube placement in the emergency department. Pulmonology team consulted. Patient admitted to medical floor due to increased risk of worsening symptoms. Pulmonology and general surgery were consulted. Pulmonology placed a chest tube on admission. General surgery was later consulted for management of the chest tube that was discontinued/removed on 11/06/2021. Patient was monitored overnight with a repeat chest x-ray to evaluate pneumothorax. General surgery reassessed the patient, and deemed her appropriate for discharge. Patient will follow-up with [facility] cardiothoracic surgery department upon discharge. Patient is medically clear for discharge. Follow up with: KIMO JACQUES MD [Primary Care Provider] - 7 Days Forms: Work/School Release Form Prescriptions: amLODIPine 5 mg PO DAILY #90 tab
[2021-11-07] MEDS: ARFORMOTEROL 15 MCG/2 ML NEBU IH SCH (09:57)
[2021-11-07] MEDS: amLODIPine 10 MG TAB PO SCH (10:22)
[2021-11-07] MEDS: methylPREDNISolone Sod Succinate 40 MG/1 ML INJ IV SCH (10:22)
[2021-11-07] MEDS: NICOTINE 14 MG/24 HR PATCH TD SCH (10:22)
--- NOTE | 2021-11-07 10:37 | Progress Note ---
Assessment and Plan Patient denies any shortness of breath. Chest x-ray yesterday with chest tube outside of the chest cavity and subcutaneous tissue. Repeat chest x-ray this morning again showing chest tube in the subcutaneous tissue. At the bedside this morning I was planning to remove the chest tube it was already spontaneously fell out and was on the floor. Patient was unaware that the tube had fallen out. Patient is cleared for discharge at this time. Recommend close follow-up with [facility]. Patient should try to get to the emergency rooms at these hospitals if the shortness of breath returns. Subjective Date of service: 11/07/21 Patient Reports: Positive: no new complaints Narrative: Patient denies any shortness of breath. Chest x-ray yesterday with chest tube outside of the chest cavity and subcutaneous tissue. Repeat chest x-ray this morning again showing chest tube in the subcutaneous tissue. At the bedside this morning I was planning to remove the chest tube it was already spontaneously fell out and was on the floor. Patient was unaware that the tube had fallen out. Patient is cleared for discharge at this time. Recommend close follow-up with [facility]. Patient should try to get to the emergency rooms at these hospitals if the shortness of breath returns. Objective Vital Signs - 12hr 11/06/21 11/06/21 11/07/21 22:56 23:53 00:35 Temperature 97.6 F Pulse Rate 77 74 Respiratory 19 Rate Blood Pressure 125/88 O2 Sat by Pulse 95 94 Oximetry 11/07/21 11/07/21 11/07/21 05:02 05:55 06:41 Temperature 97.6 F Pulse Rate 70 67 Respiratory 18 16 Rate Blood Pressure 136/88 O2 Sat by Pulse 92 Oximetry 11/07/21 11/07/21 11/07/21 06:55 07:54 09:07 Temperature Pulse Rate 71 Respiratory 17 Rate Blood Pressure 130/92 O2 Sat by Pulse 98 99 Oximetry - Labs 11/04/21 04:55 11/04/21 04:55
--- NOTE | 2021-11-07 10:55 | Progress Note ---
Assessment and Plan 55 YO Female with COPD, Sarcoidosis, HTN, Interstitial Lung Disease complicated by Chronic Respiratory Failure on 4L home oxygen via [place], Nicotine Dependence, DM presents to ED for evaluation. Patient states that she was in her usual state of health until she developed a sudden onset of shortness of breath this morning shortly after awakening from sleep. Patient acknowledges dry cough. EMS notified and upon arrival the patient was found to be in distress and subsequently the patient was transported to [facility] for further care and evaluation of the aforementioned symptoms. The patient was seen and evaluated in the emergency department. Patient found to have a pulse oximetry of 85% while on supplemental oxygen which is consistent with acute hypoxemic respiratory failure. Chest x-ray revealed right pneumothorax. Patient underwent chest tube placement in the emergency department. Patient admitted to medical floor due to increased risk of worsening symptoms. Patient denies fever, chills, chest pain, palpitation, skin rash, recent ill contacts, or known exposure to COVID- 19. Prior admission on 09/25/2021 reviewed. Patient has history of smoking 1 pack x 40 years. Drinks beer every day. 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 Patient has history of pneumothorax x 3. Patient awake. No complaint of chest pain, shortness of breath or cough.Patient is on room air O2 saturation 97%. Chest tube removed. Patient afebrile. No leukocytosis.Blood pressure 132/92, pulse 73, respiratory rate 18. Chest xray done 11/04/21 reported New tiny right apical pneumothorax. Slight change in position of the right pleural catheter. Improving bilateral parenchymal opacities. CXR 11/06/21 reports tiny right apical PTX resolved; Chest xray 11/07/21 reported Chronic changes are again seen. There appear to be superimposed increase in markings in the lung bases bilaterally which possibly just atelectatic though early superimposed pneumonitis is possible. Recommend follow-up and clinical correlation. No pneumothorax. Patient has no clinical symptoms of pneumonia. Patient is on I/V solumedrol, Brovanna aerosol treatments, Nicotine patch, DUOneb PRN for SOB; Recommend GI and DVT prophylaxis. - Patient Problems (1) Acute respiratory failure with hypoxia Status: Acute Plan to address problem: Patient presently on room air. O2 saturation 97%. Continue I/V solumedrol. Continue Brovanna Recommend albuterol/atrovent aerosol treatments q 6 hours prn for shortness of breath. Recommend DVT and GI prophylaxis. . (2) Pneumothorax, right Status: Acute Plan to address problem: Patients right lung expanded.Patients right chest tube removed. Recommend thoracic surgery referal for recurrent pneumothorax. (3) COPD exacerbation Status: Acute Plan to address problem: Continue I/V solumedrol. Continue Brovanna Recommend albuterol/atrovent aerosol treatments q 6 hours prn for shortness of breath. Recommend DVT and GI prophylaxis (4) Nicotine dependence Status: Acute Qualifiers: Nicotine product type: cigarettes Substance use status: in withdrawal Qualified Code(s): F17.213 - Nicotine dependence, cigarettes, with withdrawal Plan to address problem: Nicotin Patch. Counseled to stop smoking. (5) Sarcoidosis Status: Acute Plan to address problem: History of Sarcoidosis long time ago. Patient says treated at that time. Recommend URSZULA level. (6) HTN (hypertension) Status: Acute Plan to address problem: Management as per primary care. Subjective Date of service: 11/07/21 Principal diagnosis: Right pneumothorax Interval history: 55 YO Female with COPD, Sarcoidosis, HTN, Interstitial Lung Disease complicated by Chronic Respiratory Failure on 4L home oxygen via [place], Nicotine Dependence, DM presents to ED for evaluation. Patient states that she was in her usual state of health until she developed a sudden onset of shortness of breath this morning shortly after awakening from sleep. Patient acknowledges dry cough. EMS notified and upon arrival the patient was found to be in distress and subsequently the patient was transported to [facility] for further care and evaluation of the aforementioned symptoms. The patient was seen and evaluated in the emergency department. Patient found to have a pulse oximetry of 85% while on supplemental oxygen which is consistent with acute hypoxemic respiratory failure. Chest x-ray revealed right pneumothorax. Patient underwent chest tube placement in the emergency department. Patient admitted to medical floor due to increased risk of worsening symptoms. Patient denies fever, chills, chest pain, palpitation, skin rash, recent ill contacts, or known exposure to COVID- 19. Prior admission on 09/25/2021 reviewed. Patient has history of smoking 1 pack x 40 years. Drinks beer every day. 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 Patient has history of pneumothorax x 3. Patient awake. No complaint of chest pain, shortness of breath or cough.Patient is on room air O2 saturation 97%. Chest tube removed. Patient afebrile. No leukocytosis.Blood pressure 132/92, pulse 73, respiratory rate 18. Chest xray done 11/04/21 reported New tiny right apical pneumothorax. Slight change in position of the right pleural catheter. Improving bilateral parenchymal opacities. CXR 11/06/21 reports tiny right apical PTX resolved; Chest xray 11/07/21 reported Chronic changes are again seen. There appear to be superimposed increase in markings in the lung bases bilaterally which possibly just atelectatic though early superimposed pneumonitis is possible. Recommend follow-up and clinical correlation. No pneumothorax. Patient has no clinical symptoms of pneumonia. Patient is on I/V solumedrol, Brovanna aerosol treatments, Nicotine patch, DUOneb PRN for SOB; Recommend GI and DVT prophylaxis. Objective Vital Signs - 12hr 11/06/21 11/06/21 11/07/21 22:56 23:53 00:35 Temperature 97.6 F Pulse Rate 77 74 Respiratory 19 Rate Blood Pressure 125/88 O2 Sat by Pulse 95 94 Oximetry 11/07/21 11/07/21 11/07/21 05:02 05:55 06:41 Temperature 97.6 F Pulse Rate 70 67 Respiratory 18 16 Rate Blood Pressure 136/88 O2 Sat by Pulse 92 Oximetry 11/07/21 11/07/21 11/07/21 06:55 07:54 09:07 Temperature Pulse Rate 71 Respiratory 17 Rate Blood Pressure 130/92 O2 Sat by Pulse 98 99 Oximetry 11/07/21 10:00 Temperature Pulse Rate 73 Respiratory 18 Rate Blood Pressure O2 Sat by Pulse 97 Oximetry Constitutional: no acute distress, alert, other (Complaining right sided chest pain at chest tube site.; no SOB;) Eyes: non-icteric ENT: oropharynx moist Neck: supple, no lymphadenopathy Effort: normal Ascultation: Bilateral: other (Bilateral breath sounds heard.) Cardiovascular: regular rate and rhythm Gastrointestinal: normoactive bowel sounds, soft, non-tender Integumentary: normal Extremities: no cyanosis, no edema Neurologic: normal mental status, non-focal exam, pupils equal and round, CN II- XII normal Psychiatric: anxious CBC and BMP: 11/04/21 04:55 11/04/21 04:55 ABG, PT/INR, D-dimer: ABG ABG pH 7.470 pH Units (7.350-7.450) H 11/05/21 12:10 ABG pCO2 37.0 mm Hg 11/05/21 12:10 ABG pO2 72.6 mm Hg (80.0-90.0) L 11/05/21 12:10 ABG O2 Saturation 96.0 % (95.0-99.0) 11/05/21 12:10 PT/INR, D-dimer PT 12.9 Sec. (12.2-14.9) 11/03/21 12:07 INR 0.88 (0.87-1.13) 11/03/21 12:07 Abnormal lab findings: Abnormal Labs 11/03/21 11/03/21 11/04/21 12:07 12:07 04:55 WBC 13.3 H RBC 5.47 H 5.25 H Hgb 16.2 H 15.3 H Hct 50.8 H 48.4 H Lymph % (Auto) 8.3 L 9.7 L Lymph # (Auto) 1.1 L 0.6 L Seg Neutrophils % 86.4 H 86.0 H Seg Neutrophils # 11.5 H ABG pH ABG pO2 ABG HCO3 ABG Hemoglobin Oxyhemoglobin Sodium Chloride Glucose 163 H 11/04/21 11/05/21 04:55 12:10 WBC RBC Hgb Hct Lymph % (Auto) Lymph # (Auto) Seg Neutrophils % Seg Neutrophils # ABG pH 7.470 H ABG pO2 72.6 L ABG HCO3 26.3 H ABG Hemoglobin 16.5 H Oxyhemoglobin 94.0 L Sodium 133 L D Chloride 97.4 L Glucose 128 H Chest x-ray: report reviewed, image reviewed Additional Studies: CHEST 1 VIEW INDICATION / CLINICAL INFORMATION: chest tube STUDY TIME: 736 COMPARISON: 11/06/2021 FINDINGS: SUPPORT DEVICES: The right thoracostomy tube now appears to lie entirely external to the chest in the soft tissues. HEART / MEDIASTINUM: No significant abnormality. LUNGS / PLEURA: Chronic changes are again seen. There appear to be superimposed increase in markings in the lung bases bilaterally which possibly just atelectatic though early superimposed pneumonitis is possible. Recommend follow-up and clinical correlation. No pneumothorax.
== END 2021-11-07 12:30 | disposition home or self-care (01) | DRG 199 ==
LOC: ED 11:17 → 4A 14:55
PROVIDERS: ADMIT Internal Medicine; ATTEND Student in an Organized Health Care Education/Training Program
PROC: 5A09357 Assistance with Respiratory Ventilation, Less than 24 Consecutive Hours, Continuous Positive Airway Pressure (ICD-10-PCS; 2021-11-03)
PROC: 0W9930Z Drainage of Right Pleural Cavity with Drainage Device, Percutaneous Approach (ICD-10-PCS; 2021-11-03)
PROC: 4A033R1 Measurement of Arterial Saturation, Peripheral, Percutaneous Approach (ICD-10-PCS; principal; 2021-11-05)
DX: J93.9 Pneumothorax, unspecified (principal); J96.21 Acute and chronic respiratory failure with hypoxia; J84.9 Interstitial pulmonary disease, unspecified; F17.213 Nicotine dependence, cigarettes, with withdrawal; D86.9 Sarcoidosis, unspecified; J44.9 Chronic obstructive pulmonary disease, unspecified; Z83.3 Family history of diabetes mellitus; Z82.49 Family history of ischemic heart disease and other diseases of the circulatory system; Z90.49 Acquired absence of other specified parts of digestive tract; Z88.8 Allergy status to other drugs, medicaments and biological substances; Z98.51 Tubal ligation status
CPT/HCPCS: 36415; 36600; 71045; 80048; 82803; 84484; 85025; 85610; 93005; 94640; 94760; 99406; G0378; J3490; J1170; J2920